=== PATIENT | male | born 1940 | race Caucasian/White ===

== ENCOUNTER 2023-01-29 05:32 | Observation (INO) ==
[2023-01-29 06:10] LABS: Basophils # (auto) 0.02 K/uL (0-0.2); Basophils % (auto) 0.2 %; Eosinophils # (auto) 0.01 K/uL (0-0.50); Eosinophils % (auto) 0.1 %; Hematocrit (blood only) 40.7 % (42.0-52.0); Hemoglobin 13.9 g/dl (14.0-18.0); Immature Granulocytes # (auto) 0.03 K/uL (0.01-0.20); Immature Granulocytes % (auto) 0.4 %; Lymphocytes # (auto) 0.62 K/uL (1.2-3.4); Lymphocytes % (auto) 7.6 %; Mean Corpuscular Hemoglobin 30.3 pg (25.0-34.0); Mean Corpuscular Hgb Conc 34.2 g/dL (32.0-36.0); Mean Corpuscular Volume 88.7 fL (80.0-100.0); Mean Platelet Volume 10.1 fL (9.4-12.4); Monocytes # (auto) 0.17 K/uL (0.11-0.59); Monocytes % (auto) 2.1 %; Neutrophils # (auto) 7.35 K/uL (1.40-6.50); Neutrophils % (auto) 89.6 %; Platelet Count 221 K/uL (130-400); Red Blood Count 4.59 M/uL (4.70-6.10)
[2023-01-29] MEDS ORDERED: SODIUM CHLORIDE 0.9% 1000ML 1,000 ML IV ONE ×2 (06:23→10:57)
[2023-01-29 06:32] LABS: Appearance Urine Clear (Clear); Bacteria Urine Automated Negative (Negative); Bilirubin Urine Negative (Negative); Blood Urine Negative (Negative); Color Urine Yellow; Epithelial Cell Urine Auto 0-5 /lpf (0-5); Glucose Urine UA 2+ (Negative); Ketones Urine Negative (Negative); Leukocyte Esterase Urine Negative (Negative); Nitrite Urine Negative (Negative); RBC Urine Automated 0-4 /hpf (0-4); Urobilinogen Urine Negative (Negative); WBC Urine Automated 0 /hpf (0-5)
[2023-01-29 06:32] LABS: Albumin Level 4.2 gm/dl (3.4-5.0); BUN Creatinine Ratio 16.3 (10-20); Bilirubin Direct 0.1 mg/dl (0-0.2); Bilirubin,Total 0.7 mg/dl (0.2-1.0); Calcium 9.1 mg/dl (8.6-10.3); Creatinine Clr Calc Pharmacy 63.9 ml/min; Est GFR (African American) 97.8 ml/min; Est GFR (Non-African American) 84.4 ml/min; Magnesium 1.6 mg/dl (1.7-2.4); Potassium 4.1 mmol/L (3.5-5.1); Total Protein 7.3 gm/dl (6.0-8.3); Troponin I High Sensitivity 12.5 pg/ml (0-20)
[2023-01-29 06:44] LABS: Protein Urine 1+ (Negative)
[2023-01-29] MEDS ORDERED: CEFEPIME 2,000 MG/20 ML VIAL IV STA ×2 (06:49)
[2023-01-29] MEDS ORDERED: VANCOMYCIN CONSULT ACTIVE PRN (06:49)
[2023-01-29] MEDS ORDERED: VANCOMYCIN HCL 1,500 MG in SODIUM CHLORIDE 0.9% 500 ML IV ONE (06:49)
--- NOTE | 2023-01-29 07:01 | XRay Report ---
XR chest 1V portable HISTORY: 82 years-old Male Sepsis acute sepsis COMPARISON: None TECHNIQUE: AP view of the chest FINDINGS: Cardiac silhouette is enlarged. Atherosclerosis of the aorta. No pneumothorax, pleural effusion, airs pace consolidation or pulmonary edema. Degenerative changes of the shoulders and spine. Cholecystecto my. Upper lumbar vertebral plasty. IMPRESSION: No acute process. ACT 112: Negative or not required by law. The above report was generated using voice recognition software. It may contain grammatical, syntax o r spelling errors. Electronically signed by: Avelino Salter M.D. 01/29/2023 7:00 AM
[2023-01-29] MEDS ORDERED: ACETAMINOPHEN 1000 MG/100 ML IV IV ONE (07:07)
[2023-01-29] MEDS ORDERED: ACETAMINOPHEN 1,000 MG/100 ML VIAL IV STA (07:12)
[2023-01-29 07:47] LABS: Adenovirus PCR Not Detected (NotDetected); Bordetella parapertussis PCR Not Detected (NotDetected); Bordetella pertussis PCR Not Detected (NotDetected); Chlamydia pneumoniae PCR Not Detected (NotDetected); Coronavirus 229E PCR Not Detected (NotDetected); Coronavirus CoV-2 (COVID19)PCR Not Detected (NotDetected); Coronavirus HKU1 PCR Not Detected (NotDetected); Coronavirus NL63 PCR Not Detected (NotDetected); Coronavirus OC43PCR Not Detected (NotDetected); Human Metapneumovirus PCR Not Detected (NotDetected); Influenza A PCR Not Detected (NotDetected); Influenza B PCR Not Detected (NotDetected); Mycoplasma pneumoniae PCR Not Detected (NotDetected); Parainfluenza Virus 1 PCR Not Detected (NotDetected); Parainfluenza Virus 2 PCR Not Detected (NotDetected); Parainfluenza Virus 3 PCR Not Detected (NotDetected); Parainfluenza Virus 4 PCR Not Detected (NotDetected); Respiratory Syncytial VirusPCR Not Detected (NotDetected); Rhinovirus/Enterovirus PCR Not Detected (NotDetected)
--- NOTE | 2023-01-29 07:51 | Emergency Department Note ---
Impression & Plan Fever, Generalized weakness, Altered mental status ED Provider Note INFORMANT: Patient and family ED PROVIDER(S): Reji Dominguez DO CHIEF COMPLAINT: Fever and generalized weakness and mild confusion PLAN: Disposition: Admission Outpatient prescription management: none Discussion with: I spoke with the hospitalist, who will see the patient for admission/observation and further evaluation and consultation. MEDICAL DECISION MAKING: This is a 82-year-old male who presents to the ED with a chief complaint of generalized weakness as well as some mild confusion. The patient is noted to have a fever here today. The states that he was fine yesterday. He was his normal self. He might have some mild baseline dementia but otherwise is able to carry on a conversation and answer questions appropriately as well as ambulate without difficulty. Overnight the patient was found to be incontinent of urine and seemed to be a little confused as to where he was. He was sitting on the floor and the was unable to get him up because he was too weak. He seemed a little confused this morning according to the as well. She was concerned and brought him in for evaluation. The patient is noted to have a fever of 38.7 here today. On my exam he is awake. He is very tired and falls asleep during the interview. The patient does answer questions appropriately. He does not have any skin rashes or cellulitis on my exam. His lungs are clear. Heart is regular rate and rhythm. No meningismus. No photosensitivity. Abdomen is soft and nontender. An EKG shows a sinus bradycardia at a rate of 59 with a first-degree AV block and right bundle branch block. CBC did not show anemia or leukocytosis. Lactic acid is mildly elevated 2.8. Glucose is elevat ed 312. He is a diabetic. Troponin was negative for myocardial infarction. Procalcitonin was negative. Chest x-ray did not show pneumonia. COVID test was negative and a urine did not show infection. Viral panel was negative. The source of the patient's fever is unclear at this point. Denies any upper respiratory symptoms. The patient was empirically treated with IV cefepime and IV vancomycin. He was also given a liter of normal saline IV. After liter of normal saline, the patient's blood pressure was elevated. At this point I do not feel the patient is in septic shock and does not require additional IV fluids, per sepsis protocol. He was given some IV Tylenol. He will be seen by the hospitalist for further evaluation and care. Triage Nursing notes reviewed. Vital Signs: reviewed Prior /Outside records reviewed: none Differential diagnosis: Differential includes acute coronary syndrome, myocardial infarction, CVA, TIA, anemia, infection, pneumonia, UTI, pyelonephritis, poor nutrition, dehydration, electrolyte disturbance,hypoglycemia. Diagnostics, as interpreted by me: 12 lead ECG: Sinus bradycardia rate of 59. Right bundle branch block. No ST elevation. No PVCs. Normal QTc Cardiac Monitoring ordered: Sinus rhythm in the 60s Medical decision rules: none Imaging studies: Chest x-ray: No acute disease. No pneumonia Procedures: none. Critical care: none. HPI: See MDM above. PAST MEDICAL HISTORY: See Below PAST SURGICAL HISTORY: See Below SOCIAL HISTORY: See Below HOME MEDICATIONS:See Below ALLERGIES: See Below VITALS: See Below PHYSICAL EXAMINATION: See MDM for positive findings otherwise unremarkable. CONSTITUTIONAL/VITAL SIGNS: Reviewed GENERAL:done as appropriate INTEGUMENTARY: done as appropriate HEAD: done as appropriate EYES: done as appropriate RESPIRATORY: done as appropriate CARDIOVASCULAR:done as appropriate GI/ABDOMEN:done as appropriate EXTREMITIES: done as appropriate NEUROLOGICAL: done as appropriate PSYCHIATRIC:done as appropriate MUSCULOSKELETAL:done as appropriate TRIAGE NURSING DOCUMENTATION REVIEWED. Past Med/Surg History Social History Smoking Status: Former smoker Tobacco Type: Cigarettes Feels Safe at Home: Yes Results & Data (ED) Vital Signs Vital Signs - 24 hr 01/29/23 05:28 01/29/23 05:28 01/29/23 05:44 Temperature 38.7 C H Temperature Source Oral Pulse Rate 59 L 60 Pulse Rate from SpO2 Sensor Pulse Rhythm Regular Respiratory Rate 18 18 Respiratory Effort / Characteristics Non-Labored Spontaneous Non-Labored Spontaneous Respiratory Depth Normal Blood Pressure 163/73 H Blood Pressure Mean 103 Pulse Oximetry 96 96 Oxygen Delivery Method Room Air Room Air Sepsis Recent Fever Within 48 Hours Yes Sepsis New/Unexplained Change in Mental Status No Sepsis Action Taken by Nursing No Action Required 01/29/23 05:44 01/29/23 05:41 01/29/23 05:41 Temperature Temperature Source Pulse Rate 60 58 L Pulse Rate from SpO2 Sensor 59 L Pulse Rhythm Respiratory Rate 19 Respiratory Effort / Characteristics Non-Labored Spontaneous Respiratory Depth Blood Pressure 163/73 H Blood Pressure Mean 103 Pulse Oximetry 96 Oxygen Delivery Method Sepsis Recent Fever Within 48 Hours Sepsis New/Unexplained Change in Mental Status Sepsis Action Taken by Nursing 01/29/23 05:47 01/29/23 05:50 01/29/23 06:00 Temperature Temperature Source Pulse Rate 61 58 L 71 Pulse Rate from SpO2 Sensor 60 56 L Pulse Rhythm Respiratory Rate 15 12 26 H Respiratory Effort / Characteristics Respiratory Depth Blood Pressure 152/72 H Blood Pressure Mean 98 Pulse Oximetry 98 96 Oxygen Delivery Method Sepsis Recent Fever Within 48 Hours Sepsis New/Unexplained Change in Mental Status Sepsis Action Taken by Nursing 01/29/23 06:10 01/29/23 06:46 01/29/23 07:00 Temperature Temperature Source Pulse Rate 56 L 56 L 58 L Pulse Rate from SpO2 Sensor 56 L Pulse Rhythm Respiratory Rate 20 14 15 Respiratory Effort / Characteristics Respiratory Depth Blood Pressure 180/78 H 182/73 H Blood Pressure Mean 112 109 Pulse Oximetry 96 96 95 Oxygen Delivery Method Sepsis Recent Fever Within 48 Hours Sepsis New/Unexplained Change in Mental Status Sepsis Action Taken by Nursing 01/29/23 07:15 01/29/23 07:30 Temperature Temperature Source Pulse Rate 57 L 56 L Pulse Rate from SpO2 Sensor 57 L Pulse Rhythm Respiratory Rate 20 20 Respiratory Effort / Characteristics Respiratory Depth Blood Pressure 159/65 H 146/60 H Blood Pressure Mean 96 88 Pulse Oximetry 96 96 Oxygen Delivery Method Sepsis Recent Fever Within 48 Hours Sepsis New/Unexplained Change in Mental Status Sepsis Action Taken by Nursing Laboratory Data 01/29/23 05:41 01/29/23 05:41 Lab Results 01/29/23 01/29/23 01/29/23 Range/Units 05:41 05:41 05:41 WBC 8.20 (4.8-10.8) K/ul RBC 4.59 L (4.70-6.10) M/uL Hgb 13.9 L (14.0-18.0) g/dl Hct 40.7 L (42.0-52.0) % MCV 88.7 (80.0-100.0) fL MCH 30.3 (25.0-34.0) pg MCHC 34.2 (32.0-36.0) g/dL RDW Std Deviation 42.0 (36.4-46.3) fL RDW Coeff of James 13.0 (11.5-14.5) % Plt Count 221 (130-400) K/uL MPV 10.1 (9.4-12.4) fL Immature Gran % (Auto) 0.4 % Neut % (Auto) 89.6 % Lymph % (Auto) 7.6 % [place] % (Auto) 2.1 % Eos % (Auto) 0.1 % Baso % (Auto) 0.2 % Neut # (Auto) 7.35 H (1.40-6.50) K/uL Lymph # (Auto) 0.62 L (1.2-3.4) K/uL [place] # (Auto) 0.17 (0.11-0.59) K/uL Eos # (Auto) 0.01 (0-0.50) K/uL Baso # (Auto) 0.02 (0-0.2) K/uL Immature Gran # (Auto) 0.03 (0.01-0.20) K/uL Sodium 137 (136-145) mmol/L Potassium 4.1 (3.5-5.1) mmol/L Chloride 100 (98-107) mmol/L Carbon Dioxide 27 (21-32) mmol/L Anion Gap 10 (3-11) BUN 13 (6-23) mg/dl Creatinine 0.80 (0.6-1.4) mg/dl Est Cr Clr Drug Dosing 63.9 ml/min Est GFR ( Amer) 97.8 ml/min Est GFR (Non-Af Amer) 84.4 ml/min BUN/Creatinine Ratio 16.3 (10-20) Glucose 312 H* (70-99(Fasting)) mg/dl Lactate (0.4-2.0) mmol/L Calcium 9.1 (8.6-10.3) mg/dl Magnesium 1.6 L (1.7-2.4) mg/dl Total Bilirubin 0.7 (0.2-1.0) mg/dl Direct Bilirubin 0.1 (0-0.2) mg/dl AST 25 (13-39) U/L ALT 29 (7-52) U/L Alkaline Phosphatase 158 H (34-104) U/L Troponin I High Sens 12.5 (0-20) pg/ml Total Protein 7.3 (6.0-8.3) gm/dl Albumin 4.2 (3.4-5.0) gm/dl Procalcitonin 0.09 (0-0.5) ng/ml Urine Color Urine Appearance (Clear) Urine pH (4.5-7.5) Ur Specific [place] (1.000-1.030) Urine Protein (Negative) Urine Glucose (UA) (Negative) Urine Ketones (Negative) Urine Blood (Negative) Urine Nitrite (Negative) Urine Bilirubin (Negative) Urine Urobilinogen (Negative) Ur Leukocyte Esterase (Negative) Urine WBC (Auto) (0-5) /hpf Urine RBC (Auto) (0-4) /hpf U Hyaline Cast (Auto) (0-5) /lpf U Epithel Cells (Auto) (0-5) /lpf Urine Bacteria (Auto) (Negative) Adenovirus (PCR) (NotDetected) B. pertussis DNA (PCR) (NotDetected) B.parapertussis DNA PCR (NotDetected) C. pneumoniae DNA (PCR) (NotDetected) Coronavirus OC43 (PCR) (NotDetected) Coronavirus HKU1 (PCR) (NotDetected) Coronavirus 229E (PCR) (NotDetected) SARS-CoV-2 (PCR) (NotDetected) Coronavirus NL63 (PCR) (NotDetected) Human Metapneumovir PCR (NotDetected) Influenza Type A (PCR) (NotDetected) Influenza Type B (PCR) (NotDetected) M. pneumoniae (PCR) (NotDetected) Parainfluenza 1 (PCR) (NotDetected) Parainfluenza 2 (PCR) (NotDetected) Parainfluenza 3 (PCR) (NotDetected) Parainfluenza 4 (PCR) (NotDetected) RSV (PCR) (NotDetected) Entero/Rhino (PCR) (NotDetected) SARS-CoV-2, RNA, NAAT (NEGATIVE) 01/29/23 01/29/23 01/29/23 Range/Units 05:50 05:50 06:13 WBC (4.8-10.8) K/ul RBC (4.70-6.10) M/uL Hgb (14.0-18.0) g/dl Hct (42.0-52.0) % MCV (80.0-100.0) fL MCH (25.0-34.0) pg MCHC (32.0-36.0) g/dL RDW Std Deviation (36.4-46.3) fL RDW Coeff of James (11.5-14.5) % Plt Count (130-400) K/uL MPV (9.4-12.4) fL Immature Gran % (Auto) % Neut % (Auto) % Lymph % (Auto) % [place] % (Auto) % Eos % (Auto) % Baso % (Auto) % Neut # (Auto) (1.40-6.50) K/uL Lymph # (Auto) (1.2-3.4) K/uL [place] # (Auto) (0.11-0.59) K/uL Eos # (Auto) (0-0.50) K/uL Baso # (Auto) (0-0.2) K/uL Immature Gran # (Auto) (0.01-0.20) K/uL Sodium (136-145) mmol/L Potassium (3.5-5.1) mmol/L Chloride (98-107) mmol/L Carbon Dioxide (21-32) mmol/L Anion Gap (3-11) BUN (6-23) mg/dl Creatinine (0.6-1.4) mg/dl Est Cr Clr Drug Dosing ml/min Est GFR ( Amer) ml/min Est GFR (Non-Af Amer) ml/min BUN/Creatinine Ratio (10-20) Glucose (70-99(Fasting)) mg/dl Lactate 2.8 H* (0.4-2.0) mmol/L Calcium (8.6-10.3) mg/dl Magnesium (1.7-2.4) mg/dl Total Bilirubin (0.2-1.0) mg/dl Direct Bilirubin (0-0.2) mg/dl AST (13-39) U/L ALT (7-52) U/L Alkaline Phosphatase (34-104) U/L Troponin I High Sens (0-20) pg/ml Total Protein (6.0-8.3) gm/dl Albumin (3.4-5.0) gm/dl Procalcitonin (0-0.5) ng/ml Urine Color Yellow Urine Appearance Clear (Clear) Urine pH 8.0 H (4.5-7.5) Ur Specific [place] 1.020 (1.000-1.030) Urine Protein 1+ H (Negative) Urine Glucose (UA) 2+ H (Negative) Urine Ketones Negative (Negative) Urine Blood Negative (Negative) Urine Nitrite Negative (Negative) Urine Bilirubin Negative (Negative) Urine Urobilinogen Negative (Negative) Ur Leukocyte Esterase Negative (Negative) Urine WBC (Auto) 0 (0-5) /hpf Urine RBC (Auto) 0-4 (0-4) /hpf U Hyaline Cast (Auto) 1-5 (0-5) /lpf U Epithel Cells (Auto) 0-5 (0-5) /lpf Urine Bacteria (Auto) Negative (Negative) Adenovirus (PCR) (NotDetected) B. pertussis DNA (PCR) (NotDetected) B.parapertussis DNA PCR (NotDetected) C. pneumoniae DNA (PCR) (NotDetected) Coronavirus OC43 (PCR) (NotDetected) Coronavirus HKU1 (PCR) (NotDetected) Coronavirus 229E (PCR) (NotDetected) SARS-CoV-2 (PCR) (NotDetected) Coronavirus NL63 (PCR) (NotDetected) Human Metapneumovir PCR (NotDetected) Influenza Type A (PCR) (NotDetected) Influenza Type B (PCR) (NotDetected) M. pneumoniae (PCR) (NotDetected) Parainfluenza 1 (PCR) (NotDetected) Parainfluenza 2 (PCR) (NotDetected) Parainfluenza 3 (PCR) (NotDetected) Parainfluenza 4 (PCR) (NotDetected) RSV (PCR) (NotDetected) Entero/Rhino (PCR) (NotDetected) SARS-CoV-2, RNA, NAAT NEGATIVE (NEGATIVE) 01/29/23 Range/Units 06:40 WBC (4.8-10.8) K/ul RBC (4.70-6.10) M/uL Hgb (14.0-18.0) g/dl Hct (42.0-52.0) % MCV (80.0-100.0) fL MCH (25.0-34.0) pg MCHC (32.0-36.0) g/dL RDW Std Deviation (36.4-46.3) fL RDW Coeff of James (11.5-14.5) % Plt Count (130-400) K/uL MPV (9.4-12.4) fL Immature Gran % (Auto) % Neut % (Auto) % Lymph % (Auto) % [place] % (Auto) % Eos % (Auto) % Baso % (Auto) % Neut # (Auto) (1.40-6.50) K/uL Lymph # (Auto) (1.2-3.4) K/uL [place] # (Auto) (0.11-0.59) K/uL Eos # (Auto) (0-0.50) K/uL Baso # (Auto) (0-0.2) K/uL Immature Gran # (Auto) (0.01-0.20) K/uL Sodium (136-145) mmol/L Potassium (3.5-5.1) mmol/L Chloride (98-107) mmol/L Carbon Dioxide (21-32) mmol/L Anion Gap (3-11) BUN (6-23) mg/dl Creatinine (0.6-1.4) mg/dl Est Cr Clr Drug Dosing ml/min Est GFR ( Amer) ml/min Est GFR (Non-Af Amer) ml/min BUN/Creatinine Ratio (10-20) Glucose (70-99(Fasting)) mg/dl Lactate (0.4-2.0) mmol/L Calcium (8.6-10.3) mg/dl Magnesium (1.7-2.4) mg/dl Total Bilirubin (0.2-1.0) mg/dl Direct Bilirubin (0-0.2) mg/dl AST (13-39) U/L ALT (7-52) U/L Alkaline Phosphatase (34-104) U/L Troponin I High Sens (0-20) pg/ml Total Protein (6.0-8.3) gm/dl Albumin (3.4-5.0) gm/dl Procalcitonin (0-0.5) ng/ml Urine Color Urine Appearance (Clear) Urine pH (4.5-7.5) Ur Specific [place] (1.000-1.030) Urine Protein (Negative) Urine Glucose (UA) (Negative) Urine Ketones (Negative) Urine Blood (Negative) Urine Nitrite (Negative) Urine Bilirubin (Negative) Urine Urobilinogen (Negative) Ur Leukocyte Esterase (Negative) Urine WBC (Auto) (0-5) /hpf Urine RBC (Auto) (0-4) /hpf U Hyaline Cast (Auto) (0-5) /lpf U Epithel Cells (Auto) (0-5) /lpf Urine Bacteria (Auto) (Negative) Adenovirus (PCR) Not Detected (NotDetected) B. pertussis DNA (PCR) Not Detected (NotDetected) B.parapertussis DNA PCR Not Detected (NotDetected) C. pneumoniae DNA (PCR) Not Detected (NotDetected) Coronavirus OC43 (PCR) Not Detected (NotDetected) Coronavirus HKU1 (PCR) Not Detected (NotDetected) Coronavirus 229E (PCR) Not Detected (NotDetected) SARS-CoV-2 (PCR) Not Detected (NotDetected) Coronavirus NL63 (PCR) Not Detected (NotDetected) Human Metapneumovir PCR Not Detected (NotDetected) Influenza Type A (PCR) Not Detected (NotDetected) Influenza Type B (PCR) Not Detected (NotDetected) M. pneumoniae (PCR) Not Detected (NotDetected) Parainfluenza 1 (PCR) Not Detected (NotDetected) Parainfluenza 2 (PCR) Not Detected (NotDetected) Parainfluenza 3 (PCR) Not Detected (NotDetected) Parainfluenza 4 (PCR) Not Detected (NotDetected) RSV (PCR) Not Detected (NotDetected) Entero/Rhino (PCR) Not Detected (NotDetected) SARS-CoV-2, RNA, NAAT (NEGATIVE) Administered Medications Vancomycin HCl 1,500 mg/ (Sodium Chloride) 530 mls @ 200 mls/hr IV NOW ONE Stop: 01/29/23 09:27 Last Admin: 01/29/23 07:38 Dose: 200 mls/hr Documented By: NA Discontinued Medications Acetaminophen (Acetaminophen 1000 Mg/100 Ml Iv) Confirm Administered Dose 1,000 mg IV .STK-MED ONE Stop: 01/29/23 07:08 Last Admin: 01/29/23 07:09 Dose: 1,000 mg Documented By: BRIDGET Sodium Chloride (Nss 1000ml) 1,000 mls @ 999 mls/hr IV .[id number] ONE Stop: 01/29/23 07:23 Last Infusion: 01/29/23 07:19 Dose: 0 mls/hr Documented By: Admin: 01/29/23 06:26 Dose: 999 mls/hr Documented By: LESLEE Cefepime HCl (Maxipime) 2,000 mg in 20 mls @ 5 mls/min IV NOW STA; Protocol Stop: 01/29/23 06:52 Last Admin: 01/29/23 07:01 Dose: 5 mls/min Documented By: BRIDGET Cefepime HCl (Maxipime) 2,000 mg in 20 mls @ 5 mls/min IV NOW STA; Protocol Stop: 01/29/23 06:52 Last Admin: 01/29/23 07:01 Dose: Not Given Documented By: BRIDGET Acetaminophen (Ofirmev) 1,000 mg in 100 mls @ 400 mls/hr IV NOW STA Stop: 01/29/23 07:26 Last Admin: 01/29/23 07:13 Dose: Not Given Documented By: BRIDGET Imaging Data Radiologist's Impression: Chest X-Ray 01/29/23 05:44 XR chest 1V portable HISTORY: 82 years-old Male Sepsis acute sepsis COMPARISON: None TECHNIQUE: AP view of the chest FINDINGS: Cardiac silhouette is enlarged. Atherosclerosis of the aorta. No pneumothorax, pleural effusion, airspace consolidation or pulmonary edema. Degenerative changes of the shoulders and spine. Cholecystectomy. Upper lumbar vertebral plasty. IMPRESSION: No acute process. ACT 112: Negative or not required by law. The above report was generated using voice recognition software. It may contain grammatical, syntax or spelling errors. Electronically signed by: Avelino Salter M.D. 01/29/2023 7:00 AM Discharge Plan Visit Data Chief Complaint: Weakness Stated Complaint: Rolled out of Bed, Weaker than normal ED Provider: Reji Dominguez Discharge Problem: Fever, Generalized weakness, Altered mental status Patient Disposition: Being Evaluated by Hospitalist Forms Stand Alone Forms: [facility] Referrals Referrals: Sowmya Manzo M.D. [Primary Care Provider] -
[2023-01-29] MEDS ORDERED: MAGNESIUM SULFATE / D5W 1 GM/100 ML BAG IV ONE (08:45)
[2023-01-29] MEDS ORDERED: SODIUM CHLORIDE 0.9% 1000ML 1,000 ML IV SCH (09:00)
--- NOTE | 2023-01-29 09:12 | CT Scan Report ---
CT head/brain wo con CLINICAL HISTORY: 82 years-old Male with AMS, fall, fever. Acute head injury status post fall TECHNIQUE: Multiple axial CT images of the head were obtained without contrast. A dose lowering tech nique was utilized adhering to the principles of ALARA. CT DOSE: 625.80 mGy.cm COMPARISON: None. FINDINGS: No acute intracranial hemorrhage, midline shift, intracranial mass, acute territorial ischemia or abn ormal extra-axial collection. 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 Cerebr ovascular calcifications. Ventriculomegaly, likely on an ex vacuo basis. Basilar arterial tortuosity. Cerebellar parenchymal calcifications. Subcentimeter age-indeterminate lacunar infarcts of the right thalamus. 9 mm hypodense focus in the left pontine brainstem, image 10 series 2. The calvarium is intact. Mild polypoid mucosal thickening of the right maxillary sinus. Mastoid air cells are clear. Prior bilateral antral IMPRESSION: 1. No acute intracranial hemorrhage, midline shift or acute territorial infarct. 2. Age-indeterminate subcentimeter right thalamic and left pontine lacunar infarcts. ACT 112: Negative or not required by law. The above report was generated using voice recognition software. It may contain grammatical, syntax o r spelling errors. Electronically signed by: Avelino Salter M.D. 01/29/2023 9:09 AM
[2023-01-29] MEDS ORDERED: GLUCOSE 10 TAB/TUBE PO PRN (09:52)
[2023-01-29] MEDS ORDERED: DEXTROSE 50% 50 ML SYRINGE IV PRN (09:52)
[2023-01-29] MEDS ORDERED: ACETAMINOPHEN 325 MG TAB PO PRN (09:52)
[2023-01-29] MEDS ORDERED: GLUCAGON FOR INJ 1 MG VIAL SQ PRN (09:52)
[2023-01-29] MEDS ORDERED: GLUCOSE 40% GEL 15 GM TUBE PO PRN (09:52)
[2023-01-29] MEDS ORDERED: CARBOHYDRATES FOR HYPOGLYCEMIA PO PRN (09:52)
[2023-01-29] MEDS ORDERED: PHARMACY GLYCEMIC MGMT CONSULT PRN (09:52)
--- NOTE | 2023-01-29 09:53 | History & Physical Report ---
Date of Service January 29, 2023 Assessment & Plan (1) Fever: (2) Altered mental status: (3) Generalized weakness: Plan: Admit to tele Patient presenting from home for evaluation of AMS and generalized weakness. Found to be febrile in the ED. Metabolic encephalopathy due to acute illness. Noted mild underlying dementia. T 38.7, lactate 2.8 --> 3.0. No leukocytosis, BP stable. UA, CXR, Head CT unremarkable Given reports of headache, will obtain LP s/p Vanco and Cefepime in ED, will continue with Vanco and Zosyn -- may need to adjust pending LP results Check Lyme panel, anaplasma and Babesia smears Follow blood and urine cultures (4) Elevated lactic acid level: Plan: Lactate 2.8 --> 3.0 ? due to hyperglycemia vs possible sepsis Continue IVF and trend lactate (5) Hyperglycemia: (6) DM type 2 (diabetes mellitus, type 2): Plan: Glucose 312 -- hx NIDDM, unknown recent A1c notes recent dietary indiscretions of fast food and sweets. No signs of DKA Hold oral agents, utilize Lantus and Novolog per protocol while hospitalized A1c with AM labs Glycemic pharmacy consult (7) Bradycardia: Plan: EKG show sinus bradycardia with 1st degree AV block HR dropped to the 30s during my exam Monitor on tele Not on any AV venu blocking agents Echo (8) HTN (hypertension): Plan: BP controlled, continue Lisinopril and amlodipine (9) History of CVA (cerebrovascular accident): Plan: Continue ASA and statin (10) Dementia: Plan: Hx underlying mild dementia Continue donepezil (11) BPH (benign prostatic hyperplasia): Plan: Continue tamsulosin DVT PROPHYLAXIS SQ Lovenox Patient seen in collaboration with Dr. Madera. I spent a total of 75 minutes coordinating, documenting, and providing care for this patient excluding time spent in the performance of separately billed services. This included personally reviewing all current laboratories and imaging studies, medication reconciliation, outpatient chart review, and discussion with specialists. Admission and Anticipated Discharge Date Admission Date: January 29, 2023 History of Present Illness Chief Complaint: Altered mental status, generalized weakness Primary Care Provider: Sowmya Manzo 82-year-old male with PMH DM type II, osteoporosis, history of CVA and TIA, history of compression fracture, dementia, and other problems listed below who presents to the ED for evaluation of altered mental status and generalized weakness. History currently unobtainable from the patient. History obtained from patient's and daughter who are at the bedside. states that they recently moved from [place] to [place] a little over 1 week ago. Last evening, patient went to bed around 10:00 complaining of a headache. states that patient does have history of migraines however has not had 1 for a very long time. Around 3 AM, woke up to find patient had urinated in various places in the home and found soiled underwear laying on the floor. Patient was in bed. Shortly after, found patient on the floor. She did not hear him fall. She found him to be lethargic, confused, unable to stand up. EMS was called and patient was brought to the ED for further evaluation. states that patient has been urinating more frequently recently. She reports that they have been eating more fast food and desserts during their move. Patient does check his blood sugars on a daily basis however is unsure of readings. Otherwise patient has been doing well. He has mild dementia at baseline and has episodes of confusion however remains fairly independent and works out in the gym 3 to 4 days a week. In the ED, patient is found to be febrile at 38.7. Labs show glucose 312, lactate 2.8 --> 3.0. UA, CXR, head CT unremarkable. Patient received Tylenol, IVF, IV Vanco, IV cefepime. Allergies Allergy/AdvReac Type Severity Reaction Status Date / Time No Known Allergies Allergy Unverified 01/29/23 10:20 Home Medications Medication Instructions Recorded Confirmed Type amlodipine 2.5 mg tablet 2.5 mg PO DAILY 01/29/23 01/29/23 History aspirin 81 mg chewable tablet 81 mg PO DAILY 01/29/23 01/29/23 History atorvastatin 20 mg tablet 20 mg PO HS 01/29/23 01/29/23 History calcium carbonate 600 mg calcium 600 mg PO DAILY 01/29/23 01/29/23 History (1,500 mg) tablet (Calcium) cholecalciferol (vitamin D3) 125 125 mcg PO DAILY 01/29/23 01/29/23 History mcg (5,000 unit) capsule donepezil 10 mg tablet 10 mg PO DAILY 01/29/23 01/29/23 History ipratropium bromide 42 mcg (0.06 2 spray intranasal BID PRN 01/29/23 01/29/23 History %) nasal spray Congestion lisinopril 10 mg tablet 10 mg PO BID 01/29/23 01/29/23 History metformin 1,000 mg tablet 1,000 mg PO BID 01/29/23 01/29/23 History mv-mn-folic 200 mcg-vit K 15 1 cap PO DAILY 01/29/23 01/29/23 History mcg-lutein 5 mg-zeaxanthin 1 mg capsule (PreserVision AREDS 2 Plus Multivit) sitagliptin phosphate 50 mg tablet 50 mg PO DAILY 01/29/23 01/29/23 History (Januvia) tamsulosin 0.4 mg capsule 0.4 mg PO DAILY 01/29/23 01/29/23 History teriparatide 20 mcg/dose (600 20 mcg subcut DAILY 01/29/23 01/29/23 History mcg/2.4 mL) subcutaneous pen injector (Forteo) Past Med/Surg History Medical History (Updated 01/29/23 @ 10:06 by TRACEY Jorge) Basal cell carcinoma BPH (benign prostatic hyperplasia) Dementia DM type 2 (diabetes mellitus, type 2) History of compression fracture of spine History of CVA (cerebrovascular accident) History of TIA (transient ischemic attack) HTN (hypertension) Osteoporosis Spontaneous pneumothorax Surgical History History of back surgery History of cholecystectomy History of hernia repair History of total bilateral knee replacement Social History Smoking Status: Former smoker Tobacco Type: Cigarettes Hx Alcohol Use: No Hx Substance Use: No Preferred Language: Bulgarian Communication Ability: Effective Sensory Scientist Required: No Beliefs That Will Affect Care: None Current Living Situation: Spouse Other Information That Helps Us Care for You: No Feels Safe at Home: Yes Safety Concerns: Feels Safe At This Time Assistive Devices: Denture - Upper, Denture - Lower and Glasses Review of Systems Review of Systems: Unobtainable due to AMS Physical Exam Constitutional: WD/WN, vitals as above Eyes: PERRL, conjunctivae normal, anicteric sclerae ENMT: external ear and nose normal, oropharynx normal Respiratory: normal respiratory effort, lungs clear to auscultation Cardiovascular: Rate/Rhythm: regular rhythm and + bradycardic Vessels: normal peripheral pulses Extremities: no edema Gastrointestinal (Abdomen): normal bowel sounds, soft, nontender, no hepatosplenomegaly Musculoskeletal: Extremities: no cyanosis and no clubbing Skin: no rashes, warm and dry Neurologic: PERRL, EOMI, accommodation nl, no face palsy, no dysarthria moves all extremities; no focal motor deficits Lethargic but arouses to verbal stimuli, follows simple commands, appears to be generally weak throughout Results & Data Results & Data Vital Signs (Past 12 Hours) Vital Signs Temp Pulse Pulse Resp BP BP Pulse Ox 01/29/23 09:22 58 L 16 130/55 L 97 01/29/23 09:00 38.3 C H 60 16 138/61 97 01/29/23 07:30 56 L 20 146/60 H 96 01/29/23 07:15 57 L 20 159/65 H 96 01/29/23 07:00 58 L 15 182/73 H 95 01/29/23 06:46 56 L 14 180/78 H 96 01/29/23 06:10 56 L 20 96 01/29/23 06:00 71 26 H 01/29/23 05:50 58 L 12 152/72 H 96 01/29/23 05:47 61 15 98 01/29/23 05:41 58 L 19 163/73 H 96 01/29/23 05:41 60 01/29/23 05:44 60 18 96 01/29/23 05:28 38.7 C H 59 L 18 163/73 H 96 O2 Del Method 01/29/23 09:22 Room Air 01/29/23 09:00 Room Air 01/29/23 07:30 01/29/23 07:15 01/29/23 07:00 01/29/23 06:46 01/29/23 06:10 01/29/23 06:00 01/29/23 05:50 01/29/23 05:47 01/29/23 05:41 01/29/23 05:41 01/29/23 05:44 Room Air 01/29/23 05:28 Room Air Laboratory Results Short CBC 01/29/23 Range/Units 05:41 WBC 8.20 (4.8-10.8) K/ul Hgb 13.9 L (14.0-18.0) g/dl Hct 40.7 L (42.0-52.0) % Plt Count 221 (130-400) K/uL BMP 01/29/23 05:41 Sodium 137 Potassium 4.1 Chloride 100 Carbon Dioxide 27 BUN 13 Creatinine 0.80 Glucose 312 H* Calcium 9.1 Liver Function 01/29/23 Range/Units 05:41 Total Bilirubin 0.7 (0.2-1.0) mg/dl Direct Bilirubin 0.1 (0-0.2) mg/dl AST 25 (13-39) U/L ALT 29 (7-52) U/L Alkaline Phosphatase 158 H (34-104) U/L Albumin 4.2 (3.4-5.0) gm/dl Urine 01/29/23 Range/Units 05:50 Urine Color Yellow Urine Appearance Clear (Clear) Urine pH 8.0 H (4.5-7.5) Ur Specific [place] 1.020 (1.000-1.030) Urine Protein 1+ H (Negative) Urine Glucose (UA) 2+ H (Negative) Diagnostic Findings Chest X-Ray 01/29/23 05:44 XR chest 1V portable HISTORY: 82 years-old Male Sepsis acute sepsis COMPARISON: None TECHNIQUE: AP view of the chest FINDINGS: Cardiac silhouette is enlarged. Atherosclerosis of the aorta. No pneumothorax, pleural effusion, airspace consolidation or pulmonary edema. Degenerative changes of the shoulders and spine. Cholecystectomy. Upper lumbar vertebral plasty. IMPRESSION: No acute process. ACT 112: Negative or not required by law. The above report was generated using voice recognition software. It may contain grammatical, syntax or spelling errors. Electronically signed by: Avelino Salter M.D. 01/29/2023 7:[address] 01/29/23 08:45 CT head/brain wo con CLINICAL HISTORY: 82 years-old Male with AMS, fall, fever. Acute head injury status post fall TECHNIQUE: Multiple axial CT images of the head were obtained without contrast. A dose lowering technique was utilized adhering to the principles of ALARA. CT DOSE: 625.80 mGy.cm COMPARISON: None. FINDINGS: No acute intracranial hemorrhage, midline shift, intracranial mass, acute territorial ischemia or abnormal extra-axial collection. 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 Cerebrovascular calcifications. Ventriculomegaly, likely on an ex vacuo basis. Basilar arterial tortuosity. Cerebellar parenchymal calcifications. Subcentimeter age-indeterminate lacunar infarcts of the right thalamus. 9 mm hypodense focus in the left pontine brainstem, image 10 series 2. The calvarium is intact. Mild polypoid mucosal thickening of the right maxillary sinus. Mastoid air cells are clear. Prior bilateral antral IMPRESSION: 1. No acute intracranial hemorrhage, midline shift or acute territorial infarct. 2. Age-indeterminate subcentimeter right thalamic and left pontine lacunar infarcts. ACT 112: Negative or not required by law. The above report was generated using voice recognition software. It may contain grammatical, syntax or spelling errors. Electronically signed by: Avelino Salter M.D. 01/29/2023 9:09 AM Code Status & VTE Plan Code Status Patient is a full code as per my discussion with and daughter who are at the bedside. VTE Prophylaxis Plan VTE Prophylaxis will be ordered: Yes Supervising Physician Co-Signing Physician Notes Patient seen and examined independently. Discussed with above provider. Patient is a 82-year-old male with past medical history of diabetes, CVA dementia who presents to the hospital with fever, headache and confusion. On presentation, he was febrile to 38.7 C. Blood pressure and pulse within normal limits. No leukocytosis on lab work. Lactate elevated Electrolytes within normal limits. Blood glucose level of 312 and magnesium of 1.6 Chest x-rayno pneumonia Urinalysisno signs of infection Recent viral panel negative Head CT did not show any acute intracranial abnormality. Found to have age- indeterminate subcentimeter right thalamic and left pontine lacunar infarcts. Lumbar puncture with CSF WBC of just 1. PCR so far negative. Lyme IgM eqifocal We will continue empiric ceftriaxone and vancomycin. Ceftriaxone will also cover acute focal Lyme IgM positivity. We will follow-up on infectious work-up to include blood culture. MRI brain with and without contrast ordered given the CT head findings. Discussed with and daughter at bedside.
[2023-01-29] MEDS ORDERED: Patient's ALLERGY Info needs ENTERED SCH (10:15)
--- NOTE | 2023-01-29 10:38 | Pharmacy Report ---
Pharmacy PK ABX Note - Date of Service January 29, 2023 - Assessment and Plan Assessment 82 year old M receiving empiric vancomycin and Zosyn empirically for febrile illness. Presented with altered mental status (underling mild dementia), generalized weakness, and reported headache last evening. Pertinent microbiologic data includes: blood cultures x 2 pending, LP pending, lyme/anaplasma/babesia pending. UA negative, no apparent leukocytosis, lactate elevated at 2.8, procalcitonin 0.09. Day # 1 of antimicrobial therapy. Plan Vancomycin * Loading dose: 1500 mg IV x 1 * Maintenance dose: 750 mg IV every 12 hours * Regimen is predicted to achieve target AUC/NADEEM of 400-600 mg/L.hr * Will order vanco level if therapy continued beyond 48 hours Zosyn * 4.5 g IV q8h - appropriate Pharmacy will continue to follow and will adjust dose/frequency as necessary. Thank you. Pharmacy has transitioned to AUC monitoring for vancomycin. AUC/NADEEM is the preferred PK/PD target and is associated with decreased risk of nephrotoxicity compared to traditional trough targets.
[2023-01-29] MEDS ORDERED: ENOXAPARIN INJ 40 MG/0.4 ML SYR SQ SCH (11:00)
[2023-01-29] MEDS ORDERED: PIPERACILLIN/TAZOBACTAM 4.5 GM in DEXTROSE 5% 100 ML IV SCH (11:00)
[2023-01-29 11:18] LABS: Lyme Ab IgG w/WB Rflx Negative (Negative)
[2023-01-29] MEDS: INSULIN ASPART PER UNIT CHARGE SC SCH ×4 (11:22→20:13)
[2023-01-29 11:28] LABS: Lyme Ab IgM w/WB Rflx Equivocal (Negative)
[2023-01-29] MEDS ORDERED: INSULIN ASPART PER UNIT CHARGE SC SCH ×2 (11:30→18:00)
[2023-01-29 11:51] LABS: Appearance CSF Clear; CSF Count Tube # 3; CSF Xanthrochromic No xanthochromia; Color CSF Colorless
[2023-01-29 11:52] LABS: Total Protein CSF 92.9 mg/dl (15-45)
[2023-01-29] MEDS ORDERED: DOXYCYCLINE HYCLATE 100 MG in DEXTROSE 5% 100 ML IV SCH (12:00)
--- NOTE | 2023-01-29 12:08 | Pharmacy Report ---
Pharmacy Glycemic Short Note 2 - Date of Service January 29, 2023 - Glycemic Short BSG Results (Last 24 hours): 01/29/23 01/29/23 05:41 10:04 Glucose 312 H* POC Glucose 200 H OUTPATIENT ANTIDIABETIC REGIMEN: * metformin 1000 mg PO BIDM HbA1c ordered for 01/30/23 ASSESSMENT: * NINA is a 82 year old male who presented to ED this morning with fever, generalized weakness, and altered mental status * Hyperglycemic based on initial lab draw (312 mg/dL) - no POC taken or insulin administered * Per patient's , has been eating more fast food/sweets in recent weeks * Pharmacy consulted for glycemic management upon admission to floor - BSG at that time was 200 mg/dL (no insulin administered up until this point) * Patient originally NPO, now ordered a diet. Will hold off on basal insulin for now given significant correction with only 2 units of insulin. * Empiric broad spectrum antibiotics in form of vanco/ceftriaxone PLAN FOR INPATIENT GLYCEMIC CONTROL: * Hold outpatient oral diabetes medications * Basal insulin * hold * Bolus insulin * NovoLog per scale ACHS or Q6hrs while NPO * Goal Range: Low 120 mg/dL - High 150 mg/dL * Correction Factor: 45 mg/dL/unit * Nutritional / Prandial insulin per carb ratio of 1 unit per 15 grams CHO consumed
--- NOTE | 2023-01-29 12:57 | Fluoroscopy Report ---
Lumbar puncture under fluoroscopy INDICATION: Headache; fever PROCEDURE: Procedure and risks were explained. Informed consent was obtained. A final timeout was com pleted. The patient was placed prone on the fluoroscopic exam table. The lower lumbar region was prep ped and draped in sterile fashion. 1% buffered lidocaine was utilized for skin anesthesia. Utilizing fluoroscopic guidance, a 22-gauge spinal needle was advanced into the intrathecal space at the L3-L4 level. Spot image was obtained. Approximately 8 mL of clear CSF fluid was removed and sent to lab for analysis. The needle was removed and Band-Aid applied. The patient tolerated the procedure well. Total fluoroscopy time 0.3 minutes. DAP is 9.69 mcGy/m2. IMPRESSION: Lumbar puncture as above. Performed, dictated, and signed by Gasper Queen PA-C; to be co-signed by Dr. Dony Purdy. Electronically signed by: Dony Purdy M.D. 01/29/2023 4:33 PM
[2023-01-29 13:16] LABS: Cryptococcus neoformans/ga PCR Not Detected (NotDetected); Cytomegalovirus PCR Not Detected (NotDetected); Enterovirus PCR Not Detected (NotDetected); Escherichia coli K1 PCR Not Detected (NotDetected); Haemophilius influenzae PCR Not Detected (NotDetected); Herpes Simplex Virus 1 PCR Not Detected (NotDetected); Herpes Simplex Virus 2 PCR Not Detected (NotDetected); Human Herpes Virus 6 PCR Not Detected (NotDetected); Human Parechovirus PCR Not Detected (NotDetected); Listeria monocytogenes PCR Not Detected (NotDetected); Neisseria meningitidis PCR Not Detected (NotDetected); Streptococcus agalactiae PCR Not Detected (NotDetected); Streptococcus pneumoniae PCR Not Detected (NotDetected); Varicella Zoster Virus PCR Not Detected (NotDetected)
[2023-01-29] MEDS ORDERED: INSULIN ASPART PER UNIT CHARGE SC ONE (14:00)
[2023-01-29] MEDS: cefTRIAXone SODIUM 2,000 MG in DEXTROSE 5% 50 ML IV SCH (14:39)
[2023-01-29] MEDS ORDERED: GADOBUTROL 30ML VIAL IV ONE (16:29)
[2023-01-29] MEDS: VANCOMYCIN HCL 750 MG in SODIUM CHLORIDE 0.9% 250 ML IV SCH (17:00)
--- NOTE | 2023-01-29 17:01 | Magnetic Resonance Report ---
MRI OF THE BRAIN WITHOUT AND WITH IV CONTRAST CLINICAL HISTORY: Altered mental status. Fall. CT head shows age indeterminate infarct. COMPARISON STUDY: Head CT performed earlier today. TECHNIQUE: Utilizing a 1.5 Flor magnet and dedicated coil, multiplanar, multiecho imaging of the br ain was performed pre and postcontrast administration. IV administration of Gadavist contrast was un eventful. FINDINGS: There are no foci of restricted diffusion to suggest acute infarct. 6 mm old lacunar infarc t within left aspect of the martin corresponds to the finding on head CT. There are old lacunar infarct s within the right thalamus. No intracranial mass or pathologic enhancement is present. Mild ventricu lar dilatation is likely due to atrophy. There are no extra-axial collections. Basal cisterns are pat ent. White matter T2 hyperintense foci suggest small vessel disease. Calvarial signal is normal. 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 A small mucous retention cyst within the right maxillary s inus is present. IMPRESSION: 1. No acute intracranial findings. 2. Old lacunar infarcts within the left martin and right thalamus which corresponds to the findings on head CT. 3. No intracranial mass or pathologic enhancement. 4. White matter T2 hyperintense foci which favor small vessel disease. ACT 112: Negative or not required by law. Electronically signed by: Dony Purdy M.D. 01/29/2023 4:58 PM
[2023-01-29] MEDS: ATORVASTATIN 20 MG TAB PO SCH (20:14)
[2023-01-29] MEDS ORDERED: lisinopril 10 MG TAB PO SCH (21:00)
[2023-01-30] MEDS: VANCOMYCIN HCL 750 MG in SODIUM CHLORIDE 0.9% 250 ML IV SCH (05:55)
[2023-01-30 06:02] LABS: Hematocrit (blood only) 33.2 % (42.0-52.0); Hemoglobin 11.3 g/dl (14.0-18.0); Mean Corpuscular Hemoglobin 30.6 pg (25.0-34.0); Mean Platelet Volume 9.7 fL (9.4-12.4); Platelet Count 181 K/uL (130-400); RDW Coefficient of Variation 13.1 % (11.5-14.5); RDW Standard Deviation 42.7 fL (36.4-46.3); Red Blood Count 3.69 M/uL (4.70-6.10); White Blood Count 8.52 K/ul (4.8-10.8)
[2023-01-30 06:18] LABS: BUN Creatinine Ratio 20.3 (10-20); Calcium 8.2 mg/dl (8.6-10.3); Creatinine Clr Calc Pharmacy 82.3 ml/min; Est GFR (African American) 107.2 ml/min; Est GFR (Non-African American) 92.5 ml/min; Magnesium 1.7 mg/dl (1.7-2.4); Potassium 3.7 mmol/L (3.5-5.1)
--- NOTE | 2023-01-30 06:31 | Electrocardiogram Report ---
Test Reason : Blood Pressure : / mmHG Vent. Rate : 059 BPM Atrial Rate : 059 BPM P-R Int : 236 ms QRS Dur : 148 ms QT Int : 458 ms P-R-T Axes : -18 -86 011 degrees QTc Int : 453 ms Sinus bradycardia with 1st degree A-V block Right bundle branch block Left anterior fascicular block Bifascicular block T wave abnormality, consider anterolateral ischemia Abnormal ECG No previous ECGs available Confirmed by Gurwinder Hunt ([id number]) on 01/30/2023 6:31:25 AM Referred By: Confirmed By:Gurwinder Hunt
[2023-01-30] MEDS: TAMSULOSIN HCL 0.4 MG CAP PO SCH (08:46)
[2023-01-30] MEDS: INSULIN ASPART PER UNIT CHARGE SC SCH ×4 (08:47→20:33)
[2023-01-30 08:58] LABS: Estimated Average Glucose 197 mg/dl; Hemoglobin A1C 8.5 % (4.5-5.6)
[2023-01-30] MEDS ORDERED: DONEPEZIL HCL 10 MG TAB PO SCH (09:00)
[2023-01-30] MEDS ORDERED: ASPIRIN 81 MG CHEW PO SCH (09:00)
[2023-01-30] MEDS ORDERED: amLODIPine BESYLATE 5 MG TAB PO SCH (09:00)
[2023-01-30] MEDS ORDERED: SITagliptin PHOSPHATE 25 MG TAB PO SCH (10:00)
[2023-01-30] MEDS: CALCIUM CARBONATE 1250MG TAB PO SCH (11:32)
[2023-01-30] MEDS: amLODIPine BESYLATE 5 MG TAB PO SCH (11:32)
[2023-01-30] MEDS: lisinopril 10 MG TAB PO SCH ×2 (11:32→20:19)
[2023-01-30] MEDS: ASPIRIN 81 MG ECTAB PO SCH (11:32)
[2023-01-30] MEDS ORDERED: LANTUS PER UNIT CHARGE SC ONE (11:45)
[2023-01-30] MEDS: cefTRIAXone SODIUM 2,000 MG in DEXTROSE 5% 50 ML IV SCH (14:15)
--- NOTE | 2023-01-30 15:09 | Hospitalist Progress Note ---
Date of Service January 30, 2023 Assessment & Plan (1) Fever: (2) Altered mental status: (3) Generalized weakness: (4) Borderline Lyme serology: (5) Elevated lactic acid level: Plan: Patient is a 82-year-old male with possible history of type 2 diabetes mellitus, history of CVA, dementia who presented to the ED with fever, confusion and generalized weakness. Febrile to 38.7 on admission Lactate elevated to 3 on presentation Labs reviewed; no leukocytosis. Electrolytes within normal limits. TSH WNL Chest x-rayno infiltrates Urinalysisno suggestion of infection MRI brainno acute intracranial findings. Old lacunar infarcts within the left martin and right thalamus Lumbar puncture: CSF WBC 1 Glucose high consistent with diabetes Protein high with 92.9 Blood cultureno growth till date Lyme IgM borderline positive Clinically improved with IV antibiotic ceftriaxone and vancomycin. Vancomycin discontinued as blood culture is negative. 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 Awaiting Lyme confirmatory test and CSF Lyme test. Will sw itch to doxycycline at discharge. (6) Hyperglycemia: (7) DM type 2 (diabetes mellitus, type 2): Plan: Glucose 312 -- hx NIDDM notes recent dietary indiscretions of fast food and sweets. No signs of DKA Hold oral agents, utilize Lantus and Novolog per protocol while hospitalized A1c8.3 (8) Bradycardia: Plan: EKG show sinus bradycardia with 1st degree AV block Telemetry shows sinus bradycardia with first-degree AV block overnight. Blood pressure normotensive Echo reviewed; EF of 60 to 65%. Aortic valve moderately calcified. Trivial loculated anterior pericardial effusion. (9) HTN (hypertension): Plan: BP controlled, continue Lisinopril and amlodipine (10) History of CVA (cerebrovascular accident): Plan: Continue ASA and statin (11) Dementia: Plan: Stop given bradycardia (12) BPH (benign prostatic hyperplasia): Plan: Continue tamsulosin DVT PROPHYLAXIS SQ Lovenox Time spent evaluating patient, direct bedside care, chart review, placing orders, interpretation of diagnostic studies, discussion with consultants, patient, and family members, as well as other required patient management activities is 60 minutes. Please note the above document was generated using voice recognition software. It may contain grammatical, syntax or spelling errors. Any formal questions or concerns about the content, text or information contained within the body of this dictation should be directly addressed to the provider for clarification Admission and Anticipated Discharge Date Admission Date: January 29, 2023 Subjective Patient seen and examined at bedside. He is comfortably sitting up on the chair at the side of the bed. Not in any distress. He is afebrile. Hemodynamic stable. Review of Systems Review of Systems: All systems reviewed & are unremarkable except as noted in Subjective Physical Exam Physical Exam: Constitutional: WD/WN, vitals as above, NAD, sitting up in bed, pleasant, conversing easily Respiratory: normal respiratory effort, lungs clear to auscultation, no wheeze, rales, rhonchi. Normal insp/exp effort, no accessory muscle use Cardiovascular: RRR, no murmur, no edema Vessels: no JVD or carotid bruit Chest: normal inspection of chest Abdomen: normal bowel sounds, soft, nontender, no hepatosplenomegaly Musculoskeletal: no cyanosis or clubbing, extremities motor strength 5/5 Skin: no rashes, warm and dry normal turgor Neurologic: PERRL, EOMI, accommodation nl, no face palsy, no dysarthria CN's II- XI intact bilaterally and moves all extremities Psychiatric: A+Ox3, euthymic affect Lymphatic: no cervical or axillary lymphadenopathy : deferred Results & Data Results & Data Vital Signs (Past 12 Hours) Vital Signs Temp Pulse Pulse Resp BP Pulse Ox O2 Del Method 01/30/23 11:52 36.5 C 45 L 17 155/72 H 98 Room Air 01/30/23 09:31 Room Air 01/30/23 08:14 40 L 01/30/23 08:06 36.5 C 45 L 18 161/66 H 97 Room Air 01/30/23 03:43 36.6 C 41 L 20 170/73 H 96 Room Air Laboratory Results Laboratory Results WBC 8.52 K/ul (4.8-10.8) 01/30/23 05:24 RBC 3.69 M/uL (4.70-6.10) L 01/30/23 05:24 Hgb 11.3 g/dl (14.0-18.0) L 01/30/23 05:24 Hct 33.2 % (42.0-52.0) L 01/30/23 05:24 MCV 90.0 fL (80.0-100.0) 01/30/23 05:24 MCH 30.6 pg (25.0-34.0) 01/30/23 05:24 MCHC 34.0 g/dL (32.0-36.0) 01/30/23 05:24 RDW Std Deviation 42.7 fL (36.4-46.3) 01/30/23 05:24 RDW Coeff of James 13.1 % (11.5-14.5) 01/30/23 05:24 Plt Count 181 K/uL (130-400) 01/30/23 05:24 MPV 9.7 fL (9.4-12.4) 01/30/23 05:24 Immature Gran % (Auto) 0.4 % 01/29/23 05:41 Neut % (Auto) 89.6 % 01/29/23 05:41 Lymph % (Auto) 7.6 % 01/29/23 05:41 [place] % (Auto) 2.1 % 01/29/23 05:41 Eos % (Auto) 0.1 % 01/29/23 05:41 Baso % (Auto) 0.2 % 01/29/23 05:41 Neut # (Auto) 7.35 K/uL (1.40-6.50) H 01/29/23 05:41 Lymph # (Auto) 0.62 K/uL (1.2-3.4) L 01/29/23 05:41 [place] # (Auto) 0.17 K/uL (0.11-0.59) 01/29/23 05:41 Eos # (Auto) 0.01 K/uL (0-0.50) 01/29/23 05:41 Baso # (Auto) 0.02 K/uL (0-0.2) 01/29/23 05:41 Immature Gran # (Auto) 0.03 K/uL (0.01-0.20) 01/29/23 05:41 Sodium 141 mmol/L (136-145) 01/30/23 05:24 Potassium 3.7 mmol/L (3.5-5.1) 01/30/23 05:24 Chloride 107 mmol/L (98-107) 01/30/23 05:24 Carbon Dioxide 28 mmol/L (21-32) 01/30/23 05:24 Anion Gap 6 (3-11) 01/30/23 05:24 BUN 13 mg/dl (6-23) 01/30/23 05:24 Creatinine 0.64 mg/dl (0.6-1.4) 01/30/23 05:24 Est Cr Clr Drug Dosing 82.3 ml/min 01/30/23 05:24 Est GFR ( Amer) 107.2 ml/min 01/30/23 05:24 Est GFR (Non-Af Amer) 92.5 ml/min 01/30/23 05:24 BUN/Creatinine Ratio 20.3 (10-20) H 01/30/23 05:24 Glucose 124 mg/dl (70-99(Fasting)) H 01/30/23 05:24 POC Glucose 338 mg/dl (70-99) H* 01/30/23 11:09 Estimat Average Glucose 197 mg/dl 01/30/23 05:24 Hemoglobin A1c 8.5 % (4.5-5.6) H 01/30/23 05:24 Lactate 1.4 mmol/L (0.4-2.0) 01/29/23 13:09 Calcium 8.2 mg/dl (8.6-10.3) L 01/30/23 05:24 Magnesium 1.7 mg/dl (1.7-2.4) 01/30/23 05:24 Total Bilirubin 0.7 mg/dl (0.2-1.0) 01/29/23 05:41 Direct Bilirubin 0.1 mg/dl (0-0.2) 01/29/23 05:41 AST 25 U/L (13-39) 01/29/23 05:41 ALT 29 U/L (7-52) 01/29/23 05:41 Alkaline Phosphatase 158 U/L (34-104) H 01/29/23 05:41 Troponin I High Sens 12.5 pg/ml (0-20) 01/29/23 05:41 Total Protein 7.3 gm/dl (6.0-8.3) 01/29/23 05:41 Albumin 4.2 gm/dl (3.4-5.0) 01/29/23 05:41 Procalcitonin 0.09 ng/ml (0-0.5) 01/29/23 05:41 TSH 1.462 uIu/ml (0.300-4.500) 01/30/23 05:24 Urine Color Yellow 01/29/23 05:50 Urine Appearance Clear (Clear) 01/29/23 05:50 Urine pH 8.0 (4.5-7.5) H 01/29/23 05:50 Ur Specific [place] 1.020 (1.000-1.030) 01/29/23 05:50 Urine Protein 1+ (Negative) H 01/29/23 05:50 Urine Glucose (UA) 2+ (Negative) H 01/29/23 05:50 Urine Ketones Negative (Negative) 01/29/23 05:50 Urine Blood Negative (Negative) 01/29/23 05:50 Urine Nitrite Negative (Negative) 01/29/23 05:50 Urine Bilirubin Negative (Negative) 01/29/23 05:50 Urine Urobilinogen Negative (Negative) 01/29/23 05:50 Ur Leukocyte Esterase Negative (Negative) 01/29/23 05:50 Urine WBC (Auto) 0 /hpf (0-5) 01/29/23 05:50 Urine RBC (Auto) 0-4 /hpf (0-4) 01/29/23 05:50 U Hyaline Cast (Auto) 1-5 /lpf (0-5) 01/29/23 05:50 U Epithel Cells (Auto) 0-5 /lpf (0-5) 01/29/23 05:50 Urine Bacteria (Auto) Negative (Negative) 01/29/23 05:50 Fluid Comment 01/29/23 11:00 CSF Appearance Clear 01/29/23 11:00 CSF Color Colorless 01/29/23 11:00 Xanthrochromic No xanthochromia 01/29/23 11:00 CSF WBC 1 (0-5) 01/29/23 11:00 CSF RBC 0 (0-) 01/29/23 11:00 CSF Cell Count Tube # 3 01/29/23 11:00 CSF Chemistry Tube # 1 01/29/23 11:00 CSF Chemistry Tube # Cancelled 01/29/23 11:00 CSF Glucose 149 mg/dl (40-70) H 01/29/23 11:00 CSF Glucose Cancelled 01/29/23 11:00 CSF Total Protein 92.9 mg/dl (15-45) H 01/29/23 11:00 CSF Total Protein Cancelled 01/29/23 11:00 CSF Total Protein Cancelled 01/29/23 11:00 CSF C.neoform/gat PCR Not Detected (NotDetected) 01/29/23 11:00 CSF CMV DNA (PCR) Not Detected (NotDetected) 01/29/23 11:00 CSF Enterovirus (PCR) Not Detected (NotDetected) 01/29/23 11:00 CSF E. coli K1 (PCR) Not Detected (NotDetected) 01/29/23 11:00 CSF H. influenzae (PCR) Not Detected (NotDetected) 01/29/23 11:00 CSF HSV I (PCR) Not Detected (NotDetected) 01/29/23 11:00 CSF HSV II (PCR) Not Detected (NotDetected) 01/29/23 11:00 CSF HHV 6 (PCR) Not Detected (NotDetected) 01/29/23 11:00 CSF L.monocytogenes PCR Not Detected (NotDetected) 01/29/23 11:00 CSF N. meningitidis PCR Not Detected (NotDetected) 01/29/23 11:00 CSF Parechovirus (PCR) Not Detected (NotDetected) 01/29/23 11:00 CSF S. agalactiae (PCR) Not Detected (NotDetected) 01/29/23 11:00 CSF S. pneumoniae (PCR) Not Detected (NotDetected) 01/29/23 11:00 CSF VZV DNA (PCR) Not Detected (NotDetected) 01/29/23 11:00 Nasal Screen MRSA (PCR) Negative (Negative) 01/29/23 Unknown Adenovirus (PCR) Not Detected (NotDetected) 01/29/23 06:40 Anaplasma Smear See Comment 01/29/23 05:41 Babesia Smear See Comment 01/29/23 05:41 B. pertussis DNA (PCR) Not Detected (NotDetected) 01/29/23 06:40 B.parapertussis DNA PCR Not Detected (NotDetected) 01/29/23 06:40 Lyme Disease IgG Ab Negative (Negative) 01/29/23 05:41 Lyme Disease IgM Ab Equivocal (Negative) A 01/29/23 05:41 C. pneumoniae DNA (PCR) Not Detected (NotDetected) 01/29/23 06:40 Coronavirus OC43 (PCR) Not Detected (NotDetected) 01/29/23 06:40 Coronavirus HKU1 (PCR) Not Detected (NotDetected) 01/29/23 06:40 Coronavirus 229E (PCR) Not Detected (NotDetected) 01/29/23 06:40 SARS-CoV-2 (PCR) Not Detected (NotDetected) 01/29/23 06:40 Coronavirus NL63 (PCR) Not Detected (NotDetected) 01/29/23 06:40 Human Metapneumovir PCR Not Detected (NotDetected) 01/29/23 06:40 Influenza Type A (PCR) Not Detected (NotDetected) 01/29/23 06:40 Influenza Type B (PCR) Not Detected (NotDetected) 01/29/23 06:40 M. pneumoniae (PCR) Not Detected (NotDetected) 01/29/23 06:40 Parainfluenza 1 (PCR) Not Detected (NotDetected) 01/29/23 06:40 Parainfluenza 2 (PCR) Not Detected (NotDetected) 01/29/23 06:40 Parainfluenza 3 (PCR) Not Detected (NotDetected) 01/29/23 06:40 Parainfluenza 4 (PCR) Not Detected (NotDetected) 01/29/23 06:40 RSV (PCR) Not Detected (NotDetected) 01/29/23 06:40 Entero/Rhino (PCR) Not Detected (NotDetected) 01/29/23 06:40 SARS-CoV-2, RNA, NAAT NEGATIVE (NEGATIVE) 01/29/23 05:50 Impressions Chest X-Ray 01/29/23 05:44 XR chest 1V portable HISTORY: 82 years-old Male Sepsis acute sepsis COMPARISON: None TECHNIQUE: AP view of the chest FINDINGS: Cardiac silhouette is enlarged. Atherosclerosis of the aorta. No pneumothorax, pleural effusion, airspace consolidation or pulmonary edema. Degenerative changes of the shoulders and spine. Cholecystectomy. Upper lumbar vertebral plasty. IMPRESSION: No acute process. ACT 112: Negative or not required by law. The above report was generated using voice recognition software. It may contain grammatical, syntax or spelling errors. Electronically signed by: Avelino Salter M.D. 01/29/2023 7:[address] 01/29/23 08:45 CT head/brain wo con CLINICAL HISTORY: 82 years-old Male with AMS, fall, fever. Acute head injury status post fall TECHNIQUE: Multiple axial CT images of the head were obtained without contrast. A dose lowering technique was utilized adhering to the principles of ALARA. CT DOSE: 625.80 mGy.cm COMPARISON: None. FINDINGS: No acute intracranial hemorrhage, midline shift, intracranial mass, acute territorial ischemia or abnormal extra-axial collection. 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 Cerebrovascular calcifications. Ventriculomegaly, likely on an ex vacuo basis. Basilar arterial tortuosity. Cerebellar parenchymal calcifications. Subcentimeter age-indeterminate lacunar infarcts of the right thalamus. 9 mm hypodense focus in the left pontine brainstem, image 10 series 2. The calvarium is intact. Mild polypoid mucosal thickening of the right maxillary sinus. Mastoid air cells are clear. Prior bilateral antral IMPRESSION: 1. No acute intracranial hemorrhage, midline shift or acute territorial infarct. 2. Age-indeterminate subcentimeter right thalamic and left pontine lacunar infarcts. ACT 112: Negative or not required by law. The above report was generated using voice recognition software. It may contain grammatical, syntax or spelling errors. Electronically signed by: Avelino Salter M.D. 01/29/2023 9:09 AM Lumbar Puncture 01/29/23 09:34 Lumbar puncture under fluoroscopy INDICATION: Headache; fever PROCEDURE: Procedure and risks were explained. Informed consent was obtained. A final timeout was completed. The patient was placed prone on the fluoroscopic exam table. The lower lumbar region was prepped and draped in sterile fashion. 1% buffered lidocaine was utilized for skin anesthesia. Utilizing fluoroscopic guidance, a 22-gauge spinal needle was advanced into the intrathecal space at the L3-L4 level. Spot image was obtained. Approximately 8 mL of clear CSF fluid was removed and sent to lab for analysis. The needle was removed and Band-Aid applied. The patient tolerated the procedure well. Total fluoroscopy time 0.3 minutes. DAP is 9.69 mcGy/m2. IMPRESSION: Lumbar puncture as above. Performed, dictated, and signed by Gasper Queen PA-C; to be co-signed by Dr. Dony Purdy. Electronically signed by: Dony Purdy M.D. 01/29/2023 4:33 PM Brain MRI 01/29/23 10:54 MRI OF THE BRAIN WITHOUT AND WITH IV CONTRAST CLINICAL HISTORY: Altered mental status. Fall. CT head shows age indeterminate infarct. COMPARISON STUDY: Head CT performed earlier today. TECHNIQUE: Utilizing a 1.5 Flor magnet and dedicated coil, multiplanar, multiecho imaging of the brain was performed pre and postcontrast administration. IV administration of Gadavist contrast was uneventful. FINDINGS: There are no foci of restricted diffusion to suggest acute infarct. 6 mm old lacunar infarct within left aspect of the martin corresponds to the finding on head CT. There are old lacunar infarcts within the right thalamus. No intracranial mass or pathologic enhancement is present. Mild ventricular dilatation is likely due to atrophy. There are no extra-axial collections. Basal cisterns are patent. White matter T2 hyperintense foci suggest small vessel disease. Calvarial signal is normal. 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 A small mucous retention cyst within the right maxillary sinus is present. IMPRESSION: 1. No acute intracranial findings. 2. Old lacunar infarcts within the left martin and right thalamus which corresponds to the findings on head CT. 3. No intracranial mass or pathologic enhancement. 4. White matter T2 hyperintense foci which favor small vessel disease. ACT 112: Negative or not required by law. Electronically signed by: Dony Purdy M.D. 01/29/2023 4:58 PM
--- NOTE | 2023-01-30 15:18 | Pharmacy Report ---
Pharmacy Glycemic Short Note 2 - Date of Service January 30, 2023 - Glycemic Short BSG Results (Last 24 hours): 01/29/23 01/29/23 01/30/23 17:00 20:07 05:24 Glucose 124 H POC Glucose 112 H 97 01/30/23 01/30/23 01/30/23 07:45 11:08 11:09 Glucose POC Glucose 152 H 325 H* 338 H* OUTPATIENT ANTIDIABETIC REGIMEN: * metformin 1000 mg PO BIDM HbA1c ordered for 01/30/23 ASSESSMENT: 01/30: * Uche received a total of 5 units of insulin yesterday with steady decline in BSG throughout the day. * Fasting BSG of 124 and 152 mg/dL this morning, therefore I held off on the addition of basal insulin. BSG then jumped to 338 mg/dL at lunch. Nursing confirmed that patient did not consume uncovered carbs prior to this. Basal insulin added at lunch and correction factor/carb ratio tightened. 01/29: * NINA is a 82 year old male who presented to ED this morning with fever, generalized weakness, and altered mental status * Hyperglycemic based on initial lab draw (312 mg/dL) - no POC taken or insulin administered * Per patient's , has been eating more fast food/sweets in recent weeks * Pharmacy consulted for glycemic management upon admission to floor - BSG at that time was 200 mg/dL (no insulin administered up until this point) * Patient originally NPO, now ordered a diet. Will hold off on basal insulin for now given significant correction with only 2 units of insulin. * Empiric broad spectrum antibiotics in form of vanco/ceftriaxone PLAN FOR INPATIENT GLYCEMIC CONTROL: * Hold outpatient oral diabetes medications * Basal insulin * Lantus 10 units SQ x 1, then start 0-5 units BID (0 units for BSG < 180, 5 units for 180 or more) * Bolus insulin * NovoLog per scale ACHS or Q6hrs while NPO * Goal Range: Low 120 mg/dL - High 150 mg/dL * Correction Factor: 35 mg/dL/unit * Nutritional / Prandial insulin per carb ratio of 1 unit per 10 grams CHO consumed
[2023-01-30] MEDS: ATORVASTATIN 20 MG TAB PO SCH (20:19)
[2023-01-30] MEDS: LANTUS PER UNIT CHARGE SC SCH (20:33)
[2023-01-31] MEDS ORDERED: VANCOMYCIN LEVEL ONE (05:30)
[2023-01-31] MEDS: TAMSULOSIN HCL 0.4 MG CAP PO SCH (08:17)
[2023-01-31] MEDS: lisinopril 10 MG TAB PO SCH (08:17)
[2023-01-31] MEDS: amLODIPine BESYLATE 5 MG TAB PO SCH (08:21)
[2023-01-31] MEDS: ASPIRIN 81 MG ECTAB PO SCH (08:21)
[2023-01-31] MEDS: CALCIUM CARBONATE 1250MG TAB PO SCH (08:21)
[2023-01-31] MEDS: LANTUS PER UNIT CHARGE SC SCH (08:35)
[2023-01-31] MEDS: INSULIN ASPART PER UNIT CHARGE SC SCH ×2 (08:36→12:39)
--- NOTE | 2023-01-31 15:50 | Discharge Summary ---
Date of Service January 31, 2023 Admission HPI Per Admitting Provider 82-year-old male with PMH DM type II, osteoporosis, history of CVA and TIA, history of compression fracture, dementia, and other problems listed below who presents to the ED for evaluation of altered mental status and generalized weakness. History currently unobtainable from the patient. History obtained from patient's and daughter who are at the bedside. states that they recently moved from [place] to [place] a little over 1 week ago. Last evening, patient went to bed around 10:00 complaining of a headache. states that patient does have history of migraines however has not had 1 for a very long time. Around 3 AM, woke up to find patient had urinated in various places in the home and found soiled underwear laying on the floor. Patient was in bed. Shortly after, found patient on the floor. She did not hear him fall. She found him to be lethargic, confused, unable to stand up. EMS was called and patient was brought to the ED for further evaluation. states that patient has been urinating more frequently recently. She reports that they have been eating more fast food and desserts during their move. Patient does check his blood sugars on a daily basis however is unsure of readings. Otherwise patient has been doing well. He has mild dementia at baseline and has episodes of confusion however remains fairly independent and works out in the gym 3 to 4 days a week. In the ED, patient is found to be febrile at 38.7. Labs show glucose 312, lactate 2.8 --> 3.0. UA, CXR, head CT unremarkable. Patient received Tylenol, IVF, IV Vanco, IV cefepime. Admission Exam Per Admitting Provider Constitutional: WD/WN, vitals as above Eyes: PERRL, conjunctivae normal, anicteric sclerae ENMT: external ear and nose normal, oropharynx normal Respiratory: normal respiratory effort, lungs clear to auscultation Cardiovascular: Rate/Rhythm: regular rhythm and + bradycardic Vessels: normal peripheral pulses Extremities: no edema Gastrointestinal (Abdomen): normal bowel sounds, soft, nontender, no hepatosplenomegaly Musculoskeletal: Extremities: no cyanosis and no clubbing Skin: no rashes, warm and dry Neurologic: PERRL, EOMI, accommodation nl, no face palsy, no dysarthria moves all extremities; no focal motor deficits Lethargic but arouses to verbal stimuli, follows simple commands, appears to be generally weak throughout Principal Diagnosis (1) Fever: (2) Altered mental status: (3) Generalized weakness: (4) Borderline Lyme serology (5) Bradycardia Discharge Exam Constitutional: WD/WN, vitals as above, NAD, sitting up in bed, pleasant, conversing easily Respiratory: normal respiratory effort, lungs clear to auscultation, no wheeze, rales, rhonchi. Normal insp/exp effort, no accessory muscle use Cardiovascular: RRR, no murmur, no edema Vessels: no JVD or carotid bruit Chest: normal inspection of chest Abdomen: normal bowel sounds, soft, nontender, no hepatosplenomegaly Musculoskeletal: no cyanosis or clubbing, extremities motor strength 5/5 Skin: no rashes, warm and dry normal turgor Neurologic: PERRL, EOMI, accommodation nl, no face palsy, no dysarthria CN's II- XI intact bilaterally and moves all extremities Psychiatric: A+Ox3, euthymic affect Lymphatic: no cervical or axillary lymphadenopathy : deferred Discharge Data Allergies Allergy/AdvReac Type Severity Reaction Status Date / Time No Known Allergies Allergy Unverified 01/29/23 10:20 Consultations 01/29/23 07:44 ED Decision to Admit Stat Ordered Studies 01/29/23 08:[address] [CT head/brain wo con] Stat 01/29/23 09:34 IR lumbar puncture diagnostic Stat 01/29/23 10:54 MRI Brain [MR brain wo/w con] Urgent Hospital Course (1) Fever: (2) Altered mental status: (3) Generalized weakness: (4) Borderline Lyme serology: (5) Elevated lactic acid level: Patient is a 82-year-old male with possible history of type 2 diabetes mellitus, history of CVA, dementia who presented to the ED with fever, confusion and generalized weakness. Febrile to 38.7 on admission Lactate elevated to 3 on presentation Labs reviewed; no leukocytosis. Electrolytes within normal limits. TSH WNL Chest x-rayno infiltrates Urinalysisno suggestion of infection MRI brainno acute intracranial findings. Old lacunar infarcts within the left martin and right thalamus Lumbar puncture: CSF WBC 1 Glucose high consistent with diabetes Protein high with 92.9 Blood cultureno growth till date Lyme IgM borderline positive During the hospitalization, patient underwent extensive work-up for infectious cause for fever and altered mental status. Blood culture, urine culture were negative for infection. Lumbar puncture showed high protein but other results where normal. Discussion was done with neurology regarding the findings on the lumbar puncture; possibility of Lyme meningitis was presented. Serology Lyme IgM was borderline positive. However, confirmation test is still pending at the time of discharge. Patient was treated with IV ceftriaxone during the hospitalization and was switched over to doxycycline for 14 more days. Patient was alert and oriented x3; at baseline at the time of the discharge. He was afebrile for more than 48 hours. (6) Hyperglycemia: (7) DM type 2 (diabetes mellitus, type 2): Glucose 312 -- hx NIDDM notes recent dietary indiscretions of fast food and sweets. No signs of DKA Hold oral agents, utilize Lantus and Novolog per protocol while hospitalized A1c8.3 Started on home medications. (8) Bradycardia: EKG show sinus bradycardia with 1st degree AV block Telemetry shows sinus bradycardia with first-degree AV block overnight. Blood pressure normotensive Echo reviewed; EF of 60 to 65%. Aortic valve moderately calcified. Trivial loculated anterior pericardial effusion. Recommend outpatient follow-up with cardiology for sinus bradycardia with first- degree AV block. (9) HTN (hypertension): BP controlled, continue Lisinopril and amlodipine (10) History of CVA (cerebrovascular accident): Continue ASA and statin (11) Dementia: Stop Donepezil given bradycardia (12) BPH (benign prostatic hyperplasia): Continue tamsulosin Total Time Total Time Spent Total Time Spent (In Minutes): 45 Total Time Includes: Examination of the Patient, Discharge Planning, Medication Reconciliation, Communication With Other Providers and Other Discharge Plan Discharge Items Patient Disposition: Home - Self-Care Reason For Visit: Rolled out of Bed, Weaker than normal Discharge Diagnosis: Borderline Lyme serology positive Activity: Resume your previous activity Non-emergency contact: Primary Care Provider Call non-emergency contact if: you have any medication questions and your symptoms worsen Follow-up/Referrals: Sowmya Manzo M.D. [Primary Care Provider] - Diet: Regular Addtl Attending Provider Instructions: You were admitted to the hospital with fever and confusion. You underwent extensive work-up to rule out stroke and infection. One of the test that was positive was borderline Lyme test. The confirmatory test is not back and will likely take few more days. In the meantime, you are prescribed doxycycline 100 mg twice daily to be taken for 14 days. For the time being, we are holding donepezil and Forteo till you see a primary care doctor. We will make an appointment with the primary care doctor. You will receive a call regarding appointment. During her hospitalization, your heart rate was found to be on the lower side. Please obtain referral for cardiology when you see primary care doctor for further evaluation. Pending Studies at Discharge: No Stand-Alone Forms: [facility], Smoking Cessation Medications and DC Order Prescriptions: New doxycycline hyclate 100 mg capsule 100 mg PO Q12H 14 Days Qty: 28 0RF Continued atorvastatin 20 mg tablet 20 mg PO HS amlodipine 2.5 mg tablet 2.5 mg PO DAILY calcium carbonate [Calcium 600] 600 mg calcium (1,500 mg) Tablet 600 mg PO DAILY tamsulosin 0.4 mg capsule 0.4 mg PO DAILY metformin 1,000 mg tablet 1,000 mg PO BID lisinopril 10 mg tablet 10 mg PO BID aspirin 81 mg Tablet,Chewable 81 mg PO DAILY ipratropium bromide 42 mcg (0.06 %) spray,non-aerosol 2 spray INTRANASAL BID PRN (Reason: Congestion) cholecalciferol (vitamin D3) 125 mcg (5,000 unit) Capsule 125 mcg PO DAILY Januvia 50 mg tablet 50 mg PO DAILY PreserVision AREDS 2 Plus MV 200 mcg-15 mcg- 5 mg-1 mg Capsule 1 cap PO DAILY Held donepezil 10 mg tablet 10 mg PO DAILY Hold Instructions: Resume on 02/08/23. Till you see a PCP Forteo 20 mcg/dose (600mcg/2.4mL) Pen Injector 20 mcg SUBCUT DAILY Hold Instructions: Resume on 02/08/23. Till you see your PCP Discharge Orders: Discharge Order (Routine); Ordered 01/31/23 Ordered By: Juan Ramon Madera Admission Data Admit Date/Time: 01/29/23 07:51 Attending Provider: Juan Ramon Madera Admit Provider: Juan Ramon Madera Primary Care Provider: Sowmya Manzo Other Providers: Juan Ramon Madera Other Interventions: Discharge Summary Assessment (RN) Last Done: 01/31/23 13:33
[2023-02-02 02:17] LABS: 18KDIGG Band NON-REACTIVE; 23KDIGG Band NON-REACTIVE; 23KDIGM Band NON-REACTIVE; 28KDIGG Band NON-REACTIVE; 30KDIGG Band NON-REACTIVE; 39KDIGG Band NON-REACTIVE; 39KDIGM Band NON-REACTIVE; 41KDIGG Band REACTIVE; 41KDIGM Band NON-REACTIVE; 45KDIGG Band NON-REACTIVE; 58KDIGG Band NON-REACTIVE; 66KDIGG Band NON-REACTIVE; 93KDIGG Band NON-REACTIVE; Lyme Antibodies, WB IgG NEGATIVE (NEGATIVE); Lyme Antibodies, WB IgM NEGATIVE (NEGATIVE)
[2023-02-03 21:18] LABS: Lyme DNA PCR CSF or Synovial Not Detected (Not Detected); Lyme DNA Source CSF
== END 2023-01-31 14:04 | disposition home or self-care (01) ==
LOC: ED 05:32 → 4W 05:32

== ENCOUNTER 2023-09-28 09:24 | Inpatient (IN) ==
[2023-09-28] MEDS ORDERED: SODIUM CHLORIDE 0.9% 1,000 ML IV SCH (09:45)
--- NOTE | 2023-09-28 09:45 | Emergency Department Note ---
Impression & Plan Falls, RLL pneumonia, Weakness, Hyperglycemia due to type 2 diabetes mellitus, Elevated troponin I level ED Provider Note Provider: Jeremy Kapadia MD DATE OF SERVICE: 09/28/2023 CHIEF COMPLAINT: Falls, weakness, hyperglycemia HISTORY OF PRESENT ILLNESS: Patient is a 83-year-old gentleman history of CVA, dementia, BPH, and type 2 diabetes not on insulin presenting here today via ambulance from his home. reports that over the last several days he has had increasing weakness. Multiple falls. Fell 2 days ago foot got stuck and he fell forward striking his face. Some bruising on the face from that. Last night evidently fell to the ground and was unable to get him up. Occurred around midnight. She laid and slept on the floor with him last night. Still too weak to get up and thus brought him here today. Patient himself denies any pain at this time. States when he tried to stand he had some soreness in his hips. Has some soreness in the knees as well. Did not take morning meds are much to eat today but the states he is normally a good eater and drinker. Did recently stop Jardiance. Blood sugar noted to be elevated. states he has his baseline dementia but again is more weak than normal. No fevers reported or cough or cold symptoms. PAST MEDICAL HISTORY: As noted above MEDICATIONS: Reviewed home medications recently discontinued Jardiance by report SOCIAL HISTORY: and lives at home PHYSICAL EXAM: GENERAL: alert and oriented in no acute distress on stretcher fatigued in appearance Head: Patient with healing contusions in the bilateral cheeks somewhat yellow in coloration. EYES: No injection, discharge or icterus. PERRL, EOMI. NECK: Trachea midline. Supple no midline cervical tenderness ENT: Mucous membranes pink and moist. Pharynx without erythema or exudate. No nasal bridge tenderness. No septal hematoma LUNGS: Airway patent. No retractions. Breath sounds clear with good air entry bilaterally. HEART: Regular rate and rhythm. No chest wall tenderness ABDOMEN: Soft and non-tender, without guarding or rebound.No bilateral flank tenderness. SKIN: Acyanotic, warm, dry, without rashes EXTREMITIES: Without deformity with some erythema and slight bruising right greater than left knee and upper leg without significant compartment tenderness to the bilateral lower legs. No obvious deformity. Able to range the feet knees and hips. NEUROLOGICAL: No focal deficits. No aphasia. No facial droop or slurred speech. Normal strength and tone in the extremities. Sensation to gross touch normal. EK bpm sinus rhythm first-degree heart block without PVC or PAC. 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 Diffuse T wave inversions noted with a QTc of 463 CONTINUOUS CARDIAC MONITORING: was ordered and showed a heart rate of 60s bpm in first-degree heart block sinus rhythm GCS 15. Patient's laboratory studies and imaging reviewed. Differential includes traumatic injury, compartment syndrome, fracture/dislocation, wound, infection, dehydration, metabolic abnormality, hypo/hyperglycemia, electrolyte disturbance, anemia, hypoxia, cardiac sources, intracerebral event, toxicologic, neurologic, as well as other pathologies. IMPRESSION/MEDICAL DECISION MAKING: Patient with history of some dementia and reportedly somewhat baseline with this according to may be a little bit worse last week or 2. Has had some falls and has some healing contusions of the face. Could get off the floor last night. Given the fall CT scans were ordered including facial CT although the patient does not have evidence of obvious significant deformities. No significant neck tenderness or new numbness or tingling reported. Generalized weakness with significant hyperglycemia. Question if this could be metabolic in nature. Given some IV fluids here initially. No fevers reported or other infectious symptoms. No evidence of compartment syndrome. No significant chest wall or abdominal tenderness on exam. Good range of motion of the extremities and I doubt dislocation of lower suspicion for fracture in the extremities and do not feel we need additional specific imaging here. Blood work here without significant leukocytosis or anemia. Normal platelet count. Blood sugars elevated. Negative COVID test. No severe electrolyte abnormality or signs of renal dysfunction. Glucose confirmed to be elevated. No significant evidence of LFT abnormality. CK not elevated and doubt rhabdomyolysis. Troponin noted to be 38.1 but not having active chest pain. Repeat completed at 41 not significantly changing. Question more of a demand situation. Again receiving some IV fluid. CT of the head face and cervical spine per radiology report noted with bilateral nasal fracture but no evidence of significant skull fracture/cervical spine fracture or intracranial bleeding. Do not believe requires any acute intervention. CT of the chest abdomen pelvis per radiology report with intermuscular hematoma of the left gluteus gosia likely explains some of his discomfort here with try to ambulate. No other significant trauma. Some evidence of constipation and possibly right lower lobe pneumonia. Further discussion with states he does cough more and he is eating recently question he is aspirating. Will cover with Unasyn although he does not appear septic at this time. Given some additional IV fluids for total of 2 L more than 30 mg/kg although again I doubt think he is septic. This will help him rehydrate however. Will likely need PT and OT. Patient is of IV fluids small insulin to help with his hyperglycemia. Given his weakness and frequent falls patient and and agree with the plan for further care here. Will need monitoring/trending of troponin although likely possibly more demand related and have low suspicion for PE or ACS at this time. Patient and in agreement with the plan to stay. Again receiving antibiotics and rehydration. [facility] hospitalist team contacted. DIAGNOSIS: Falls, weakness, hyperglycemia due to type 2 diabetes, nasal fracture DISPOSITION: Hospitalist will evaluate Patient was agreeable with this plan. Past Med/Surg History Medical History Arthralgia of left wrist Vitamin D deficiency Borderline Lyme serology BPH (benign prostatic hyperplasia) Dementia HTN (hypertension) Spontaneous pneumothorax Basal cell carcinoma History of TIA (transient ischemic attack) History of CVA (cerebrovascular accident) History of compression fracture of spine Osteoporosis DM type 2 (diabetes mellitus, type 2) Surgical History S/P cataract surgery History of hernia repair History of total bilateral knee replacement History of cholecystectomy History of back surgery Social History Smoking Status: Former smoker Tobacco Type: Cigarettes Hx Alcohol Use: No Hx Substance Use: No Preferred Language: Polish Communication Ability: Effective Post Anesthesia Room Nurse Required: No Beliefs That Will Affect Care: None Current Living Situation: Spouse Feels Safe at Home: Yes Assistive Devices: Denture - Upper, Denture - Lower and Glasses Allergies Allergies Allergy/AdvReac Type Severity Reaction Status Date / Time oxycodone AdvReac Unknown Gastrointestinal Verified 09/28/23 13:05 Upset Home Meds Home Medications Medication Instructions Recorded Confirmed amlodipine 2.5 mg tablet 2.5 mg PO DAILY 01/29/23 09/28/23 aspirin 81 mg chewable tablet 81 mg PO QAM 01/29/23 09/28/23 atorvastatin 20 mg tablet 20 mg PO HS 01/29/23 09/28/23 calcium carbonate 600 mg calcium 600 mg PO QAM 01/29/23 09/28/23 (1,500 mg) tablet (Calcium) cholecalciferol (vitamin D3) 125 125 mcg PO QAM 01/29/23 09/28/23 mcg (5,000 unit) capsule ipratropium bromide 42 mcg (0.06 2 spray intranasal BID PRN 01/29/23 09/28/23 %) nasal spray Congestion lisinopril 10 mg tablet 10 mg PO BID 01/29/23 09/28/23 mv-mn-folic 200 mcg-vit K 15 2 cap PO DAILY 01/29/23 09/28/23 mcg-lutein 5 mg-zeaxanthin 1 mg capsule (PreserVision AREDS 2 Plus Multivit) tamsulosin 0.4 mg capsule 0.4 mg PO QA 01/29/23 09/28/23 teriparatide 20 mcg/dose (600 20 mcg subcut DAILY 01/29/23 09/28/23 mcg/2.4 mL) subcutaneous pen injector (Forteo) Macular Health Formula 10 mg PO QAM 09/28/23 09/28/23 magnesium oxide 400 mg PO QAM 09/28/23 09/28/23 metformin 500 mg tablet,extended 1,000 mg PO QA 09/28/23 09/28/23 release 24 hr phenazopyridine 200 mg tablet 0 mg PO TID PRN pain 09/28/23 09/28/23 Previous Rx's Medication Instructions Recorded finasteride 5 mg tablet 5 mg PO DAILY #90 tabs 04/20/23 memantine 10 mg tablet 10 mg PO DAILY #90 tabs 06/11/23 Results & Data (ED) Vital Signs Vital Signs - 24 hr 09/28/23 09:33 09/28/23 09:35 09/28/23 10:00 Temperature 36.4 C L Temperature Source Oral Pulse Rate 61 61 59 L Pulse Rate from SpO2 Sensor 61 60 Respiratory Rate 15 20 17 Respiratory Effort / Characteristics Non-Labored Spontaneous Respiratory Depth Normal Blood Pressure 168/82 H Blood Pressure Mean 110 Pulse Oximetry 95 95 97 Oxygen Delivery Method Room Air Sepsis Recent Fever Within 48 Hours No Sepsis New/Unexplained Change in Mental Status No Sepsis Action Taken by Nursing No Action Required 09/28/23 10:12 09/28/23 10:30 09/28/23 10:32 Temperature Temperature Source Pulse Rate 61 48 L 52 L Pulse Rate from SpO2 Sensor 48 L 51 L Respiratory Rate 17 18 Respiratory Effort / Characteristics Respiratory Depth Blood Pressure Blood Pressure Mean Pulse Oximetry 96 96 Oxygen Delivery Method Sepsis Recent Fever Within 48 Hours Sepsis New/Unexplained Change in Mental Status Sepsis Action Taken by Nursing 09/28/23 10:32 09/28/23 11:00 09/28/23 11:00 Temperature Temperature Source Pulse Rate 52 L Pulse Rate from SpO2 Sensor 53 L Respiratory Rate 12 Respiratory Effort / Characteristics Respiratory Depth Blood Pressure 176/73 H 144/73 H Blood Pressure Mean 87 108 Pulse Oximetry 100 Oxygen Delivery Method Sepsis Recent Fever Within 48 Hours Sepsis New/Unexplained Change in Mental Status Sepsis Action Taken by Nursing 09/28/23 11:30 Temperature Temperature Source Pulse Rate 55 L Pulse Rate from SpO2 Sensor Respiratory Rate 15 Respiratory Effort / Characteristics Respiratory Depth Blood Pressure Blood Pressure Mean Pulse Oximetry Oxygen Delivery Method Sepsis Recent Fever Within 48 Hours Sepsis New/Unexplained Change in Mental Status Sepsis Action Taken by Nursing Laboratory Data 09/28/23 09:34 09/28/23 09:34 Lab Results 09/28/23 09/28/23 09/28/23 Range/Units 09:30 09:34 09:40 WBC 8.57 (4.8-10.8) K/ul RBC 4.56 L (4.70-6.10) M/uL Hgb 13.5 L (14.0-18.0) g/dl Hct 40.6 L (42.0-52.0) % MCV 89.0 (80.0-100.0) fL MCH 29.6 (25.0-34.0) pg MCHC 33.3 (32.0-36.0) g/dL RDW Std Deviation 42.3 (36.4-46.3) fL RDW Coeff of James 13.0 (11.5-14.5) % Plt Count 175 (130-400) K/uL MPV 10.1 (9.4-12.4) fL Immature Gran % (Auto) 0.4 % Neut % (Auto) 82.2 % Lymph % (Auto) 10.4 % [place] % (Auto) 6.2 % Eos % (Auto) 0.6 % Baso % (Auto) 0.2 % Neut # (Auto) 7.05 H (1.40-6.50) K/uL Lymph # (Auto) 0.89 L (1.20-3.40) K/uL [place] # (Auto) 0.53 (0.11-0.59) K/uL Eos # (Auto) 0.05 (0.00-0.50) K/uL Baso # (Auto) 0.02 (0.00-0.20) K/uL Immature Gran # (Auto) 0.03 (0.01-0.20) K/uL PT 11.4 (9.0-12.0) Seconds INR 1.0 (0.9-1.1) Sodium 139 (136-145) mmol/L Potassium 3.9 (3.5-5.1) mmol/L Chloride 100 (98-107) mmol/L Carbon Dioxide 31 (21-32) mmol/L Anion Gap 8 (3-11) BUN 19 (6-23) mg/dl Creatinine 0.73 (0.6-1.4) mg/dl Est Cr Clr Drug Dosing 71.6 ml/min Est GFR ( Amer) 100.8 ml/min Est GFR (Non-Af Amer) 87.0 ml/min BUN/Creatinine Ratio 26.0 H (10-20) Glucose 431 H* (70-99(Fasting)) mg/dl POC Glucose 416 H* (70-99) mg/dl Lactate (0.4-2.0) mmol/L Calcium 9.3 (8.6-10.3) mg/dl Magnesium 1.9 (1.7-2.4) mg/dl Total Bilirubin 1.1 H (0.2-1.0) mg/dl AST 21 (13-39) U/L ALT 37 (7-52) U/L Alkaline Phosphatase 159 H (34-104) U/L Total Creatine Kinase 92 (30-223) U/L Troponin I High Sens 38.1 H (0-20) pg/ml Total Protein 6.8 (6.0-8.3) gm/dl Albumin 3.8 (3.4-5.0) gm/dl Globulin 3.0 (2.5-4.0) gm/dl Albumin/Globulin Ratio 1.3 (0.9-2) TSH 1.380 (0.300-4.500) uIu/ml SARS-CoV-2, RNA, NAAT NEGATIVE (NEGATIVE) 09/28/23 09/28/23 09/28/23 Range/Units 10:28 10:35 11:19 WBC (4.8-10.8) K/ul RBC (4.70-6.10) M/uL Hgb (14.0-18.0) g/dl Hct (42.0-52.0) % MCV (80.0-100.0) fL MCH (25.0-34.0) pg MCHC (32.0-36.0) g/dL RDW Std Deviation (36.4-46.3) fL RDW Coeff of James (11.5-14.5) % Plt Count (130-400) K/uL MPV (9.4-12.4) fL Immature Gran % (Auto) % Neut % (Auto) % Lymph % (Auto) % [place] % (Auto) % Eos % (Auto) % Baso % (Auto) % Neut # (Auto) (1.40-6.50) K/uL Lymph # (Auto) (1.20-3.40) K/uL [place] # (Auto) (0.11-0.59) K/uL Eos # (Auto) (0.00-0.50) K/uL Baso # (Auto) (0.00-0.20) K/uL Immature Gran # (Auto) (0.01-0.20) K/uL PT (9.0-12.0) Seconds INR (0.9-1.1) Sodium (136-145) mmol/L Potassium (3.5-5.1) mmol/L Chloride (98-107) mmol/L Carbon Dioxide (21-32) mmol/L Anion Gap (3-11) BUN (6-23) mg/dl Creatinine (0.6-1.4) mg/dl Est Cr Clr Drug Dosing ml/min Est GFR ( Amer) ml/min Est GFR (Non-Af Amer) ml/min BUN/Creatinine Ratio (10-20) Glucose (70-99(Fasting)) mg/dl POC Glucose 363 H* (70-99) mg/dl Lactate 1.6 (0.4-2.0) mmol/L Calcium (8.6-10.3) mg/dl Magnesium (1.7-2.4) mg/dl Total Bilirubin (0.2-1.0) mg/dl AST (13-39) U/L ALT (7-52) U/L Alkaline Phosphatase (34-104) U/L Total Creatine Kinase (30-223) U/L Troponin I High Sens 41.0 H (0-20) pg/ml Total Protein (6.0-8.3) gm/dl Albumin (3.4-5.0) gm/dl Globulin (2.5-4.0) gm/dl Albumin/Globulin Ratio (0.9-2) TSH (0.300-4.500) uIu/ml SARS-CoV-2, RNA, NAAT (NEGATIVE) Administered Medications Discontinued Medications Sodium Chloride (Nss) 1,000 mls @ 999 mls/hr IV .Q1H1M BROOKE Stop: 09/28/23 10:45 Last Admin: 09/28/23 09:37 Dose: 999 mls/hr Documented By: LIN Ampicillin Sodium/Sulbactam Sodium 3,000 mg/ Sodium Chloride 100 mls @ 200 mls/hr IV NOW STA Stop: 09/28/23 11:23 Last Infusion: 09/28/23 12:04 Dose: Infused Documented By: Admin: 09/28/23 11:14 Dose: 200 mls/hr Documented By: CHINO Lactated Ringer's (Lr) 1,000 mls @ 999 mls/hr IV .Q1H1M ONE Stop: 09/28/23 11:54 Last Admin: 09/28/23 11:00 Dose: 999 mls/hr Documented By: CHINO Insulin Aspart (Insulin Aspart Per Unit Charge) 5 units SC NOW STA Stop: 09/28/23 10:41 Last Admin: 09/28/23 10:57 Dose: 5 units Documented By: CHINO Co-signed By: NIYAH Imaging Data Radiologist's Impression: Cervical Spine CT 09/28/23 09:[address] DOSE: HISTORY: falls TECHNIQUE: Multiaxial CT images of the cervical spine were performed and reformatted in the sagittal and coronal plane without the use of contrast. A dose lowering technique was utilized adhering to the principles of ALARA. COMPARISON: None. FINDINGS: No fractures. No subluxation. Prevertebral soft tissues and the C1-C2 interval are intact. No pneumothorax. A partially visualized 3 mm nodule within the left lung apex. IMPRESSION: No fractures within the cervical spine. ACT 112: Negative or not required by law. Electronically signed by: Toy Ruth M.D. 09/28/2023 10:[address] 09/28/23 09:[address] DOSE: HISTORY: falls TECHNIQUE: Multiaxial CT images of the maxillofacial region were performed and reformatted in the coronal plane without the use of contrast. A dose lowering technique was utilized adhering to the principles of ALARA. COMPARISON: None. FINDINGS: The visualized cervical spine, skull base, pterygoid plates, lamina papyracea, orbital floors, mandible, and zygomatic arches are intact. Slightly displaced fractures of involving the bilateral nasal bones/nasal processes of the maxilla. Leftward deviation of the nasal septum which appears intact. Mild mucosal thickening within the right maxillary sinus. Prior bilateral lens replacement. Otherwise, the globes and retrobulbar fat are intact. Mild nasal soft tissue swelling. IMPRESSION: Slightly displaced fractures of involving the bilateral nasal bones/nasal processes of the maxilla. ACT 112: Negative or not required by law. Electronically signed by: Toy Ruth M.D. 09/28/2023 10:[address] 09/28/23 09:35 CT SCAN OF THE BRAIN WITHOUT IV CONTRAST CLINICAL HISTORY: Fall. COMPARISON STUDY: CT of the brain dated 01/29/2023. TECHNIQUE: Unenhanced axial CT scan of the brain is performed from the vertex to the skull base. A dose lowering technique was utilized adhering to the principles of ALARA. FINDINGS: Brain parenchyma: There is age-related involutional change noting moderate subcortical and periventricular microangiopathic disease. There is no hemorrhage, mass effect, or evidence of acute territorial ischemia by CT criteria. Morales-white matter differentiation is preserved. No extra-axial fluid collection is seen. Ventricles, sulci, cisterns: Prominent secondary to involutional change. Intracranial vasculature: There is atherosclerotic calcification of the cavernous carotid and vertebral artery. Calvarium: The skeletal structures are osteopenic. No depressed calvarial fracture is seen. Bilateral nasal bone fractures are noted. Sinuses and mastoids: There is trace mucosal thickening in the right maxillary antrum. The remaining paranasal sinuses are clear. The mastoid air cells are well pneumatized. Orbits: The bony orbits are grossly intact. There are bilateral ocular lens implants. IMPRESSION: 1. There is no hemorrhage, mass effect, or evidence of acute territorial ischemia by CT criteria. 2. Bilateral nasal bone fractures. ACT 112: Negative or not required by law. Electronically signed by: Cody Yu M.D. 09/28/2023 10:17 AM Abdomen/Pelvis CT 09/28/23 09:36 CT SCAN OF THE CHEST, ABDOMEN, AND PELVIS WITHOUT IV CONTRAST CLINICAL HISTORY: Fall. COMPARISON STUDY: Chest x-ray dated 01/29/2023. Abdominal CT dated 06/14/2023. TECHNIQUE: Unenhanced CT scan of the chest, abdomen, and pelvis was performed from the thoracic inlet to the proximal femora. Images are reviewed in the axial, sagittal, and coronal planes. IV contrast was not administered for this examination. Note that the examination was performed and significantly suboptimal fashion without IV contrast. A dose lowering technique was utilized adhering to the principles of ALARA. CT DOSE: 2826.11 mGy.cm FINDINGS: CHEST: Thyroid: Imaged portions of the thyroid gland are normal in size and attenuation. Thoracic aorta: There is atherosclerotic calcification of the thoracic aorta. There is mild aneurysmal dilatation of the ascending thoracic aorta which measures up to 4.1 cm in diameter. The remainder of the thoracic aorta is normal in caliber, and the arch demonstrates standard 3-vessel anatomy. Heart: The heart is enlarged noting trace pericardial effusion. The coronary arteries are densely calcified. Lungs and pleural spaces: There is mild emphysematous change. No pleural effusion or pneumothorax is identified. Minimal patchy airspace opacities are seen at the right lung base. There is bibasilar scarring/atelectasis. The trachea and central airways are clear. There are scattered calcified granulomas. Mediastinum: There is no mediastinal hematoma or lymphadenopathy. Irene: Not well assessed without IV contrast. Axillae: There is no axillary lymphadenopathy. Bony thorax: The skeletal structures are osteopenic. No acute fracture is identified involving the bony thorax. There is a chronic compression deformity of T11. No lytic or blastic lesions are identified. Degenerative change is noted in the shoulders and thoracic spine. ABDOMEN AND PELVIS: Liver: The unenhanced liver is normal in size, contour, and attenuation. There is no intrahepatic biliary ductal dilatation. Gallbladder: Surgically absent noting clips in the gallbladder fossa. Spleen: Normal in size and attenuation. Pancreas: Unremarkable. Adrenal glands: Unremarkable. Kidneys: The unenhanced kidneys are normal in size and without hydronephrosis. There is a 5 mm nonobstructing right renal calculus. A 4 mm nonobstructing calculus is seen on the left. No ureteral stone is identified. There is no evidence of contour deforming mass lesion. Abdominal vasculature: There is moderate to advanced atherosclerotic calcification and mild ectasia of the abdominal aorta. Bowel: There is rectosigmoid fecal retention and moderate constipation. No bowel obstruction is seen. The appendix is normal as visualized. Peritoneum: There is no intraperitoneal free air or abdominal ascites. Lymphadenopathy: None. Pelvic viscera: The prostate gland is enlarged and heterogeneous. The bladder is distended, and the wall is thickened/trabeculated indicating chronic obstruction. There is intramuscular hemorrhage within the left gluteus gosia. Skeletal structures: The skeletal structures are osteopenic. There is a chronic compression deformity of L1 with evidence of prior vertebroplasty. Lumbosacral spine and bony pelvis are otherwise maintained. There is mild to moderate lumbosacral spondylosis. No lytic or blastic lesions are seen. IMPRESSION: 1. There is no acute posttraumatic intrathoracic abnormality. 2. Cardiomegaly and emphysema. 3. There are minimal patchy airspace opacities at the right lung base. Coronal clinically for evidence of a mild infectious/inflammatory pneumonitis or possibly aspiration. 4. There is mild aneurysmal dilatation of the ascending thoracic aorta which measures up to 4.1 cm in diameter. 5. There is no pleural effusion or pneumothorax. 6. There is no evidence of solid organ injury in the abdomen or pelvis on this unenhanced examination. 7. Intramuscular hemorrhage within the left gluteus gosia. 8. Bilateral nephrolithiasis. 9. Rectosigmoid fecal retention and moderate constipation. 10. Additional findings as above. ACT 112: Negative or not required by law. Electronically signed by: Cody Yu M.D. 09/28/2023 10:[address] 09/28/23 09:36 CT SCAN OF THE CHEST, ABDOMEN, AND PELVIS WITHOUT IV CONTRAST CLINICAL HISTORY: Fall. COMPARISON STUDY: Chest x-ray dated 01/29/2023. Abdominal CT dated 06/14/2023. TECHNIQUE: Unenhanced CT scan of the chest, abdomen, and pelvis was performed from the thoracic inlet to the proximal femora. Images are reviewed in the axial, sagittal, and coronal planes. IV contrast was not administered for this examination. Note that the examination was performed and significantly suboptimal fashion without IV contrast. A dose lowering technique was utilized adhering to the principles of ALARA. CT DOSE: 2826.11 mGy.cm FINDINGS: CHEST: Thyroid: Imaged portions of the thyroid gland are normal in size and attenuation. Thoracic aorta: There is atherosclerotic calcification of the thoracic aorta. There is mild aneurysmal dilatation of the ascending thoracic aorta which measures up to 4.1 cm in diameter. The remainder of the thoracic aorta is normal in caliber, and the arch demonstrates standard 3-vessel anatomy. Heart: The heart is enlarged noting trace pericardial effusion. The coronary arteries are densely calcified. Lungs and pleural spaces: There is mild emphysematous change. No pleural effusion or pneumothorax is identified. Minimal patchy airspace opacities are seen at the right lung base. There is bibasilar scarring/atelectasis. The trachea and central airways are clear. There are scattered calcified granulomas. Mediastinum: There is no mediastinal hematoma or lymphadenopathy. Irene: Not well assessed without IV contrast. Axillae: There is no axillary lymphadenopathy. Bony thorax: The skeletal structures are osteopenic. No acute fracture is identified involving the bony thorax. There is a chronic compression deformity of T11. No lytic or blastic lesions are identified. Degenerative change is noted in the shoulders and thoracic spine. ABDOMEN AND PELVIS: Liver: The unenhanced liver is normal in size, contour, and attenuation. There is no intrahepatic biliary ductal dilatation. Gallbladder: Surgically absent noting clips in the gallbladder fossa. Spleen: Normal in size and attenuation. Pancreas: Unremarkable. Adrenal glands: Unremarkable. Kidneys: The unenhanced kidneys are normal in size and without hydronephrosis. There is a 5 mm nonobstructing right renal calculus. A 4 mm nonobstructing calculus is seen on the left. No ureteral stone is identified. There is no evidence of contour deforming mass lesion. Abdominal vasculature: There is moderate to advanced atherosclerotic calcification and mild ectasia of the abdominal aorta. Bowel: There is rectosigmoid fecal retention and moderate constipation. No bowel obstruction is seen. The appendix is normal as visualized. Peritoneum: There is no intraperitoneal free air or abdominal ascites. Lymphadenopathy: None. Pelvic viscera: The prostate gland is enlarged and heterogeneous. The bladder is distended, and the wall is thickened/trabeculated indicating chronic obstruction. There is intramuscular hemorrhage within the left gluteus gosia. Skeletal structures: The skeletal structures are osteopenic. There is a chronic compression deformity of L1 with evidence of prior vertebroplasty. Lumbosacral spine and bony pelvis are otherwise maintained. There is mild to moderate lumbosacral spondylosis. No lytic or blastic lesions are seen. IMPRESSION: 1. There is no acute posttraumatic intrathoracic abnormality. 2. Cardiomegaly and emphysema. 3. There are minimal patchy airspace opacities at the right lung base. Coronal clinically for evidence of a mild infectious/inflammatory pneumonitis or possibly aspiration. 4. There is mild aneurysmal dilatation of the ascending thoracic aorta which measures up to 4.1 cm in diameter. 5. There is no pleural effusion or pneumothorax. 6. There is no evidence of solid organ injury in the abdomen or pelvis on this unenhanced examination. 7. Intramuscular hemorrhage within the left gluteus gosia. 8. Bilateral nephrolithiasis. 9. Rectosigmoid fecal retention and moderate constipation. 10. Additional findings as above. ACT 112: Negative or not required by law. Electronically signed by: Cody Yu M.D. 09/28/2023 10:44 AM Discharge Plan Visit Data Chief Complaint: Fall ED Provider: Jeremy Kapadia Discharge Problem: Falls, RLL pneumonia, Weakness, Hyperglycemia due to type 2 diabetes mellitus, Elevated troponin I level Patient Disposition: Being Evaluated by Hospitalist Discharge Instructions Interventions: ED Discharge Assessment Last Done: 09/28/23 13:01 Discharge Problem: Falls Qualifiers: Encounter type: initial encounter Qualified Code(s): W19.XXXA - Unspecified fall, initial encounter RLL pneumonia Qualifiers: Pneumonia type: aspiration pneumonia Aspiration pneumonia type: unspecified Q ualified Code(s): J69.0 - Pneumonitis due to inhalation of food and vomit Hyperglycemia due to type 2 diabetes mellitus Qualifiers: 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
[2023-09-28 09:57] LABS: Basophils # (auto) 0.02 K/uL (0.00-0.20); Basophils % (auto) 0.2 %; Eosinophils # (auto) 0.05 K/uL (0.00-0.50); Eosinophils % (auto) 0.6 %; Hematocrit (blood only) 40.6 % (42.0-52.0); Hemoglobin 13.5 g/dl (14.0-18.0); Immature Granulocytes # (auto) 0.03 K/uL (0.01-0.20); Immature Granulocytes % (auto) 0.4 %; Lymphocytes # (auto) 0.89 K/uL (1.20-3.40); Lymphocytes % (auto) 10.4 %; Mean Corpuscular Hemoglobin 29.6 pg (25.0-34.0); Mean Corpuscular Hgb Conc 33.3 g/dL (32.0-36.0); Mean Platelet Volume 10.1 fL (9.4-12.4); Monocytes # (auto) 0.53 K/uL (0.11-0.59); Monocytes % (auto) 6.2 %; Neutrophils # (auto) 7.05 K/uL (1.40-6.50); Neutrophils % (auto) 82.2 %; Platelet Count 175 K/uL (130-400); RDW Standard Deviation 42.3 fL (36.4-46.3); Red Blood Count 4.56 M/uL (4.70-6.10); White Blood Count 8.57 K/ul (4.8-10.8)
--- NOTE | 2023-09-28 10:07 | CT Scan Report ---
CERVICAL SPINE CT CT DOSE: HISTORY: falls TECHNIQUE: Multiaxial CT images of the cervical spine were performed and reformatted in the sagittal and coronal plane without the use of contrast. A dose lowering technique was utilized adhering to th e principles of ALARA. COMPARISON: None. FINDINGS: No fractures. No subluxation. Prevertebral soft tissues and the C1-C2 interval are intact. No pneumothorax. A partially visualized 3 mm nodule within the left lung apex. IMPRESSION: No fractures within the cervical spine. ACT 112: Negative or not required by law. Electronically signed by: Toy Ruth M.D. 09/28/2023 10:05 AM
--- NOTE | 2023-09-28 10:10 | CT Scan Report ---
MAXILLOFACIAL CT CT DOSE: HISTORY: falls TECHNIQUE: Multiaxial CT images of the maxillofacial region were performed and reformatted in the cor onal plane without the use of contrast. A dose lowering technique was utilized adhering to the princ iplregino of TIEN. COMPARISON: None. FINDINGS: The visualized cervical spine, skull base, pterygoid plates, lamina papyracea, orbital floo rs, mandible, and zygomatic arches are intact. Slightly displaced fractures of involving the bilatera l nasal bones/nasal processes of the maxilla. Leftward deviation of the nasal septum which appears in tact. Mild mucosal thickening within the right maxillary sinus. Prior bilateral lens replacement. Oth erwise, the globes and retrobulbar fat are intact. Mild nasal soft tissue swelling. IMPRESSION: Slightly displaced fractures of involving the bilateral nasal bones/nasal processes of the maxilla. ACT 112: Negative or not required by law. Electronically signed by: Toy Ruth M.D. 09/28/2023 10:08 AM
--- NOTE | 2023-09-28 10:18 | CT Scan Report ---
CT SCAN OF THE BRAIN WITHOUT IV CONTRAST CLINICAL HISTORY: Fall. COMPARISON STUDY: CT of the brain dated 01/29/2023. TECHNIQUE: Unenhanced axial CT scan of the brain is performed from the vertex to the skull base. A do se lowering technique was utilized adhering to the principles of ALARA. FINDINGS: Brain parenchyma: There is age-related involutional change noting moderate subcortical and periventri cular microangiopathic disease. There is no hemorrhage, mass effect, or evidence of acute territorial ischemia by CT criteria. Morales-white matter differentiation is preserved. No extra-axial fluid collec tion is seen. Ventricles, sulci, cisterns: Prominent secondary to involutional change. Intracranial vasculature: There is atherosclerotic calcification of the cavernous carotid and vertebr al artery. Calvarium: The skeletal structures are osteopenic. No depressed calvarial fracture is seen. Bilateral nasal bone fractures are noted. Sinuses and mastoids: There is trace mucosal thickening in the right maxillary antrum. The remaining paranasal sinuses are clear. The mastoid air cells are well pneumatized. Orbits: The bony orbits are grossly intact. There are bilateral ocular lens implants. IMPRESSION: 1. There is no hemorrhage, mass effect, or evidence of acute territorial ischemia by CT criteria. 2. Bilateral nasal bone fractures. ACT 112: Negative or not required by law. Electronically signed by: Cody Yu M.D. 09/28/2023 10:17 AM
[2023-09-28 10:20] LABS: Prothrombin Time 11.4 Seconds (9.0-12.0)
[2023-09-28 10:22] LABS: Albumin Globulin Ratio 1.3 (0.9-2); Albumin Level 3.8 gm/dl (3.4-5.0); Bilirubin,Total 1.1 mg/dl (0.2-1.0); Calcium 9.3 mg/dl (8.6-10.3); Creatinine Clr Calc Pharmacy 71.6 ml/min; Est GFR (African American) 100.8 ml/min; Magnesium 1.9 mg/dl (1.7-2.4); Potassium 3.9 mmol/L (3.5-5.1); Total Protein 6.8 gm/dl (6.0-8.3); Troponin I High Sensitivity 38.1 pg/ml (0-20)
[2023-09-28 10:30] LABS: Thyroid Stimulating Hormone 1.38 uIu/ml (0.300-4.500)
[2023-09-28] MEDS ORDERED: INSULIN ASPART PER UNIT CHARGE SC STA (10:40)
--- NOTE | 2023-09-28 10:45 | CT Scan Report ---
CT SCAN OF THE CHEST, ABDOMEN, AND PELVIS WITHOUT IV CONTRAST CLINICAL HISTORY: Fall. COMPARISON STUDY: Chest x-ray dated 01/29/2023. Abdominal CT dated 06/14/2023. TECHNIQUE: Unenhanced CT scan of the chest, abdomen, and pelvis was performed from the thoracic inlet to the proximal femora. Images are reviewed in the axial, sagittal, and coronal planes. IV contrast was not administered for this examination. Note that the examination was performed and significantly suboptimal fashion without IV contrast. A dose lowering technique was utilized adhering to the princ iples of TIEN. CT DOSE: 2826.11 mGy.cm FINDINGS: CHEST: Thyroid: Imaged portions of the thyroid gland are normal in size and attenuation. Thoracic aorta: There is atherosclerotic calcification of the thoracic aorta. There is mild aneurysma l dilatation of the ascending thoracic aorta which measures up to 4.1 cm in diameter. The remainder o f the thoracic aorta is normal in caliber, and the arch demonstrates standard 3-vessel anatomy. Heart: The heart is enlarged noting trace pericardial effusion. The coronary arteries are densely frank cified. Lungs and pleural spaces: There is mild emphysematous change. No pleural effusion or pneumothorax is identified. Minimal patchy airspace opacities are seen at the right lung base. There is bibasilar sca rring/atelectasis. The trachea and central airways are clear. There are scattered calcified granuloma s. Mediastinum: There is no mediastinal hematoma or lymphadenopathy. Irene: Not well assessed without IV contrast. Axillae: There is no axillary lymphadenopathy. Bony thorax: The skeletal structures are osteopenic. No acute fracture is identified involving the mehrdad ny thorax. There is a chronic compression deformity of T11. No lytic or blastic lesions are identifie d. Degenerative change is noted in the shoulders and thoracic spine. ABDOMEN AND PELVIS: Liver: The unenhanced liver is normal in size, contour, and attenuation. There is no intrahepatic spencer iary ductal dilatation. Gallbladder: Surgically absent noting clips in the gallbladder fossa. Spleen: Normal in size and attenuation. Pancreas: Unremarkable. Adrenal glands: Unremarkable. Kidneys: The unenhanced kidneys are normal in size and without hydronephrosis. There is a 5 mm nonobs tructing right renal calculus. A 4 mm nonobstructing calculus is seen on the left. No ureteral stone is identified. There is no evidence of contour deforming mass lesion. Abdominal vasculature: There is moderate to advanced atherosclerotic calcification and mild ectasia o f the abdominal aorta. Bowel: There is rectosigmoid fecal retention and moderate constipation. No bowel obstruction is seen. The appendix is normal as visualized. Peritoneum: There is no intraperitoneal free air or abdominal ascites. Lymphadenopathy: None. Pelvic viscera: The prostate gland is enlarged and heterogeneous. The bladder is distended, and the w all is thickened/trabeculated indicating chronic obstruction. There is intramuscular hemorrhage withi n the left gluteus gosia. Skeletal structures: The skeletal structures are osteopenic. There is a chronic compression deformity of L1 with evidence of prior vertebroplasty. Lumbosacral spine and bony pelvis are otherwise maintai davina. There is mild to moderate lumbosacral spondylosis. No lytic or blastic lesions are seen. IMPRESSION: 1. There is no acute posttraumatic intrathoracic abnormality. 2. Cardiomegaly and emphysema. 3. There are minimal patchy airspace opacities at the right lung base. Coronal clinically for evidenc e of a mild infectious/inflammatory pneumonitis or possibly aspiration. 4. There is mild aneurysmal dilatation of the ascending thoracic aorta which measures up to 4.1 cm in diameter. 5. There is no pleural effusion or pneumothorax. 6. There is no evidence of solid organ injury in the abdomen or pelvis on this unenhanced examination . 7. Intramuscular hemorrhage within the left gluteus gosia. 8. Bilateral nephrolithiasis. 9. Rectosigmoid fecal retention and moderate constipation. 10. Additional findings as above. ACT 112: Negative or not required by law. Electronically signed by: Cody Yu M.D. 09/28/2023 10:44 AM
[2023-09-28] MEDS ORDERED: LACTATED RINGER'S 1,000 ML IV ONE (10:54)
[2023-09-28] MEDS ORDERED: AMPICILLIN/SULBACTAM SOD 3,000 MG in SODIUM CHLOR 0.9% MINI-B 100 ML IV STA (10:54)
--- NOTE | 2023-09-28 11:27 | History & Physical Report ---
Date of Service September 28, 2023 Assessment & Plan (1) RLL pneumonia: (2) Weakness: (3) Falls: Plan: - Admit to med surg with tele - CT chest reviewed concerning for RLL pna, also with concern for aspiration pna with coughing with food, will ask for speech therapy consultation - Unasyn IV - No WBC, afebrile - Allow DM diet, minced and moist until speech consult - PT/OT consults ordered - Can consider MRI of the brain - NSS x 1 L more now, will continue to encourage po hydration - Not on anticoagulation except aspirin which will hold right now (4) Intramuscular hematoma: Plan: - CT abd/pelvis showing L buttocks hemorrhage, but there is no size noted. Consult general surgery for possible intervention, can utilize abdominal binder for applied pressure - Pt is not on blood thinners - Trend H&H with - Hold aspirin (5) DM type 2 (diabetes mellitus, type 2): Plan: - Glucose is elevated above 400 on admission - ISS with Accu-Cheks ACHS - Holding metformin and Forteo inj currently (6) History of CVA (cerebrovascular accident): Plan: - Hx of 3 CVA in the past, pt is on Namenda at home - May have residual strength decrepancy in the R arm compared to the Left. Pt is left handed - Monitor - Last MRI in Apr 2021 for CVA (7) HTN (hypertension): Plan: - Cont on lisinopril, amlodipine, asa, atorvastatin (8) Dementia: Plan: - Continue Nemenda - Chronic, lives with , concern that there may also be some memory issues from her per HPI. (9) BPH (benign prostatic hyperplasia): Plan: - Cont flomax - Follow up UA (10) Hyperlipidemia: Plan: - Cont atorvastatin (11) Elevated troponin I level: Plan: - Monitor Trop Q6H, trop initially 38, - No chest pain, unlikely ACS DVT ppx: teds, scds Lines: 2 PIV FEN/GI: Allow DM diet, minced and moist, speech therapy eval pending CODE: FULL Dispo: From home, likely to remain in the hospital x 1-2 days Pt was noted to have acute change in mental status in the ER upon a room change around 1400. Our team was called to bedside at 1430. 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 Throughout exam he was would look when his name was called, say the word yes, but unable to respond verbally otherwise, and did not follow commands. Appeared very confused. Pt was ordered stat Ativan 1 mg IV, and about 5-10 minutes later given second dose. He relaxed. EKG was able to be obtained which did not show acute changes. Stat CBC drawn and Hgb dropped 2 grams from 13 to 11, possibly from acute intramuscular hemorrhage bleeding in the L buttocks region which was evaluated by general surgery. They had recommended watching hgb and applying cool compresses. Stat repeat CT of the head now that he is calm, can obtain MRI of the brain this evening. ICU was contacted and evaluated the pt at bedside. Neurology has been consulted as he sustained a fall 2 days ago, facial trauma, and concern for new onset seizure related possibly to trauma. Lactate is elevated at 3.3. Initially unasyn was ordered for possible RLL pneumonia, but now with changes will broaden coverage to vanc and zosyn IV. ABG and procalcitonin pending. History of Present Illness Chief Complaint: Fall Primary Care Provider: Kem Deng DO This is an 83-year-old male with PMHx of DM type II, HTN, history of CVA with R sided deficits previously, dementia, BPH, osteoporosis, AAA measuring 4.1 cm, and gout who presents to the hospital with acute fall. He is present with his at bedside. Pt reports feeling he has fallen multiple times in the past few days. He fell last Wednesday and tripped on something outside while walking the dog, fell forward and landed on his face - much bruising on his face is present at this point. Denies acute pain, nasal congestion or issues with congestion. Last night he got up out of bed, and fell on the floor. Pt has significant difficulty with multiple falls and has become more dependent on within past few months. at bedside supports the history, she occasionally has to think about questions, and makes comments that do not make sense at times. mentions she has had to help pick him up but feels she cannot due it due to his extreme weakness. MARTIN orona was told that pt fell last night, and that the wouldn't get him up, therefore layed on the floor together until this morning. He has pain in the left buttock this morning. He admits to having some coughing with foods occasionally. Denies fever, chills, sweats, cough. Occasionally has some constipation. Allergies Allergy/AdvReac Type Severity Reaction Status Date / Time oxycodone AdvReac Unknown Gastrointestinal Verified 09/28/23 13:05 Upset Home Medications Medication Instructions Recorded Confirmed Type amlodipine 2.5 mg tablet 2.5 mg PO DAILY 01/29/23 09/28/23 History aspirin 81 mg chewable tablet 81 mg PO QAM 01/29/23 09/28/23 History atorvastatin 20 mg tablet 20 mg PO HS 01/29/23 09/28/23 History calcium carbonate 600 mg calcium 600 mg PO QAM 01/29/23 09/28/23 History (1,500 mg) tablet (Calcium) cholecalciferol (vitamin D3) 125 125 mcg PO QAM 01/29/23 09/28/23 History mcg (5,000 unit) capsule ipratropium bromide 42 mcg (0.06 2 spray intranasal BID PRN 01/29/23 09/28/23 History %) nasal spray Congestion lisinopril 10 mg tablet 10 mg PO BID 01/29/23 09/28/23 History mv-mn-folic 200 mcg-vit K 15 2 cap PO DAILY 01/29/23 09/28/23 History mcg-lutein 5 mg-zeaxanthin 1 mg capsule (PreserVision AREDS 2 Plus Multivit) tamsulosin 0.4 mg capsule 0.4 mg PO QAM 01/29/23 09/28/23 History teriparatide 20 mcg/dose (600 20 mcg subcut DAILY 01/29/23 09/28/23 History mcg/2.4 mL) subcutaneous pen injector (Forteo) finasteride 5 mg tablet 5 mg PO DAILY #90 tabs 04/20/23 09/28/23 Rx memantine 10 mg tablet 10 mg PO DAILY #90 tabs 06/11/23 09/28/23 Rx Macular Health Formula 10 mg PO QAM 09/28/23 09/28/23 History magnesium oxide 400 mg PO QAM 09/28/23 09/28/23 History metformin 500 mg tablet,extended 1,000 mg PO QAM 09/28/23 09/28/23 History release 24 hr phenazopyridine 200 mg tablet 0 mg PO TID PRN pain 09/28/23 09/28/23 History Past Med/Surg History Medical History Arthralgia of left wrist Vitamin D deficiency Borderline Lyme serology BPH (benign prostatic hyperplasia) Dementia HTN (hypertension) Spontaneous pneumothorax Basal cell carcinoma History of TIA (transient ischemic attack) History of CVA (cerebrovascular accident) History of compression fracture of spine l2 Osteoporosis DM type 2 (diabetes mellitus, type 2) Surgical History S/P cataract surgery History of hernia repair History of total bilateral knee replacement History of cholecystectomy History of back surgery Social History Smoking Status: Former smoker Tobacco Type: Cigarettes Hx Alcohol Use: No Hx Substance Use: No Preferred Language: Romanian Communication Ability: 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 Beliefs That Will Affect Care: None Current Living Situation: Spouse Feels Safe at Home: Yes Assistive Devices: Denture - Upper, Denture - Lower and Glasses Review of Systems Review of Systems: Constitutional: No fever, sweats or chills Eyes: No diplopia, no worsening or blurred vision ENT: normal hearing, no trouble swallowing Respiratory: No cough, sputum, dyspnea at rest or on exertion Cardiovascular: No chest pain, tightness or palpitations Abdomen: No pain, nausea, vomiting, diarrhea or constipation Musculoskeletal: No joint pain, calf pain, swelling UA: admits to having urinary incontinence, has trouble making it to the bathroom Neurologic: No weakness, numbness/tingling, or balance problems Psychiatric: No anxiety or depression Skin: No rash or itch Physical Exam Physical Exam: General: awake, alert, no apparent distress, thin , white , male Head: Normocephalic, + ecchymosis under orbits bilaterally, nasal bridge is ecchymotic ENT: PERRL, EOMI, no pharyngeal exudate, mucous membranes moist Chest: Diffusely diminished due to effort, on room air, no adventitious breath sounds Cardiac: Regular rate and rhythm, no murmur, no JVD, normal peripheral pulses, good capillary refill Abdominal: NABS x 4 quadrants, soft, nondistended, nontender to palpation, no rebound or guarding Extremities: Normal inspection, no peripheral edema or erythema, calfs nontender to palpation Psych: Normal mood and affect Neuro: AAO x 3, strength rated 5/5 on R leg, 4/5 on the left. no motor deficits, speech is clear, no peripheral sensory deficits Results & Data Results & Data Vital Signs (Past 12 Hours) Vital Signs Temp Pulse Resp BP Pulse Ox O2 Del Method 09/28/23 10:12 61 09/28/23 09:35 36.4 C L 61 20 168/82 H 95 Room Air Laboratory Results 09/28/23 09/28/23 09/28/23 10:35 10:28 09:40 WBC RBC Hgb Hct MCV MCH MCHC RDW Std Deviation RDW Coeff of James Plt Count MPV Immature Gran % (Auto) Neut % (Auto) Lymph % (Auto) [place] % (Auto) Eos % (Auto) Baso % (Auto) Neut # (Auto) Lymph # (Auto) [place] # (Auto) Eos # (Auto) Baso # (Auto) Immature Gran # (Auto) PT INR Sodium Potassium Chloride Carbon Dioxide Anion Gap BUN Creatinine Est Cr Clr Drug Dosing Est GFR ( Amer) Est GFR (Non-Af Amer) BUN/Creatinine Ratio Glucose POC Glucose 363 H* Lactate 1.6 Calcium Magnesium Total Bilirubin AST ALT Alkaline Phosphatase Total Creatine Kinase Troponin I High Sens Total Protein Albumin Globulin Albumin/Globulin Ratio TSH SARS-CoV-2, RNA, NAAT NEGATIVE 09/28/23 09/28/23 09:34 09:30 WBC 8.57 RBC 4.56 L Hgb 13.5 L Hct 40.6 L MCV 89.0 MCH 29.6 MCHC 33.3 RDW Std Deviation 42.3 RDW Coeff of James 13.0 Plt Count 175 MPV 10.1 Immature Gran % (Auto) 0.4 Neut % (Auto) 82.2 Lymph % (Auto) 10.4 [place] % (Auto) 6.2 Eos % (Auto) 0.6 Baso % (Auto) 0.2 Neut # (Auto) 7.05 H Lymph # (Auto) 0.89 L [place] # (Auto) 0.53 Eos # (Auto) 0.05 Baso # (Auto) 0.02 Immature Gran # (Auto) 0.03 PT 11.4 INR 1.0 Sodium 139 Potassium 3.9 Chloride 100 Carbon Dioxide 31 Anion Gap 8 BUN 19 Creatinine 0.73 Est Cr Clr Drug Dosing 71.6 Est GFR ( Amer) 100.8 Est GFR (Non-Af Amer) 87.0 BUN/Creatinine Ratio 26.0 H Glucose 431 H* POC Glucose 416 H* Lactate Calcium 9.3 Magnesium 1.9 Total Bilirubin 1.1 H AST 21 ALT 37 Alkaline Phosphatase 159 H Total Creatine Kinase 92 Troponin I High Sens 38.1 H Total Protein 6.8 Albumin 3.8 Globulin 3.0 Albumin/Globulin Ratio 1.3 TSH 1.380 SARS-CoV-2, RNA, NAAT Diagnostic Findings Cervical Spine CT 09/28/23 09:[address] DOSE: HISTORY: falls TECHNIQUE: Multiaxial CT images of the cervical spine were performed and reformatted in the sagittal and coronal plane without the use of contrast. A dose lowering technique was utilized adhering to the principles of ALARA. COMPARISON: None. FINDINGS: No fractures. No subluxation. Prevertebral soft tissues and the C1-C2 interval are intact. No pneumothorax. A partially visualized 3 mm nodule within the left lung apex. IMPRESSION: No fractures within the cervical spine. ACT 112: Negative or not required by law. Electronically signed by: Toy Ruth M.D. 09/28/2023 10:[address] 09/28/23 09:[address] DOSE: HISTORY: falls TECHNIQUE: Multiaxial CT images of the maxillofacial region were performed and reformatted in the coronal plane without the use of contrast. A dose lowering technique was utilized adhering to the principles of ALARA. COMPARISON: None. FINDINGS: The visualized cervical spine, skull base, pterygoid plates, lamina papyracea, orbital floors, mandible, and zygomatic arches are intact. Slightly displaced fractures of involving the bilateral nasal bones/nasal processes of the maxilla. Leftward deviation of the nasal septum which appears intact. Mild mucosal thickening within the right maxillary sinus. Prior bilateral lens replacement. Otherwise, the globes and retrobulbar fat are intact. Mild nasal soft tissue swelling. IMPRESSION: Slightly displaced fractures of involving the bilateral nasal bones/nasal processes of the maxilla. ACT 112: Negative or not required by law. Electronically signed by: Toy Ruth M.D. 09/28/2023 10:[address] 09/28/23 09:35 CT SCAN OF THE BRAIN WITHOUT IV CONTRAST CLINICAL HISTORY: Fall. COMPARISON STUDY: CT of the brain dated 01/29/2023. TECHNIQUE: Unenhanced axial CT scan of the brain is performed from the vertex to the skull base. A dose lowering technique was utilized adhering to the corey nciples of ALARA. FINDINGS: Brain parenchyma: There is age-related involutional change noting moderate subcortical and periventricular microangiopathic disease. There is no hemorrhage, mass effect, or evidence of acute territorial ischemia by CT criteria. Morales-white matter differentiation is preserved. No extra-axial fluid collection is seen. Ventricles, sulci, cisterns: Prominent secondary to involutional change. Intracranial vasculature: There is atherosclerotic calcification of the cavernous carotid and vertebral artery. Calvarium: The skeletal structures are osteopenic. No depressed calvarial fracture is seen. Bilateral nasal bone fractures are noted. Sinuses and mastoids: There is trace mucosal thickening in the right maxillary antrum. The remaining paranasal sinuses are clear. The mastoid air cells are well pneumatized. Orbits: The bony orbits are grossly intact. There are bilateral ocular lens implants. IMPRESSION: 1. There is no hemorrhage, mass effect, or evidence of acute territorial ischemia by CT criteria. 2. Bilateral nasal bone fractures. ACT 112: Negative or not required by law. Electronically signed by: Cody Yu M.D. 09/28/2023 10:17 AM Abdomen/Pelvis CT 09/28/23 09:36 CT SCAN OF THE CHEST, ABDOMEN, AND PELVIS WITHOUT IV CONTRAST CLINICAL HISTORY: Fall. COMPARISON STUDY: Chest x-ray dated 01/29/2023. Abdominal CT dated 06/14/2023. TECHNIQUE: Unenhanced CT scan of the chest, abdomen, and pelvis was performed from the thoracic inlet to the proximal femora. Images are reviewed in the axial , sagittal, and coronal planes. IV contrast was not administered for this examination. Note that the examination was performed and significantly suboptimal fashion without IV contrast. A dose lowering technique was utilized adhering to the principles of ALA. CT DOSE: 2826.11 mGy.cm FINDINGS: CHEST: Thyroid: Imaged portions of the thyroid gland are normal in size and attenuation. Thoracic aorta: There is atherosclerotic calcification of the thoracic aorta. There is mild aneurysmal dilatation of the ascending thoracic aorta which measures up to 4.1 cm in diameter. The remainder of the thoracic aorta is normal in caliber, and the arch demonstrates standard 3-vessel anatomy. Heart: The heart is enlarged noting trace pericardial effusion. The coronary arteries are densely calcified. Lungs and pleural spaces: There is mild emphysematous change. No pleural effusion or pneumothorax is identified. Minimal patchy airspace opacities are seen at the right lung base. There is bibasilar scarring/atelectasis. The trachea and central airways are clear. There are scattered calcified granulomas. Mediastinum: There is no mediastinal hematoma or lymphadenopathy. Irene: Not well assessed without IV contrast. Axillae: There is no axillary lymphadenopathy. Bony thorax: The skeletal structures are osteopenic. No acute fracture is identified involving the bony thorax. There is a chronic compression deformity of T11. No lytic or blastic lesions are identified. Degenerative change is noted in the shoulders and thoracic spine. ABDOMEN AND PELVIS: Liver: The unenhanced liver is normal in size, contour, and attenuation. There is no intrahepatic biliary ductal dilatation. Gallbladder: Surgically absent noting clips in the gallbladder fossa. Spleen: Normal in size and attenuation. Pancreas: Unremarkable. Adrenal glands: Unremarkable. Kidneys: The unenhanced kidneys are normal in size and without hydronephrosis. There is a 5 mm nonobstructing right renal calculus. A 4 mm nonobstructing calculus is seen on the left. No ureteral stone is identified. There is no evidence of contour deforming mass lesion. Abdominal vasculature: There is moderate to advanced atherosclerotic calcification and mild ectasia of the abdominal aorta. Bowel: There is rectosigmoid fecal retention and moderate constipation. No bowel obstruction is seen. The appendix is normal as visualized. Peritoneum: There is no intraperitoneal free air or abdominal ascites. Lymphadenopathy: None. Pelvic viscera: The prostate gland is enlarged and heterogeneous. The bladder is distended, and the wall is thickened/trabeculated indicating chronic obstruction. There is intramuscular hemorrhage within the left gluteus gosia. Skeletal structures: The skeletal structures are osteopenic. There is a chronic compression deformity of L1 with evidence of prior vertebroplasty. Lumbosacral spine and bony pelvis are otherwise maintained. There is mild to moderate lumbosacral spondylosis. No lytic or blastic lesions are seen. IMPRESSION: 1. There is no acute posttraumatic intrathoracic abnormality. 2. Cardiomegaly and emphysema. 3. There are minimal patchy airspace opacities at the right lung base. Coronal clinically for evidence of a mild infectious/inflammatory pneumonitis or possibly aspiration. 4. There is mild aneurysmal dilatation of the ascending thoracic aorta which measures up to 4.1 cm in diameter. 5. There is no pleural effusion or pneumothorax. 6. There is no evidence of solid organ injury in the abdomen or pelvis on this unenhanced examination. 7. Intramuscular hemorrhage within the left gluteus gosia. 8. Bilateral nephrolithiasis. 9. Rectosigmoid fecal retention and moderate constipation. 10. Additional findings as above. ACT 112: Negative or not required by law. Electronically signed by: Cody Yu M.D. 09/28/2023 10:[address] 09/28/23 09:36 CT SCAN OF THE CHEST, ABDOMEN, AND PELVIS WITHOUT IV CONTRAST CLINICAL HISTORY: Fall. COMPARISON STUDY: Chest x-ray dated 01/29/2023. Abdominal CT dated 06/14/2023. TECHNIQUE: Unenhanced CT scan of the chest, abdomen, and pelvis was performed from the thoracic inlet to the proximal femora. Images are reviewed in the axial, sagittal, and coronal planes. IV contrast was not administered for this examination. Note that the examination was performed and significantly suboptimal fashion without IV contrast. A dose lowering technique was utilized adhering to the principles of ALARA. CT DOSE: 2826.11 mGy.cm FINDINGS: CHEST: Thyroid: Imaged portions of the thyroid gland are normal in size and attenuation. Thoracic aorta: There is atherosclerotic calcification of the thoracic aorta. There is mild aneurysmal dilatation of the ascending thoracic aorta which measures up to 4.1 cm in diameter. The remainder of the thoracic aorta is normal in caliber, and the arch demonstrates standard 3-vessel anatomy. Heart: The heart is enlarged noting trace pericardial effusion. The coronary arteries are densely calcified. Lungs and pleural spaces: There is mild emphysematous change. No pleural effusion or pneumothorax is identified. Minimal patchy airspace opacities are seen at the right lung base. There is bibasilar scarring/atelectasis. The trachea and central airways are clear. There are scattered calcified granulomas. Mediastinum: There is no mediastinal hematoma or lymphadenopathy. Irene: Not well assessed without IV contrast. Axillae: There is no axillary lymphadenopathy. Bony thorax: The skeletal structures are osteopenic. No acute fracture is identified involving the bony thorax. There is a chronic compression deformity of T11. No lytic or blastic lesions are identified. Degenerative change is noted in the shoulders and thoracic spine. ABDOMEN AND PELVIS: Liver: The unenhanced liver is normal in size, contour, and attenuation. There is no intrahepatic biliary ductal dilatation. Gallbladder: Surgically absent noting clips in the gallbladder fossa. Spleen: Normal in size and attenuation. Pancreas: Unremarkable. Adrenal glands: Unremarkable. Kidneys: The unenhanced kidneys are normal in size and without hydronephrosis. There is a 5 mm nonobstructing right renal calculus. A 4 mm nonobstructing calculus is seen on the left. No ureteral stone is identified. There is no ev idence of contour deforming mass lesion. Abdominal vasculature: There is moderate to advanced atherosclerotic calcification and mild ectasia of the abdominal aorta. Bowel: There is rectosigmoid fecal retention and moderate constipation. No bowel obstruction is seen. The appendix is normal as visualized. Peritoneum: There is no intraperitoneal free air or abdominal ascites. Lymphadenopathy: None. Pelvic viscera: The prostate gland is enlarged and heterogeneous. The bladder is distended, and the wall is thickened/trabeculated indicating chronic obstruction. There is intramuscular hemorrhage within the left gluteus gosia. Skeletal structures: The skeletal structures are osteopenic. There is a chronic compression deformity of L1 with evidence of prior vertebroplasty. Lumbosacral spine and bony pelvis are otherwise maintained. There is mild to moderate lumbosacral spondylosis. No lytic or blastic lesions are seen. IMPRESSION: 1. There is no acute posttraumatic intrathoracic abnormality. 2. Cardiomegaly and emphysema. 3. There are minimal patchy airspace opacities at the right lung base. Coronal clinically for evidence of a mild infectious/inflammatory pneumonitis or possibly aspiration. 4. There is mild aneurysmal dilatation of the ascending thoracic aorta which measures up to 4.1 cm in diameter. 5. There is no pleural effusion or pneumothorax. 6. There is no evidence of solid organ injury in the abdomen or pelvis on this unenhanced examination. 7. Intramuscular hemorrhage within the left gluteus gosia. 8. Bilateral nephrolithiasis. 9. Rectosigmoid fecal retention and moderate constipation. 10. Additional findings as above. ACT 112: Negative or not required by law. Electronically signed by: Cody Yu M.D. 09/28/2023 10:44 AM Code Status & VTE Plan Code Status Full code - discussed with pt and at bedside Supervising Physician Co-Signing Physician Notes I have seen and discussed the case with the collaborating BETSEY. I agree with the above H&P. I have reviewed and confirmed the patients medical history, the findings on physical examination, and the patients diagnosis and treatment plan with Yamilex LEGGETT and agree with the information documented. In short, Mr. Lainez is an 83 year old gentleman with past medical history notable for dementia (mixed, Alzheimers/mixed vascular), DMTII, BPH, prior left pontine stroke, TIA who is admitted for evaluation of multiple mechanical falls complicated by nasal bone fracture and left glute hemorrhage. Patient reports progressive weakness over last year and reports these "falls" as only mechanical in nature, denying any focal neuro deficits, syncope/lightheadedness, or other prodromal symptoms. History overall limited and poor from patient and from regarding recent concerns for aspiration, safety at home, etc. CT imaging revealed left gluteus max hemorrhage Labs reviewed and hgb stable, glucose in 400s Physical exam General: Frail gentleman AO3, though history is a bit poor around situation/circumstances for admission HEENT: Diffuse ecchymosis under orbits appears 2-3 days old, EOMI CV RRR, no murmur Resp diminshed breathsounds 2/2 effort GI soft NTND MSK BLE with 5/5 strength, however elevation of left leg with pain 2/2 hemorrhage; buttock examined, firm left glute tender to palpation, no visible ecchymosis/bruising. Plan #New onset seizure -s/p 2mg ativan, lactate postepisode 3.3 -2g Keppra load now -Stat Neuro consult -EEG farhan -Contingent on status (continue clonic like activity) that would prompt continuous EEG, will require transfer--in discussion with neuro -Trend lactate #Acute encephalopathy #Dementia #Prior CVA -No reported residual neuro deficits s/p strokes/ TIA -Abrupt AMS-Repeat CT negative for bleed -MRI ordered -Delirium precautions, including pain management -Resume asa when hgb stable -Continue statin when able to tolerate PO -Infectious work up pending -Procal negative -Questionable areas on imaging -Empirically transitoned to Vanc/Zosyn given abrupt status changes -TSH WBL #Blunt trauma to head without LOC #Mechanical Fall #Generalized Weakness #Bilateral Nasal Bone Fractures -x3 falls over 1 week, ongoing weakness -CT x 2 negative for acute bleeding, concern for seizures -PT/OT when able -MRI when able #Hyperglycemia #Uncontrolled DM TII -Insulin SSI while admitted -A1C in am -No sign of DKA, HCO3 26 -CTM Rest of plan as above (1) RLL pneumonia Aspiration pneumonia type: unspecified Pneumonia type: aspiration pneumonia Qualified Code(s): J69.0 - Pneumonitis due to inhalation of food and vomit (3) Falls Encounter type: initial encounter Qualified Code(s): W19.XXXA - Unspecified fall, initial encounter
[2023-09-28] MEDS ORDERED: bisacodyL 10 MG SUPP PR ONE (12:00)
[2023-09-28 12:05] LABS: Appearance Urine Clear (Clear); Bacteria Urine Automated Negative (Negative); Bilirubin Urine Negative (Negative); Blood Urine 1+ (Negative); Color Urine Yellow; Epithelial Cell Urine Auto 20-30 /lpf (0-5); Glucose Urine UA 3+ (Negative); Ketones Urine 1+ (Negative); Leukocyte Esterase Urine Negative (Negative); Nitrite Urine Negative (Negative); Protein Urine 2+ (Negative); RBC Urine Automated 0-4 /hpf (0-4); Specific Gravity Urine 1.036 (1.000-1.030); Urobilinogen Urine Negative (Negative); WBC Urine Automated >30 /hpf (0-5)
--- NOTE | 2023-09-28 12:05 | Electrocardiogram Report ---
Test Reason : Blood Pressure : / mmHG Vent. Rate : 061 BPM Atrial Rate : 061 BPM P-R Int : 248 ms QRS Dur : 146 ms QT Int : 460 ms P-R-T Axes : 000 -87 -57 degrees QTc Int : 463 ms Sinus rhythm with 1st degree A-V block Right bundle branch block Left anterior fascicular block Possible Old Septal infarct T wave abnormality, consider inferolateral ischemia Abnormal ECG When compared with ECG of 29-JAN-2023 05:45, is now Present T wave inversion more evident in Inferior leads Inverted T waves have replaced nonspecific T wave abnormality in Lateral leads Confirmed by Boris Ayala ([id number]) on 09/28/2023 12:05:04 PM Referred By: Confirmed By:Boris Ayala
[2023-09-28] MEDS ORDERED: DEXTROSE 50% 50 ML SYRINGE IV PRN (13:01)
[2023-09-28] MEDS ORDERED: CARBOHYDRATES FOR HYPOGLYCEMIA PO PRN (13:01)
[2023-09-28] MEDS ORDERED: GLUCAGON FOR INJ 1 MG VIAL SQ PRN (13:01)
[2023-09-28] MEDS ORDERED: GLUCOSE 40% GEL 15 GM TUBE PO PRN (13:01)
[2023-09-28] MEDS ORDERED: GLUCOSE 10 TAB/TUBE PO PRN (13:01)
[2023-09-28] MEDS ORDERED: ONDANSETRON INJ 2 MG/ML 2 ML VIAL IV PRN (13:01)
[2023-09-28] MEDS ORDERED: AMPICILLIN SOD/SULBACTAM SOD 3 GM VIAL IV SCH (13:01)
[2023-09-28] MEDS ORDERED: ACETAMINOPHEN 325 MG TAB PO PRN (13:01)
[2023-09-28] MEDS ORDERED: ACETAMINOPHEN 1,000 MG/100 ML VIAL IV STA (14:06)
[2023-09-28] MEDS ORDERED: LORazepam 1 MG/1 ML SYR ED Inj Use ONE (14:20)
[2023-09-28] MEDS ORDERED: LORazepam 1 MG/1 ML SYR ED Inj Use IV STA (14:21)
[2023-09-28] MEDS ORDERED: VANCOMYCIN CONSULT ACTIVE PRN (14:23)
[2023-09-28] MEDS ORDERED: LORazepam 1 MG/1 ML SYR ED Inj Use IV PRN (14:25)
[2023-09-28] MEDS: BENZONATATE 100 MG CAPSULE PO SCH ×2 (14:32→21:28)
[2023-09-28] MEDS ORDERED: PIPERACILLIN/TAZOBACTAM 4.5 GM in DEXTROSE 5% MINI-B 100 ML IV ONE (14:45)
[2023-09-28] MEDS ORDERED: LORazepam 1 MG in SYRINGE 0.5 ML IV PRN (14:46)
--- NOTE | 2023-09-28 14:51 | Surgery Consultation ---
<Statement entered by Rolan Green, - 09/29/23 06:01> This case was discussed with the surgical PA, agree Date of Consultation September 28, 2023 Assessment & Plan (1) Intramuscular hematoma: Patient is 83 yo male with PMH of Arthralgia of left wrist, Vitamin D deficiency, Borderline Lyme serology, BPH (benign prostatic hyperplasia) Dementia, HTN (hypertension), Spontaneous pneumothorax, Basal cell carcinoma, History of TIA (transient ischemic attack), History of CVA (cerebrovascular accident) , History of compression fracture of spine ,Osteoporosis, DM type 2 (diabetes mellitus, type 2) that presented to the [facility] today with his after having a fall at home. History is obtained from . She reports patient has had two falls this week, the first fall resulted in a nasal fx, fall from Last night, she thinks he fell on his buttocks. A work up in the ER was completed and included a chest CT, Head CT, Face CT, Cervical Spine CT. The patient reports Left side buttock pain. The states the only blood thinners he takes is a daily ASA 81mg. General surgery was consulted due to a Intramuscular hemorrhage within the left gluteus gosia that was seen on abdomen/pelvic CT Patient is confused however does verbalize that he is having pain at left hip area. On exam there was not any ecchymosis or induration appreciated to palpation however exam was difficult due to patients being stiff. On CT IMPRESSION: 1. There is no acute posttraumatic intrathoracic abnormality. 2. Cardiomegaly and emphysema. 3. There are minimal patchy airspace opacities at the right lung base. Coronal clinically for evidence of a mild infectious/inflammatory pneumonitis or possibly aspiration. 4. There is mild aneurysmal dilatation of the ascending thoracic aorta which measures up to 4.1 cm in diameter. 5. There is no pleural effusion or pneumothorax. 6. There is no evidence of solid organ injury in the abdomen or pelvis on this unenhanced examination. 7. Intramuscular hemorrhage within the left gluteus gosia. 8. Bilateral nephrolithiasis. 9. Rectosigmoid fecal retention and moderate constipation. 10. Additional findings as above. Recommendations: IV antibiotics Ordered a stat H and H if stable can have diet This Am in ER 13.5/40.6 Apply cold compresses to Left buttock 20min on 20min off IV antiemetic PRN IV analgesic PRN May consider suppository at some point for fecal retention. Will discuss case with on-call surgeon and further recommendations will be forthcoming. History of Present Illness Reason for Consultation: Intramuscular hemorrhage within the left gluteus gosia. Attending Physician: Amy Roblero MD History of Present Illness Patient is 83 yo male with PMH of Arthralgia of left wrist, Vitamin D deficiency, Borderline Lyme serology, BPH (benign prostatic hyperplasia) Srinivas ntia, HTN (hypertension), Spontaneous pneumothorax, Basal cell carcinoma, History of TIA (transient ischemic attack), History of CVA (cerebrovascular accident) , History of compression fracture of spine ,Osteoporosis, DM type 2 (diabetes mellitus, type 2) that presented to the [facility] today with his after having a fall at home. History is obtained from . She reports patient has had two falls this week, the first fall resulted in a nasal fx, fall from Last night, she thinks he fell on his buttocks. A work up in the ER was completed and included a chest CT, Head CT, Face CT, Cervical Spine CT. The patient reports Left side buttock pain. The states the only blood thinners he takes is a daily ASA 81mg. General surgery was consulted due to a Int ramuscular hemorrhage within the left gluteus gosia that was seen on abdomen/pelvic CT Allergies Allergy/AdvReac Type Severity Reaction Status Date / Time oxycodone AdvReac Unknown Gastrointestinal Verified 09/28/23 13:05 Upset Home Medications Medication Instructions Recorded Confirmed Type amlodipine 2.5 mg tablet 2.5 mg PO DAILY 01/29/23 09/28/23 History aspirin 81 mg chewable tablet 81 mg PO QAM 01/29/23 09/28/23 History atorvastatin 20 mg tablet 20 mg PO HS 01/29/23 09/28/23 History calcium carbonate 600 mg calcium 600 mg PO QAM 01/29/23 09/28/23 History (1,500 mg) tablet (Calcium) cholecalciferol (vitamin D3) 125 125 mcg PO QAM 01/29/23 09/28/23 History mcg (5,000 unit) capsule ipratropium bromide 42 mcg (0.06 2 spray intranasal BID PRN 01/29/23 09/28/23 History %) nasal spray Congestion lisinopril 10 mg tablet 10 mg PO BID 01/29/23 09/28/23 History mv-mn-folic 200 mcg-vit K 15 2 cap PO DAILY 01/29/23 09/28/23 History mcg-lutein 5 mg-zeaxanthin 1 mg capsule (PreserVision AREDS 2 Plus Multivit) tamsulosin 0.4 mg capsule 0.4 mg PO QAM 01/29/23 09/28/23 History teriparatide 20 mcg/dose (600 20 mcg subcut DAILY 01/29/23 09/28/23 History mcg/2.4 mL) subcutaneous pen injector (Forteo) finasteride 5 mg tablet 5 mg PO DAILY #90 tabs 04/20/23 09/28/23 Rx memantine 10 mg tablet 10 mg PO DAILY #90 tabs 06/11/23 09/28/23 Rx Macular Health Formula 10 mg PO QAM 09/28/23 09/28/23 History magnesium oxide 400 mg PO QAM 09/28/23 09/28/23 History metformin 500 mg tablet,extended 1,000 mg PO QAM 09/28/23 09/28/23 History release 24 hr phenazopyridine 200 mg tablet 0 mg PO TID PRN pain 09/28/23 09/28/23 History Patient History Medical History Arthralgia of left wrist Vitamin D deficiency Borderline Lyme serology BPH (benign prostatic hyperplasia) Dementia HTN (hypertension) Spontaneous pneumothorax Basal cell carcinoma History of TIA (transient ischemic attack) History of CVA (cerebrovascular accident) History of compression fracture of spine l2 Osteoporosis DM type 2 (diabetes mellitus, type 2) Surgical History S/P cataract surgery History of hernia repair History of total bilateral knee replacement History of cholecystectomy History of back surgery Social History Smoking Status: Unknown if ever smoked Tobacco Type: Cigarettes Hx Alcohol Use: No Hx Substance Use: No Preferred Language: [place] Communication Ability: Impaired [employer] Consultant Required: No Beliefs That Will Affect Care: None Current Living Situation: Spouse Feels Safe at Home: Yes Assistive Devices: Denture - Upper, Denture - Lower and Glasses Review of Systems Constitutional: no fever and no chills Respiratory: no dyspnea Cardiovascular: no chest pain Gastrointestinal: no abdominal pain, no nausea and no vomiting Musculoskeletal: + muscle weakness Left buttock/hip pain Physical Exam Physical Exam: alert , speech not comprehensive at times Constitutional: + thin, + frail appearing and comfortabl e; no acute distress ENMT: facial ecchymosis under eyes and across nose Respiratory: normal respiratory effort and able to speak in complete sentences; no respiratory distress Cardiovascular: Rate/Rhythm: + bradycardic (59) Gastrointestinal (Abdomen): Inspection/Auscultation: abdomen not distended Percussion/Palpation: abdomen soft; no guarding Neurologic: awake and + confused Results & Data Vital Signs (Past 12 Hours) Vital Signs Temp Pulse Resp BP Pulse Ox O2 Del Method 09/28/23 13:00 59 L 20 97 09/28/23 13:00 154/105 H 09/28/23 12:51 149/112 H 09/28/23 12:51 59 L 19 09/28/23 12:30 69 17 09/28/23 12:00 63 22 09/28/23 11:30 55 L 15 09/28/23 11:00 52 L 12 100 09/28/23 11:00 144/73 H 09/28/23 10:32 176/73 H 09/28/23 10:32 52 L 18 96 09/28/23 10:30 48 L 17 96 09/28/23 10:12 61 09/28/23 10:00 59 L 17 97 09/28/23 09:35 97.5 F L 61 20 168/82 H 95 Room Air 09/28/23 09:33 61 15 95 Diagnostic Findings [place] [phone] CT Scan Report Patient: DARNELL JARA Admit Date: 09/28/23 MR#: [id number] Address1: [address] [place] [address] Acct ID:[id number] Address2: Date: 1940 [facility] Zip: [place] [id number] Age: 83 Location: ED Sex: M Room/Bed: Att Phy: Diagnosis: FALL Hedy Phy: Kem Deng DO Service Date: 09/28/23 Fam Phy: Interpreting Phy: Cody Yu [facility] Phy: Ordering Phy: Jeremy Kapadia M.D. cc: ~ CT SCAN OF THE CHEST, ABDOMEN, AND PELVIS WITHOUT IV CONTRAST CLINICAL HISTORY: Fall. COMPARISON STUDY: Chest x-ray dated 01/29/2023. Abdominal CT dated 06/14/2023. TECHNIQUE: Unenhanced CT scan of the chest, abdomen, and pelvis was performed from the thoracic inlet to the proximal femora. Images are reviewed in the axial, sagittal, and coronal planes. IV contrast was not administered for this examination. Note that the examination was performed and significantly suboptimal fashion without IV contrast. A dose lowering technique was utilized adhering to the principles of ALARA. CT DOSE: 2826.11 mGy.cm FINDINGS: CHEST: Thyroid: Imaged portions of the thyroid gland are normal in size and attenuation. Thoracic aorta: There is atherosclerotic calcification of the thoracic aorta. There is mild aneurysmal dilatation of the ascending thoracic aorta which measures up to 4.1 cm in diameter. The remainder of the thoracic aorta is normal in caliber, and the arch demonstrates standard 3-vessel anatomy. Heart: The heart is enlarged noting trace pericardial effusion. The coronary arteries are densely calcified. Lungs and pleural spaces: There is mild emphysematous change. No pleural effusion or pneumothorax is identified. Minimal patchy airspace opacities are seen at the right lung base. There is bibasilar scarring/atelectasis. The tra susannah and central airways are clear. There are scattered calcified granulomas. Mediastinum: There is no mediastinal hematoma or lymphadenopathy. Irene: Not well assessed without IV contrast. Axillae: There is no axillary lymphadenopathy. Bony thorax: The skeletal structures are osteopenic. No acute fracture is identified involving the bony thorax. There is a chronic compression deformity of T11. No lytic or blastic lesions are identified. Degenerative change is noted in the shoulders and thoracic spine. ABDOMEN AND PELVIS: Liver: The unenhanced liver is normal in size, contour, and attenuation. There is no intrahepatic biliary ductal dilatation. Gallbladder: Surgically absent noting clips in the gallbladder fossa. Spleen: Normal in size and attenuation. Pancreas: Unremarkable. Adrenal glands: Unremarkable. Kidneys: The unenhanced kidneys are normal in size and without hydronephrosis. There is a 5 mm nonobstructing right renal calculus. A 4 mm nonobstructing calculus is seen on the left. No ureteral stone is identified. There is no evidence of contour deforming mass lesion. Abdominal vasculature: There is moderate to advanced atherosclerotic calcification and mild ectasia of the abdominal aorta. Bowel: There is rectosigmoid fecal retention and moderate constipation. No bowel obstruction is seen. The appendix is normal as visualized. Peritoneum: There is no intraperitoneal free air or abdominal ascites. Lymphadenopathy: None. Pelvic viscera: The prostate gland is enlarged and heterogeneous. The bladder is distended, and the wall is thickened/trabeculated indicating chronic obstruction. There is intramuscular hemorrhage within the left gluteus gosia. Skeletal structures: The skeletal structures are osteopenic. There is a chronic compression deformity of L1 with evidence of prior vertebroplasty. Lumbosacral spine and bony pelvis are otherwise maintained. There is mild to moderate lumbosacral spondylosis. No lytic or blastic lesions are seen. IMPRESSION: 1. There is no acute posttraumatic intrathoracic abnormality. 2. Cardiomegaly and emphysema. 3. There are minimal patchy airspace opacities at the right lung base. Coronal clinically for evidence of a mild infectious/inflammatory pneumonitis or possibly aspiration. 4. There is mild aneurysmal dilatation of the ascending thoracic aorta which measures up to 4.1 cm in diameter. 5. There is no pleural effusion or pneumothorax. 6. There is no evidence of solid organ injury in the abdomen or pelvis on this unenhanced examination. 7. Intramuscular hemorrhage within the left gluteus gosia. 8. Bilateral nephrolithiasis. 9. Rectosigmoid fecal retention and moderate constipation. 10. Additional findings as above. ACT 112: Negative or not required by law. Electronically signed by: Cody Yu M.D. 09/28/2023 10:44 AM Dictated: 09/28/23 1022 Transcribed: 09/28/23 1023 PG Care Time/CCT Total # of Minutes Spent Total Time Spent with Patient: Total time spent is greater than 50% in coordination of care (as documented) at patient's floor/unit and/or counseling patient: Coding Level of Care Code 44817 IN/OBS CONSULT LVL 2,35M Diagnoses Intramuscular hematoma T14.8XXA
[2023-09-28 15:06] LABS: Basophils # (auto) 0.03 K/uL (0.00-0.20); Basophils % (auto) 0.4 %; Eosinophils # (auto) 0.07 K/uL (0.00-0.50); Eosinophils % (auto) 0.8 %; Hematocrit (blood only) 34.3 % (42.0-52.0); Hemoglobin 11.4 g/dl (14.0-18.0); Immature Granulocytes # (auto) 0.03 K/uL (0.01-0.20); Immature Granulocytes % (auto) 0.4 %; Lymphocytes # (auto) 1.35 K/uL (1.20-3.40); Lymphocytes % (auto) 16.3 %; Mean Corpuscular Hemoglobin 29.4 pg (25.0-34.0); Mean Corpuscular Hgb Conc 33.2 g/dL (32.0-36.0); Mean Corpuscular Volume 88.4 fL (80.0-100.0); Mean Platelet Volume 9.8 fL (9.4-12.4); Monocytes # (auto) 0.55 K/uL (0.11-0.59); Monocytes % (auto) 6.7 %; Neutrophils # (auto) 6.23 K/uL (1.40-6.50); Neutrophils % (auto) 75.4 %; Platelet Count 171 K/uL (130-400); RDW Standard Deviation 42.4 fL (36.4-46.3); Red Blood Count 3.88 M/uL (4.70-6.10); White Blood Count 8.26 K/ul (4.8-10.8)
[2023-09-28] MEDS ORDERED: VANCOMYCIN HCL 1,500 MG in SODIUM CHLORIDE 0.9% 500 ML IV ONE (15:15)
[2023-09-28 15:22] LABS: Albumin Globulin Ratio 1.2 (0.9-2); Albumin Level 3.3 gm/dl (3.4-5.0); BUN Creatinine Ratio 29.6 (10-20); Bilirubin,Total 1.1 mg/dl (0.2-1.0); Calcium 8.6 mg/dl (8.6-10.3); Creatinine Clr Calc Pharmacy 96.8 ml/min; Est GFR (African American) 114.1 ml/min; Est GFR (Non-African American) 98.5 ml/min; Globulin 2.7 gm/dl (2.5-4.0); Potassium 3.5 mmol/L (3.5-5.1)
--- NOTE | 2023-09-28 15:50 | CT Scan Report ---
CT head/brain wo con CLINICAL HISTORY: Change AMS Technique: Contiguous axial CT images of the head were acquired from the base of the skull to the rodolfo vladimir without intravenous contrast administration. Images were viewed in brain, subdural and bone [facility]. Automated dose lowering techniques and/or adjustment according to patient size were utilized for this exam. Comparison: Comparison is made to CT head 09/28/2023 Findings: Areas of decreased attenuation are present in the periventricular and subcortical white matter bilate rally consistent with small vessel ischemic disease. Generalized cerebral atrophy with commensurate e nlargement of the ventricles, sulci, and cisterns is also present. There is no acute intracranial hem orrhage or evidence of acute territorial infarction. No shift of the midline structures, mass effect, or extra-axial abnormalities are shown. Atherosclerotic calcifications are present in the intracran ial segments of the internal carotid arteries. Imaged portions of the paranasal sinuses and mastoid air cells are clear. The orbits appear normal. Partial visualization of nasal bone fractures. Impression: No acute intracranial hemorrhage, no evidence of acute territorial infarction or other acute intracra nial disease process. ACT 112: Negative or not required by law. Electronically signed by: Jonny Dobson M.D. 09/28/2023 3:48 PM
--- NOTE | 2023-09-28 16:08 | Communication Note ---
Date of Service: September 28, 2023 Called to bedside at around 1415 due to patient change in mental status. Reportedly more restless and now with convulsive like activity. Patient assessed with noted change in mentation from AOx3 with mild confusion to now only responsive to name, but otherwise incoherent and unable to follow commands. All limbs rigid with clonic like activity, however, grasp and holding on to hand bars and nurses--eyes open and fixed, pupils equal on exam 1mg ativan administered with no improvement followed by addition 1mg with subsequent relaxation and termination of activity. CT scan ordered stat for AMS--negative for bleed. Lactate on repeat 3.3 Planning for 2g keppra load. Neuro consult stat. EEG when able.
--- NOTE | 2023-09-28 16:11 | Neurology Consultation ---
Date of Consultation September 28, 2023 Assessment & Plan (1) Seizure-like activity: sp 2 mg of Ativan recieving 2g of Keppra now start 750mg BID in the AM (2) Concussion: Telehealth Consultation Telehealth Information Telehealth Information: I performed this visit using a real-time telehealth connection between my location and the patients location ([facility]). After connecting through interactive tele-video, patient was identified by name and date of and/or wristband check.Patient (or authorized healthcare utility sales representative) was informed that this was a telemedicine visit and it was being conducted confidentially over secure lines. My office door was closed and no one else was present in the room with me.Patient (or authorized healthcare utility sales representative) provided consent to proceed with the visit, expressed an understanding of privacy and security of the telemedicine visit, and gave permission to have a hospital utility sales representative in the room in order to assist with the visit and to conduct portions of the visit, as needed. I informed the patient (or authorized healthcare utility sales representative) that I reviewed their record and presented the opportunity for them to ask any questions regarding the visit today. The patient agreed to participate. History of Present Illness Reason for Consultation: Seizure like activity Requesting Physician: Sally Roblero Attending Physician: Amy Roblero MD History of Present Illness 83M with a PMH of prior stroke, dementia, HTN, DM and peripheral neuropathy who presents to the ED after several falls over the last week. While in the ER he had an episode where he had a change in behavior and then had whole body stiffening concerning for seizure. He was given 2 of Ativan and a repeat CT head was performed and negative. Currenlty he his lying in bed and intermittently itching his nose. He has a history of demential and has a MOCA of 18. At baseline he has some mild memory loss but isn't typically agitated. He is also being treated for pneumonia with Unasyn. he can provide no additional history at this time. Allergies Allergy/AdvReac Type Severity Reaction Status Date / Time oxycodone AdvReac Unknown Gastrointestinal Verified 09/28/23 13:05 Upset Home Medications Medication Instructions Recorded Confirmed Type amlodipine 2.5 mg tablet 2.5 mg PO DAILY 01/29/23 09/28/23 History aspirin 81 mg chewable tablet 81 mg PO QAM 01/29/23 09/28/23 History atorvastatin 20 mg tablet 20 mg PO HS 01/29/23 09/28/23 History calcium carbonate 600 mg calcium 600 mg PO QAM 01/29/23 09/28/23 History (1,500 mg) tablet (Calcium) cholecalciferol (vitamin D3) 125 125 mcg PO QAM 01/29/23 09/28/23 History mcg (5,000 unit) capsule ipratropium bromide 42 mcg (0.06 2 spray intranasal BID PRN 01/29/23 09/28/23 History %) nasal spray Congestion lisinopril 10 mg tablet 10 mg PO BID 01/29/23 09/28/23 History mv-mn-folic 200 mcg-vit K 15 2 cap PO DAILY 01/29/23 09/28/23 History mcg-lutein 5 mg-zeaxanthin 1 mg capsule (PreserVision AREDS 2 Plus Multivit) tamsulosin 0.4 mg capsule 0.4 mg PO QAM 01/29/23 09/28/23 History teriparatide 20 mcg/dose (600 20 mcg subcut DAILY 01/29/23 09/28/23 History mcg/2.4 mL) subcutaneous pen injector (Forteo) finasteride 5 mg tablet 5 mg PO DAILY #90 tabs 04/20/23 09/28/23 Rx memantine 10 mg tablet 10 mg PO DAILY #90 tabs 06/11/23 09/28/23 Rx Macular Health Formula 10 mg PO QAM 09/28/23 09/28/23 History magnesium oxide 400 mg PO QAM 09/28/23 09/28/23 History metformin 500 mg tablet,extended 1,000 mg PO QAM 09/28/23 09/28/23 History release 24 hr phenazopyridine 200 mg tablet 0 mg PO TID PRN pain 09/28/23 09/28/23 History Patient History Medical History Arthralgia of left wrist Vitamin D deficiency Borderline Lyme serology BPH (benign prostatic hyperplasia) Dementia HTN (hypertension) Spontaneous pneumothorax Basal cell carcinoma History of TIA (transient ischemic attack) History of CVA (cerebrovascular accident) History of compression fracture of spine l2 Osteoporosis DM type 2 (diabetes mellitus, type 2) Surgical History S/P cataract surgery History of hernia repair History of total bilateral knee replacement History of cholecystectomy History of back surgery Social History Smoking Status: Former smoker Tobacco Type: Cigarettes Hx Alcohol Use: No Hx Substance Use: No Preferred Language: Mohawk Communication Ability: Effective Fire Alarm Inspector Required: No Beliefs That Will Affect Care: None Current Living Situation: Spouse Feels Safe at Home: Yes Assistive Devices: Denture - Upper, Denture - Lower and Glasses Review of Systems unable to obtain secondary to his mental status Physical Exam Asleep, intermittently wakes up with purposeful movement, follows no commands and has no speech output. Moving extremities spontaneously. Results & Data Vital Signs (Past 12 Hours) Vital Signs Temp Pulse Resp BP Pulse Ox O2 Del Method O2 Flow Rate 09/28/23 14:38 80 23 146/83 H 99 Nasal Cannula 3 09/28/23 13:30 63 19 09/28/23 13:00 59 L 20 97 09/28/23 13:00 154/105 H 09/28/23 12:51 149/112 H 09/28/23 12:51 59 L 19 09/28/23 12:30 69 17 09/28/23 12:00 63 22 09/28/23 11:30 55 L 15 09/28/23 11:00 52 L 12 100 09/28/23 11:00 144/73 H 09/28/23 10:32 176/73 H 09/28/23 10:32 52 L 18 96 09/28/23 10:30 48 L 17 96 09/28/23 10:12 61 09/28/23 10:00 59 L 17 97 09/28/23 09:35 36.4 C L 61 20 168/82 H 95 Room Air 09/28/23 09:33 61 15 95 Laboratory Results Most recent lab results Calcium 8.6 mg/dl (8.6-10.3) 09/28/23 14:35 Magnesium 1.9 mg/dl (1.7-2.4) 09/28/23 09:34 Abnormal Lab Results 09/28/23 09/28/23 09/28/23 09:30 09:34 09:40 WBC 8.57 RBC 4.56 L Hgb 13.5 L Hct 40.6 L MCV 89.0 MCH 29.6 MCHC 33.3 RDW Std Deviation 42.3 RDW Coeff of James 13.0 Plt Count 175 MPV 10.1 Immature Gran % (Auto) 0.4 Neut % (Auto) 82.2 Lymph % (Auto) 10.4 [place] % (Auto) 6.2 Eos % (Auto) 0.6 Baso % (Auto) 0.2 Neut # (Auto) 7.05 H Lymph # (Auto) 0.89 L [place] # (Auto) 0.53 Eos # (Auto) 0.05 Baso # (Auto) 0.02 Immature Gran # (Auto) 0.03 PT 11.4 INR 1.0 Sodium 139 Potassium 3.9 Chloride 100 Carbon Dioxide 31 Anion Gap 8 BUN 19 Creatinine 0.73 Est Cr Clr Drug Dosing 71.6 Est GFR ( Amer) 100.8 Est GFR (Non-Af Amer) 87.0 BUN/Creatinine Ratio 26.0 H Glucose 431 H* POC Glucose 416 H* Lactate Calcium 9.3 Magnesium 1.9 Total Bilirubin 1.1 H AST 21 ALT 37 Alkaline Phosphatase 159 H Total Creatine Kinase 92 Troponin I High Sens 38.1 H Total Protein 6.8 Albumin 3.8 Globulin 3.0 Albumin/Globulin Ratio 1.3 Procalcitonin TSH 1.380 Urine Color Urine Appearance Urine pH Ur Specific [place] Urine Protein Urine Glucose (UA) Urine Ketones Urine Blood Urine Nitrite Urine Bilirubin Urine Urobilinogen Ur Leukocyte Esterase Urine WBC (Auto) Urine RBC (Auto) U Hyaline Cast (Auto) U Epithel Cells (Auto) Urine Bacteria (Auto) SARS-CoV-2, RNA, NAAT NEGATIVE 09/28/23 09/28/23 09/28/23 10:28 10:35 11:19 WBC RBC Hgb Hct MCV MCH MCHC RDW Std Deviation RDW Coeff of James Plt Count MPV Immature Gran % (Auto) Neut % (Auto) Lymph % (Auto) [place] % (Auto) Eos % (Auto) Baso % (Auto) Neut # (Auto) Lymph # (Auto) [place] # (Auto) Eos # (Auto) Baso # (Auto) Immature Gran # (Auto) PT INR Sodium Potassium Chloride Carbon Dioxide Anion Gap BUN Creatinine Est Cr Clr Drug Dosing Est GFR ( Amer) Est GFR (Non-Af Amer) BUN/Creatinine Ratio Glucose POC Glucose 363 H* Lactate 1.6 Calcium Magnesium Total Bilirubin AST ALT Alkaline Phosphatase Total Creatine Kinase Troponin I High Sens 41.0 H Total Protein Albumin Globulin Albumin/Globulin Ratio Procalcitonin TSH Urine Color Urine Appearance Urine pH Ur Specific [place] Urine Protein Urine Glucose (UA) Urine Ketones Urine Blood Urine Nitrite Urine Bilirubin Urine Urobilinogen Ur Leukocyte Esterase Urine WBC (Auto) Urine RBC (Auto) U Hyaline Cast (Auto) U Epithel Cells (Auto) Urine Bacteria (Auto) SARS-CoV-2, RNA, NAAT 09/28/23 09/28/23 09/28/23 11:54 14:35 Unknown WBC 8.26 RBC 3.88 L Hgb 11.4 L Hct 34.3 L MCV 88.4 MCH 29.4 MCHC 33.2 RDW Std Deviation 42.4 RDW Coeff of James 13.0 Plt Count 171 MPV 9.8 Immature Gran % (Auto) 0.4 Neut % (Auto) 75.4 Lymph % (Auto) 16.3 [place] % (Auto) 6.7 Eos % (Auto) 0.8 Baso % (Auto) 0.4 Neut # (Auto) 6.23 Lymph # (Auto) 1.35 [place] # (Auto) 0.55 Eos # (Auto) 0.07 Baso # (Auto) 0.03 Immature Gran # (Auto) 0.03 PT INR Sodium 139 Potassium 3.5 Chloride 105 Carbon Dioxide 26 Anion Gap 8 BUN 16 Creatinine 0.54 L Est Cr Clr Drug Dosing 96.8 Est GFR ( Amer) 114.1 Est GFR (Non-Af Amer) 98.5 BUN/Creatinine Ratio 29.6 H Glucose 271 H POC Glucose 327 H* Lactate 3.3 H* Calcium 8.6 Magnesium Total Bilirubin 1.1 H AST 21 ALT 32 Alkaline Phosphatase 133 H Total Creatine Kinase Troponin I High Sens 42.5 H Total Protein 6.0 Albumin 3.3 L Globulin 2.7 Albumin/Globulin Ratio 1.2 Procalcitonin 0.08 TSH Urine Color Yellow Urine Appearance Clear Urine pH 7.0 Ur Specific [place] 1.036 H Urine Protein 2+ H Urine Glucose (UA) 3+ H Urine Ketones 1+ H Urine Blood 1+ H Urine Nitrite Negative Urine Bilirubin Negative Urine Urobilinogen Negative Ur Leukocyte Esterase Negative Urine WBC (Auto) >30 H Urine RBC (Auto) 0-4 U Hyaline Cast (Auto) 1-5 U Epithel Cells (Auto) 20-30 H Urine Bacteria (Auto) Negative SARS-CoV-2, RNA, NAAT Diagnostic Findings Cervical Spine CT 09/28/23 09:[address] DOSE: HISTORY: falls TECHNIQUE: Multiaxial CT images of the cervical spine were performed and reformatted in the sagittal and coronal plane without the use of contrast. A dose lowering technique was utilized adhering to the principles of ALARA. COMPARISON: None. FINDINGS: No fractures. No subluxation. Prevertebral soft tissues and the C1-C2 interval are intact. No pneumothorax. A partially visualized 3 mm nodule within the left lung apex. IMPRESSION: No fractures within the cervical spine. ACT 112: Negative or not required by law. Electronically signed by: Toy Ruth M.D. 09/28/2023 10:[address] 09/28/23 09:[address] DOSE: HISTORY: falls TECHNIQUE: Multiaxial CT images of the maxillofacial region were performed and reformatted in the coronal plane without the use of contrast. A dose lowering technique was utilized adhering to the principles of ALARA. COMPARISON: None. FINDINGS: The visualized cervical spine, skull base, pterygoid plates, lamina papyracea, orbital floors, mandible, and zygomatic arches are intact. Slightly displaced fractures of involving the bilateral nasal bones/nasal processes of the maxilla. Leftward deviation of the nasal septum which appears intact. Mild mucosal thickening within the right maxillary sinus. Prior bilateral lens replacement. Otherwise, the globes and retrobulbar fat are intact. Mild nasal soft tissue swelling. IMPRESSION: Slightly displaced fractures of involving the bilateral nasal bones/nasal processes of the maxilla. ACT 112: Negative or not required by law. Electronically signed by: Toy Ruth M.D. 09/28/2023 10:[address] 09/28/23 09:35 CT SCAN OF THE BRAIN WITHOUT IV CONTRAST CLINICAL HISTORY: Fall. COMPARISON STUDY: CT of the brain dated 01/29/2023. TECHNIQUE: Unenhanced axial CT scan of the brain is performed from the vertex to the skull base. A dose lowering technique was utilized adhering to the principles of ALARA. FINDINGS: Brain parenchyma: There is age-related involutional change noting moderate subcortical and periventricular microangiopathic disease. There is no hemorrhage, mass effect, or evidence of acute territorial ischemia by CT criteria. Morales-white matter differentiation is preserved. No extra-axial fluid collection is seen. Ventricles, sulci, cisterns: Prominent secondary to involutional change. Intracranial vasculature: There is atherosclerotic calcification of the cavernous carotid and vertebral artery. Calvarium: The skeletal structures are osteopenic. No depressed calvarial fracture is seen. Bilateral nasal bone fractures are noted. Sinuses and mastoids: There is trace mucosal thickening in the right maxillary antrum. The remaining paranasal sinuses are clear. The mastoid air cells are well pneumatized. Orbits: The bony orbits are grossly intact. There are bilateral ocular lens implants. IMPRESSION: 1. There is no hemorrhage, mass effect, or evidence of acute territorial ischemia by CT criteria. 2. Bilateral nasal bone fractures. ACT 112: Negative or not required by law. Electronically signed by: Cody Yu M.D. 09/28/2023 10:17 AM Abdomen/Pelvis CT 09/28/23 09:36 CT SCAN OF THE CHEST, ABDOMEN, AND PELVIS WITHOUT IV CONTRAST CLINICAL HISTORY: Fall. COMPARISON STUDY: Chest x-ray dated 01/29/2023. Abdominal CT dated 06/14/2023. TECHNIQUE: Unenhanced CT scan of the chest, abdomen, and pelvis was performed from the thoracic inlet to the proximal femora. Images are reviewed in the axial, sagittal, and coronal planes. IV contrast was not administered for this examination. Note that the examination was performed and significantly suboptimal fashion without IV contrast. A dose lowering technique was utilized adhering to the principles of ALARA. CT DOSE: 2826.11 mGy.cm FINDINGS: CHEST: Thyroid: Imaged portions of the thyroid gland are normal in size and attenuation. Thoracic aorta: There is atherosclerotic calcification of the thoracic aorta. There is mild aneurysmal dilatation of the ascending thoracic aorta which measures up to 4.1 cm in diameter. The remainder of the thoracic aorta is normal in caliber, and the arch demonstrates standard 3-vessel anatomy. Heart: The heart is enlarged noting trace pericardial effusion. The coronary arteries are densely calcified. Lungs and pleural spaces: There is mild emphysematous change. No pleural effusion or pneumothorax is identified. Minimal patchy airspace opacities are seen at the right lung base. There is bibasilar scarring/atelectasis. The trachea and central airways are clear. There are scattered calcified granulomas. Mediastinum: There is no mediastinal hematoma or lymphadenopathy. Irene: Not well assessed without IV contrast. Axillae: There is no axillary lymphadenopathy. Bony thorax: The skeletal structures are osteopenic. No acute fracture is identified involving the bony thorax. There is a chronic compression deformity of T11. No lytic or blastic lesions are identified. Degenerative change is noted in the shoulders and thoracic spine. ABDOMEN AND PELVIS: Liver: The unenhanced liver is normal in size, contour, and attenuation. There is no intrahepatic biliary ductal dilatation. Gallbladder: Surgically absent noting clips in the gallbladder fossa. Spleen: Normal in size and attenuation. Pancreas: Unremarkable. Adrenal glands: Unremarkable. Kidneys: The unenhanced kidneys are normal in size and without hydronephrosis. There is a 5 mm nonobstructing right renal calculus. A 4 mm nonobstructing calculus is seen on the left. No ureteral stone is identified. There is no evidence of contour deforming mass lesion. Abdominal vasculature: There is moderate to advanced atherosclerotic calcification and mild ectasia of the abdominal aorta. Bowel: There is rectosigmoid fecal retention and moderate constipation. No bowel obstruction is seen. The appendix is normal as visualized. Peritoneum: There is no intraperitoneal free air or abdominal ascites. Lymphadenopathy: None. Pelvic viscera: The prostate gland is enlarged and heterogeneous. The bladder is distended, and the wall is thickened/trabeculated indicating chronic obstruction. There is intramuscular hemorrhage within the left gluteus gosia. Skeletal structures: The skeletal structures are osteopenic. There is a chronic compression deformity of L1 with evidence of prior vertebroplasty. Lumbosacral spine and bony pelvis are otherwise maintained. There is mild to moderate lumbosacral spondylosis. No lytic or blastic lesions are seen. IMPRESSION: 1. There is no acute posttraumatic intrathoracic abnormality. 2. Cardiomegaly and emphysema. 3. There are minimal patchy airspace opacities at the right lung base. Coronal clinically for evidence of a mild infectious/inflammatory pneumonitis or possibly aspiration. 4. There is mild aneurysmal dilatation of the ascending thoracic aorta which measures up to 4.1 cm in diameter. 5. There is no pleural effusion or pneumothorax. 6. There is no evidence of solid organ injury in the abdomen or pelvis on this unenhanced examination. 7. Intramuscular hemorrhage within the left gluteus gosia. 8. Bilateral nephrolithiasis. 9. Rectosigmoid fecal retention and moderate constipation. 10. Additional findings as above. ACT 112: Negative or not required by law. Electronically signed by: Cody Yu M.D. 09/28/2023 10:[address] 09/28/23 09:36 CT SCAN OF THE CHEST, ABDOMEN, AND PELVIS WITHOUT IV CONTRAST CLINICAL HISTORY: Fall. COMPARISON STUDY: Chest x-ray dated 01/29/2023. Abdominal CT dated 06/14/2023. TECHNIQUE: Unenhanced CT scan of the chest, abdomen, and pelvis was performed from the thoracic inlet to the proximal femora. Images are reviewed in the axial, sagittal, and coronal planes. IV contrast was not administered for this examination. Note that the examination was performed and significantly subopti mal fashion without IV contrast. A dose lowering technique was utilized adhering to the principles of ALARA. CT DOSE: 2826.11 mGy.cm FINDINGS: CHEST: Thyroid: Imaged portions of the thyroid gland are normal in size and attenuation. Thoracic aorta: There is atherosclerotic calcification of the thoracic aorta. There is mild aneurysmal dilatation of the ascending thoracic aorta which measu res up to 4.1 cm in diameter. The remainder of the thoracic aorta is normal in caliber, and the arch demonstrates standard 3-vessel anatomy. Heart: The heart is enlarged noting trace pericardial effusion. The coronary arteries are densely calcified. Lungs and pleural spaces: There is mild emphysematous change. No pleural effusion or pneumothorax is identified. Minimal patchy airspace opacities are seen at the right lung base. There is bibasilar scarring/atelectasis. The trachea and central airways are clear. There are scattered calcified granulomas. Mediastinum: There is no mediastinal hematoma or lymphadenopathy. Irene: Not well assessed without IV contrast. Axillae: There is no axillary lymphadenopathy. Bony thorax: The skeletal structures are osteopenic. No acute fracture is identified involving the bony thorax. There is a chronic compression deformity of T11. No lytic or blastic lesions are identified. Degenerative change is noted in the shoulders and thoracic spine. ABDOMEN AND PELVIS: Liver: The unenhanced liver is normal in size, contour, and attenuation. There is no intrahepatic biliary ductal dilatation. Gallbladder: Surgically absent noting clips in the gallbladder fossa. Spleen: Normal in size and attenuation. Pancreas: Unremarkable. Adrenal glands: Unremarkable. Kidneys: The unenhanced kidneys are normal in size and without hydronephrosis. There is a 5 mm nonobstructing right renal calculus. A 4 mm nonobstructing calculus is seen on the left. No ureteral stone is identified. There is no evidence of contour deforming mass lesion. Abdominal vasculature: There is moderate to advanced atherosclerotic calcification and mild ectasia of the abdominal aorta. Bowel: There is rectosigmoid fecal retention and moderate constipation. No bowel obstruction is seen. The appendix is normal as visualized. Peritoneum: There is no intraperitoneal free air or abdominal ascites. Lymphadenopathy: None. Pelvic viscera: The prostate gland is enlarged and heterogeneous. The bladder is distended, and the wall is thickened/trabeculated indicating chronic obstruction. There is intramuscular hemorrhage within the left gluteus gosia. Skeletal structures: The skeletal structures are osteopenic. There is a chronic compression deformity of L1 with evidence of prior vertebroplasty. Lumbosacral spine and bony pelvis are otherwise maintained. There is mild to moderate lumbosacral spondylosis. No lytic or blastic lesions are seen. IMPRESSION: 1. There is no acute posttraumatic intrathoracic abnormality. 2. Cardiomegaly and emphysema. 3. There are minimal patchy airspace opacities at the right lung base. Coronal clinically for evidence of a mild infectious/inflammatory pneumonitis or possibly aspiration. 4. There is mild aneurysmal dilatation of the ascending thoracic aorta which measures up to 4.1 cm in diameter. 5. There is no pleural effusion or pneumothorax. 6. There is no evidence of solid organ injury in the abdomen or pelvis on this unenhanced examination. 7. Intramuscular hemorrhage within the left gluteus gosia. 8. Bilateral nephrolithiasis. 9. Rectosigmoid fecal retention and moderate constipation. 10. Additional findings as above. ACT 112: Negative or not required by law. Electronically signed by: Cody Yu M.D. 09/28/2023 10:[address] 09/28/23 14:24 CT head/brain wo con CLINICAL HISTORY: Change AMS Technique: Contiguous axial CT images of the head were acquired from the base of the skull to the vertex without intravenous contrast administration. Images were viewed in brain, subdural and bone windows. Automated dose lowering techniques and/or adjustment according to patient size were utilized for this exam. Comparison: Comparison is made to CT head 09/28/2023 Findings: Areas of decreased attenuation are present in the periventricular and subcortical white matter bilaterally consistent with small vessel ischemic dis ease. Generalized cerebral atrophy with commensurate enlargement of the ventricles, sulci, and cisterns is also present. There is no acute intracranial hemorrhage or evidence of acute territorial infarction. No shift of the midline structures, mass effect, or extra-axial abnormalities are shown. Atherosclerotic calcifications are present in the intracranial segments of the internal carotid arteries. Imaged portions of the paranasal sinuses and mastoid air cells are clear. The orbits appear normal. Partial visualization of nasal bone fractures. Impression: No acute intracranial hemorrhage, no evidence of acute territorial infarction or other acute intracranial disease process. ACT 112: Negative or not required by law. Electronically signed by: Jonny Dobson M.D. 09/28/2023 3:48 PM
--- NOTE | 2023-09-28 16:40 | Electrocardiogram Report ---
Test Reason : Blood Pressure : / mmHG Vent. Rate : 079 BPM Atrial Rate : 079 BPM P-R Int : 214 ms QRS Dur : 146 ms QT Int : 428 ms P-R-T Axes : 012 269 -07 degrees QTc Int : 490 ms Sinus rhythm with 1st degree A-V block with Premature atrial complexes Left anterior fascicular block Right bundle branch block Old Septal infarct (cited on or before 28-SEP-2023) Abnormal ECG When compared with ECG of 28-SEP-2023 09:31, Premature atrial complexes are now Present T wave inversion no longer evident in Inferior leads Confirmed by Boris Ayala ([id number]) on 09/28/2023 4:39:56 PM Referred By: REFERRED SELF Confirmed By:Boris Ayala
[2023-09-28 17:32] LABS: Base Excess ABG 3.7 mEq/L (-9-1.8); HCO3 ABG 29 mmol/L (19-24); Oxygen Saturation ABG 98.8 % (90-95); PCO2 ABG 43 mmHg (35-46); PO2 ABG 147 mmHg (80-95); pH ABG 7.43 (7.35-7.45)
[2023-09-28 17:33] LABS: Allen Test Pos (Pos)
[2023-09-28] MEDS: INSULIN ASPART PER UNIT CHARGE SC SCH ×2 (17:44→21:40)
[2023-09-28] MEDS ORDERED: UNASYN 3000MG / NS q6h IV SCH (18:00)
--- NOTE | 2023-09-28 19:02 | Magnetic Resonance Report ---
MR brain wo con CLINICAL HISTORY: increased confusion, r/o cva TECHNIQUE: Multiplanar and multisequence MR images of the brain were obtained without intravenous con trast. Comparison: Comparison is made to MRI brain 01/29/2023 FINDINGS: No abnormal restricted diffusion is identified. Foci of T2 and FLAIR hyperintensity are noted in the paraventricular areas consistent with chronic small vessel ischemic disease. Ex vacuo ventriculomegal y and sulcal enlargement is noted compatible with diffuse volume loss. Foci of encephalomalacia are s een. There is no mass effect or midline shift. There is no evidence of acute intraparenchymal hemorrh age. No extra axial fluid collections are seen. The corpus callosum, pituitary gland, and cerebellar tonsils appear grossly unremarkable. Flow voids of the major intracranial arterial vessels are identified. The imaged portions of the para nasal sinuses, mastoid air cells, and orbits are unremarkable. IMPRESSION: No acute abnormality and in particular no evidence of acute infarct. ACT 112: Negative or not required by law. Electronically signed by: Jonny Dobson M.D. 09/28/2023 7:00 PM
[2023-09-28] MEDS: ATORVASTATIN 20 MG TAB PO SCH (21:27)
[2023-09-28] MEDS: guaiFENesin 600 MG TABCR PO SCH (21:28)
[2023-09-28] MEDS: PIPER/TAZO 4.5g in D5W MINI-B 100 ML IV SCH (21:37)
[2023-09-29] MEDS ORDERED: levETIRAcetam 1,000 MG in 0.9 % SODIUM CHLORIDE 100 ML IV SCH (03:30)
[2023-09-29] MEDS: VANCOMYCIN HCL 1,250 MG in SODIUM CHLORIDE 0.9% 250 ML IV SCH ×2 (04:05→16:28)
[2023-09-29] MEDS: SODIUM CHLORIDE 0.9% 1,000 ML IV SCH ×2 (04:05→15:27)
[2023-09-29] MEDS: ACETAMINOPHEN 1,000 MG/100 ML VIAL IV PRN (04:06)
[2023-09-29 04:31] LABS: Hematocrit (blood only) 35.7 % (42.0-52.0); Hemoglobin 11.8 g/dl (14.0-18.0); Mean Corpuscular Hemoglobin 29.7 pg (25.0-34.0); Mean Corpuscular Hgb Conc 33.1 g/dL (32.0-36.0); Mean Corpuscular Volume 89.9 fL (80.0-100.0); Platelet Count 161 K/uL (130-400); RDW Standard Deviation 42.8 fL (36.4-46.3); Red Blood Count 3.97 M/uL (4.70-6.10); White Blood Count 8.76 K/ul (4.8-10.8)
[2023-09-29 04:42] LABS: BUN Creatinine Ratio 25.9 (10-20); Calcium 8.4 mg/dl (8.6-10.3); Creatinine Clr Calc Pharmacy 96.8 ml/min; Est GFR (African American) 114.1 ml/min; Est GFR (Non-African American) 98.5 ml/min; Magnesium 1.6 mg/dl (1.7-2.4); Potassium 3.5 mmol/L (3.5-5.1)
[2023-09-29] MEDS: PIPER/TAZO 4.5g in D5W MINI-B 100 ML IV SCH ×3 (06:09→21:00)
--- NOTE | 2023-09-29 07:54 | Communication Note ---
Date of Service: September 29, 2023 Code brendan was called last night as patient became unresponsive. Earlier he had some minimal responses. vitals stable. Just staring and not responding to verbal stimuli. Seems moving his extremities. Had two ct head and mri scans earlier and were unremarkable.He had iv ativan and loaded with Keppra earlier in morning time.. Did abg and was ok. Currently not able to take po. Changed Keppra to iv 1gm bid . Notified am providers.
[2023-09-29] MEDS ORDERED: MAGNESIUM SULFATE / D5W 1 GM/100 ML BAG IV ONE ×2 (07:59→23:50)
[2023-09-29 08:57] LABS: Phosphorus 3.4 mg/dl (2.5-4.9)
[2023-09-29] MEDS ORDERED: CHOLECALCIFEROL 5,000 UNITS 125 MCG TAB PO SCH (09:00)
[2023-09-29] MEDS ORDERED: levETIRAcetam 250 MG TAB PO SCH (09:00)
--- NOTE | 2023-09-29 09:03 | Pharmacy Report ---
Pharmacy PK ABX Note - Date of Service September 29, 2023 - Assessment and Plan Assessment 83 year old M receiving vancomycin and zosyn empirically. Pertinent microbiologic data includes: Blood and urine culture pending. Day # 1 of antimicrobial therapy. Plan Vancomycin * Loading dose: 1500 mg IV x 1 * Maintenance dose: 1250 mg IV every 12 hours * Regimen is predicted to achieve target AUC/NADEEM of 400-600 mg/L.hr * Will order a level if therapy to be continued past 48 hours Pharmacy will continue to follow and will adjust dose/frequency as necessary. Thank you. Pharmacy has transitioned to AUC monitoring for vancomycin. AUC/NADEEM is the preferred PK/PD target and is associated with decreased risk of nephrotoxicity compared to traditional trough targets.
[2023-09-29] MEDS: TAMSULOSIN HCL 0.4 MG CAP PO SCH (09:36)
[2023-09-29] MEDS: guaiFENesin 600 MG TABCR PO SCH ×2 (09:36→19:53)
[2023-09-29] MEDS: FINASTERIDE 5 MG TAB PO SCH (09:36)
[2023-09-29] MEDS: BENZONATATE 100 MG CAPSULE PO SCH ×3 (09:36→19:53)
[2023-09-29] MEDS: INSULIN ASPART PER UNIT CHARGE SC SCH ×4 (09:44→21:29)
--- NOTE | 2023-09-29 10:06 | Hospitalist Progress Note ---
Date of Service September 29, 2023 Assessment & Plan (1) RLL pneumonia: (2) Weakness: (3) Falls: Plan: - CT chest reviewed concerning for RLL pna, also with concern for aspiration pna with coughing with food, will ask for speech therapy consultation - Unasyn IV initially -> changed to zosyn, vanco after had acute change in status - No WBC, afebrile - MRI of the brain - No acute abnormality and in particular no evidence of acute infarct. - received IVF - Not on anticoagulation except aspirin which is on hold now Acute encephalopathy, ? new onset seizure Hx of dementia, prior CVA received ativan and was loaded w/ keppra shortly after admission Neurology consulted and PO keprra recommended EEG ordered Repeat CT head negative -MRI ordered -Delirium precautions, including pain management -Resume asa when hgb stable -Continue statin when able to tolerate PO -Infectious work up pending -Procal negative -Questionable areas on imaging -Empirically transitioned to Vanc/Zosyn given abrupt status changes -TSH WBL Pt was code purple overnight - per night provider - patient became unresponsive. Earlier he had some minimal responses. vitals stable. Just staring and not responding to verbal stimuli. Seems moving his extremities. Had two ct head and mri scans earlier and were unremarkable.He had iv ativan and loaded with Keppra earlier in morning time. Did abg and was ok. Currently not able to take po. Changed Keppra to iv 1gm bid . Notified am providers. 09/29 I notified neurology this AM about the code purple event overnight and evaluated the pt / RN at the bedside. Pt is lying in bed, in no acute distress, his right arm is in the air. When I questioned him about that, he says that he wants to get up. He moves extremities, follows simple commands. He is able to say "no" when I ask him if he has any pain or shortness of breath or chest pain. He stares into the air. Neurology recommend to obtain EEG, at this point not convinced about seizure, perhaps delirium, recommend to lower Keppra to 500 twice daily. Currently only giving IV medications, not sure if patient is able to take p.o. at this time. (4) Intramuscular hematoma: Plan: - CT abd/pelvis showing L buttocks hemorrhage, but there is no size noted. Consulted general surgery - Apply cold compresses to Left buttock 20min on 20min off - Pt is not on blood thinners - Trend H&H with - Hold aspirin (5) DM type 2 (diabetes mellitus, type 2): Plan: - Glucose is elevated above 400 on admission - ISS with Accu-Cheks ACHS - Holding metformin and Forteo inj currently (6) History of CVA (cerebrovascular accident): Plan: - Hx of 3 CVA in the past, pt is on Namenda at home - May have residual strength discrepancy in the R arm compared to the Left. Pt is left handed - Monitor - Last MRI in Apr 2021 for CVA (7) HTN (hypertension): Plan: - Cont on lisinopril, amlodipine, asa, atorvastatin if able to take PO (8) Dementia: Plan: - Continue Nemenda - Chronic, lives with , concern that there may also be some memory issues from her per HPI. (9) BPH (benign prostatic hyperplasia): Plan: - Cont flomax - UA - negative (10) Hyperlipidemia: Plan: - Cont atorvastatin (11) Elevated troponin I level: Plan: - Monitor Trop Q6H, trop initially 38, - No chest pain, unlikely ACS - Echo obtained -LV systolic function is normal. EF 60 to 65%. LV wall motion is abnormal. Aortic valve is moderately calcified. Aortic valve stenosis is present. There is a small loculated anterior and right lateral pericardial effusion. Tamponade is absent. Compared to images obtained at the time of the previous study dated January 29, 2023, there has been a subtle interval increase in the size of the pericardial effusion. DVT ppx: teds, scds Lines: 2 PIV CODE: FULL Dispo: PCU Admission and Anticipated Discharge Date Admission Date: September 28, 2023 Subjective Pt seen in follow up of falls, pna, metabolic encephalopathy, ? new onset seizure Last night pt was code purple due to being unresponsive. He was seen by neurology yesterday due to acute mental status change, concern for new onset seizure. He was loaded with Keppra at that time, also received Ativan. Currently lying in bed, in no acute distress, his right arm is in the air. When I questioned him about that, he says that he wants to get up. He moves extremities, follows simple commands. He is able to say "no" when I ask him if he has any pain or shortness of breath or chest pain. Discussed with the nurse at the bedside. Neurology contacted as well, and updated about his code purple event last night. Recommend to obtain EEG, at this point not convinced about seizure, perhaps delirium, recommend to lower Keppra to 500 twice daily. Currently only giving IV medications, not sure if patient is able to take p.o. at this time. Review of Systems Review of Systems: Unobtainable due to cognitive status (pt denies pain, and shortness of breath) Physical Exam Physical Exam: General: awake, thin M in NAD, on RA Head: Normocephalic, + ecchymosis under orbits bilaterally, nasal bridge is ecchymotic ENT: PERRL, EOMI Resp: on room air, no adventitious breath sounds Cardiac: Regular rate and rhythm, no murmur, no JVD Abdominal: NABS x 4 quadrants, soft, nondistended, nontender to palpation Extremities: Normal inspection, no peripheral edema or erythema Neuro: Patient is awake, his right arm is raised up in the air, when asked about that, he says he wants to get up. He is able to follow simple commands such as moving his right lower extremity left lower extremity, and left arm. He kept his right arm down after I asked him to. He is able to say "no" when asking about pain/ ros, otherwise does not speak much. Stares blankly into the space. Results & Data Results & Data Vital Signs (Past 12 Hours) Vital Signs Temp Pulse Resp BP Pulse Ox O2 Del Method O2 Flow Rate 09/29/23 10:00 54 L 19 96 Room Air 09/29/23 10:00 173/82 H 09/29/23 09:30 153/72 H 09/29/23 09:30 55 L 24 98 Room Air 09/29/23 09:00 64 23 100 Room Air 09/29/23 09:00 153/75 H 09/29/23 08:31 54 L 23 98 Room Air 09/29/23 08:31 154/76 H 09/29/23 08:30 53 L 14 99 Room Air 09/29/23 08:00 78 23 98 Room Air 09/29/23 08:00 164/66 H 09/29/23 07:31 173/80 H 09/29/23 07:31 71 19 09/29/23 07:30 68 19 09/29/23 07:00 53 L 12 99 Room Air 09/29/23 07:00 149/77 H 09/29/23 06:53 63 09/29/23 06:00 36.7 C 09/29/23 05:30 146/73 H 09/29/23 05:30 60 13 100 Room Air 09/29/23 05:00 71 24 100 09/29/23 05:00 151/92 H 09/29/23 04:30 69 21 100 09/29/23 04:30 138/85 09/29/23 04:13 69 22 100 Nasal Cannula 2 09/29/23 04:13 168/86 H 09/29/23 04:00 Nasal Cannula 2 09/29/23 04:00 71 23 100 09/29/23 04:00 170/83 H 09/29/23 04:00 37.9 C H 09/29/23 03:45 70 22 95 09/29/23 03:45 174/96 H 09/29/23 03:31 72 22 100 09/29/23 03:31 144/94 H 09/29/23 03:30 71 22 97 09/29/23 03:15 174/88 H 09/29/23 03:15 70 21 100 09/29/23 03:00 72 21 100 09/29/23 03:00 156/93 H 09/29/23 02:45 73 20 100 09/29/23 02:45 141/97 H 09/29/23 02:44 172/90 H 09/29/23 02:44 73 21 100 09/29/23 02:30 72 21 93 09/29/23 02:15 67 20 100 09/29/23 02:15 152/92 H 09/29/23 02:01 74 22 100 09/29/23 02:01 182/95 H 09/29/23 02:00 63 22 99 09/29/23 01:45 152/120 H 09/29/23 01:45 73 21 100 09/29/23 01:30 166/118 H 09/29/23 01:30 66 22 100 09/29/23 01:15 159/86 H 09/29/23 01:15 62 20 100 09/29/23 01:02 67 23 100 09/29/23 01:02 150/78 H 09/29/23 01:00 67 22 100 09/29/23 00:45 63 22 100 09/29/23 00:45 138/78 09/29/23 00:30 64 22 100 09/29/23 00:30 165/86 H 09/29/23 00:15 169/79 H 09/29/23 00:15 67 21 100 09/29/23 00:00 62 21 100 09/29/23 00:00 156/76 H 09/28/23 23:59 Nasal Cannula 2 09/28/23 23:45 67 23 100 09/28/23 23:45 175/89 H 09/28/23 23:35 68 09/28/23 23:30 157/86 H 09/28/23 23:30 68 22 99 09/28/23 23:15 66 22 100 09/28/23 23:15 174/80 H 09/28/23 23:02 69 22 91 09/28/23 23:02 147/96 H 09/28/23 23:00 67 22 97 09/28/23 22:45 174/84 H 09/28/23 22:45 71 22 100 09/28/23 22:30 69 21 100 09/28/23 22:30 157/96 H 09/28/23 22:15 65 21 100 09/28/23 22:15 159/84 H Laboratory Results 09/29/23 09/29/23 09/29/23 Range/Units 08:11 03:54 02:48 WBC 8.76 (4.8-10.8) K/ul RBC 3.97 L (4.70-6.10) M/uL Hgb 11.8 L (14.0-18.0) g/dl Hct 35.7 L (42.0-52.0) % MCV 89.9 (80.0-100.0) fL MCH 29.7 (25.0-34.0) pg MCHC 33.1 (32.0-36.0) g/dL RDW Std Deviation 42.8 (36.4-46.3) fL RDW Coeff of James 13.0 (11.5-14.5) % Plt Count 161 (130-400) K/uL MPV 10.0 (9.4-12.4) fL Immature Gran % (Auto) % Neut % (Auto) % Lymph % (Auto) % [place] % (Auto) % Eos % (Auto) % Baso % (Auto) % Neut # (Auto) (1.40-6.50) K/uL Lymph # (Auto) (1.20-3.40) K/uL [place] # (Auto) (0.11-0.59) K/uL Eos # (Auto) (0.00-0.50) K/uL Baso # (Auto) (0.00-0.20) K/uL Immature Gran # (Auto) (0.01-0.20) K/uL PT (9.0-12.0) Seconds INR (0.9-1.1) ABG pH (7.35-7.45) ABG pCO2 (35-46) mmHg ABG pO2 (80-95) mmHg ABG HCO3 (19-24) mmol/L ABG O2 Saturation (90-95) % ABG Base Excess (-9-1.8) mEq/L Taj Test (Pos) Oxygen Given Sodium 140 (136-145) mmol/L Potassium 3.5 (3.5-5.1) mmol/L Chloride 103 (98-107) mmol/L Carbon Dioxide 29 (21-32) mmol/L Anion Gap 8 (3-11) BUN 14 (6-23) mg/dl Creatinine 0.54 L (0.6-1.4) mg/dl Est Cr Clr Drug Dosing 96.8 ml/min Est GFR ( Amer) 114.1 ml/min Est GFR (Non-Af Amer) 98.5 ml/min BUN/Creatinine Ratio 25.9 H (10-20) Glucose 230 H (70-99(Fasting)) mg/dl POC Glucose 219 H 221 H (70-99) mg/dl Lactate (0.4-2.0) mmol/L Calcium 8.4 L (8.6-10.3) mg/dl Phosphorus 3.4 (2.5-4.9) mg/dl Magnesium 1.6 L (1.7-2.4) mg/dl Total Bilirubin (0.2-1.0) mg/dl AST (13-39) U/L ALT (7-52) U/L Alkaline Phosphatase (34-104) U/L Total Creatine Kinase (30-223) U/L Troponin I High Sens (0-20) pg/ml Total Protein (6.0-8.3) gm/dl Albumin (3.4-5.0) gm/dl Globulin (2.5-4.0) gm/dl Albumin/Globulin Ratio (0.9-2) Procalcitonin (0-0.5) ng/ml TSH (0.300-4.500) uIu/ml Urine Color Urine Appearance (Clear) Urine pH (4.5-7.5) Ur Specific [place] (1.000-1.030) Urine Protein (Negative) Urine Glucose (UA) (Negative) Urine Ketones (Negative) Urine Blood (Negative) Urine Nitrite (Negative) Urine Bilirubin (Negative) Urine Urobilinogen (Negative) Ur Leukocyte Esterase (Negative) Urine WBC (Auto) (0-5) /hpf Urine RBC (Auto) (0-4) /hpf U Hyaline Cast (Auto) (0-5) /lpf U Epithel Cells (Auto) (0-5) /lpf Urine Bacteria (Auto) (Negative) 09/28/23 09/28/23 09/28/23 Range/Units Unknown 22:19 21:15 WBC (4.8-10.8) K/ul RBC (4.70-6.10) M/uL Hgb (14.0-18.0) g/dl Hct (42.0-52.0) % MCV (80.0-100.0) fL MCH (25.0-34.0) pg MCHC (32.0-36.0) g/dL RDW Std Deviation (36.4-46.3) fL RDW Coeff of James (11.5-14.5) % Plt Count (130-400) K/uL MPV (9.4-12.4) fL Immature Gran % (Auto) % Neut % (Auto) % Lymph % (Auto) % [place] % (Auto) % Eos % (Auto) % Baso % (Auto) % Neut # (Auto) (1.40-6.50) K/uL Lymph # (Auto) (1.20-3.40) K/uL [place] # (Auto) (0.11-0.59) K/uL Eos # (Auto) (0.00-0.50) K/uL Baso # (Auto) (0.00-0.20) K/uL Immature Gran # (Auto) (0.01-0.20) K/uL PT (9.0-12.0) Seconds INR (0.9-1.1) ABG pH (7.35-7.45) ABG pCO2 (35-46) mmHg ABG pO2 (80-95) mmHg ABG HCO3 (19-24) mmol/L ABG O2 Saturation (90-95) % ABG Base Excess (-9-1.8) mEq/L Taj Test (Pos) Oxygen Given Sodium (136-145) mmol/L Potassium (3.5-5.1) mmol/L Chloride (98-107) mmol/L Carbon Dioxide (21-32) mmol/L Anion Gap (3-11) BUN (6-23) mg/dl Creatinine (0.6-1.4) mg/dl Est Cr Clr Drug Dosing ml/min Est GFR ( Amer) ml/min Est GFR (Non-Af Amer) ml/min BUN/Creatinine Ratio (10-20) Glucose (70-99(Fasting)) mg/dl POC Glucose 196 H (70-99) mg/dl Lactate (0.4-2.0) mmol/L Calcium (8.6-10.3) mg/dl Phosphorus (2.5-4.9) mg/dl Magnesium (1.7-2.4) mg/dl Total Bilirubin (0.2-1.0) mg/dl AST (13-39) U/L ALT (7-52) U/L Alkaline Phosphatase (34-104) U/L Total Creatine Kinase (30-223) U/L Troponin I High Sens 39.0 H (0-20) pg/ml Total Protein (6.0-8.3) gm/dl Albumin (3.4-5.0) gm/dl Globulin (2.5-4.0) gm/dl Albumin/Globulin Ratio (0.9-2) Procalcitonin (0-0.5) ng/ml TSH (0.300-4.500) uIu/ml Urine Color Yellow Urine Appearance Clear (Clear) Urine pH 7.0 (4.5-7.5) Ur Specific [place] 1.036 H (1.000-1.030) Urine Protein 2+ H (Negative) Urine Glucose (UA) 3+ H (Negative) Urine Ketones 1+ H (Negative) Urine Blood 1+ H (Negative) Urine Nitrite Negative (Negative) Urine Bilirubin Negative (Negative) Urine Urobilinogen Negative (Negative) Ur Leukocyte Esterase Negative (Negative) Urine WBC (Auto) >30 H (0-5) /hpf Urine RBC (Auto) 0-4 (0-4) /hpf U Hyaline Cast (Auto) 1-5 (0-5) /lpf U Epithel Cells (Auto) 20-30 H (0-5) /lpf Urine Bacteria (Auto) Negative (Negative) 09/28/23 09/28/23 09/28/23 Range/Units 17:33 17:32 17:20 WBC (4.8-10.8) K/ul RBC (4.70-6.10) M/uL Hgb (14.0-18.0) g/dl Hct (42.0-52.0) % MCV (80.0-100.0) fL MCH (25.0-34.0) pg MCHC (32.0-36.0) g/dL RDW Std Deviation (36.4-46.3) fL RDW Coeff of James (11.5-14.5) % Plt Count (130-400) K/uL MPV (9.4-12.4) fL Immature Gran % (Auto) % Neut % (Auto) % Lymph % (Auto) % [place] % (Auto) % Eos % (Auto) % Baso % (Auto) % Neut # (Auto) (1.40-6.50) K/uL Lymph # (Auto) (1.20-3.40) K/uL [place] # (Auto) (0.11-0.59) K/uL Eos # (Auto) (0.00-0.50) K/uL Baso # (Auto) (0.00-0.20) K/uL Immature Gran # (Auto) (0.01-0.20) K/uL PT (9.0-12.0) Seconds INR (0.9-1.1) ABG pH 7.43 (7.35-7.45) ABG pCO2 43 (35-46) mmHg ABG pO2 147 H (80-95) mmHg ABG HCO3 29 H (19-24) mmol/L ABG O2 Saturation 98.8 H (90-95) % ABG Base Excess 3.7 H (-9-1.8) mEq/L Taj Test Pos (Pos) Oxygen Given 3L O2 Sodium (136-145) mmol/L Potassium (3.5-5.1) mmol/L Chloride (98-107) mmol/L Carbon Dioxide (21-32) mmol/L Anion Gap (3-11) BUN (6-23) mg/dl Creatinine (0.6-1.4) mg/dl Est Cr Clr Drug Dosing ml/min Est GFR ( Amer) ml/min Est GFR (Non-Af Amer) ml/min BUN/Creatinine Ratio (10-20) Glucose (70-99(Fasting)) mg/dl POC Glucose 325 H* 357 H* (70-99) mg/dl Lactate 0.8 (0.4-2.0) mmol/L Calcium (8.6-10.3) mg/dl Phosphorus (2.5-4.9) mg/dl Magnesium (1.7-2.4) mg/dl Total Bilirubin (0.2-1.0) mg/dl AST (13-39) U/L ALT (7-52) U/L Alkaline Phosphatase (34-104) U/L Total Creatine Kinase (30-223) U/L Troponin I High Sens (0-20) pg/ml Total Protein (6.0-8.3) gm/dl Albumin (3.4-5.0) gm/dl Globulin (2.5-4.0) gm/dl Albumin/Globulin Ratio (0.9-2) Procalcitonin (0-0.5) ng/ml TSH (0.300-4.500) uIu/ml Urine Color Urine Appearance (Clear) Urine pH (4.5-7.5) Ur Specific [place] (1.000-1.030) Urine Protein (Negative) Urine Glucose (UA) (Negative) Urine Ketones (Negative) Urine Blood (Negative) Urine Nitrite (Negative) Urine Bilirubin (Negative) Urine Urobilinogen (Negative) Ur Leukocyte Esterase (Negative) Urine WBC (Auto) (0-5) /hpf Urine RBC (Auto) (0-4) /hpf U Hyaline Cast (Auto) (0-5) /lpf U Epithel Cells (Auto) (0-5) /lpf Urine Bacteria (Auto) (Negative) 09/28/23 09/28/23 09/28/23 Range/Units 14:35 11:54 11:19 WBC 8.26 (4.8-10.8) K/ul RBC 3.88 L (4.70-6.10) M/uL Hgb 11.4 L (14.0-18.0) g/dl Hct 34.3 L (42.0-52.0) % MCV 88.4 (80.0-100.0) fL MCH 29.4 (25.0-34.0) pg MCHC 33.2 (32.0-36.0) g/dL RDW Std Deviation 42.4 (36.4-46.3) fL RDW Coeff of James 13.0 (11.5-14.5) % Plt Count 171 (130-400) K/uL MPV 9.8 (9.4-12.4) fL Immature Gran % (Auto) 0.4 % Neut % (Auto) 75.4 % Lymph % (Auto) 16.3 % [place] % (Auto) 6.7 % Eos % (Auto) 0.8 % Baso % (Auto) 0.4 % Neut # (Auto) 6.23 (1.40-6.50) K/uL Lymph # (Auto) 1.35 (1.20-3.40) K/uL [place] # (Auto) 0.55 (0.11-0.59) K/uL Eos # (Auto) 0.07 (0.00-0.50) K/uL Baso # (Auto) 0.03 (0.00-0.20) K/uL Immature Gran # (Auto) 0.03 (0.01-0.20) K/uL PT (9.0-12.0) Seconds INR (0.9-1.1) ABG pH (7.35-7.45) ABG pCO2 (35-46) mmHg ABG pO2 (80-95) mmHg ABG HCO3 (19-24) mmol/L ABG O2 Saturation (90-95) % ABG Base Excess (-9-1.8) mEq/L Taj Test (Pos) Oxygen Given Sodium 139 (136-145) mmol/L Potassium 3.5 (3.5-5.1) mmol/L Chloride 105 (98-107) mmol/L Carbon Dioxide 26 (21-32) mmol/L Anion Gap 8 (3-11) BUN 16 (6-23) mg/dl Creatinine 0.54 L (0.6-1.4) mg/dl Est Cr Clr Drug Dosing 96.8 ml/min Est GFR ( Amer) 114.1 ml/min Est GFR (Non-Af Amer) 98.5 ml/min BUN/Creatinine Ratio 29.6 H (10-20) Glucose 271 H (70-99(Fasting)) mg/dl POC Glucose 327 H* (70-99) mg/dl Lactate 3.3 H* (0.4-2.0) mmol/L Calcium 8.6 (8.6-10.3) mg/dl Phosphorus (2.5-4.9) mg/dl Magnesium (1.7-2.4) mg/dl Total Bilirubin 1.1 H (0.2-1.0) mg/dl AST 21 (13-39) U/L ALT 32 (7-52) U/L Alkaline Phosphatase 133 H (34-104) U/L Total Creatine Kinase (30-223) U/L Troponin I High Sens 42.5 H 41.0 H (0-20) pg/ml Total Protein 6.0 (6.0-8.3) gm/dl Albumin 3.3 L (3.4-5.0) gm/dl Globulin 2.7 (2.5-4.0) gm/dl Albumin/Globulin Ratio 1.2 (0.9-2) Procalcitonin 0.08 (0-0.5) ng/ml TSH (0.300-4.500) uIu/ml Urine Color Urine Appearance (Clear) Urine pH (4.5-7.5) Ur Specific [place] (1.000-1.030) Urine Protein (Negative) Urine Glucose (UA) (Negative) Urine Ketones (Negative) Urine Blood (Negative) Urine Nitrite (Negative) Urine Bilirubin (Negative) Urine Urobilinogen (Negative) Ur Leukocyte Esterase (Negative) Urine WBC (Auto) (0-5) /hpf Urine RBC (Auto) (0-4) /hpf U Hyaline Cast (Auto) (0-5) /lpf U Epithel Cells (Auto) (0-5) /lpf Urine Bacteria (Auto) (Negative) 09/28/23 09/28/23 09/28/23 Range/Units 10:35 10:28 09:34 WBC (4.8-10.8) K/ul RBC (4.70-6.10) M/uL Hgb (14.0-18.0) g/dl Hct (42.0-52.0) % MCV (80.0-100.0) fL MCH (25.0-34.0) pg MCHC (32.0-36.0) g/dL RDW Std Deviation (36.4-46.3) fL RDW Coeff of James (11.5-14.5) % Plt Count (130-400) K/uL MPV (9.4-12.4) fL Immature Gran % (Auto) % Neut % (Auto) % Lymph % (Auto) % [place] % (Auto) % Eos % (Auto) % Baso % (Auto) % Neut # (Auto) (1.40-6.50) K/uL Lymph # (Auto) (1.20-3.40) K/uL [place] # (Auto) (0.11-0.59) K/uL Eos # (Auto) (0.00-0.50) K/uL Baso # (Auto) (0.00-0.20) K/uL Immature Gran # (Auto) (0.01-0.20) K/uL PT 11.4 (9.0-12.0) Seconds INR 1.0 (0.9-1.1) ABG pH (7.35-7.45) ABG pCO2 (35-46) mmHg ABG pO2 (80-95) mmHg ABG HCO3 (19-24) mmol/L ABG O2 Saturation (90-95) % ABG Base Excess (-9-1.8) mEq/L Taj Test (Pos) Oxygen Given Sodium 139 (136-145) mmol/L Potassium 3.9 (3.5-5.1) mmol/L Chloride 100 (98-107) mmol/L Carbon Dioxide 31 (21-32) mmol/L Anion Gap 8 (3-11) BUN 19 (6-23) mg/dl Creatinine 0.73 (0.6-1.4) mg/dl Est Cr Clr Drug Dosing 71.6 ml/min Est GFR ( Amer) 100.8 ml/min Est GFR (Non-Af Amer) 87.0 ml/min BUN/Creatinine Ratio 26.0 H (10-20) Glucose 431 H* (70-99(Fasting)) mg/dl POC Glucose 363 H* (70-99) mg/dl Lactate 1.6 (0.4-2.0) mmol/L Calcium 9.3 (8.6-10.3) mg/dl Phosphorus (2.5-4.9) mg/dl Magnesium 1.9 (1.7-2.4) mg/dl Total Bilirubin 1.1 H (0.2-1.0) mg/dl AST 21 (13-39) U/L ALT 37 (7-52) U/L Alkaline Phosphatase 159 H (34-104) U/L Total Creatine Kinase 92 (30-223) U/L Troponin I High Sens 38.1 H (0-20) pg/ml Total Protein 6.8 (6.0-8.3) gm/dl Albumin 3.8 (3.4-5.0) gm/dl Globulin 3.0 (2.5-4.0) gm/dl Albumin/Globulin Ratio 1.3 (0.9-2) Procalcitonin (0-0.5) ng/ml TSH 1.380 (0.300-4.500) uIu/ml Urine Color Urine Appearance (Clear) Urine pH (4.5-7.5) Ur Specific [place] (1.000-1.030) Urine Protein (Negative) Urine Glucose (UA) (Negative) Urine Ketones (Negative) Urine Blood (Negative) Urine Nitrite (Negative) Urine Bilirubin (Negative) Urine Urobilinogen (Negative) Ur Leukocyte Esterase (Negative) Urine WBC (Auto) (0-5) /hpf Urine RBC (Auto) (0-4) /hpf U Hyaline Cast (Auto) (0-5) /lpf U Epithel Cells (Auto) (0-5) /lpf Urine Bacteria (Auto) (Negative) Medications Administered Current Inpatient Medications Acetaminophen (Acetaminophen 325 Mg Tab) 650 mg PO Q4H PRN PRN Reason: Moderate Pain (Scale 4, 5, 6) Stop: 10/28/23 13:00 Atorvastatin Calcium (Atorvastatin 20 Mg Tab) 20 mg PO HS [facility] Stop: 10/28/23 20:59 Last Admin: 09/28/23 21:27 Dose: Not Given Benzonatate (Benzonatate 100 Mg Capsule) 100 mg PO TID [place] Stop: 10/28/23 13:59 Last Admin: 09/29/23 09:36 Dose: Not Given Dextrose (Dextrose 50% 50 Ml Syringe) 25 - 50 ml IV UD PRN; Protocol PRN Reason: Hypoglycemia Protocol Stop: 10/28/23 13:00 Finasteride (Finasteride 5 Mg Tab) 5 mg PO DAILY [facility] Stop: 10/29/23 08:59 Last Admin: 09/29/23 09:36 Dose: Not Given Glucagon (Glucagon For Inj 1 Mg Vial) 1 mg SQ UD PRN; Protocol PRN Reason: Hypoglycemia Protocol Stop: 10/28/23 13:00 Glucose (Glucose 10 Tab/Tube) 4 - 8 tab PO UD PRN; Protocol PRN Reason: Hypoglycemia Treatment Stop: 10/28/23 13:00 Glucose (Glucose 40% Gel 15 Gm Tube) 15 - 30 gm PO UD PRN; Protocol PRN Reason: Hypoglycemia Protocol Stop: 10/28/23 13:00 Guaifenesin (Guaifenesin 600 Mg Tabcr) 1,200 mg PO Q12 [facility] Stop: 10/28/23 20:59 Last Admin: 09/29/23 09:36 Dose: Not Given Vancomycin HCl 1,250 mg/ (Sodium Chloride) 275 mls @ 200 mls/hr IV Q12H [facility] Stop: 10/01/23 02:59 Last Infusion: 09/29/23 05:30 Dose: Infused Piperacillin Sod/Tazobactam (Sod 4.5 gm/ Dextrose) 100 mls @ 25 mls/hr IV Q8H [facility]; Protocol Stop: 09/30/23 21:29 Last Infusion: 09/29/23 10:03 Dose: Infused Acetaminophen (Ofirmev) 1,000 mg in 100 mls @ 400 mls/hr IV Q8H PRN PRN Reason: Pain or Fever Stop: 10/02/23 03:16 Last Infusion: 09/29/23 04:20 Dose: Infused Sodium Chloride (Nss) 1,000 mls @ 80 mls/hr IV .[id number] [facility] Stop: 09/30/23 04:29 Last Admin: 09/29/23 04:05 Dose: 80 mls/hr Levetiracetam 500 mg/ Sodium (Chloride) 105 mls @ 440 mls/hr IV Q12H [facility] Stop: 10/29/23 20:47 Potassium Chloride (K Sergio / Wtr) 10 meq in 100 mls @ 100 mls/hr IV Q1H [facility] Stop: 09/29/23 12:14 Insulin Aspart (Insulin Aspart Per Unit Charge) 0 units SC ACHS [facility] Stop: 10/28/23 16:29 Last Admin: 09/29/23 09:44 Dose: 2 units Miscellaneous (Carbohydrates For Hypoglycemia ) 15 - 30 gm PO UD PRN PRN Reason: Hypoglycemia Protocol Stop: 10/28/23 13:00 Miscellaneous Information (Vancomycin Consult Active) 1 each N/A UD PRN PRN Reason: Consult Stop: 10/28/23 14:22 Ondansetron HCl (Ondansetron Inj 2 Mg/Ml 2 Ml Vial) 4 mg IV Q4H PRN PRN Reason: Nausea And Vomiting Stop: 10/28/23 13:00 Tamsulosin HCl (Tamsulosin Hcl 0.4 Mg Cap) [facility] [place] [facility]: 10/29/23 08:59 Last Admin: 09/29/23 09:36 Dose: Not Given Vitamin D (Cholecalciferol 5,000 Units 125 Mcg Tab) [facility] [place] Stop: 10/29/23 08:59 Last Admin: 09/29/23 09:36 Dose: Not Given (1) RLL pneumonia Aspiration pneumonia type: unspecified Pneumonia type: aspiration pneumonia Qualified Code(s): J69.0 - Pneumonitis due to inhalation of food and vomit (3) Falls Encounter type: initial encounter Qualified Code(s): W19.XXXA - Unspecified fall, initial encounter
[2023-09-29] MEDS: POTASSIUM CHLORIDE / WTR 10 MEQ/100 ML PLCT IV SCH ×2 (10:29→11:30)
[2023-09-29] MEDS ORDERED: PHARMACY GLYCEMIC MGMT CONSULT PRN (10:43)
--- NOTE | 2023-09-29 11:14 | Surgery Progress Note ---
Date of Service September 29, 2023 Assessment & Plan (1) Fall as cause of accidental injury at home as place of occurrence: Plan: s/p fall, evaluation for CT findings of left buttock hemorrhage. HD stable with good peripheral pulses and stable H/H. Patient underwent a CT brain and repeat examination yesterday for altered mental status, ? of seizure activity? Mental status per medicine/ED. No traumatic injuries to the head. There is no bruising or evidence for active bleeding at the buttocks or abdomen physical exam and H/H has is stable at this time. Fall risk precaution if patient returns to usual function May have DVT ppx Will see tomorrow for an additional day of stability check then will sign off from a surgical standpoint. The patient has no blood thinner necessity so not expecting any potential changes from a bleeding perspective during the remainder of his stay. Admission and Anticipated Discharge Date Admission Date: September 28, 2023 Subjective Patient was seen and examined in the ED this am. He was resting quietly, difficult to arouse but arousable. Does not properly respond to questions. ED staff states he has been difficult to awaken this am and reported to the ED physician. Physical Exam Constitutional: + cachectic and + frail appearing; + not healthy appearing and + uncooperative (difficult to examine) Eyes: bruising around both eyes Respiratory: normal respiratory effort; no respiratory distress, no labored breathing and does not use accessory muscles Cardiovascular: Rate/Rhythm: regular rate; not tachycardic Good, palpable peripheral pulses Gastrointestinal (Abdomen): soft, non-distended Skin: There is no bruising at the left buttock area. No swelling or evidence for hemorrhage. Results & Data Vital Signs (Past 12 Hours) Vital Signs Temp Pulse Resp BP Pulse Ox O2 Del Method O2 Flow Rate 09/29/23 11:00 60 20 98 Room Air 09/29/23 11:00 156/95 H 09/29/23 10:30 129/71 09/29/23 10:30 73 20 97 Room Air 09/29/23 10:00 54 L 19 96 Room Air 09/29/23 10:00 173/82 H 09/29/23 09:30 153/72 H 09/29/23 09:30 55 L 24 98 Room Air 09/29/23 09:00 64 23 100 Room Air 09/29/23 09:00 153/75 H 09/29/23 08:31 54 L 23 98 Room Air 09/29/23 08:31 154/76 H 09/29/23 08:30 53 L 14 99 Room Air 09/29/23 08:00 78 23 98 Room Air 09/29/23 08:00 164/66 H 09/29/23 07:31 173/80 H 09/29/23 07:31 71 19 09/29/23 07:30 68 19 09/29/23 07:00 53 L 12 99 Room Air 09/29/23 07:00 149/77 H 09/29/23 06:53 63 09/29/23 06:00 36.7 C 09/29/23 05:30 146/73 H 09/29/23 05:30 60 13 100 Room Air 09/29/23 05:00 71 24 100 09/29/23 05:00 151/92 H 09/29/23 04:30 69 21 100 09/29/23 04:30 138/85 09/29/23 04:13 69 22 100 Nasal Cannula 2 09/29/23 04:13 168/86 H 09/29/23 04:00 Nasal Cannula 2 09/29/23 04:00 71 23 100 09/29/23 04:00 170/83 H 09/29/23 04:00 37.9 C H 09/29/23 03:45 70 22 95 09/29/23 03:45 174/96 H 09/29/23 03:31 72 22 100 09/29/23 03:31 144/94 H 09/29/23 03:30 71 22 97 09/29/23 03:15 174/88 H 09/29/23 03:15 70 21 100 09/29/23 03:00 72 21 100 09/29/23 03:00 156/93 H 09/29/23 02:45 73 20 100 09/29/23 02:45 141/97 H 09/29/23 02:44 172/90 H 09/29/23 02:44 73 21 100 09/29/23 02:30 72 21 93 09/29/23 02:15 67 20 100 09/29/23 02:15 152/92 H 09/29/23 02:01 74 22 100 09/29/23 02:01 182/95 H 09/29/23 02:00 63 22 99 09/29/23 01:45 152/120 H 09/29/23 01:45 73 21 100 09/29/23 01:30 166/118 H 09/29/23 01:30 66 22 100 09/29/23 01:15 159/86 H 09/29/23 01:15 62 20 100 09/29/23 01:02 67 23 100 09/29/23 01:02 150/78 H 09/29/23 01:00 67 22 100 09/29/23 00:45 63 22 100 09/29/23 00:45 138/78 09/29/23 00:30 64 22 100 09/29/23 00:30 165/86 H 09/29/23 00:15 169/79 H 09/29/23 00:15 67 21 100 09/29/23 00:00 62 21 100 09/29/23 00:00 156/76 H 09/28/23 23:59 Nasal Cannula 2 09/28/23 23:45 67 23 100 09/28/23 23:45 175/89 H 09/28/23 23:35 68 09/28/23 23:30 157/86 H 09/28/23 23:30 68 22 99 09/28/23 23:15 66 22 100 09/28/23 23:15 174/80 H Laboratory Results H/H 11.8/35.7 from 11.4/34.3 PG Care Time/CCT Total # of Minutes Spent Total Time Spent with Patient: Total time spent is greater than 50% in coordination of care (as documented) at patient's floor/unit and/or counseling patient: Coding Level of Care Code 20185 SUB INP/OBS CARE 10/14MIN Diagnoses Fall as cause of accidental injury at home as place of occurrence W19.XXXA; Y92.009
--- NOTE | 2023-09-29 11:23 | Pharmacy Report ---
Pharmacy Glycemic Short Note 2 - Date of Service September 29, 2023 - Glycemic Short BSG Results (Last 24 hours): 09/28/23 09/28/23 09/28/23 11:54 14:35 17:32 Glucose 271 H POC Glucose 327 H* 357 H* 09/28/23 09/28/23 09/29/23 17:33 21:15 02:48 Glucose POC Glucose 325 H* 196 H 221 H 09/29/23 09/29/23 03:54 08:11 Glucose 230 H POC Glucose 219 H OUTPATIENT ANTIDIABETIC REGIMEN: * Metformin 1000 mg PO daily HbA1c: 8.5% (01/30/23), repeat HbA1c ordered for 09/30/23 ASSESSMENT: * BB is an 83 year old male originally presented to ED due to multiple falls and increasing weakness. * Now w/ concern for aspiration pneumonia and new acute encephalopathy * Patient has been hyperglycemic since time of presentation - pharmacy consulted for glycemic management morning of 09/29/23 * Fasting BSG of 219 mg/dL this morning, improved from yesterday * Diet ordered originally, but now NPO * Will adjust Novolog goal range today and initiate low-dose basal insulin PLAN FOR INPATIENT GLYCEMIC CONTROL: * Hold outpatient oral diabetes medications * Basal insulin * Lantus 10 units SC daily * Bolus insulin * NovoLog per scale ACHS or Q6hrs while NPO * Goal Range: Low 110 mg/dL - High 140 mg/dL * Correction Factor: 30 mg/dL/unit * Nutritional / Prandial insulin per carb ratio of 1 unit per 10 grams CHO consumed
[2023-09-29] MEDS ORDERED: LANTUS PER UNIT CHARGE SC ONE (11:30)
[2023-09-29 17:00] LABS: iSTAT Arterial Blood Gas HCO3 28 meg/L (19-24); iSTAT Arterial Blood Gas pCO2 42 mmHg (35-46); iSTAT Arterial Blood Gas pH 7.43 (7.35-7.45); iSTAT Arterial Blood Gas pO2 126 mmHg (80-95); iSTAT Carbon Dioxide 29 mmol/L (24-31); iSTAT Hematocrit 32 % (42-52); iSTAT Hemoglobin 10.9 g/dl (14.0-18.0); iSTAT Potassium 3.4 mmol/L (3.3-5.0); iSTAT Sodium 141 mmol/L (135-144)
[2023-09-29] MEDS: levETIRAcetam 500 MG in 0.9 % SODIUM CHLORIDE 100 ML IV SCH (17:28)
[2023-09-29] MEDS: ATORVASTATIN 20 MG TAB PO SCH (19:53)
[2023-09-29] MEDS ORDERED: levETIRAcetam 500 MG in 0.9 % SODIUM CHLORIDE 100 ML IV SCH (20:48)
[2023-09-29] MEDS ORDERED: Nursing to Pharmacy Communication SCH (21:30)
--- NOTE | 2023-09-29 22:53 | Electroencephalogram ---
EEG Procedure Note Date of Service September 29, 2023 Start / End Times Start Time: 09:58 End Time: 10:18 Referring Physician Brant Kaminski History An 83 year old male with seizure like activity. EEG performed for evaluation of epileptiform activity. Home Medication List Medication Instructions Recorded Confirmed Type amlodipine 2.5 mg tablet 2.5 mg PO DAILY 01/29/23 09/28/23 History aspirin 81 mg chewable tablet 81 mg PO QAM 01/29/23 09/28/23 History atorvastatin 20 mg tablet 20 mg PO HS 01/29/23 09/28/23 History calcium carbonate 600 mg calcium 600 mg PO QAM 01/29/23 09/28/23 History (1,500 mg) tablet (Calcium) cholecalciferol (vitamin D3) 125 125 mcg PO QAM 01/29/23 09/28/23 History mcg (5,000 unit) capsule ipratropium bromide 42 mcg (0.06 2 spray intranasal BID PRN 01/29/23 09/28/23 History %) nasal spray Congestion lisinopril 10 mg tablet 10 mg PO BID 01/29/23 09/28/23 History mv-mn-folic 200 mcg-vit K 15 2 cap PO DAILY 01/29/23 09/28/23 History mcg-lutein 5 mg-zeaxanthin 1 mg capsule (PreserVision AREDS 2 Plus Multivit) tamsulosin 0.4 mg capsule 0.4 mg PO QAM 01/29/23 09/28/23 History teriparatide 20 mcg/dose (600 20 mcg subcut DAILY 01/29/23 09/28/23 History mcg/2.4 mL) subcutaneous pen injector (Forteo) finasteride 5 mg tablet 5 mg PO DAILY #90 tabs 04/20/23 09/28/23 Rx memantine 10 mg tablet 10 mg PO DAILY #90 tabs 06/11/23 09/28/23 Rx Macular Health Formula 10 mg PO QAM 09/28/23 09/28/23 History magnesium oxide 400 mg PO QAM 09/28/23 09/28/23 History metformin 500 mg tablet,extended 1,000 mg PO QAM 09/28/23 09/28/23 History release 24 hr phenazopyridine 200 mg tablet 0 mg PO TID PRN pain 09/28/23 09/28/23 History Inpatient Medication List Atorvastatin Calcium (Atorvastatin 20 Mg Tab) 20 mg PO HS [facility] Stop: 10/28/23 20:59 Last Admin: 09/29/23 19:53 Dose: Not Given Documented By: Admin: 09/28/23 21:27 Dose: Not Given Documented By: RORY Benzonatate (Benzonatate 100 Mg Capsule) 100 mg PO TID [facility] Stop: 10/28/23 13:59 Last Admin: 09/29/23 19:53 Dose: Not Given Documented By: Admin: 09/29/23 13:47 Dose: Not Given Documented By: Admin: 09/29/23 09:36 Dose: Not Given Documented By: Admin: 09/28/23 21:28 Dose: Not Given Documented By: Admin: 09/28/23 14:32 Dose: Not Given Documented By: FRANK Finasteride (Finasteride 5 Mg Tab) 5 mg PO DAILY [facility] Stop: 10/29/23 08:59 Last Admin: 09/29/23 09:36 Dose: Not Given Documented By: RUBEN Guaifenesin (Guaifenesin 600 Mg Tabcr) 1,200 mg PO Q12 [facility] Stop: 10/28/23 20:59 Last Admin: 09/29/23 19:53 Dose: Not Given Documented By: Admin: 09/29/23 09:36 Dose: Not Given Documented By: Admin: 09/28/23 21:28 Dose: Not Given Documented By: RORY Vancomycin HCl 1,250 mg/ (Sodium Chloride) 275 mls @ 200 mls/hr IV Q12H [facility] Stop: 10/01/23 02:59 Last Infusion: 09/29/23 17:59 Dose: Infused Documented By: Admin: 09/29/23 16:28 Dose: 200 mls/hr Documented By: Infusion: 09/29/23 05:30 Dose: Infused Documented By: Admin: 09/29/23 04:05 Dose: 200 mls/hr Documented By: CALI Piperacillin Sod/Tazobactam (Sod 4.5 gm/ Dextrose) 100 mls @ 25 mls/hr IV Q8H [facility]; Protocol Stop: 09/30/23 21:29 Last Infusion: 09/29/23 17:59 Dose: Infused Documented By: Admin: 09/29/23 13:55 Dose: 25 mls/hr Documented By: Infusion: 09/29/23 10:03 Dose: Infused Documented By: Admin: 09/29/23 06:09 Dose: 25 mls/hr Documented By: Infusion: 09/29/23 01:35 Dose: Infused Documented By: Admin: 09/28/23 21:37 Dose: 25 mls/hr Documented By: RORY Acetaminophen (Ofirmev) 1,000 mg in 100 mls @ 400 mls/hr IV Q8H PRN PRN Reason: Pain or Fever Stop: 10/02/23 03:16 Last Infusion: 09/29/23 04:20 Dose: Infused Documented By: Admin: 09/29/23 04:06 Dose: 400 mls/hr Documented By: CALI Sodium Chloride (Nss) 1,000 mls @ 80 mls/hr IV .[id number] [facility] Stop: 09/30/23 04:29 Last Admin: 09/29/23 15:27 Dose: 80 mls/hr Documented By: Infusion: 09/29/23 15:27 Dose: Infused Documented By: Admin: 09/29/23 04:05 Dose: 80 mls/hr Documented By: CALI Levetiracetam 500 mg/ Sodium (Chloride) 105 mls @ 440 mls/hr IV Q12H [facility] Stop: 10/29/23 15:59 Last Infusion: 09/29/23 17:59 Dose: Infused Documented By: Admin: 09/29/23 17:28 Dose: 440 mls/hr Documented By: TEO Tamsulosin HCl (Tamsulosin Hcl 0.4 Mg Cap) [facility] [place]: 10/29/23 08:59 Last Admin: 09/29/23 09:36 Dose: Not Given Documented By: RUBEN Discontinued Medications Bisacodyl (Bisacodyl 10 Mg Supp) 10 mg MD NOW ONE Stop: 09/28/23 12:01 Last Admin: 09/28/23 14:37 Dose: Not Given Documented By: CHINO Sodium Chloride (Nss) 1,000 mls @ 999 mls/hr IV .Q1H1M [facility] Stop: 09/28/23 10:45 Last Infusion: 09/28/23 13:48 Dose: Infused Documented By: Admin: 09/28/23 09:37 Dose: 999 mls/hr Documented By: LIN Ampicillin Sodium/Sulbactam Sodium 3,000 mg/ Sodium Chloride 100 mls @ 200 mls/hr IV NOW STA Stop: 09/28/23 11:23 Last Infusion: 09/28/23 12:04 Dose: Infused Documented By: Admin: 09/28/23 11:14 Dose: 200 mls/hr Documented By: CHINO Lactated Ringer's (Lr) 1,000 mls @ 999 mls/hr IV .Q1H1M ONE Stop: 09/28/23 11:54 Last Infusion: 09/28/23 13:48 Dose: Infused Documented By: Admin: 09/28/23 11:00 Dose: 999 mls/hr Documented By: CHINO Acetaminophen (Ofirmev) 1,000 mg in 100 mls @ 400 mls/hr IV NOW STA Stop: 09/28/23 14:20 Last Infusion: 09/28/23 16:24 Dose: Infused Documented By: Admin: 09/28/23 14:32 Dose: 400 mls/hr Documented By: FRANK Vancomycin HCl 1,500 mg/ (Sodium Chloride) 530 mls @ 200 mls/hr IV ONE ONE Stop: 09/28/23 17:53 Last Infusion: 09/28/23 20:54 Dose: Infused Documented By: Admin: 09/28/23 16:51 Dose: 200 mls/hr Documented By: RORY Piperacillin Sod/Tazobactam (Sod 4.5 gm/ Dextrose) 100 mls @ 200 mls/hr IV NOW ONE; Protocol Stop: 09/28/23 15:14 Last Infusion: 09/28/23 16:50 Dose: Infused Documented By: Admin: 09/28/23 16:25 Dose: 200 mls/hr Documented By: MIRELLA Lorazepam 1 mg/ Syringe 1 mls @ 2 mls/min IV ONE PRN; Protocol PRN Reason: SEIZURE Last Admin: 09/28/23 14:36 Dose: 2 mls/min Documented By: FRANK Levetiracetam 2,000 mg/ Sodium (Chloride) 270 mls @ 999 mls/hr IV ONE ONE Stop: 09/28/23 16:16 Last Infusion: 09/28/23 16:44 Dose: Infused Documented By: Admin: 09/28/23 16:25 Dose: 999 mls/hr Documented By: MIRELLA Levetiracetam 1,000 mg/ Sodium (Chloride) 110 mls @ 440 mls/hr IV Q12H [facility] Stop: 10/29/23 03:29 Last Infusion: 09/29/23 04:20 Dose: Infused Documented By: Admin: 09/29/23 04:05 Dose: 440 mls/hr Documented By: CALI Magnesium Sulfate/Dextrose (Magnesium Sulfate / D5w) 1 gm in 100 mls @ 50 mls/hr IV ONE ONE Stop: 09/29/23 09:58 Last Infusion: 09/29/23 10:26 Dose: Infused Documented By: Admin: 09/29/23 08:24 Dose: 50 mls/hr Documented By: RUBEN Potassium Chloride (K Sergio / Wtr) 10 meq in 100 mls @ 100 mls/hr IV Q1H [facility] Stop: 09/29/23 12:14 Last Infusion: 09/29/23 12:30 Dose: Infused Documented By: Admin: 09/29/23 11:30 Dose: 100 mls/hr Documented By: Infusion: 09/29/23 11:29 Dose: Infused Documented By: Admin: 09/29/23 10:29 Dose: 100 mls/hr Documented By: RUBEN Insulin Aspart (Insulin Aspart Per Unit Charge) 5 units SC NOW [facility] Stop: 09/28/23 10:41 Last Admin: 09/28/23 10:57 Dose: 5 units Documented By: CHINO Co-signed By: NIYAH Insulin [facility] (Insulin Aspart Per Unit Charge) [facility]: 10/28/23 16:29 Last Admin: 09/29/23 21:29 Dose: Not Given Documented By: Admin: 09/29/23 17:57 Dose: Not Given Documented By: Admin: 09/29/23 12:43 Dose: 3 units Documented By: RUBEN Co-signed By: DISHA Admin: 09/29/23 09:44 Dose: 2 units Documented By: RUBEN Co-signed By: CIARRA Admin: 09/28/23 21:40 Dose: 2 units Documented By: RORY Co-signed By: MAI Admin: 09/28/23 17:44 Dose: 6 units Documented By: RORY Co-signed By: MIRELLA Insulin Glargine (Lantus Per Unit Charge) 10 units SC ONE ONE Stop: 09/29/23 11:31 Last Admin: 09/29/23 12:43 Dose: 10 units Documented By: RUBEN Co-signed By: DISHA Lorazepam (Lorazepam 1 Mg/1 Ml Syr Ed Inj Use) Confirm Administered Dose 1 mg .ROUTE .STK-MED ONE Stop: 09/28/23 14:21 Last Admin: 09/28/23 14:31 Dose: Not Given Documented By: FRANK Lorazepam (Lorazepam 1 Mg/1 Ml Syr Ed Inj Use) 1 mg IV ONE [facility]A Stop: 09/28/23 14:22 Last Admin: 09/28/23 14:21 Dose: 1 mg Documented By: FRANK Vitamin D (Cholecalciferol 5,000 Units 125 Mcg Tab) 5,000 units PO QAM [facility] Stop: 10/29/23 08:59 Last Admin: 09/29/23 09:36 Dose: Not Given Documented By: RUBEN Description This is a 21 electrode EEG with a single channel dedicated to limited EKG. The electrodes were placed in accordance with the International 10-20 system. REPORT: At the onset of the EEG the patient is in an altered mental state. The background is continuous and symmetric. There is a loss of the normal anterior to posterior gradient. The background consist of generalized polymorphic theta/delta activity, Photic stimulation does not induce any abnormalities. No stage II sleep transients are seen. Interpretation IMPRESSION: This is an abnormal routine EEG in a patient with altered mentation due to generalized background slowing suggestive of a non specific encephalopathy. No epileptiform discharges or electrographic seizures are seen.
[2023-09-29] MEDS ORDERED: OLANZapine 10 MG/2.1 ML SDV IM STA (23:48)
[2023-09-29] MEDS ORDERED: METOPROLOL TARTRATE 1 MG/ML VIAL IV STA (23:49)
[2023-09-30] MEDS: POTASSIUM CHLORIDE / WTR 10 MEQ/100 ML PLCT IV SCH ×4 (00:42→03:42)
[2023-09-30 00:43] LABS: Appearance Urine Clear (Clear); Bacteria Urine Automated Negative (Negative); Bilirubin Urine Negative (Negative); Blood Urine Trace (Negative); Color Urine Yellow; Glucose Urine UA Trace (Negative); Ketones Urine 2+ (Negative); Leukocyte Esterase Urine Negative (Negative); Nitrite Urine Negative (Negative); Protein Urine 2+ (Negative); RBC Urine Automated 0-4 /hpf (0-4); Specific Gravity Urine 1.013 (1.000-1.030); Urobilinogen Urine Negative (Negative)
[2023-09-30] MEDS: ACETAMINOPHEN 1,000 MG/100 ML VIAL IV PRN ×2 (00:47→20:17)
[2023-09-30] MEDS: INSULIN ASPART PER UNIT CHARGE SC SCH ×5 (01:08→23:16)
[2023-09-30] MEDS: VANCOMYCIN HCL 1,250 MG in SODIUM CHLORIDE 0.9% 250 ML IV SCH ×2 (02:38→15:40)
[2023-09-30] MEDS ORDERED: hydrALAZINE HCL 20 MG/ML VIAL IV STA (02:45)
[2023-09-30] MEDS: amLODIPine BESYLATE 5 MG TAB PO SCH (03:02)
[2023-09-30] MEDS ORDERED: LABETALOL HCL IV 5 MG/ML 20ML IV STA (04:02)
[2023-09-30] MEDS: levETIRAcetam 500 MG in 0.9 % SODIUM CHLORIDE 100 ML IV SCH (04:10)
[2023-09-30] MEDS ORDERED: XOPENEX/ATROVENT 1.25mg/0.5MG NEB COMBO NEB STA (04:29)
[2023-09-30] MEDS ORDERED: IPRATROPIUM BROMIDE NEB SOLN 0.02% 0.5MG/2.5ML VIAL INH STA (04:36)
[2023-09-30] MEDS ORDERED: LEVALBUTEROL 1.25 MG/3 ML NEB NEB STA (04:36)
[2023-09-30] MEDS ORDERED: methylPREDNISolone 20 MG in SYRINGE 0 ML IV ONE (04:45)
[2023-09-30] MEDS ORDERED: RACEPINEPHRINE 2.25% NEBU SOLN 0.5 ML VIAL NEB STA (05:09)
[2023-09-30] MEDS: PIPER/TAZO 4.5g in D5W MINI-B 100 ML IV SCH ×3 (05:25→20:31)
--- NOTE | 2023-09-30 05:44 | Communication Note ---
Date of Service: September 30, 2023 430 AM Patient noted to have stridorous breathing as per RN. Not clearing secretions as per RN. PPE Lethargic, stridorous, minimal respiratory distress Decreased breath sounds Chest x-ray as per my interpretation atelectasis Minimal improvement after Solu-Medrol, neb treatment, and racemic epinephrine administration as per RN AP recurrent aspiration Strict n.p.o. status Continue aspiration precautions and Zosyn ICU evaluation Pulmonary consult if a.m. provider [place] ICU provider (Myron Espinosa PA-C) evaluated patient at bedside and recommended airway clearance maneuvers. ICU transfer not recommended for now. Will relay to AM provider.
[2023-09-30 06:05] LABS: iSTAT Arterial Blood Gas HCO3 25 meg/L (19-24); iSTAT Arterial Blood Gas pCO2 33 mmHg (35-46); iSTAT Arterial Blood Gas pH 7.47 (7.35-7.45); iSTAT Arterial Blood Gas pO2 203 mmHg (80-95); iSTAT Carbon Dioxide 26 mmol/L (24-31); iSTAT Hematocrit 35 % (42-52); iSTAT Hemoglobin 11.9 g/dl (14.0-18.0); iSTAT Potassium 3.3 mmol/L (3.3-5.0); iSTAT Sodium 138 mmol/L (135-144)
[2023-09-30 06:23] LABS: Mean Corpuscular Hemoglobin 30.1 pg (25.0-34.0); Mean Corpuscular Hgb Conc 34.2 g/dL (32.0-36.0); Mean Platelet Volume 9.9 fL (9.4-12.4); Platelet Count 241 K/uL (130-400); RDW Standard Deviation 41.7 fL (36.4-46.3); Red Blood Count 4.32 M/uL (4.70-6.10); White Blood Count 14.71 K/ul (4.8-10.8)
[2023-09-30 06:30] LABS: BUN Creatinine Ratio 21.3 (10-20); Calcium 8.4 mg/dl (8.6-10.3); Creatinine Clr Calc Pharmacy 111.2 ml/min; Est GFR (African American) 120.8 ml/min; Est GFR (Non-African American) 104.2 ml/min; Magnesium 1.8 mg/dl (1.7-2.4); Phosphorus 2.2 mg/dl (2.5-4.9); Potassium 3.5 mmol/L (3.5-5.1)
--- NOTE | 2023-09-30 07:44 | XRay Report ---
XR chest 1V portable CLINICAL HISTORY: Shortness of breath. COMPARISON STUDY: Chest radiograph February 05, 2023. Chest CT September 28, 2023. FINDINGS: Patient is rotated. No pneumothorax or pleural effusion is present. Skin folds project over the chest. Mild cardiomegaly is again noted. Mediastinal contours are stable. No consolidation. Ther e is no evidence for pulmonary edema. IMPRESSION: No acute cardiopulmonary findings. No significant change in appearance of the chest. ACT 112: Negative or not required by law. Electronically signed by: Dony Purdy M.D. 09/30/2023 7:43 AM
[2023-09-30 08:09] LABS: Estimated Average Glucose 237 mg/dl; Hemoglobin A1C 9.9 % (4.5-5.6)
[2023-09-30] MEDS ORDERED: hydrALAZINE HCL 20 MG/ML VIAL IV ONE (08:25)
[2023-09-30] MEDS ORDERED: hydrALAZINE HCL 20 MG/ML VIAL IV PRN (08:26)
--- NOTE | 2023-09-30 08:41 | Hospitalist Progress Note ---
Date of Service September 30, 2023 Assessment & Plan (1) RLL pneumonia: (2) Weakness: (3) Falls: Plan: - CT chest reviewed concerning for RLL pna, also with concern for aspiration pna with coughing with food, will ask for speech therapy consultation - Unasyn IV initially -> changed to zosyn, vanco after had acute change in status - No WBC, afebrile - MRI of the brain - No acute abnormality and in particular no evidence of acute infarct. - received IVF - Not on anticoagulation except aspirin which is on hold now Acute encephalopathy, ? new onset seizure Hx of dementia, prior CVA received ativan and was loaded w/ keppra shortly after admission Neurology consulted and PO keprra recommended EEG ordered- negat. for seizure Repeat CT head negative -MRI ordered - No acute abnormality and in particular no evidence of acute infarct. -Delirium precautions, including pain management -Resume asa when hgb stable -Continue statin when able to tolerate PO -Infectious work up pending -Procal negative -Questionable areas on imaging -Empirically transitioned to Vanc/Zosyn given abrupt status changes -TSH WBL Pt was code purple overnight - per night provider - patient became unresponsive. Earlier he had some minimal responses. vitals stable. Just staring and not responding to verbal stimuli. Seems moving his extremities. Had two ct head and mri scans earlier and were unremarkable.He had iv ativan and loaded with Keppra earlier in morning time. Did abg and was ok. Currently not able to take po. Changed Keppra to iv 1gm bid . Notified am providers. 09/29 I notified neurology this AM about the code purple event overnight and evaluated the pt / RN at the bedside. Pt is lying in bed, in no acute distress, his right arm is in the air. When I questioned him about that, he says that he wants to get up. He moves extremities, follows simple commands. He is able to say "no" when I ask him if he has any pain or shortness of breath or chest pain. He stares into the air. Neurology recommend to obtain EEG, at this point not convinced about seizure, perhaps delirium, recommend to lower Keppra to 500 twice daily. Currently only giving IV medications, not sure if patient is able to take p.o. at this time. 09/30 Overnight pt agitated and received IM zyprexa. Keppra dose was decreased yesterday after discussing w/ neurology to reduce sedation. However early AM pt had likely aspiration event (pt is NPO), required nebs , solumedrol, racemic epi, concern for stridor. ICU was also contacted overnight but pt was not accepted to ICU. on 8L oxymask but on my evaluation this AM pt on 2L. CXR and ABG also obtained overnight. CXR negative. Pt barely responsive, concern for being able to manage his secretions. Discussed w/ RN at the bedside. ICU/pulm. Dr. Carroll contacted as well as neurology. As EEG was negative for seizure agreed to stop keppra to help reduce pt's sedation. Repeated CT head (negative) ABG and CXR (negative). Code status was changed to DNR/DNI. Palliative medicine consulted (4) Intramuscular hematoma: Plan: - CT abd/pelvis showing L buttocks hemorrhage, but there is no size noted. Consulted general surgery - Apply cold compresses to Left buttock 20min on 20min off - Pt is not on blood thinners - Trend H&H with - Hold aspirin (5) DM type 2 (diabetes mellitus, type 2): Plan: - Glucose is elevated above 400 on admission - ISS with Accu-Cheks ACHS - Holding metformin and Forteo inj currently (6) History of CVA (cerebrovascular accident): Plan: - Hx of 3 CVA in the past, pt is on Namenda at home - May have residual strength discrepancy in the R arm compared to the Left. Pt is left handed - Monitor - Last MRI in Apr 2021 for CVA (7) HTN (hypertension): Plan: - Cont on lisinopril, amlodipine, asa, atorvastatin if able to take PO (8) Dementia: Plan: - Continue Nemenda - Chronic, lives with , concern that there may also be some memory issues from her per HPI. (9) BPH (benign prostatic hyperplasia): Plan: - Cont flomax - UA - negative (10) Hyperlipidemia: Plan: - Cont atorvastatin (11) Elevated troponin I level: Plan: - Monitor Trop Q6H, trop initially 38, - No chest pain, unlikely ACS - Echo obtained -LV systolic function is normal. EF 60 to 65%. LV wall motion is abnormal. Aortic valve is moderately calcified. Aortic valve stenosis is present. There is a small loculated anterior and right lateral pericardial effusion. Tamponade is absent. Compared to images obtained at the time of the previous study dated January 29, 2023, there has been a subtle interval increase in the size of the pericardial effusion. DVT ppx: teds, scds CODE: FULL Dispo: PCU Admission and Anticipated Discharge Date Admission Date: September 28, 2023 Subjective Pt seen in follow up of falls, pna, metabolic encephalopathy, ? new onset seizure Overnight pt agitated and received IM zyprexa. Keppra dose was decreased yesterday after discussing w/ neurology to reduce sedation. However early AM pt had likely aspiration event (pt is NPO), required nebs , solumedrol, racemic epi, concern for stridor. ICU was also contacted overnight but was not accepted to ICU. on 8L oxymask but on my evaluation this AM pt on 2L. CXR and ABG also obtained overnight. CXR negative. Pt barely responsive, concern for being able to manage his secretions. Discussed w/ RN at the bedside. ICU/pulm. Dr. Carroll contacted as well as neurology. As EEG was negative for seizure agreed to stop keppra to help reduce pt's sedation. Repeated CT head (negative) ABG and CXR (negative). Update: Early afternoon met w/ pt's at the bedside and updated her. Later I also discussed w/ Dr. Carroll who saw the pt and talked to pt's . Code status was changed to DNR/DNI. Recommend to consult palliative medicine. Review of Systems Review of Systems: Unobtainable due to cognitive status Physical Exam Physical Exam: General: awake, thin M in NAD, on RA Head: Normocephalic, + ecchymosis under orbits bilaterally, nasal bridge is ecchymotic ENT: PERRL, EOMI Resp: on 2L, + rhonchi Cardiac: Regular rate and rhythm, no murmur, no JVD Abdominal: NABS x 4 quadrants, soft, nondistended, nontender to palpation Extremities: Normal inspection, no peripheral edema or erythema Neuro: Patient is barely responsive, Stares blankly into the space, moves extremities but does not really follow commands Results & Data Results & Data Vital Signs (Past 12 Hours) Vital Signs Temp Pulse Pulse Resp BP BP Pulse Ox 09/30/23 08:19 37.2 C 85 19 180/88 H 96 09/30/23 05:56 102 H 162/83 H 09/30/23 05:16 101 H 22 97 09/30/23 05:03 87 22 98 09/30/23 04:37 97 H 159/80 H 09/30/23 03:54 105 H 190/112 H 09/30/23 03:38 113 H 189/97 H 09/30/23 03:11 37.9 C H 106 H 24 193/93 H 98 09/30/23 02:30 90 190/94 H 09/30/23 01:26 78 18 184/89 H 98 09/30/23 00:55 37.0 C 95 09/30/23 00:55 76 169/87 H 09/30/23 00:36 119 H 188/93 H 09/30/23 00:19 36.8 C 118 H 20 188/93 H 96 09/29/23 22:58 91 H 157/95 H 09/29/23 22:00 91 H O2 Del Method O2 Flow Rate 09/30/23 08:19 Nasal Cannula 2 09/30/23 05:56 09/30/23 05:16 Oxymask 8 09/30/23 05:03 Oxymask 8 09/30/23 04:37 09/30/23 03:54 09/30/23 03:38 09/30/23 03:11 Nasal Cannula 3 09/30/23 02:30 09/30/23 01:26 Nasal Cannula 2 09/30/23 00:55 Room Air 09/30/23 00:55 09/30/23 00:36 09/30/23 00:19 Room Air 09/29/23 22:58 09/29/23 22:00 Laboratory Results 09/30/23 09/30/23 09/30/23 Range/Units 05:50 05:45 05:31 WBC 14.71 H (4.8-10.8) K/ul RBC 4.32 L (4.70-6.10) M/uL Hgb 13.0 L (14.0-18.0) g/dl POC Hgb 11.9 L (14.0-18.0) g/dl Hct 38.0 L (42.0-52.0) % POC Hct 35 L (42-52) % MCV 88.0 (80.0-100.0) fL MCH 30.1 (25.0-34.0) pg MCHC 34.2 (32.0-36.0) g/dL RDW Std Deviation 41.7 (36.4-46.3) fL RDW Coeff of James 13.0 (11.5-14.5) % Plt Count 241 (130-400) K/uL MPV 9.9 (9.4-12.4) fL POC pH 7.47 H (7.35-7.45) POC pCO2 33 L (35-46) mmHg POC pO2 203 H (80-95) mmHg POC HCO3 25 H (19-24) mani/L POC Total CO2 26 (24-31) mmol/L POC Base Excess 1.0 (-9-1.8) mani/L POC ABG O2 Sat 100.0 H (90-95) % POC Sodium 138 (135-144) mmol/L Sodium 137 (136-145) mmol/L POC Potassium 3.3 (3.3-5.0) mmol/L Potassium 3.5 (3.5-5.1) mmol/L Chloride 102 (98-107) mmol/L Carbon Dioxide 24 (21-32) mmol/L Anion Gap 11 (3-11) BUN 10 (6-23) mg/dl Creatinine 0.47 L (0.6-1.4) mg/dl Est Cr Clr Drug Dosing 111.2 ml/min Est GFR ( Amer) 120.8 ml/min Est GFR (Non-Af Amer) 104.2 ml/min BUN/Creatinine Ratio 21.3 H (10-20) Glucose 184 H (70-99(Fasting)) mg/dl POC Glucose 169 H (70-99) mg/dl Estimat Average Glucose 237 mg/dl Hemoglobin A1c 9.9 H (4.5-5.6) % Calcium 8.4 L (8.6-10.3) mg/dl Phosphorus 2.2 L D (2.5-4.9) mg/dl Magnesium 1.8 (1.7-2.4) mg/dl Urine Color Urine Appearance (Clear) Urine pH (4.5-7.5) Ur Specific [place] (1.000-1.030) Urine Protein (Negative) Urine Glucose (UA) (Negative) Urine Ketones (Negative) Urine Blood (Negative) Urine Nitrite (Negative) Urine Bilirubin (Negative) Urine Urobilinogen (Negative) Ur Leukocyte Esterase (Negative) Urine WBC (Auto) (0-5) /hpf Urine RBC (Auto) (0-4) /hpf U Hyaline Cast (Auto) (0-5) /lpf U Epithel Cells (Auto) (0-5) /lpf Urine Bacteria (Auto) (Negative) 09/30/23 09/30/23 09/29/23 Range/Units 01:02 00:30 20:38 WBC (4.8-10.8) K/ul RBC (4.70-6.10) M/uL Hgb (14.0-18.0) g/dl POC Hgb (14.0-18.0) g/dl Hct (42.0-52.0) % POC Hct (42-52) % MCV (80.0-100.0) fL MCH (25.0-34.0) pg MCHC (32.0-36.0) g/dL RDW Std Deviation (36.4-46.3) fL RDW Coeff of James (11.5-14.5) % Plt Count (130-400) K/uL MPV (9.4-12.4) fL POC pH (7.35-7.45) POC pCO2 (35-46) mmHg POC pO2 (80-95) mmHg POC HCO3 (19-24) mani/L POC Total CO2 (24-31) mmol/L POC Base Excess (-9-1.8) mani/L POC ABG O2 Sat (90-95) % POC Sodium (135-144) mmol/L Sodium (136-145) mmol/L POC Potassium (3.3-5.0) mmol/L Potassium (3.5-5.1) mmol/L Chloride (98-107) mmol/L Carbon Dioxide (21-32) mmol/L Anion Gap (3-11) BUN (6-23) mg/dl Creatinine (0.6-1.4) mg/dl Est Cr Clr Drug Dosing ml/min Est GFR ( Amer) ml/min Est GFR (Non-Af Amer) ml/min BUN/Creatinine Ratio (10-20) Glucose (70-99(Fasting)) mg/dl POC Glucose 221 H 146 H (70-99) mg/dl Estimat Average Glucose mg/dl Hemoglobin A1c (4.5-5.6) % Calcium (8.6-10.3) mg/dl Phosphorus (2.5-4.9) mg/dl Magnesium (1.7-2.4) mg/dl Urine Color Yellow Urine Appearance Clear (Clear) Urine pH 7.0 (4.5-7.5) Ur Specific [place] 1.013 (1.000-1.030) Urine Protein 2+ H (Negative) Urine Glucose (UA) Trace H (Negative) Urine Ketones 2+ H (Negative) Urine Blood Trace H (Negative) Urine Nitrite Negative (Negative) Urine Bilirubin Negative (Negative) Urine Urobilinogen Negative (Negative) Ur Leukocyte Esterase Negative (Negative) Urine WBC (Auto) 1-5 (0-5) /hpf Urine RBC (Auto) 0-4 (0-4) /hpf U Hyaline Cast (Auto) 1-5 (0-5) /lpf U Epithel Cells (Auto) 5-10 H (0-5) /lpf Urine Bacteria (Auto) Negative (Negative) 09/29/23 09/29/23 09/29/23 Range/Units 16:57 12:02 03:54 WBC (4.8-10.8) K/ul RBC (4.70-6.10) M/uL Hgb (14.0-18.0) g/dl POC Hgb (14.0-18.0) g/dl Hct (42.0-52.0) % POC Hct (42-52) % MCV (80.0-100.0) fL MCH (25.0-34.0) pg MCHC (32.0-36.0) g/dL RDW Std Deviation (36.4-46.3) fL RDW Coeff of James (11.5-14.5) % Plt Count (130-400) K/uL MPV (9.4-12.4) fL POC pH (7.35-7.45) POC pCO2 (35-46) mmHg POC pO2 (80-95) mmHg POC HCO3 (19-24) mani/L POC Total CO2 (24-31) mmol/L POC Base Excess (-9-1.8) mani/L POC ABG O2 Sat (90-95) % POC Sodium (135-144) mmol/L Sodium (136-145) mmol/L POC Potassium (3.3-5.0) mmol/L Potassium (3.5-5.1) mmol/L Chloride (98-107) mmol/L Carbon Dioxide (21-32) mmol/L Anion Gap (3-11) BUN (6-23) mg/dl Creatinine (0.6-1.4) mg/dl Est Cr Clr Drug Dosing ml/min Est GFR ( Amer) ml/min Est GFR (Non-Af Amer) ml/min BUN/Creatinine Ratio (10-20) Glucose (70-99(Fasting)) mg/dl POC Glucose 136 H 228 H (70-99) mg/dl Estimat Average Glucose mg/dl Hemoglobin A1c (4.5-5.6) % Calcium (8.6-10.3) mg/dl Phosphorus 3.4 (2.5-4.9) mg/dl Magnesium (1.7-2.4) mg/dl Urine Color Urine Appearance (Clear) Urine pH (4.5-7.5) Ur Specific [place] (1.000-1.030) Urine Protein (Negative) Urine Glucose (UA) (Negative) Urine Ketones (Negative) Urine Blood (Negative) Urine Nitrite (Negative) Urine Bilirubin (Negative) Urine Urobilinogen (Negative) Ur Leukocyte Esterase (Negative) Urine WBC (Auto) (0-5) /hpf Urine RBC (Auto) (0-4) /hpf U Hyaline Cast (Auto) (0-5) /lpf U Epithel Cells (Auto) (0-5) /lpf Urine Bacteria (Auto) (Negative) 09/29/23 Range/Units 02:57 WBC (4.8-10.8) K/ul RBC (4.70-6.10) M/uL Hgb (14.0-18.0) g/dl POC Hgb 10.9 L (14.0-18.0) g/dl Hct (42.0-52.0) % POC Hct 32 L (42-52) % MCV (80.0-100.0) fL MCH (25.0-34.0) pg MCHC (32.0-36.0) g/dL RDW Std Deviation (36.4-46.3) fL RDW Coeff of James (11.5-14.5) % Plt Count (130-400) K/uL MPV (9.4-12.4) fL POC pH 7.43 (7.35-7.45) POC pCO2 42 (35-46) mmHg POC pO2 126 H (80-95) mmHg POC HCO3 28 H (19-24) mani/L POC Total CO2 29 (24-31) mmol/L POC Base Excess 3.0 H (-9-1.8) mani/L POC ABG O2 Sat 99.0 H (90-95) % POC Sodium 141 (135-144) mmol/L Sodium (136-145) mmol/L POC Potassium 3.4 (3.3-5.0) mmol/L Potassium (3.5-5.1) mmol/L Chloride (98-107) mmol/L Carbon Dioxide (21-32) mmol/L Anion Gap (3-11) BUN (6-23) mg/dl Creatinine (0.6-1.4) mg/dl Est Cr Clr Drug Dosing ml/min Est GFR ( Amer) ml/min Est GFR (Non-Af Amer) ml/min BUN/Creatinine Ratio (10-20) Glucose (70-99(Fasting)) mg/dl POC Glucose (70-99) mg/dl Estimat Average Glucose mg/dl Hemoglobin A1c (4.5-5.6) % Calcium (8.6-10.3) mg/dl Phosphorus (2.5-4.9) mg/dl Magnesium (1.7-2.4) mg/dl Urine Color Urine Appearance (Clear) Urine pH (4.5-7.5) Ur Specific [place] (1.000-1.030) Urine Protein (Negative) Urine Glucose (UA) (Negative) Urine Ketones (Negative) Urine Blood (Negative) Urine Nitrite (Negative) Urine Bilirubin (Negative) Urine Urobilinogen (Negative) Ur Leukocyte Esterase (Negative) Urine WBC (Auto) (0-5) /hpf Urine RBC (Auto) (0-4) /hpf U Hyaline Cast (Auto) (0-5) /lpf U Epithel Cells (Auto) (0-5) /lpf Urine Bacteria (Auto) (Negative) Medications Administered Current Inpatient Medications Acetaminophen (Acetaminophen 325 Mg Tab) 650 mg PO Q4H PRN PRN Reason: Moderate Pain (Scale 4, 5, 6) Stop: 10/28/23 13:00 Amlodipine Besylate (Amlodipine Besylate 5 Mg Tab) 2.5 mg PO DAILY [facility] Stop: 10/30/23 02:44 Last Admin: 09/30/23 03:02 Dose: Not Given Atorvastatin Calcium (Atorvastatin 20 Mg Tab) 20 mg PO HS [facility] Stop: 10/28/23 20:59 Last Admin: 09/29/23 19:53 Dose: Not Given Benzonatate (Benzonatate 100 Mg Capsule) 100 mg PO TID [facility] Stop: 10/28/23 13:59 Last Admin: 09/29/23 19:53 Dose: Not Given Dextrose (Dextrose 50% 50 Ml Syringe) 25 - 50 ml IV UD PRN; Protocol PRN Reason: Hypoglycemia Protocol Stop: 10/28/23 13:00 Finasteride (Finasteride 5 Mg Tab) 5 mg PO DAILY [facility] Stop: 10/29/23 08:59 Last Admin: 09/29/23 09:36 Dose: Not Given Glucagon (Glucagon For Inj 1 Mg Vial) 1 mg SQ UD PRN; Protocol PRN Reason: Hypoglycemia Protocol Stop: 10/28/23 13:00 Glucose (Glucose 10 Tab/Tube) 4 - 8 tab PO UD PRN; Protocol PRN Reason: Hypoglycemia Treatment Stop: 10/28/23 13:00 Glucose (Glucose 40% Gel 15 Gm Tube) 15 - 30 gm PO UD PRN; Protocol PRN Reason: Hypoglycemia Protocol Stop: 10/28/23 13:00 Guaifenesin (Guaifenesin 600 Mg Tabcr) 1,200 mg PO Q12 [facility] Stop: 10/28/23 20:59 Last Admin: 09/29/23 19:53 Dose: Not Given Hydralazine HCl (Hydralazine Hcl 20 Mg/Ml Vial) 5 mg IV Q6H PRN PRN Reason: SBP >165 Stop: 10/30/23 08:29 Vancomycin HCl 1,250 mg/ (Sodium Chloride) 275 mls @ 200 mls/hr IV Q12H [facility] Stop: 10/01/23 02:59 Last Infusion: 09/30/23 04:19 Dose: Infused Piperacillin Sod/Tazobactam (Sod 4.5 gm/ Dextrose) 100 mls @ 25 mls/hr IV Q8H [facility]; Protocol Stop: 09/30/23 21:29 Last Admin: 09/30/23 05:25 Dose: 25 mls/hr Acetaminophen (Ofirmev) 1,000 mg in 100 mls @ 400 mls/hr IV Q8H PRN PRN Reason: Pain or Fever Stop: 10/02/23 03:16 Last Infusion: 09/30/23 01:04 Dose: Infused Levetiracetam 500 mg/ Sodium (Chloride) 105 mls @ 440 mls/hr IV Q12H [facility] Stop: 10/29/23 15:59 Last Infusion: 09/30/23 04:45 Dose: Infused Insulin Aspart (Insulin Aspart Per Unit Charge) 0 units SC Q6 [facility] Stop: 10/30/23 00:00 Last Admin: 09/30/23 06:00 Dose: 1 units Insulin Glargine (Lantus Per Unit Charge) 15 units SC DAILY [facility] Stop: 10/30/23 08:59 Miscellaneous (Carbohydrates For Hypoglycemia ) 15 - 30 gm PO UD PRN PRN Reason: Hypoglycemia Protocol Stop: 10/28/23 13:00 Miscellaneous Information (Vancomycin Consult Active) 1 each N/A UD PRN PRN Reason: Consult Stop: 10/28/23 14:22 Miscellaneous Information (Pharmacy Glycemic Mgmt Consult) 1 each N/A UD PRN; Protocol PRN Reason: Consult Stop: 10/29/23 10:42 Ondansetron HCl (Ondansetron Inj 2 Mg/Ml 2 Ml Vial) 4 mg IV Q4H PRN PRN Reason: Nausea And Vomiting Stop: 10/28/23 13:00 Tamsulosin HCl (Tamsulosin Hcl 0.4 Mg Cap) 0.4 mg PO QAM [facility] Stop: 10/29/23 08:59 Last Admin: 09/29/23 09:36 Dose: Not Given (1) RLL pneumonia Aspiration pneumonia type: unspecified Pneumonia type: aspiration pneumonia Qualified Code(s): J69.0 - Pneumonitis due to inhalation of food and vomit (3) Falls Encounter type: initial encounter Qualified Code(s): W19.XXXA - Unspecified fall, initial encounter
--- NOTE | 2023-09-30 08:44 | Communication Note ---
Date of Service: September 30, 2023 Neurology Plan of Care Note - EEG performed: "This is an abnormal routine EEG in a patient with altered mentation due to generalized background slowing suggestive of a non specific encephalopathy. No epileptiform discharges or electrographic seizures are seen. " Last night he was agitated and recieved 2.5 mg Zyprexa IM. 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 I suspect this is delirum, both hyperactive and hypoactive, in a elderly man with underlying dementia. His risk of further seizure is low and the Keppra may be contributing to his underlying agitation. -- hold further doses of Keppra and notify neurology with any concerning seizure like activity -- if nighttime agitation is an issue consider scheduling something earlier in the night to improve sleep quality and avoid sedating him during the day -- defer management of aspiration or any metabolic components of his encephalopathy to primary team -- reach out to neurology with any further questions.
[2023-09-30] MEDS: guaiFENesin 600 MG TABCR PO SCH ×2 (08:52→20:32)
[2023-09-30] MEDS: BENZONATATE 100 MG CAPSULE PO SCH ×3 (08:52→20:31)
[2023-09-30] MEDS: FINASTERIDE 5 MG TAB PO SCH (08:52)
[2023-09-30] MEDS: TAMSULOSIN HCL 0.4 MG CAP PO SCH (08:53)
[2023-09-30] MEDS ORDERED: LANTUS PER UNIT CHARGE SC SCH (09:00)
--- NOTE | 2023-09-30 09:14 | Surgery Progress Note ---
<Statement entered by Rolan Green, - 09/30/23 22:00> I have seen and examined this patient with the surgical PA. I agree with this plan. Date of Service September 30, 2023 Assessment & Plan (1) Intramuscular hematoma: Plan: We have been consulted for L buttocks hemorrhage visualized on CT scan for work up of recent falls at home Hbg has been stable, today 13 On examination there are no skin changes, no firm/tense L buttocks or tenderness indicating a worsening hemorrhage He is being worked up by neuro and pulmonary for multiple other issues No indications for any surgical intervention from our point of view We will sign off as no surgical issues, but call back if any questions/concerns Seen/examined with Dr. Green Admission and Anticipated Discharge Date Admission Date: September 28, 2023 Subjective Unable to obtain subjective history due to mental status Physical Exam Physical Exam: sleeping, not conversive Respiratory: on supplemental O2 Musculoskeletal: L buttocks region without any skin changes, tenderness, or firmness indicating worsening hemorrhage Results & Data Vital Signs (Past 12 Hours) Vital Signs Temp Pulse Pulse Resp BP BP Pulse Ox 09/30/23 08:19 37.2 C 85 19 180/88 H 96 09/30/23 07:48 90 16 98 09/30/23 05:56 102 H 162/83 H 09/30/23 05:16 101 H 22 97 09/30/23 05:03 87 22 98 09/30/23 04:37 97 H 159/80 H 09/30/23 03:54 105 H 190/112 H 09/30/23 03:38 113 H 189/97 H 09/30/23 03:11 37.9 C H 106 H 24 193/93 H 98 09/30/23 02:30 90 190/94 H 09/30/23 01:26 78 18 184/89 H 98 09/30/23 00:55 37.0 C 95 09/30/23 00:55 76 169/87 H 09/30/23 00:36 119 H 188/93 H 09/30/23 00:19 36.8 C 118 H 20 188/93 H 96 09/29/23 22:58 91 H 157/95 H 09/29/23 22:00 91 H O2 Del Method O2 Flow Rate 09/30/23 08:19 Nasal Cannula 2 09/30/23 07:48 Nasal Cannula 2 09/30/23 05:56 09/30/23 05:16 Oxymask 8 09/30/23 05:03 Oxymask 8 09/30/23 04:37 09/30/23 03:54 09/30/23 03:38 09/30/23 03:11 Nasal Cannula 3 09/30/23 02:30 09/30/23 01:26 Nasal Cannula 2 09/30/23 00:55 Room Air 09/30/23 00:55 09/30/23 00:36 09/30/23 00:19 Room Air 09/29/23 22:58 09/29/23 22:00 PG Care Time/CCT Total # of Minutes Spent Total Time Spent with Patient: Total time spent is greater than 50% in coordination of care (as documented) at patient's floor/unit and/or counseling patient: Coding Level of Care Code 27053 SUB INP/OBS CARE 10/14MIN Diagnoses Intramuscular hematoma T14.8XXA
--- NOTE | 2023-09-30 09:40 | CT Scan Report ---
HEAD CT NONCONTRAST CT DOSE: 619.55 mGy.cm HISTORY: Altered mental status. Confusion. TECHNIQUE: Multiaxial CT images of the head were performed without the use of intravenous contrast. A utomated exposure control was utilized for this study. A dose lowering technique was utilized adheri ng to the principles of ALARA. Comparison: Brain MRI and head CT 09/28/2023. Findings: The paranasal sinuses and mastoid air cells are clear. The calvarium and skull base are int act. There is no mass, hematoma, midline shift, acute infarct. White matter hypodensity is nonspecifi c but suggestive of microvascular ischemic change. The ventricles and sulci demonstrate mild age-rela tessy involutional changes. Old punctate lacunar infarction within the right thalamus, unchanged. Prior bilateral lens replacement. Punctate calcifications again noted within the cerebellar hemispheres. A dvanced calcified plaque within the vascular structures of the skull base. There is an old punctate l acunar infarct within the left hemipons. Impression: No significant change compared to the prior study. No acute intracranial abnormality. ACT 112: Negative or not required by law. Electronically signed by: Toy Ruth M.D. 09/30/2023 9:38 AM
[2023-09-30 09:51] LABS: Base Excess ABG 4.4 mEq/L (-9-1.8); HCO3 ABG 27 mmol/L (19-24); Oxygen Saturation ABG 98.1 % (90-95); PCO2 ABG 32 mmHg (35-46); PO2 ABG 77 mmHg (80-95)
--- NOTE | 2023-09-30 09:54 | XRay Report ---
XR chest 1V portable HISTORY: Aspiration event. Follow-up. Altered mental status. COMPARISON: Chest 09/30/2023. FINDINGS: The cardiac silhouette remains mildly enlarged. There is a tortuous and calcified thoracic aorta again noted. The lungs are clear. No focal lung consolidations to suggest a pneumonia. No evide nce for pulmonary edema. No acute fractures identified. IMPRESSION: No significant change compared to the prior study. No acute process. ACT 112: Negative or not required by law. Electronically signed by: Toy Ruth M.D. 09/30/2023 9:52 AM
[2023-09-30 09:55] LABS: Allen Test Pos (Pos); pH ABG 7.53 (7.35-7.45)
--- NOTE | 2023-09-30 16:33 | Pulmonary Consultation ---
Date of Consultation September 30, 2023 Assessment & Plan (1) Encephalopathy: (2) Falls: Encounter type: initial encounter Qualified Code(s): W19.XXXA - Unspecified fall, initial encounter (3) Altered mental status: (4) Dementia: Plan Impression: 83-year-old male with what sounds like progressive dementia now with recurrent falls and a gluteal hematoma. He has delirium since being in the [facility] but has not had any seizure activity. His chest x-ray and blood gas are both within normal limits. His encephalopathy could be placing him at risk for an aspiration event but there has been no aspiration witnessed currently. I think given the patient's dementia and frail physical state, he is a poor candidate for advanced interventions including intubation or mechanical ventilation, ACLS including CPR or defibrillation. Recommendations: 1. Relayed to the attending provider and to the patient's that his x-ray and blood gas are preserved currently. There is no pulmonary etiology for his current complaints. He is at risk for aspiration if he is fed but at this point in time I do not think he is having an acute pulmonary issue. 2. The stridor over his neck could be related to secretions were potential vocal cord issue. This is not a pulmonary issue. If aggressive intervention were to be required, ENT with visualization of his cords might be appropriate however in this patient with dementia falls and frail physical state I am not sure I would recommend additional intervention. 3. Had a long discussion with the patient's at bedside. We discussed CODE STATUS. She states that again they have been told on multiple occasions that this should be addressed but she freely admits that she has been reluctant to address it hoping that it would go away. She states that now she is ready to consider the fact that he may be declining. She is agreeable to DO NOT INTUBATE DO NOT RESUSCITATE as those interventions would be unlikely to improve his cognitive status or physical status and would potentially result in unintended consequences. Would recommend palliative care consult to further define goals of care for this patient. This was communicated to the hospitalist service. At this point in time his pulmonary status appears to be not his major area of concern. Pulmonary will sign off. Feel free to contact us if there are additional questions or concerns. A total of 37 minutes in critical care time including end-of-life discussions was had with the patient. History of Present Illness Attending Physician: Scott Pat MD History of Present Illness Asked by hospitalist to evaluate this patient for potential respiratory insufficiency. History is obtained from review the electronic medical record as well as interview with the at bedside. The patient is confused and delirious and not really able to provide coherent history. Patient is an 83-year-old male with a history of dementia. According to the patient's , he has been declining for at least the last 6 months with more frequent falls and confusion. He reportedly does not have an advanced directive in place although the patient's reports that their daughter has advised them to get 1 completed on multiple occasions. The patient presented to the emergency room 09/28/2022 after a repeat fall showing a gluteal hematoma. He was seen by surgery and not felt to require surgical intervention. He has had episodes of delirium and some shaking activity initially thought to be seizure activity. EEG showed only diffuse background slowing consistent with nonspecific encephalopathy and neurology consultation did not find any need for additional evaluation. Last night the patient had some stridor. He received steroids and racemic epi which were ineffectual. Chest x-ray and blood gas were preserved. Pulmonary was consulted today for potential pulmonary etiology of the patient's systemic complaints. The patient's understands that he is declining. She states she has had difficulty coming to [facility] with but she knows the right thing to do is to make him DO NOT INTUBATE DO NOT RESUSCITATE. She is open to the prospect of palliative care given his decline since moving to [place]. Allergies Allergy/AdvReac Type Severity Reaction Status Date / Time oxycodone AdvReac Unknown Gastrointestinal Verified 09/28/23 13:05 Upset Home Medications Medication Instructions Recorded Confirmed Type amlodipine 2.5 mg tablet 2.5 mg PO DAILY 01/29/23 09/28/23 History aspirin 81 mg chewable tablet 81 mg PO QAM 01/29/23 09/28/23 History atorvastatin 20 mg tablet 20 mg PO HS 01/29/23 09/28/23 History calcium carbonate 600 mg calcium 600 mg PO QAM 01/29/23 09/28/23 History (1,500 mg) tablet (Calcium) cholecalciferol (vitamin D3) 125 125 mcg PO QAM 01/29/23 09/28/23 History mcg (5,000 unit) capsule ipratropium bromide 42 mcg (0.06 2 spray intranasal BID PRN 01/29/23 09/28/23 History %) nasal spray Congestion lisinopril 10 mg tablet 10 mg PO BID 01/29/23 09/28/23 History mv-mn-folic 200 mcg-vit K 15 2 cap PO DAILY 01/29/23 09/28/23 History mcg-lutein 5 mg-zeaxanthin 1 mg capsule (PreserVision AREDS 2 Plus Multivit) tamsulosin 0.4 mg capsule 0.4 mg PO QAM 01/29/23 09/28/23 History teriparatide 20 mcg/dose (600 20 mcg subcut DAILY 01/29/23 09/28/23 History mcg/2.4 mL) subcutaneous pen injector (Forteo) finasteride 5 mg tablet 5 mg PO DAILY #90 tabs 04/20/23 09/28/23 Rx memantine 10 mg tablet 10 mg PO DAILY #90 tabs 06/11/23 09/28/23 Rx Macular Health Formula 10 mg PO QAM 09/28/23 09/28/23 History magnesium oxide 400 mg PO QAM 09/28/23 09/28/23 History metformin 500 mg tablet,extended 1,000 mg PO QAM 09/28/23 09/28/23 History release 24 hr phenazopyridine 200 mg tablet 0 mg PO TID PRN pain 09/28/23 09/28/23 History Patient History Medical History Arthralgia of left wrist Vitamin D deficiency Borderline Lyme serology BPH (benign prostatic hyperplasia) Dementia HTN (hypertension) Spontaneous pneumothorax Basal cell carcinoma History of TIA (transient ischemic attack) History of CVA (cerebrovascular accident) History of compression fracture of spine l2 Osteoporosis DM type 2 (diabetes mellitus, type 2) Surgical History S/P cataract surgery History of hernia repair History of total bilateral knee replacement History of cholecystectomy History of back surgery Social History Smoking Status: Unknown if ever smoked Tobacco Type: Cigarettes Hx Alcohol Use: No Hx Substance Use: No Preferred Language: German Communication Ability: Impaired Transport Pilot Required: No Beliefs That Will Affect Care: None Current Living Situation: Spouse Feels Safe at Home: Yes Assistive Devices: Denture - Upper, Denture - Lower and Glasses Review of Systems Review of Systems: Unobtainable due to cognitive status Physical Exam Constitutional: WD/WN, vitals as above ENMT: Dry mucous membranes Neck: trachea midline, no thyromegaly Rhonchorous breath sounds over the anterior neck. No real stridor Respiratory: normal respiratory effort, lungs clear to auscultation Cardiovascular: RRR, no murmur, no edema Gastrointestinal (Abdomen): normal bowel sounds, soft, nontender, no hepatosplenomegaly Musculoskeletal: Extremities: extremities normal to inspection Skin: no rashes, warm and dry Neurologic: Nonfocal exam Lymphatic: no cervical lymphadenopathy Results & Data Results & Data Vital Signs (Past 12 Hours) Vital Signs Temp Pulse Resp BP Pulse Ox Pulse Ox O2 Del Method 09/30/23 16:23 37.0 C 80 20 183/100 H 96 Room Air 09/30/23 11:41 37.3 C 97 H 18 145/91 H 97 Room Air 09/30/23 10:01 97 09/30/23 08:50 Room Air 09/30/23 08:19 37.2 C 85 19 180/88 H 96 Nasal Cannula 09/30/23 07:48 90 16 98 Nasal Cannula 09/30/23 05:56 102 H 162/83 H 09/30/23 05:16 101 H 22 97 Oxymask 09/30/23 05:03 87 22 98 Oxymask 09/30/23 04:37 97 H 159/80 H O2 Del Method O2 Flow Rate 09/30/23 16:23 09/30/23 11:41 09/30/23 10:01 Room Air 09/30/23 08:50 09/30/23 08:19 2 09/30/23 07:48 2 09/30/23 05:56 09/30/23 05:16 8 09/30/23 05:03 8 09/30/23 04:37 Critical Care Results & Data Vital Signs (Past 12 Hours) Vital Signs Temp Pulse Resp BP Pulse Ox Pulse Ox O2 Del Method 09/30/23 16:23 37.0 C 80 20 183/100 H 96 Room Air 09/30/23 11:41 37.3 C 97 H 18 145/91 H 97 Room Air 09/30/23 10:01 97 09/30/23 08:50 Room Air 09/30/23 08:19 37.2 C 85 19 180/88 H 96 Nasal Cannula 09/30/23 07:48 90 16 98 Nasal Cannula 09/30/23 05:56 102 H 162/83 H 09/30/23 05:16 101 H 22 97 Oxymask 09/30/23 05:03 87 22 98 Oxymask 09/30/23 04:37 97 H 159/80 H O2 Del Method O2 Flow Rate 09/30/23 16:23 09/30/23 11:41 09/30/23 10:01 Room Air 09/30/23 08:50 09/30/23 08:19 2 09/30/23 07:48 2 09/30/23 05:56 09/30/23 05:16 8 09/30/23 05:03 8 09/30/23 04:37 Lab & Micro Results (Past 24 Hours) RBC 4.32 M/uL (4.70-6.10) L 09/30/23 WBC 14.71 K/ul (4.8-10.8) H 09/30/23 Hgb 13.0 g/dl (14.0-18.0) L 09/30/23 Hct 38.0 % (42.0-52.0) L 09/30/23 MCV 88.0 fL (80.0-100.0) 09/30/23 MCH 30.1 pg (25.0-34.0) 09/30/23 MCHC 34.2 g/dL (32.0-36.0) 09/30/23 RDW Standard Deviation 41.7 fL (36.4-46.3) 09/30/23 RDW Coefficient of Variation 13.0 % (11.5-14.5) 09/30/23 Plt Count 241 K/uL (130-400) 09/30/23 MPV 9.9 fL (9.4-12.4) 09/30/23 Na 137 mmol/L (136-145) 09/30/23 K 3.5 mmol/L (3.5-5.1) 09/30/23 Cl 102 mmol/L (98-107) 09/30/23 CO2 24 mmol/L (21-32) 09/30/23 Anion Gap 11 (3-11) 09/30/23 BUN 10 mg/dl (6-23) 09/30/23 Creatinine 0.47 mg/dl (0.6-1.4) L 09/30/23 Estimated GFR ( Amer) 120.8 ml/min 09/30/23 Estimated GFR (Non-Af Amer) 104.2 ml/min 09/30/23 BUN/Creatinine Ratio 21.3 (10-20) H 09/30/23 Glu 184 mg/dl (70-99(Fasting)) H 09/30/23 Ca 8.4 mg/dl (8.6-10.3) L 09/30/23 Phosphorus Level 2.2 mg/dl (2.5-4.9) L 09/30/23 Mg 1.8 mg/dl (1.7-2.4) 09/30/23 05:45 Calcium Level 8.4 mg/dl (8.6-10.3) L 09/30/23 05:45 Arterial Blood pH 7.53 (7.35-7.45) H* 09/30/23 09:41 Arterial Blood Partial Pressure CO2 32 mmHg (35-46) L 09/30/23 09:41 Arterial Blood Partial Pressure O2 77 mmHg (80-95) L 09/30/23 0 9:41 Arterial Blood HCO3 27 mmol/L (19-24) H 09/30/23 09:41 Arterial Blood Base Excess 4.4 mEq/L (-9-1.8) H 09/30/23 09:41 Arterial Blood Oxygen Saturation 98.1 % (90-95) H 09/30/23 09:4 1 Blood Gas Oxygen Given ROOM AIR 09/30/23 09:41 Taj Test Pos (Pos) 09/30/23 09:41 Microbiology 09/28/23 12:25 Aerobic Blood Culture - Preliminary Blood No growth in Aerobic bottle after 48 hours. Anaerobic Blood Culture - Final 09/28/23 12:21 Aerobic Blood Culture - Preliminary Blood No growth in Aerobic bottle after 48 hours. Anaerobic Blood Culture - Preliminary No growth in Anaerobic bottle after 48 hours. 09/28/23 Unknown Urine Culture - Final Urine,Clean Catch More than three types of organisms present, all moderate counts mixed probable skin balbina. No further identifications or sensitivities to follow. Diagnostic Findings (Past 24 Hours) Chest X-Ray 09/30/23 04:30 XR chest 1V portable CLINICAL HISTORY: Shortness of breath. COMPARISON STUDY: Chest radiograph February 05, 2023. Chest CT September 28, 2023. FINDINGS: Patient is rotated. No pneumothorax or pleural effusion is present. Skin folds project over the chest. Mild cardiomegaly is again noted. Mediastinal contours are stable. No consolidation. There is no evidence for pulmonary edema. IMPRESSION: No acute cardiopulmonary findings. No significant change in appearance of the chest. ACT 112: Negative or not required by law. Electronically signed by: Dony Purdy M.D. 09/30/2023 7:[address] 09/30/23 08:[address] DOSE: 619.55 mGy.cm HISTORY: Altered mental status. Confusion. TECHNIQUE: Multiaxial CT images of the head were performed without the use of intravenous contrast. Automated exposure control was utilized for this study. A dose lowering technique was utilized adhering to the principles of ALARA. Comparison: Brain MRI and head CT 09/28/2023. Findings: The paranasal sinuses and mastoid air cells are clear. The calvarium and skull base are intact. There is no mass, hematoma, midline shift, acute infarct. White matter hypodensity is nonspecific but suggestive of microvascular ischemic change. The ventricles and sulci demonstrate mild age-related involutional changes. Old punctate lacunar infarction within the right thalamus, unchanged. Prior bilateral lens replacement. Punctate calcifications again noted within the cerebellar hemispheres. Advanced calcified plaque within the vascular structures of the skull base. There is an old punctate lacunar infarct within the left hemipons. Impression: No significant change compared to the prior study. No acute intracranial abnormality. ACT 112: Negative or not required by law. Electronically signed by: Toy Ruth M.D. 09/30/2023 9:38 AM Chest X-Ray 09/30/23 09:29 XR chest 1V portable HISTORY: Aspiration event. Follow-up. Altered mental status. COMPARISON: Chest 09/30/2023. FINDINGS: The cardiac silhouette remains mildly enlarged. There is a tortuous and calcified thoracic aorta again noted. The lungs are clear. No focal lung consolidations to suggest a pneumonia. No evidence for pulmonary edema. No acute fractures identified. IMPRESSION: No significant change compared to the prior study. No acute process. ACT 112: Negative or not required by law. Electronically signed by: Toy Ruth M.D. 09/30/2023 9:52 AM I & O Totals 24 Hours 09/29/23 09/30/23 10/01/23 06:59 06:59 06:59 Intake Total 3685 / 3685 3856.000 / 3856.000 100 / 100 Output Total 600 / 600 Balance 3685 / 3685 3256.000 / 3256.000 100 / 100 Cumulative 09/28/23 09:13 thru 09/30/23 13:17 Intake Total 7641.000 Output Total 600 Balance 7041.000 RT Ventilator Mngmt (Last Documented) Ventilator Ordered Settings Respiratory Rate 20 09/30/23 16:23 Ventilator - PT Measurements Respiratory Rate 20 PG Care Time/CCT Total # of Minutes Spent Total Time Spent with Patient: Total time spent is greater than 50% in coordination of care (as documented) at patient's floor/unit and/or counseling patient: Coding Level of Care Code 55468 CRITICAL CARE 1ST 30-74M Diagnoses Encephalopathy G93.40 Falls W19.XXXA Encounter type: initial encounter Altered mental status R41.82 Dementia F03.90
[2023-09-30] MEDS: ATORVASTATIN 20 MG TAB PO SCH (20:31)
[2023-09-30] MEDS ORDERED: FLUCONAZOLE 200 MG/100 ML BAG IV STA (22:32)
--- NOTE | 2023-09-30 22:33 | Communication Note ---
Date of Service: September 30, 2023 Notified by RN of white coat over patient's tongue. Ap Oral thrush Aspiration risk IV fluconazole for now
[2023-09-30] MEDS ORDERED: PROMETHAZINE HCL 6.25 MG in SODIUM CHLORIDE 0.9% 50 ML IV PRN (22:35)
[2023-10-01] MEDS: VANCOMYCIN HCL 1,250 MG in SODIUM CHLORIDE 0.9% 250 ML IV SCH ×2 (02:55→16:43)
[2023-10-01] MEDS: PIPER/TAZO 4.5g in D5W MINI-B 100 ML IV SCH ×3 (04:47→19:54)
[2023-10-01] MEDS: INSULIN ASPART PER UNIT CHARGE SC SCH ×3 (06:08→18:36)
[2023-10-01 07:43] LABS: Hematocrit (blood only) 32.1 % (42.0-52.0); Hemoglobin 11.3 g/dl (14.0-18.0); Mean Corpuscular Hemoglobin 30.1 pg (25.0-34.0); Mean Corpuscular Hgb Conc 35.2 g/dL (32.0-36.0); Mean Corpuscular Volume 85.6 fL (80.0-100.0); Mean Platelet Volume 9.6 fL (9.4-12.4); Platelet Count 210 K/uL (130-400); RDW Coefficient of Variation 13.2 % (11.5-14.5); RDW Standard Deviation 41.6 fL (36.4-46.3); Red Blood Count 3.75 M/uL (4.70-6.10); White Blood Count 11.87 K/ul (4.8-10.8)
[2023-10-01 08:29] LABS: BUN Creatinine Ratio 40.4 (10-20); Calcium 8.2 mg/dl (8.6-10.3); Creatinine Clr Calc Pharmacy 91.7 ml/min; Est GFR (African American) 111.6 ml/min; Est GFR (Non-African American) 96.3 ml/min; Magnesium 1.9 mg/dl (1.7-2.4); Phosphorus 2.2 mg/dl (2.5-4.9); Potassium 3.2 mmol/L (3.5-5.1)
[2023-10-01] MEDS: BENZONATATE 100 MG CAPSULE PO SCH ×4 (08:35→19:43)
[2023-10-01] MEDS: FINASTERIDE 5 MG TAB PO SCH (08:35)
[2023-10-01] MEDS: guaiFENesin 600 MG TABCR PO SCH ×3 (08:35→19:43)
[2023-10-01] MEDS: TAMSULOSIN HCL 0.4 MG CAP PO SCH ×2 (08:35→08:38)
--- NOTE | 2023-10-01 08:55 | Pharmacy Report ---
Pharmacy PK ABX Note - Date of Service October 01, 2023 - Assessment and Plan Assessment 10/01/23 * Random vanc level obtained yesterday (9.3 mcg/mL), indicating that current dosing regimen is appropriate. * Empiric therapy extended beyond 48hr d/t pt condition not improving. Will re- eval in another 48hr. * WBC improved from yesterday. Pt febrile again last evening. * IV fluconazole added last night for oral thrush. * BCx, UCx negative thus far. CXR unremarkable yesterday. Pulm consulted and signed off. 09/29/23 83 year old M receiving vancomycin and zosyn empirically. Pertinent microbiologic data includes: Blood and urine culture pending. Day # 1 of antimicrobial therapy. Plan Vancomycin * Continue 1250 mg IV every 12 hours * Regimen is predicted to achieve target AUC/NADEEM of 400-600 mg/L.hr * Will order another vanc level in the next day or so if pt is to continue on vancomycin therapy. Pharmacy will continue to follow and will adjust dose/frequency as necessary. Thank you. Pharmacy has transitioned to AUC monitoring for vancomycin. AUC/NADEEM is the preferred PK/PD target and is associated with decreased risk of nephrotoxicity compared to traditional trough targets.
[2023-10-01] MEDS ORDERED: LANTUS PER UNIT CHARGE SC SCH (09:00)
--- NOTE | 2023-10-01 10:12 | Pharmacy Report ---
Pharmacy Glycemic Short Note 2 - Date of Service October 01, 2023 - Glycemic Short BSG Results (Last 24 hours): 09/30/23 09/30/23 09/30/23 12:45 18:08 23:13 Glucose POC Glucose 168 H 190 H 183 H 10/01/23 10/01/23 06:04 07:27 Glucose 154 H POC Glucose 195 H OUTPATIENT ANTIDIABETIC REGIMEN: * Metformin 1000 mg PO daily * HbA1c: 9.9% (09/30/23) ASSESSMENT: 10/01/23 * Mr Lainez received 21 units of insulin yesterday while NPO. * 15 units of basal insulin * 6 units of Novolog for correction * Will incorporate the correctional insulin required yesterday into basal dose today to provide better coverage while NPO. * Pharmacy will continue to follow and adjust regimen as indicated. 09/29/23 * BB is an 83 year old male originally presented to ED due to multiple falls and increasing weakness. * Now w/ concern for aspiration pneumonia and new acute encephalopathy * Patient has been hyperglycemic since time of presentation - pharmacy consulted for glycemic management morning of 09/29/23 * Fasting BSG of 219 mg/dL this morning, improved from yesterday * Diet ordered originally, but now NPO * Will adjust Novolog goal range today and initiate low-dose basal insulin PLAN FOR INPATIENT GLYCEMIC CONTROL: * Hold outpatient oral diabetes medications * Basal insulin * Lantus 20 units SC daily * Bolus insulin * NovoLog per scale ACHS or Q6hrs while NPO * Goal Range: Low 110 mg/dL - High 140 mg/dL * Correction Factor: 30 mg/dL/unit * Nutritional / Prandial insulin per carb ratio of 1 unit per 10 grams CHO consumed
--- NOTE | 2023-10-01 10:28 | Palliative Care Consultation ---
Date of Consultation October 01, 2023 Assessment & Plan (1) Dementia with behavioral disturbance: trial of low dose zyprexa zydis 2.5mg on the tongue BID increase to 0.gmg BID if not seeing improvement after 24hr anticipate some sedation with onset of therapy (2) Episode of shaking: he has been off keppra with concern that it was adding to his somnolence recc dose reduced re start of keppra, discussed directly with dr dixon he has had repeated CT head and Brain MRI in past few days, no acute findings (3) Confusion: add a fidget blanket to his care distraction activities, assure day and night hours maintained, assure sleep hygiene and minimize nighttime disruptions promote PT even in bed/PROM if needed (4) Generalized weakness: (5) Malnutrition: Malnutrition type: protein-calorie malnutrition Protein-calorie malnutrition severity: moderate Qualified Code(s): E44.0 - Moderate protein- calorie malnutrition (6) Palliative care by specialist: Met with family. Provided overview of Palliative Medicine, a subspecialty that provides specialized medical care for people living with a serious illness by offering a focus on quality of life. Palliative Medicine is often conflated with hospice: I advised patient/family that Palliative and hospice can be partners but we are not the same. It is important to understand the difference so that we may be informed, and not afraid. Palliative Medicine works to improve QOL through reduction of symptom burden/more control over their illness, for both the patient and family. Palliative medicine clinicians are board certified, specially-trained and another member of the patient's medical care team. We often provide an extra layer of support because our care is based on the needs of the patient, not the prognosis; as such, it's appropriate at any age/advancing stage of a serious illness and can be provided along with curative treatment. Palliative Medicine clinicians are also trained in advanced communication methodologies, to facilitate complex discussions about advanced illness planning, which are needed to help assure that the treatment choices match the patient's goals, aka delivering Goal Concordant care. Finally, we discussed that hospice is a visiting nurse service that focuses on care delivered at the very end of life for patients with terminal illness, with life expectancy less than 6 month. (7) Discussion about advance care planning held with family member: Met with dtr at bedside who asked to have an ACP and GOC conversation face to face at bedside. We spoke together for 60 min was not available - she went home to try and rest/took an ativan Dtr shares she had parents move to [place] to [facility] from their home in [place] when pt's dementia began to worsen, he could not help maintain the home and it was too much for her mother to or nurse manager alone while also caring for pt. They sold their home and moved to [facility]. He was ok for most of this first year but getting weaker and more confused although she notes they still allowed him to drive a few miles a day. She notes he has been falling more often. Mother has been expressing a need for more help at home with pt but neither want him to be placed anywhere. We spoke about home health options stefanie VNS vs hospice. We discussed the goals of hospice as a patient service and the goals of care; we discussed EOL trajectories and transitions stefanie the emotional impact of realizing mortality as a concrete reality from prior abstract considerations. Pt was reassured that no matter where they are along this trajectory, they are not alone - their medical team will remain by their side through their journey. Discussed the pros/cons of accepting help when especially weakened and distressed by pain-which would also help provide relief/decrease caregiver burden/strain. I provided education about the hospice benefit: an interdisciplinary program offered by nurses, nurses aides, social workers, chaplains and a caregivers non medical for patients with a terminal condition and a life expectancy of less than 6 months. This is covered by Medicare at 100%/no out of pocket expense to patient and all meds/supplies needed by patient for the reason they are on hospice are paid for/covered by hospice. The goal is assure quality of life of the patient in their home setting (home, residential, inpatient hospice setting) by providing symptoms management, psychosocial and spiritual support. However, they cannot offer 24 hours care and if the family is unable to provide that care, they will have to consider personal care with out of pocket cost vs. residential placement. We discussed the goals of hospice as a patient service and the goals of care; we discussed EOL trajectories and transitions stefanie the emotional impact of realizing mortality as a concrete reality from prior abstract considerations. Pt was reassured that no matter where they are along this trajectory, they are not alone - their medical team will remain by their side through their journey. Discussed the pros/cons of accepting help when especially weakened and distressed by pain-which would also help provide relief/decrease caregiver burden/strain. dtr feels a focus on comfort and addition of hospice would be very helpful for pt and would be good support for his . she would also like some efforts made to improve his agitation. She knows his illness is not curable or fixable. we discussed his vascular dementia and how dementia meds dont help: Based on 45 trials (n=22,431) and three observational studies (n=190,076) that evaluated acetylcholinesterase inhibitors (AChEIs) (i.e., donepezil, galantamine, rivastigmine) and memantine, these medications may improve measures of global cognitive function in the short term, but the magnitude of change is small. (Hemanth CD, Karen LA, Charisse RC, et al. Screening for Cognitive Impairment in Older Adults: An Evidence Update for the U.S. Preventive Services Task Force. Peter (): Agency for Healthcare Research and Quality (); October 2019.) We spoke about his nutrition and weight loss. Pt and moved to a vegan lifestyle after his DM dx and was able to get his DM completely under control without any meds. They are not interested in STEPH and we spoke about how artificial nutrition and hydration (STEPH) were originally developed to provide short-term support for patients who were acutely ill. For patients nearing/transitioning to EOL, STEPH is unlikely to prolong life in addition to which researchers have found that STEPH often leads to complications in patients nearing the end of life. Patients with advanced, life-limiting illness often lose the ability to eat and drink and/or interest in food and fluids. Like other medical interventions, it should be evaluated by weighing its benefits and burdens in light of the patient's clinical circumstances and goals of care. STEPH may offer benefits when administered in the setting of acute, reversible illness, or as a component of chronic disease management, when the patient can appreciate the benefits of the treatment and significant burdens are not disproportionate. Near the end of life, some widely assumed benefits of STEPH, such as alleviation of thirst, may be achieved by less invasive measures including good mouth care or providing ice chips. (Deandre JACKSON, Juan Ramon HOOKER, Josiah Grayson. after PEG: Results of the National Confidential Enquiry into Patient Outcome and . Gastrointest Endosc. 2008;68:223-227andAkash E, Lisset D, Keysha S, et al. Parenteral hydration in patients with advanced cancer: A multicenter, double-blind, placebo-controlled randomized trial. J Clin Oncol. 2013;31:111-118.) Plan * No escalation of care * Recc resuming keppra, ? dose reduced * Trial Zyprexa for agitation * Focus is on comfort, see ACP discussion above * Follow up family meeting planned for Wednesday at 1030am with and daughter * Updated nursing and primary team * TS 120 min complex high for MDM Thank you for allowing us to participate in the ongoing care of this patient. Please don't hesitate to call or page with any additional concerns. Dr. 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 it has become physically hard for his to meet his needs. This time when he fell, he laid on the floor overnight bc she could not get him up. Found to have left posterior hematoma, eval by surgery-no surgical intervention warranted At the time of my visit, pt is lying in bed, restless and confused. Daughter at bedside who shares pt had not slept for several days and recently went home to sleep and took some Ativan for her anxiety. Admission note had an addendum stating: "Pt was noted to have acute change in mental status in the ER upon a room change around 1400. Our team was called to bedside at 1430. 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 Throughout exam he was would look when his name was called, say the word yes, but unable to respond verbally otherwise, and did not follow commands. Appeared very confused. Pt was ordered stat Ativan 1 mg IV, and about 5-10 minutes later given second dose. He relaxed. EKG was able to be obtained which did not show acute changes. Stat CBC drawn and Hgb dropped 2 grams from 13 to 11, possibly from acute intramuscular hemorrhage bleeding in the L buttocks region which was evaluated by general surgery. They had recommended watching hgb and applying cool compresses. Stat repeat CT of the head now that he is calm, can obtain MRI of the brain this evening. ICU was contacted and evaluated the pt at bedside. Neurology has been consulted as he sustained a fall 2 days ago, facial trauma, and concern for new onset seizure related possibly to trauma. Lactate is elevated at 3.3. Initially Unasyn was ordered for possible RLL pneumonia, but now with changes will broaden coverage to vanc and zosyn IV. ABG and procalcitonin pending." Pulm Consult 09/30 noted: "83-year-old male with what sounds like progressive dementia now with recurrent falls and a gluteal hematoma. He has delirium since being in the hospital but has not had any seizure activity. His chest x-ray and blood gas are both within normal limits. His encephalopathy could be placing him at risk for an aspiration event but there has been no aspiration witnessed currently. I think given the patient's dementia and frail physical state, he is a poor candidate for advanced interventions including intubation or mechanical ventilation, ACLS including CPR or defibrillation. Recommendations: 1. Relayed to the attending provider and to the patient's that his x-ray and blood gas are preserved currently. There is no pulmonary etiology for his current complaints. He is at risk for aspiration if he is fed but at this point in time I do not think he is having an acute pulmonary issue. 2. The stridor over his neck could be related to secretions were potential vocal cord issue. This is not a pulmonary issue. If aggressive intervention were to be required, ENT with visualization of his cords might be appropriate however in this patient with dementia falls and frail physical state I am not sure I would recommend additional intervention. 3. Had a long discussion with the patient's at bedside. We discussed CODE STATUS. She states that again they have been told on multiple occasions that this should be addressed but she freely admits that she has been reluctant to address it hoping that it would go away. She states that now she is ready to consider the fact that he may be declining. She is agreeable to DO NOT INTUBATE DO NOT RESUSCITATE as those interventions would be unlikely to improve his cognitive status or physical status and would potentially result in unintended consequences. Would recommend palliative care consult to further define goals of care for this patient. This was communicated to the hospitalist service." Allergies Allergy/AdvReac Type Severity Reaction Status Date / Time oxycodone AdvReac Unknown Gastrointestinal Verified 09/28/23 13:05 Upset Home Medications Medication Instructions Recorded Confirmed Type amlodipine 2.5 mg tablet 2.5 mg PO DAILY 01/29/23 09/28/23 History aspirin 81 mg chewable tablet 81 mg PO QAM 01/29/23 09/28/23 History atorvastatin 20 mg tablet 20 mg PO HS 01/29/23 09/28/23 History calcium carbonate 600 mg calcium 600 mg PO QAM 01/29/23 09/28/23 History (1,500 mg) tablet (Calcium) cholecalciferol (vitamin D3) 125 125 mcg PO QAM 01/29/23 09/28/23 History mcg (5,000 unit) capsule ipratropium bromide 42 mcg (0.06 2 spray intranasal BID PRN 01/29/23 09/28/23 History %) nasal spray Congestion lisinopril 10 mg tablet 10 mg PO BID 01/29/23 09/28/23 History mv-mn-folic 200 mcg-vit K 15 2 cap PO DAILY 01/29/23 09/28/23 History mcg-lutein 5 mg-zeaxanthin 1 mg capsule (PreserVision AREDS 2 Plus Multivit) tamsulosin 0.4 mg capsule 0.4 mg PO QAM 01/29/23 09/28/23 History teriparatide 20 mcg/dose (600 20 mcg subcut DAILY 01/29/23 09/28/23 History mcg/2.4 mL) subcutaneous pen injector (Forteo) finasteride 5 mg tablet 5 mg PO DAILY #90 tabs 04/20/23 09/28/23 Rx memantine 10 mg tablet 10 mg PO DAILY #90 tabs 06/11/23 09/28/23 Rx Macular Health Formula 10 mg PO QAM 09/28/23 09/28/23 History magnesium oxide 400 mg PO QAM 09/28/23 09/28/23 History metformin 500 mg tablet,extended 1,000 mg PO QAM 09/28/23 09/28/23 History release 24 hr phenazopyridine 200 mg tablet 0 mg PO TID PRN pain 09/28/23 09/28/23 History Patient History Medical History Arthralgia of left wrist Vitamin D deficiency Borderline Lyme serology BPH (benign prostatic hyperplasia) Dementia HTN (hypertension) Spontaneous pneumothorax Basal cell carcinoma History of TIA (transient ischemic attack) History of CVA (cerebrovascular accident) History of compression fracture of spine l2 Osteoporosis DM type 2 (diabetes mellitus, type 2) Surgical History S/P cataract surgery History of hernia repair History of total bilateral knee replacement History of cholecystectomy History of back surgery Social History Smoking Status: Unknown if ever smoked Tobacco Type: Cigarettes Hx Alcohol Use: No Hx Substance Use: No Preferred Language: Uzbek Communication Ability: Impaired Psych Nurse Required: No Beliefs That Will Affect Care: None Current Living Situation: Spouse Feels Safe at Home: Yes Assistive Devices: Denture - Upper, Denture - Lower and Glasses Review of Systems Review of Systems: Unobtainable due to cognitive status Physical Exam Constitutional: + acute distress, + ill appearing, + thi n, + altered mental status, + frail appearing, + disheveled, + in distress and + diaphoretic Eyes: PERRL ENMT: Mouth: + dry oral mucous membranes and + poor dentition Neck: normal visual inspection and trachea midline Thyroid: normal thyroid Respiratory: + respiratory distress, + uses accessory muscles and + cough Auscultation: + diminished lung sounds, + crackles and + bronchial breath sounds Cardiovascular: Rate/Rhythm: + tachycardic and + irregularly irregular Gastrointestinal (Abdomen): Inspection/Auscultation: + scaphoid Percussion/Palpation: abdomen soft Musculoskeletal: gen weakness Skin: + turgor decreased diaphoretic Neurologic: during my visit with pt he had several episodes of shaking with gripping side of bedrails, during which his eyes would roll up and to the right with a slight turn of his head up and to the right pt is confused at baseline he cannot follow commands speech is largely gibberish with few legible words he is agitated and restless, pulling at linens Results & Data Vital Signs (Past 12 Hours) Vital Signs Temp Pulse Pulse Resp BP Pulse Ox O2 Del Method 10/01/23 08:18 Room Air 10/01/23 08:09 36.6 C 85 21 175/80 H 93 Room Air 10/01/23 04:20 36.5 C 68 22 165/64 H 98 Room Air 10/01/23 00:49 69 09/30/23 22:56 37.2 C 80 22 124/74 96 Room Air Laboratory Results data reviewed Diagnostic Findings EEG, 09/29/23: This is an abnormal routine EEG in a patient with altered mentation due to generalized background slowing suggestive of a non specific encephalopathy. No epileptiform discharges or electrographic seizures are seen. Brain CT 09/29/23: The paranasal sinuses and mastoid air cells are clear. The calvarium and skull base are intact. There is no mass, hematoma, midline shift, acute infarct. White matter hypodensity is nonspecific but suggestive of microvascular ischemic change. The ventricles and sulci demonstrate mild age- related involutional changes. Old punctate lacunar infarction within the right thalamus, unchanged. Prior bilateral lens replacement. Punctate calcifications again noted within the cerebellar hemispheres. Advanced calcified plaque within the vascular structures of the skull base. There is an old punctate lacunar infarct within the left hemipons. Brain CT 09/28/23: Areas of decreased attenuation are present in the periventricular and subcortical white matter bilaterally consistent with small vessel ischemic disease. Generalized cerebral atrophy with commensurate enlargement of the ventricles, sulci, and cisterns is also present. There is no acute intracranial hemorrhage or evidence of acute territorial infarction. No shift of the midline structures, mass effect, or extra-axial abnormalities are shown. Atherosclerotic calcifications are present in the intracranial segments of the internal carotid arteries. Imaged portions of the paranasal sinuses and mastoid air cells are clear. The orbits appear normal. Partial visualization of nasal bone fractures. Head CT 09/28/23: 1. There is no hemorrhage, mass effect, or evidence of acute territorial ischemia by CT criteria. 2. Bilateral nasal bone fractures. Brain MRI 09/28/23: No abnormal restricted diffusion is identified. Foci of T2 and FLAIR hyperintensity are noted in the paraventricular areas consistent with chronic small vessel ischemic disease. Ex vacuo ventriculomegaly and sulcal enlargement is noted compatible with diffuse volume loss. Foci of encephalomalacia are seen. There is no mass effect or midline shift. There is no evidence of acute intraparenchymal hemorrhage. No extra axial fluid collections are seen. The corpus callosum, pituitary gland, and cerebellar tonsils appear grossly unremarkable. Flow voids of the major intracranial arterial vessels are identified. The imaged portions of the paranasal sinuses, mastoid air cells, and orbits are unremarkable. PG Care Time/CCT Total # of Minutes Spent Total Time Spent with Patient: Total time spent is greater than 50% in coordination of care (as documented) at patient's floor/unit and/or counseling patient: Advanced Care Planning 11715 Advanced Care Planning 30 Min 43139 Advanced Care Planning Additional 30 [place] [address] IN/OBS CONSULT LVL 5,80M Patient Type New History Comprehensive Exam Comprehensive Medical Decision Making High Complexity Diagnoses Dementia with behavioral disturbance F03.918 Episode of shaking R25.1 Confusion R41.0 Generalized weakness R53.1 Moderate protein-calorie malnutrition E44.0 Malnutrition type: protein-calorie malnutrition Protein-calorie malnutrition severity: moderate Palliative care by specialist Z51.5 Discussion about advance care planning held with family member Z71.0 Additional Codes Advanced Care Planning - 64951 Advanced Care Planning 30 Min: 69345 Advanced Care Planning 30 Min ([id number]) Advanced Care Planning - 22869 Advanced Care Planning Additional 30 Min: 30811 Advanced Care Planning Additional 30 Min ([id number])
[2023-10-01] MEDS ORDERED: LABETALOL HCL IV 5 MG/ML 20ML IV STA (12:13)
[2023-10-01] MEDS: ACETAMINOPHEN 1,000 MG/100 ML VIAL IV PRN (13:19)
--- NOTE | 2023-10-01 14:43 | Hospitalist Progress Note ---
Date of Service October 01, 2023 Assessment & Plan (1) RLL pneumonia: (2) Weakness: (3) Falls: Plan: - CT chest reviewed concerning for RLL pna, also with concern for aspiration pna with coughing with food, will ask for speech therapy consultation - Unasyn IV initially -> changed to zosyn, vanco after had acute change in status - No WBC, afebrile - MRI of the brain - No acute abnormality and in particular no evidence of acute infarct. - received IVF - Not on anticoagulation except aspirin which is on hold now Acute encephalopathy, ? new onset seizure Hx of dementia, prior CVA received ativan and was loaded w/ keppra shortly after admission Neurology consulted and PO keprra recommended EEG ordered- negat. for seizure Repeat CT head negative -MRI ordered - No acute abnormality and in particular no evidence of acute infarct. -Delirium precautions, including pain management -Resume asa when hgb stable -Continue statin when able to tolerate PO -Infectious work up pending -Procal negative -Questionable areas on imaging -Empirically transitioned to Vanc/Zosyn given abrupt status changes -TSH WBL Pt was code purple overnight - per night provider - patient became unresponsive. Earlier he had some minimal responses. vitals stable. Just staring and not responding to verbal stimuli. Seems moving his extremities. Had two ct head and mri scans earlier and were unremarkable.He had iv ativan and loaded with Keppra earlier in morning time. Did abg and was ok. Currently not able to take po. Changed Keppra to iv 1gm bid . Notified am providers. 09/29 I notified neurology this AM about the code purple event overnight and evaluated the pt / RN at the bedside. Pt is lying in bed, in no acute distress, his right arm is in the air. When I questioned him about that, he says that he wants to get up. He moves extremities, follows simple commands. He is able to say "no" when I ask him if he has any pain or shortness of breath or chest pain. He stares into the air. Neurology recommend to obtain EEG, at this point not convinced about seizure, perhaps delirium, recommend to lower Keppra to 500 twice daily. Currently only giving IV medications, not sure if patient is able to take p.o. at this time. 09/30 Overnight pt agitated and received IM zyprexa. Keppra dose was decreased yesterday after discussing w/ neurology to reduce sedation. However early AM pt had likely aspiration event (pt is NPO), required nebs , solumedrol, racemic epi, concern for stridor. ICU was also contacted overnight but pt was not accepted to ICU. on 8L oxymask but on my evaluation this AM pt on 2L. CXR and ABG also obtained overnight. CXR negative. Pt barely responsive, concern for being able to manage his secretions. Discussed w/ RN at the bedside. ICU/pulm. Dr. Carroll contacted as well as neurology. As EEG was negative for seizure agreed to stop keppra to help reduce pt's sedation. Repeated CT head (negative) ABG and CXR (negative). Code status was changed to DNR/DNI. Palliative medicine consulted 10/01 Keppra was stopped and pt's sedation has much improved. However he is quite restless laying in bed and constantly fidgeting. He is able to answer simple questions appropriately. He also reported to RN " feeling of falling". Discussed w/ neurology and palliative medicine as well as with RN. Started on zyprexa by palliative medicine. Discussed w/ neurology - do not recommend restarting keppra - do not believe this is seizure , likely post-concussive syndrome, delirium in setting of dementia. (4) Intramuscular hematoma: Plan: - CT abd/pelvis showing L buttocks hemorrhage, but there is no size noted. Consulted general surgery - Apply cold compresses to Left buttock 20min on 20min off - Pt is not on blood thinners - Trend H&H with - Hold aspirin (5) DM type 2 (diabetes mellitus, type 2): Plan: - Glucose is elevated above 400 on admission - ISS with Accu-Cheks ACHS - Holding metformin and Forteo inj currently (6) History of CVA (cerebrovascular accident): Plan: - Hx of 3 CVA in the past, pt is on Namenda at home - May have residual strength discrepancy in the R arm compared to the Left. Pt is left handed - Monitor - Last MRI in Apr 2021 for CVA (7) HTN (hypertension): Plan: - Cont on lisinopril, amlodipine, asa, atorvastatin if able to take PO (8) Dementia: Plan: - Continue Nemenda - Chronic, lives with , concern that there may also be some memory issues from her per HPI. (9) BPH (benign prostatic hyperplasia): Plan: - Cont flomax - UA - negative (10) Hyperlipidemia: Plan: - Cont atorvastatin (11) Elevated troponin I level: Plan: - Monitor Trop Q6H, trop initially 38, - No chest pain, unlikely ACS - Echo obtained -LV systolic function is normal. EF 60 to 65%. LV wall motion is abnormal. Aortic valve is moderately calcified. Aortic valve stenosis is present. There is a small loculated anterior and right lateral pericardial effusion. Tamponade is absent. Compared to images obtained at the time of the previous study dated January 29, 2023, there has been a subtle interval increase in the size of the pericardial effusion. DVT ppx: teds, scds CODE: DNR/DNI Dispo: PCU Admission and Anticipated Discharge Date Admission Date: September 28, 2023 Subjective Pt seen in follow up of falls, pna, metabolic encephalopathy, ? new onset seizure Keppra was stopped and pt's sedation has much improved. However he is quite restless laying in bed and constantly fidgeting. He is able to answer simple questions appropriately. He also reported to RN " feeling of falling". Discussed w/ neurology and palliative medicine as well as with RN. Started on zyprexa by palliative medicine. Discussed w/ neurology - do not recommend restarting keppra - do not believe this is seizure , likely post-concussive syndrome, delirium in setting of dementia. Pt's daughter also updated at the bedside. Review of Systems Review of Systems: All systems reviewed & are unremarkable except as noted in Subjective Physical Exam Physical Exam: General: awake, thin M in NAD, on RA Head: Normocephalic, + ecchymosis under orbits bilaterally, nasal bridge is ecchymotic ENT: PERRL, EOMI Resp: on RA, + rhonchi Cardiac: Regular rate and rhythm, no murmur, no JVD Abdominal: NABS x 4 quadrants, soft, nondistended, nontender to palpation Extremities: Normal inspection, no peripheral edema or erythema Neuro: Awake, somewhat confused but also able to answer some simple questions, moves extremities , restless/ fidgeting Results & Data Results & Data Vital Signs (Past 12 Hours) Vital Signs Temp Pulse Pulse Resp BP BP Pulse Ox 10/01/23 13:29 80 162/73 H 10/01/23 13:13 134 H 192/104 H 10/01/23 12:28 36.7 C 132 H 28 H 173/89 H 93 10/01/23 10:53 85 10/01/23 08:18 10/01/23 08:09 36.6 C 85 21 175/80 H 93 10/01/23 04:20 36.5 C 68 22 165/64 H 98 O2 Del Method 10/01/23 13:29 10/01/23 13:13 10/01/23 12:28 Room Air 10/01/23 10:53 10/01/23 08:18 Room Air 10/01/23 08:09 Room Air 10/01/23 04:20 Room Air Laboratory Results 10/01/23 10/01/23 10/01/23 Range/Units 13:07 07:27 06:04 WBC 11.87 H (4.8-10.8) K/ul RBC 3.75 L (4.70-6.10) M/uL Hgb 11.3 L (14.0-18.0) g/dl Hct 32.1 L (42.0-52.0) % MCV 85.6 (80.0-100.0) fL MCH 30.1 (25.0-34.0) pg MCHC 35.2 (32.0-36.0) g/dL RDW Std Deviation 41.6 (36.4-46.3) fL RDW Coeff of James 13.2 (11.5-14.5) % Plt Count 210 (130-400) K/uL MPV 9.6 (9.4-12.4) fL Sodium 141 (136-145) mmol/L Potassium 3.2 L (3.5-5.1) mmol/L Chloride 107 (98-107) mmol/L Carbon Dioxide 27 (21-32) mmol/L Anion Gap 7 (3-11) BUN 23 (6-23) mg/dl Creatinine 0.57 L (0.6-1.4) mg/dl Est Cr Clr Drug Dosing 91.7 ml/min Est GFR ( Amer) 111.6 ml/min Est GFR (Non-Af Amer) 96.3 ml/min BUN/Creatinine Ratio 40.4 H (10-20) Glucose 154 H (70-99(Fasting)) mg/dl POC Glucose 105 H 195 H (70-99) mg/dl Calcium 8.2 L (8.6-10.3) mg/dl Phosphorus 2.2 L (2.5-4.9) mg/dl Magnesium 1.9 (1.7-2.4) mg/dl 09/30/23 09/30/23 Range/Units 23:13 18:08 WBC (4.8-10.8) K/ul RBC (4.70-6.10) M/uL Hgb (14.0-18.0) g/dl Hct (42.0-52.0) % MCV (80.0-100.0) fL MCH (25.0-34.0) pg MCHC (32.0-36.0) g/dL RDW Std Deviation (36.4-46.3) fL RDW Coeff of James (11.5-14.5) % Plt Count (130-400) K/uL MPV (9.4-12.4) fL Sodium (136-145) mmol/L Potassium (3.5-5.1) mmol/L Chloride (98-107) mmol/L Carbon Dioxide (21-32) mmol/L Anion Gap (3-11) BUN (6-23) mg/dl Creatinine (0.6-1.4) mg/dl Est Cr Clr Drug Dosing ml/min Est GFR ( Amer) ml/min Est GFR (Non-Af Amer) ml/min BUN/Creatinine Ratio (10-20) Glucose (70-99(Fasting)) mg/dl POC Glucose 183 H 190 H (70-99) mg/dl Calcium (8.6-10.3) mg/dl Phosphorus (2.5-4.9) mg/dl Magnesium (1.7-2.4) mg/dl Medications Administered Current Inpatient Medications Acetaminophen (Acetaminophen 325 Mg Tab) 650 mg PO Q4H PRN PRN Reason: Moderate Pain (Scale 4, 5, 6) Stop: 10/28/23 13:00 Amlodipine Besylate (Amlodipine Besylate 5 Mg Tab) 2.5 mg PO DAILY BROOKE Stop: 10/30/23 02:44 Last Admin: 09/30/23 03:02 Dose: Not Given Atorvastatin Calcium (Atorvastatin 20 Mg Tab) 20 mg PO HS BROOKE Stop: 10/28/23 20:59 Last Admin: 09/30/23 20:31 Dose: Not Given Benzonatate (Benzonatate 100 Mg Capsule) 100 mg PO TID BROOKE Stop: 10/28/23 13:59 Last Admin: 10/01/23 13:08 Dose: Not Given Dextrose (Dextrose 50% 50 Ml Syringe) 25 - 50 ml IV UD PRN; Protocol PRN Reason: Hypoglycemia Protocol Stop: 10/28/23 13:00 Finasteride (Finasteride 5 Mg Tab) 5 mg PO DAILY BROOKE Stop: 10/29/23 08:59 Last Admin: 10/01/23 08:35 Dose: 5 mg Glucagon (Glucagon For Inj 1 Mg Vial) 1 mg SQ UD PRN; Protocol PRN Reason: Hypoglycemia Protocol Stop: 10/28/23 13:00 Glucose (Glucose 10 Tab/Tube) 4 - 8 tab PO UD PRN; Protocol PRN Reason: Hypoglycemia Treatment Stop: 10/28/23 13:00 Glucose (Glucose 40% Gel 15 Gm Tube) 15 - 30 gm PO UD PRN; Protocol PRN Reason: Hypoglycemia Protocol Stop: 10/28/23 13:00 Guaifenesin (Guaifenesin 600 Mg Tabcr) 1,200 mg PO Q12 BROOKE Stop: 10/28/23 20:59 Last Admin: 10/01/23 08:38 Dose: Not Given Hydralazine HCl (Hydralazine Hcl 20 Mg/Ml Vial) 5 mg IV Q6H PRN PRN Reason: SBP >165 Stop: 10/30/23 08:29 Last Admin: 09/30/23 16:53 Dose: 5 mg Vancomycin HCl 1,250 mg/ (Sodium Chloride) 275 mls @ 200 mls/hr IV Q12H COUNTS INCLUDE 234 BEDS AT THE [facility] Stop: 10/02/23 23:59 Last Infusion: 10/01/23 04:33 Dose: Infused Piperacillin Sod/Tazobactam (Sod 4.5 gm/ Dextrose) 100 mls @ 25 mls/hr IV Q8H BROOKE; Protocol Stop: 10/02/23 21:29 Last Admin: 10/01/23 13:17 Dose: 25 mls/hr Acetaminophen (Ofirmev) 1,000 mg in 100 mls @ 400 mls/hr IV Q8H PRN PRN Reason: Pain or Fever Stop: 10/02/23 03:16 Last Infusion: 10/01/23 13:41 Dose: Infused Levetiracetam 500 mg/ Sodium (Chloride) 105 mls @ 440 mls/hr IV Q12H COUNTS INCLUDE 234 BEDS AT THE [facility] Stop: 10/29/23 15:59 Last Infusion: 09/30/23 04:45 Dose: Infused Promethazine HCl 6.25 mg/ (Sodium Chloride) 50.25 mls @ 201 mls/hr IV Q6H PRN PRN Reason: Nausea And Vomiting Stop: 10/30/23 22:34 Fluconazole (Diflucan) 100 mg in 50 mls @ 100 mls/hr IV HS COUNTS INCLUDE 234 BEDS AT THE [facility] Stop: 10/11/23 20:59 Insulin Aspart (Insulin Aspart Per Unit Charge) 0 units SC Q6 COUNTS INCLUDE 234 BEDS AT THE [facility] Stop: 10/30/23 00:00 Last Admin: 10/01/23 13:08 Dose: Not Given Insulin Glargine (Lantus Per Unit Charge) 20 units SC DAILY COUNTS INCLUDE 234 BEDS AT THE [facility] Stop: 10/31/23 08:59 Last Admin: 10/01/23 08:38 Dose: 20 units Miscellaneous (Carbohydrates For Hypoglycemia ) 15 - 30 gm PO UD PRN PRN Reason: Hypoglycemia Protocol Stop: 10/28/23 13:00 Miscellaneous Information (Vancomycin Consult Active) 1 each N/A UD PRN PRN Reason: Consult Stop: 10/28/23 14:22 Miscellaneous Information (Pharmacy Glycemic Mgmt Consult) 1 each N/A UD PRN; Protocol PRN Reason: Consult Stop: 10/29/23 10:42 Tamsulosin HCl (Tamsulosin Hcl 0.4 Mg Cap) 0.4 mg PO QAM COUNTS INCLUDE 234 BEDS AT THE [facility] Stop: 10/29/23 08:59 Last Admin: 10/01/23 08:38 Dose: Not Given (1) RLL pneumonia Aspiration pneumonia type: unspecified Pneumonia type: aspiration pneumonia Qualified Code(s): J69.0 - Pneumonitis due to inhalation of food and vomit (3) Falls Encounter type: initial encounter Qualified Code(s): W19.XXXA - Unspecified fall, initial encounter
[2023-10-01] MEDS: ATORVASTATIN 20 MG TAB PO SCH (19:43)
[2023-10-01] MEDS: OLANZapine ZYDIS 5 MG ORALLY DIS. TAB PO SCH (19:44)
[2023-10-01] MEDS: FLUCONAZOLE 100 MG/50 ML BAG IV SCH (19:45)
[2023-10-01] MEDS: LABETALOL HCL IV 5 MG/ML 20ML IV PRN (22:23)
[2023-10-02] MEDS: INSULIN ASPART PER UNIT CHARGE SC SCH ×5 (00:56→23:49)
[2023-10-02] MEDS: VANCOMYCIN HCL 1,250 MG in SODIUM CHLORIDE 0.9% 250 ML IV SCH ×2 (03:42→14:31)
[2023-10-02] MEDS: PIPER/TAZO 4.5g in D5W MINI-B 100 ML IV SCH ×2 (05:08→13:24)
[2023-10-02] MEDS: LABETALOL HCL IV 5 MG/ML 20ML IV PRN ×3 (05:10→23:54)
[2023-10-02 05:37] LABS: Hematocrit (blood only) 33.6 % (42.0-52.0); Hemoglobin 11.2 g/dl (14.0-18.0); Mean Corpuscular Hemoglobin 29.5 pg (25.0-34.0); Mean Corpuscular Hgb Conc 33.3 g/dL (32.0-36.0); Mean Corpuscular Volume 88.4 fL (80.0-100.0); Mean Platelet Volume 9.7 fL (9.4-12.4); Platelet Count 255 K/uL (130-400); RDW Coefficient of Variation 13.3 % (11.5-14.5); RDW Standard Deviation 43.3 fL (36.4-46.3); White Blood Count 13.46 K/ul (4.8-10.8)
[2023-10-02 06:04] LABS: Calcium 8.3 mg/dl (8.6-10.3); Creatinine Clr Calc Pharmacy 104.6 ml/min; Est GFR (African American) 117.8 ml/min; Est GFR (Non-African American) 101.6 ml/min; Magnesium 1.9 mg/dl (1.7-2.4); Phosphorus 2.7 mg/dl (2.5-4.9); Potassium 2.5 mmol/L (3.5-5.1)
[2023-10-02] MEDS: POTASSIUM CHLORIDE / WTR 10 MEQ/100 ML PLCT IV SCH ×10 (06:41→16:11)
[2023-10-02] MEDS: guaiFENesin 600 MG TABCR PO SCH ×2 (08:21→20:03)
[2023-10-02] MEDS: TAMSULOSIN HCL 0.4 MG CAP PO SCH (08:21)
[2023-10-02] MEDS: FINASTERIDE 5 MG TAB PO SCH (08:21)
[2023-10-02] MEDS: BENZONATATE 100 MG CAPSULE PO SCH ×3 (08:21→20:03)
[2023-10-02] MEDS ORDERED: LANTUS PER UNIT CHARGE SC SCH (09:00)
[2023-10-02] MEDS: OLANZapine ZYDIS 5 MG ORALLY DIS. TAB PO SCH ×2 (09:26→20:03)
[2023-10-02] MEDS: DEXTROSE 5% 1,000 ML IV SCH (10:12)
[2023-10-02] MEDS ORDERED: LORazepam 1 MG/1 ML SYR ED Inj Use IV PRN (10:18)
[2023-10-02 12:40] LABS: BUN Creatinine Ratio 33.9 (10-20); Calcium 8.1 mg/dl (8.6-10.3); Creatinine Clr Calc Pharmacy 93.4 ml/min; Est GFR (African American) 112.4 ml/min; Magnesium 1.8 mg/dl (1.7-2.4); Potassium 3.2 mmol/L (3.5-5.1)
[2023-10-02] MEDS: LORazepam 0.5 MG in SYRINGE 0.25 ML IV PRN (13:42)
[2023-10-02] MEDS ORDERED: ACETAMINOPHEN 1,000 MG/100 ML VIAL IV PRN (15:25)
[2023-10-02] MEDS: LEVALBUTEROL 1.25MG/0.5ML NEB NEB SCH ×2 (15:52→20:08)
--- NOTE | 2023-10-02 18:46 | Hospitalist Progress Note ---
Date of Service October 02, 2023 Assessment & Plan (1) RLL pneumonia: (2) Weakness: (3) Falls: Plan: per Dr. Pat's notes with addendum: - CT chest reviewed concerning for RLL pna, also with concern for aspiration pna with coughing with food, will ask for speech therapy consultation - Unasyn IV initially -> changed to zosyn, vanco after had acute change in status - No WBC, afebrile - MRI of the brain - No acute abnormality and in particular no evidence of acute infarct. - received IVF - Not on anticoagulation except aspirin which is on hold now Acute encephalopathy, ? new onset seizure Hx of dementia, prior CVA received ativan and was loaded w/ keppra shortly after admission Neurology consulted and PO keprra recommended EEG ordered- negat. for seizure Repeat CT head negative -MRI ordered - No acute abnormality and in particular no evidence of acute infarct. -Delirium precautions, including pain management -Resume asa when hgb stable -Continue statin when able to tolerate PO -Infectious work up pending -Procal negative -Questionable areas on imaging -Empirically transitioned to Vanc/Zosyn given abrupt status changes -TSH WBL Pt was code purple overnight - per night provider - patient became unresponsive. Earlier he had some minimal responses. vitals stable. Just staring and not responding to verbal stimuli. Seems moving his extremities. Had two ct head and mri scans earlier and were unremarkable.He had iv ativan and loaded with Keppra earlier in morning time. Did abg and was ok. Currently not able to take po. Changed Keppra to iv 1gm bid . Notified am providers. 09/29 I notified neurology this AM about the code purple event overnight and evaluated the pt / RN at the bedside. Pt is lying in bed, in no acute distress, his right arm is in the air. When I questioned him about that, he says that he wants to get up. He moves extremities, follows simple commands. He is able to say "no" when I ask him if he has any pain or shortness of breath or chest pain. He stares into the air. Neurology recommend to obtain EEG, at this point not convinced about seizure, perhaps delirium, recommend to lower Keppra to 500 twice daily. Currently only giving IV medications, not sure if patient is able to take p.o. at this time. 09/30 Overnight pt agitated and received IM zyprexa. Keppra dose was decreased yesterday after discussing w/ neurology to reduce sedation. However early AM pt had likely aspiration event (pt is NPO), required nebs , solumedrol, racemic epi, concern for stridor. ICU was also contacted overnight but pt was not accepted to ICU. on 8L oxymask but on my evaluation this AM pt on 2L. CXR and ABG also obtained overnight. CXR negative. Pt barely responsive, concern for being able to manage his secretions. Discussed w/ RN at the bedside. ICU/pulm. Dr. Carroll contacted as well as neurology. As EEG was negative for seizure agreed to stop keppra to help reduce pt's sedation. Repeated CT head (negative) ABG and CXR (negative). Code status was changed to DNR/DNI. Palliative medicine consulted 10/01 Keppra was stopped and pt's sedation has much improved. However he is quite restless laying in bed and constantly fidgeting. He is able to answer simple questions appropriately. He also reported to RN " feeling of falling". Discussed w/ neurology and palliative medicine as well as with RN. Started on zyprexa by palliative medicine. Discussed w/ neurology - do not recommend restarting keppra - do not believe this is seizure , likely post-concussive syndrome, delirium in setting of dementia. 10/02 Ativan added to scheduled Zyprexa Nebs every 6 hours ordered IV fluids ordered Electrolytes replaced (4) Intramuscular hematoma: Plan: - CT abd/pelvis showing L buttocks hemorrhage, but there is no size noted. Consulted general surgery - Apply cold compresses to Left buttock 20min on 20min off - Pt is not on blood thinners - Trend H&H with - Hold aspirin (5) DM type 2 (diabetes mellitus, type 2): Plan: - Glucose is elevated above 400 on admission - ISS with Accu-Cheks ACHS - Holding metformin and Forteo inj currently (6) History of CVA (cerebrovascular accident): Plan: - Hx of 3 CVA in the past, pt is on Namenda at home - May have residual strength discrepancy in the R arm compared to the Left. Pt is left handed - Monitor - Last MRI in Apr 2021 for CVA (7) HTN (hypertension): Plan: - Cont on lisinopril, amlodipine, asa, atorvastatin if able to take PO (8) Dementia: Plan: - Continue Nemenda - Chronic, lives with , concern that there may also be some memory issues from her per HPI. (9) BPH (benign prostatic hyperplasia): Plan: - Cont flomax - UA - negative (10) Hyperlipidemia: Plan: - Cont atorvastatin (11) Elevated troponin I level: Plan: - Monitor Trop Q6H, trop initially 38, - No chest pain, unlikely ACS - Echo obtained -LV systolic function is normal. EF 60 to 65%. LV wall motion is abnormal. Aortic valve is moderately calcified. Aortic valve stenosis is present. There is a small loculated anterior and right lateral pericardial effusion. Tamponade is absent. Compared to images obtained at the time of the previous study dated January 29, 2023, there has been a subtle interval increase in the size of the pericardial effusion. DVT ppx: teds, scds CODE: DNR/DNI Dispo: pending plan of care discussed with patient's and daughter in detail and at length all questions answered they are understanding, agreeable, comfortable with the plan of care Admission and Anticipated Discharge Date Admission Date: September 28, 2023 Subjective Follow-up for pneumonia, etc. Seen resting in bed, awake, somewhat anxious Confused States he feels okay Denies anxiety Noted to be having some hallucinations as well Not in distress, no signs of respiratory distress Patient reevaluated with patient's family at the bedside Calmer, but was still having some hallucination Review of Systems Review of Systems: all noted and negative except for above Physical Exam Physical Exam: General- oriented x 0, not in distress, breathing with no effort or accessory muscle use Eyes- anicteric Neck- no JVD Lungs- mild rhonchi BL Heart- normal rate, regular rhythm; no murmurs Abdomen- normal bowel sounds, nondistended, soft, non tender Extremities- no pretibial edema, no calf tenderness Neuro- confused, no gross focal deficit Skin- warm & dry Results & Data Results & Data Vital Signs (Past 12 Hours) Vital Signs Temp Pulse Pulse Resp BP BP BP 10/02/23 16:21 37.1 C 71 17 158/85 H 10/02/23 15:29 83 10/02/23 14:19 37.8 C H 10/02/23 11:44 36.7 C 70 19 162/91 H 10/02/23 11:12 75 10/02/23 10:57 10/02/23 10:57 98 H 10/02/23 10:34 91 H 178/89 H 10/02/23 08:00 36.7 C 90 20 188/94 H Pulse Ox O2 Del Method 10/02/23 16:21 92 Room Air 10/02/23 15:29 10/02/23 14:19 10/02/23 11:44 95 Room Air 10/02/23 11:12 10/02/23 10:57 Room Air 10/02/23 10:57 10/02/23 10:34 10/02/23 08:00 95 Room Air all noted and reviewed including below (1) RLL pneumonia Aspiration pneumonia type: unspecified Pneumonia type: aspiration pneumonia Qualified Code(s): J69.0 - Pneumonitis due to inhalation of food and vomit (3) Falls Encounter type: initial encounter Qualified Code(s): W19.XXXA - Unspecified fall, initial encounter
[2023-10-02] MEDS ORDERED: LEVALBUTEROL 1.25 MG/3 ML NEB ONE (19:07)
[2023-10-02] MEDS: ATORVASTATIN 20 MG TAB PO SCH (20:02)
[2023-10-02] MEDS: FLUCONAZOLE 100 MG/50 ML BAG IV SCH (20:03)
[2023-10-03] MEDS ORDERED: LEVALBUTEROL HCL 0.63 MG/3 ML NEB ONE (01:37)
[2023-10-03] MEDS ORDERED: LEVALBUTEROL 1.25 MG/3 ML NEB ONE (01:47)
[2023-10-03] MEDS: LEVALBUTEROL 1.25MG/0.5ML NEB NEB SCH ×2 (01:51→06:56)
[2023-10-03] MEDS: DEXTROSE 5% 1,000 ML IV SCH ×2 (02:54→19:10)
[2023-10-03] MEDS: INSULIN ASPART PER UNIT CHARGE SC SCH ×4 (06:36→23:43)
[2023-10-03] MEDS: guaiFENesin 600 MG TABCR PO SCH ×2 (10:10→19:28)
[2023-10-03] MEDS: amLODIPine BESYLATE 5 MG TAB PO SCH (10:10)
[2023-10-03] MEDS: BENZONATATE 100 MG CAPSULE PO SCH ×3 (10:10→19:28)
[2023-10-03] MEDS: FINASTERIDE 5 MG TAB PO SCH (10:10)
[2023-10-03] MEDS: OLANZapine ZYDIS 5 MG ORALLY DIS. TAB PO SCH ×2 (10:10→19:57)
[2023-10-03] MEDS: TAMSULOSIN HCL 0.4 MG CAP PO SCH (10:10)
[2023-10-03 10:26] LABS: BUN Creatinine Ratio 31.1 (10-20); Creatinine Clr Calc Pharmacy 85.7 ml/min; Est GFR (African American) 108.6 ml/min; Est GFR (Non-African American) 93.7 ml/min; Potassium 3.1 mmol/L (3.5-5.1)
[2023-10-03] MEDS: LORazepam 0.5 MG in SYRINGE 0.25 ML IV PRN ×3 (11:14→21:58)
[2023-10-03] MEDS: hydrALAZINE HCL 20 MG/ML VIAL IV SCH ×3 (11:19→21:51)
[2023-10-03] MEDS ORDERED: LEVALBUTEROL 1.25MG/0.5ML NEB NEB PRN (13:26)
--- NOTE | 2023-10-03 18:56 | Hospitalist Progress Note ---
Date of Service October 03, 2023 Assessment & Plan (1) RLL pneumonia: (2) Weakness: (3) Falls: Plan: per Dr. Pat's notes with addendum: - CT chest reviewed concerning for RLL pna, also with concern for aspiration pna with coughing with food, will ask for speech therapy consultation - Unasyn IV initially -> changed to zosyn, vanco after had acute change in status - No WBC, afebrile - MRI of the brain - No acute abnormality and in particular no evidence of acute infarct. - received IVF - Not on anticoagulation except aspirin which is on hold now Acute encephalopathy, ? new onset seizure Hx of dementia, prior CVA received ativan and was loaded w/ keppra shortly after admission Neurology consulted and PO keprra recommended EEG ordered- negat. for seizure Repeat CT head negative -MRI ordered - No acute abnormality and in particular no evidence of acute infarct. -Delirium precautions, including pain management -Resume asa when hgb stable -Continue statin when able to tolerate PO -Infectious work up pending -Procal negative -Questionable areas on imaging -Empirically transitioned to Vanc/Zosyn given abrupt status changes -TSH WBL Pt was code purple overnight - per night provider - patient became unresponsive. Earlier he had some minimal responses. vitals stable. Just staring and not responding to verbal stimuli. Seems moving his extremities. Had two ct head and mri scans earlier and were unremarkable.He had iv ativan and loaded with Keppra earlier in morning time. Did abg and was ok. Currently not able to take po. Changed Keppra to iv 1gm bid . Notified am providers. 09/29 I notified neurology this AM about the code purple event overnight and evaluated the pt / RN at the bedside. Pt is lying in bed, in no acute distress, his right arm is in the air. When I questioned him about that, he says that he wants to get up. He moves extremities, follows simple commands. He is able to say "no" when I ask him if he has any pain or shortness of breath or chest pain. He stares into the air. Neurology recommend to obtain EEG, at this point not convinced about seizure, perhaps delirium, recommend to lower Keppra to 500 twice daily. Currently only giving IV medications, not sure if patient is able to take p.o. at this time. 09/30 Overnight pt agitated and received IM zyprexa. Keppra dose was decreased yesterday after discussing w/ neurology to reduce sedation. However early AM pt had likely aspiration event (pt is NPO), required nebs , solumedrol, racemic epi, concern for stridor. ICU was also contacted overnight but pt was not accepted to ICU. on 8L oxymask but on my evaluation this AM pt on 2L. CXR and ABG also obtained overnight. CXR negative. Pt barely responsive, concern for being able to manage his secretions. Discussed w/ RN at the bedside. ICU/pulm. Dr. Carroll contacted as well as neurology. As EEG was negative for seizure agreed to stop keppra to help reduce pt's sedation. Repeated CT head (negative) ABG and CXR (negative). Code status was changed to DNR/DNI. Palliative medicine consulted 10/01 Keppra was stopped and pt's sedation has much improved. However he is quite restless laying in bed and constantly fidgeting. He is able to answer simple questions appropriately. He also reported to RN " feeling of falling". Discussed w/ neurology and palliative medicine as well as with RN. Started on zyprexa by palliative medicine. Discussed w/ neurology - do not recommend restarting keppra - do not believe this is seizure , likely post-concussive syndrome, delirium in setting of dementia. 10/02 Ativan added to scheduled Zyprexa Nebs every 6 hours ordered IV fluids ordered Electrolytes replaced 10/03 Seems to be less confused, with less hallucinations today Continue scheduled Zyprexa, as needed Ativan For repeat speech evaluation tomorrow Meeting with palliative care service also plan for trauma (4) Intramuscular hematoma: Plan: - CT abd/pelvis showing L buttocks hemorrhage, but there is no size noted. Consulted general surgery - Apply cold compresses to Left buttock 20min on 20min off - Pt is not on blood thinners - Trend H&H with - Hold aspirin (5) DM type 2 (diabetes mellitus, type 2): Plan: - Glucose is elevated above 400 on admission - ISS with Accu-Cheks ACHS - Holding metformin and Forteo inj currently (6) History of CVA (cerebrovascular accident): Plan: - Hx of 3 CVA in the past, pt is on Namenda at home - May have residual strength discrepancy in the R arm compared to the Left. Pt is left handed - Monitor - Last MRI in Apr 2021 for CVA (7) HTN (hypertension): Plan: - Cont on lisinopril, amlodipine, asa, atorvastatin if able to take PO Currently on IV hydralazine 2.5 mg IV every 6 hours (8) Dementia: Plan: - Continue Nemenda - Chronic, lives with , concern that there may also be some memory issues from her per HPI. (9) BPH (benign prostatic hyperplasia): Plan: - Cont flomax - UA - negative (10) Hyperlipidemia: Plan: - Cont atorvastatin (11) Elevated troponin I level: Plan: - Monitor Trop Q6H, trop initially 38, - No chest pain, unlikely ACS - Echo obtained -LV systolic function is normal. EF 60 to 65%. LV wall motion is abnormal. Aortic valve is moderately calcified. Aortic valve stenosis is present. There is a small loculated anterior and right lateral pericardial effusion. Tamponade is absent. Compared to images obtained at the time of the previous study dated January 29, 2023, there has been a subtle interval increase in the size of the pericardial effusion. DVT ppx: teds, scds CODE: DNR/DNI Dispo: pending plan of care discussed with patient's and daughter in detail and at length all questions answered they are understanding, agreeable, comfortable with the plan of care Admission and Anticipated Discharge Date Admission Date: September 28, 2023 Subjective Follow-up for pneumonia, etc. Seen resting in bed, comfortable, awake, alert, watching TV Answering simple questions appropriately Still having some intermittent confusion but easily reoriented Denies shortness of breath, cough, pain Patient noted to be aspirating when attempted to be given morning medications No other symptoms Review of Systems Review of Systems: all noted and negative except for above Physical Exam Physical Exam: General- oriented x 1-2, not in distress, speaks in sentences with no effort or accessory muscle use Eyes- anicteric Neck- no JVD Lungs- clear breath sounds bilaterally, no rales/wheezes Heart- normal rate, regular rhythm; no murmurs Abdomen- normal bowel sounds, nondistended, soft, nontender Extremities- no pretibial edema, no calf tenderness Neuro- alert, oriented x 1-2; no gross focal neurologic deficits Skin- warm & dry Results & Data Results & Data Vital Signs (Past 12 Hours) Vital Signs Temp Pulse Pulse Resp BP BP Pulse Ox 10/03/23 18:40 89 10/03/23 16:24 71 171/85 H 10/03/23 15:15 36.7 C 76 18 146/75 H 98 10/03/23 11:56 36.6 C 65 16 165/83 H 97 10/03/23 08:00 61 10/03/23 07:30 10/03/23 07:12 36.6 C 61 19 173/85 H 97 O2 Del Method 10/03/23 18:40 10/03/23 16:24 10/03/23 15:15 Room Air 10/03/23 11:56 Room Air 10/03/23 08:00 10/03/23 07:30 Room Air 10/03/23 07:12 Room Air all noted and reviewed including below (1) RLL pneumonia Aspiration pneumonia type: unspecified Pneumonia type: aspiration pneumonia Qualified Code(s): J69.0 - Pneumonitis due to inhalation of food and vomit (3) Falls Encounter type: initial encounter Qualified Code(s): W19.XXXA - Unspecified fall, initial encounter
[2023-10-03] MEDS: ATORVASTATIN 20 MG TAB PO SCH (19:28)
[2023-10-03] MEDS: FLUCONAZOLE 100 MG/50 ML BAG IV SCH (19:57)
[2023-10-03] MEDS: LABETALOL HCL IV 5 MG/ML 20ML IV PRN (23:38)
[2023-10-04] MEDS: hydrALAZINE HCL 20 MG/ML VIAL IV SCH ×4 (03:03→20:53)
[2023-10-04] MEDS: INSULIN ASPART PER UNIT CHARGE SC SCH ×4 (05:40→20:51)
[2023-10-04] MEDS: amLODIPine BESYLATE 5 MG TAB PO SCH (08:13)
[2023-10-04] MEDS: OLANZapine ZYDIS 5 MG ORALLY DIS. TAB PO SCH ×2 (08:14→19:48)
[2023-10-04] MEDS: guaiFENesin 600 MG TABCR PO SCH ×2 (08:14→19:55)
[2023-10-04] MEDS: FINASTERIDE 5 MG TAB PO SCH (08:14)
[2023-10-04] MEDS: TAMSULOSIN HCL 0.4 MG CAP PO SCH (08:14)
[2023-10-04] MEDS: BENZONATATE 100 MG CAPSULE PO SCH ×3 (08:14→19:48)
[2023-10-04] MEDS: DEXTROSE 5% 1,000 ML IV SCH (12:03)
--- NOTE | 2023-10-04 12:58 | Palliative Care Progress Note ---
Date of Service October 04, 2023 Assessment & Plan (1) Dementia with behavioral disturbance: Plan: Improved with addition of low dose Zyprexa (2) Generalized weakness: (3) Confusion: (4) Episode of shaking: (5) Discussion about advance care planning held with family member: Plan: Met with and dtr at bedside for face to face ACP x 45min They gave voluntary consent to continue with ACP discussion, seeking guidance on adv dementia mngt, goals established and options for in home support post dc. does not want placement. It is important to her to keep pt at home for as long as she is able but she admits needing some help. We reviewed the following facts about dementia: * Dementia is a terminal illness. Aggressive medical treatment for residents with advanced dementia is often inappropriate for medical reasons, has a low rate of success, and can have negative outcomes that hasten functional decline and . ([place] [employer] Ethics Committee and Clinical Practice and Models of Care Committee. J Am Geriatr Soc. 2014 Apr;62(8):1590-3 and Bryon SL, Getachew JM, Perez SC, [place] V. A national study of the location of for older persons with dementia. J Am Geriatr Soc 2005; 53(2):299-305 .) * Tube feeding in residents with advanced dementia does not increase survival. It does not prevent aspiration pneumonia, malnutrition or pressure ulcers. It does not reduce the risk of infections or improve functional status or comfort of the patient. (from: Herberth MI, Estrellita T Percutaneous endoscopic gastrostomy does not prolong survival in patients with dementia. Arch [employer] Car [employer]er Med 2003; 163(11):5304-0207 AND Monserrat DE, Cruzito SETH, Mil J, Yvonne S, Vinny RS. High short-term mortality in hospitalized patients with advanced dementia - Lack of benefit of tube feeding. Arch [employer]er Med 2001; 161(4):594- 599.) * Simple strategies involving hands-on care by well-trained staff such as massage, oral hygiene, changes in diet, and hand-feeding -- can prevent infection and manage feeding problems without resort to tube-feeding. * Tube feeding does not prevent aspiration pneumonia and might actually increase its incidence, and does not prevent the consequences of malnutrition * Hand feeding can be provided until the beginning of the dying process when all physiological processes shut down, note that cognitively intact cancer patients indicate that dying residents do not feel hunger and thirst. * Voluntary refusal of food and liquids is often initiated by hospice patients and does not result in discomfort * The majority of older Americans whose underlying cause of is attributable to dementia on their certificate in nursing homes. State-level factors, including the availability of hospital and alf beds and the age of decedents in the population, explain, in part, the wide [id number]-eh-[id number] variability in the proportion of dementia-related deaths occurring in the hospital. * Older adults with dementia frequently receive acute care in their last year of life although Hospice care was more common for home/FDC residents. Overall time in hospice remains short due to the underutilization of the hospice benefit for terminal dementia (Percy MM, Kassandra JM, Richard KM, Dennis DE, Bret PY. Dementia Care in the Last Year of Life: Experiences in a Community Practice and in [facility] Facilities. J Palliat Care. 2022;38(2):135-142. doi:10.1177/[id number]) * Home Hospice is a valuable option for terminal dementia who desire to have peaceful EOL at home. Home hospice care for advanced dementia can improve symptom management and caregiver satisfaction, while decreasing caregiver burden, preventing hospitalizations and discontinuing unnecessary medications (Alessandro SA, Jasen R, Corina G, et al. Home hospice for older people with advanced dementia: a ship harbor pilot project [published correction appears in Isr J Health Policy Res. 2019 Mar 20;8(1):56]. Isr J Health Policy Res. 2019;8(1):42. Published 2018January 23. doi:10.1186/a21697-925-5159-h) * If the plan if for SNF placement, I recommend hospice at SNF: Hospice is a valuable service for persons with advanced dementia, particularly in management of pain, continuous involvement of the primary physician, and avoidance of hospitalization. Social support provided to caregivers is also important given their high levels of depressive symptoms and anxiety. The goal of care for residents with advanced dementia is primarily maintenance of function and patient should not be transferred to an acute care setting because hospitalization results in decline of functional abilities that do not recover after discharge back into alf. If this is desired, then Care Mgt follow up is needed to determine if pt is eligible for hospice at SNF/deferred to CM and primary team. * Dementia meds: Based on 45 trials (n=22,431) and three observational studies (n=190,076) that evaluated acetylcholinesterase inhibitors (AChEIs) (i.e., donepezil, galantamine, rivastigmine) and memantine, these medications may improve measures of global cognitive function in the short term, but the magnitude of change is small. (Hemanth CD, Karen LA, Charisse RC, et al. Screening for Cognitive Impairment in Older Adults: An Evidence Update for the U.S. Preventive Services Task Force. Peter ARCINIEGA): Agency for Healthcare Research and Quality ([place]); October 2019.) They want focus on QOL They want him to take PO as tolerated for comfort. They do not want SNF placement They are open to hospice: We discussed the goals of hospice as a patient service and the goals of care; we discussed EOL trajectories and transitions stefanie the emotional impact of realizing mortality as a concrete reality from prior abstract considerations. Pt was reassured that no matter where they are along this trajectory, they are not alone - their medical team will remain by their side through their journey. Discussed the pros/cons of accepting help when especially weakened and distressed by pain-which would also help provide relief/decrease caregiver burden/strain. I provided education about the hospice benefit: an interdisciplinary program offered by nurses, nurses aides, social workers, chaplains and a medical cash poster for patients with a terminal condition and a life expectancy of less than 6 months. This is covered by Medicare at 100%/no out of pocket expense to patient and all meds/supplies needed by patient for the reason they are on hospice are paid for/covered by hospice. The goal is assure quality of life of the patient in their home setting (home, alf, inpatient hospice setting) by providing symptoms management, psychosocial and spiritual support. However, they cannot offer 24 hours care and if the family is unable to provide that care, they will have to consider personal care with out of pocket cost vs. alf placement. We discussed the goals of hospice as a patient service and the goals of care; we discussed EOL trajectories and tr ansitions stefanie the emotional impact of realizing mortality as a concrete reality from prior abstract considerations. Pt was reassured that no matter where they are along this trajectory, they are not alone - their medical team will remain by their side through their journey. Discussed the pros/cons of accepting help when especially weakened and distressed by pain-which would also help provide relief/decrease caregiver burden/strain. The POLST form was reviewed and discussed with patient/family today. We specifically discussed that POLST is an approach to end-of-life planning that emphasizes patients wishes about the care they receive. The POLST Paradigm, which stands for Physician Orders for Life Sustaining Treatment, is an approach to end-of-life planning emphasizing: (i) advance care planning conversations between patients, health childcare worker and loved ones; (ii) shared decision-making between a patient and his/her health hearing care professional about the care the patient would like to receive at the end of his/her life and (iii) ensuring patient wishes are honored. We discussed that the POLST form is a medical order indicating a patients wishes regarding treatments that are commonly used in a medical crisis. It is a medical order, therefore emergency personnel such as paramedics, photonics technician, and emergency physicians must follow these orders. Without a POLST form, paramedics and photonics technician are required to provide every possible medical treatment to sustain life. Patient/family advised that the [place] POLST form is a very bright PINK colored form designed for immediate, easy location and which gives them a way to tell doctors, nurses, and other health childcare worker what types of treatment they do and do not want. A POLST form was completed today for Uche Lainez. Please note that today's completed POLST orders reflect patient's preferences, wishes and selections of what treatments he wants now, in his current state of health. Mrs. Lainez and dtr verbalized understanding and all questions were answered to their apparent satisfaction. A copy of the POLST form has been uploaded into [employer]. The original was provided to the patient. (6) Palliative care by specialist: Plan: Met with pt/family. Provided overview of Palliative Medicine, a subspecialty mickey t provides specialized medical care for people living with a serious illness by offering a focus on quality of life. Palliative Medicine is often conflated with hospice: I advised patient/family that Palliative and hospice can be partners but we are not the same. It is important to understand the difference so that we may be informed, and not afraid. Palliative Medicine works to improve QOL through reduction of symptom burden/more control over their illness, for both the patient and family. Palliative medicine clinicians are board certified, specially-trained and another member of the patient's medical care team. We often provide an extra layer of support because our care is based on the needs of the patient, not the prognosis; as such, it's appropriate at any age/advancing stage of a serious illness and can be provided along with curative treatment. Palliative Medicine clinicians are also trained in advanced communication methodologies, to facilitate complex discussions about advanced illness planning, which are needed to help assure that the treatment choices match the patient's goals, aka delivering Goal Concordant care. Finally, we discussed that hospice is a visiting nurse service that focuses on care delivered at the very end of life for patients with terminal illness, with life expectancy less than 6 month. (7) Fall as cause of accidental injury at home as place of occurrence: (8) Seizure-like activity: Plan * Video swallow today to recc best way to allow PO with comfort and QOL as top goals * DC home with hospice when stable * POLST completed: copy made for paper chart, copy to dtr and original to pt . He is DNR/DNI, comfort care, no Abtx, no STEPH/no IVF * Updated nursing, care mgt and primary team * No acute or urgent IP Pall Med needs at this time, so I will sign off and remain available for prn needs. * Pt can follow with me in OP Pall Med clinic for ongoing dementia mgt if desired. Contact information provided to and dtr. Thank you for allowing us to participate in the ongoing care of this patient. Please don't hesitate to call or page with any additional concerns. Dr. Anayeli Andrew DNP Director, Palliative Care Admission and Anticipated Discharge Date Admission Date: September 28, 2023 Subjective Bill is less agitated and appears calmer today, tolerating Zyprexa Zydis ODT 2.5mg BID, has missed 2 doses due to being NPO x1 and asleep x1 He is awaiting a video swallow at 1pm His Dominga and his daughter are at bedside They are interested in home hospice and completing a POLST Review of Systems Review of Systems: Unobtainable due to cognitive status Physical Exam Constitutional: + ill appearing, + frail appearing and c ooperative Eyes: PERRL ENMT: Mouth: + muffled voice and + dry oral mucous membranes Neck: trachea midline Thyroid: normal thyroid Respiratory: normal respiratory effort Auscultation: lungs clear to auscultation bilaterally and + diminished lung sounds Cardiovascular: RRR, no murmur, no edema Gastrointestinal (Abdomen): Inspection/Auscultation: + scaphoid Musculoskeletal: generalized weakness Skin: + turgor decreased, + skin atrophy, + ec chymosis and + excoriations Neurologic: + confused Results & Data Vital Signs (Past 12 Hours) Vital Signs Temp Pulse Pulse Resp BP Pulse Ox O2 Del Method 10/04/23 11:09 37.1 C 96 H 9 L 135/73 97 Room Air 10/04/23 08:00 70 10/04/23 08:00 Room Air 10/04/23 07:15 36.7 C 86 19 160/82 H 96 Room Air 10/04/23 03:44 36.7 C 83 20 161/82 H 97 Room Air 10/04/23 02:59 36.7 C 86 20 163/89 H 97 Room Air Laboratory Results data reviewed Diagnostic Findings data reviewed PG Care Time/CCT Total # of Minutes Spent Total Time Spent: 100 Total Time Spent with Patient: Total time spent is greater than 50% in coordination of care (as documented) at patient's floor/unit and/or counseling patient: I spent 100 minutes overall addressing this case: 15 min in medical data review/discussion with referring provider(s) and/or preparation for the visit 15 min in direct interaction with the patient/exam 45 min in Advance Care Planning/Goals of Care discussions as detailed above in note (must be >16min) 10 min in subsequent review and synthesis of assessment and plan 15 min communicating with other providers regarding the patient's case: nursing, primary team Advanced Care Planning 46775 Advanced Care Planning 30 Min 24600 Advanced Care Planning Additional 30 Min [place] [address] SUB INP/OBS CARE 3/50MIN Patient Type Established Medical Decision Making High Complexity Diagnoses Dementia with behavioral disturbance F03.918 Generalized weakness R53.1 Confusion R41.0 Episode of shaking R25.1 Discussion about advance care planning held with family member Z71.0 Palliative care by specialist Z51.5 Fall as cause of accidental injury in home as place of occurrence, subsequent encounter W19.XXXD; Y92.009 Encounter type: subsequent encounter Seizure-like activity R56.9 Additional Codes Advanced Care Planning - 13201 Advanced Care Planning 30 Min: 39295 Advanced Care Planning 30 Min ([id number]) Advanced Care Planning - 12435 Advanced Care Planning Additional 30 Min: 94682 Advanced Care Planning Additional 30 Min ([id number]) (7) Fall as cause of accidental injury at home as place of occurrence Encounter type: subsequent encounter Qualified Code(s): W19.XXXD - Unspecified fall, subsequent encounter; Y92.009 - Unspecified place in unspecified non-institutional (private) residence as the place of occurrence of the external cause
--- NOTE | 2023-10-04 14:20 | Fluoroscopy Report ---
FL video swallow CLINICAL HISTORY: assess for aspiration TECHNIQUE: Video fluoroscopy of the pharyngeal region was performed as barium mixtures of varying con sistencies were administered to the patient by the speech pathologist. A formal esophagram was not pe rformed. Comparison: None available at the time of this dictation. FINDINGS: Total fluoroscopy time: 1.54 minutes. Radiation dose: 10.4 mGy. The patient swallowed the different barium consistencies without difficulty. Penetration or aspiratio n are seen within liquids and nectar thickness barium. Trace silent aspiration was seen with pudding. Pooling of barium was noted in the bilateral piriform sinuses and valleculae. IMPRESSION: Aspiration was seen with multiple thicknesses of barium as above. Please see the speech pathology report for further details. ACT 112: Negative or not required by law. Electronically signed by: Jonny Dobson M.D. 10/04/2023 2:19 PM
[2023-10-04] MEDS: SODIUM CHLORIDE 0.9% 1,000 ML IV SCH (16:59)
[2023-10-04] MEDS ORDERED: Nursing to Pharmacy Communication SCH (17:15)
--- NOTE | 2023-10-04 17:57 | Hospitalist Progress Note ---
Date of Service October 04, 2023 Assessment & Plan (1) RLL pneumonia: (2) Weakness: (3) Falls: Plan: per Dr. Pat's notes with addendum: - CT chest reviewed concerning for RLL pna, also with concern for aspiration pna with coughing with food, will ask for speech therapy consultation - Unasyn IV initially -> changed to zosyn, vanco after had acute change in status - No WBC, afebrile - MRI of the brain - No acute abnormality and in particular no evidence of acute infarct. - received IVF - Not on anticoagulation except aspirin which is on hold now Acute encephalopathy, ? new onset seizure Hx of dementia, prior CVA received ativan and was loaded w/ keppra shortly after admission Neurology consulted and PO keprra recommended EEG ordered- negat. for seizure Repeat CT head negative -MRI ordered - No acute abnormality and in particular no evidence of acute infarct. -Delirium precautions, including pain management -Resume asa when hgb stable -Continue statin when able to tolerate PO -Infectious work up pending -Procal negative -Questionable areas on imaging -Empirically transitioned to Vanc/Zosyn given abrupt status changes -TSH WBL Pt was code purple overnight - per night provider - patient became unresponsive. Earlier he had some minimal responses. vitals stable. Just staring and not responding to verbal stimuli. Seems moving his extremities. Had two ct head and mri scans earlier and were unremarkable.He had iv ativan and loaded with Keppra earlier in morning time. Did abg and was ok. Currently not able to take po. Changed Keppra to iv 1gm bid . Notified am providers. 09/29 I notified neurology this AM about the code purple event overnight and evaluated the pt / RN at the bedside. Pt is lying in bed, in no acute distress, his right arm is in the air. When I questioned him about that, he says that he wants to get up. He moves extremities, follows simple commands. He is able to say "no" when I ask him if he has any pain or shortness of breath or chest pain. He stares into the air. Neurology recommend to obtain EEG, at this point not convinced about seizure, perhaps delirium, recommend to lower Keppra to 500 twice daily. Currently only giving IV medications, not sure if patient is able to take p.o. at this time. 09/30 Overnight pt agitated and received IM zyprexa. Keppra dose was decreased yesterday after discussing w/ neurology to reduce sedation. However early AM pt had likely aspiration event (pt is NPO), required nebs , solumedrol, racemic epi, concern for stridor. ICU was also contacted overnight but pt was not accepted to ICU. on 8L oxymask but on my evaluation this AM pt on 2L. CXR and ABG also obtained overnight. CXR negative. Pt barely responsive, concern for being able to manage his secretions. Discussed w/ RN at the bedside. ICU/pulm. Dr. Carroll contacted as well as neurology. As EEG was negative for seizure agreed to stop keppra to help reduce pt's sedation. Repeated CT head (negative) ABG and CXR (negative). Code status was changed to DNR/DNI. Palliative medicine consulted 10/01 Keppra was stopped and pt's sedation has much improved. However he is quite restless laying in bed and constantly fidgeting. He is able to answer simple questions appropriately. He also reported to RN " feeling of falling". Discussed w/ neurology and palliative medicine as well as with RN. Started on zyprexa by palliative medicine. Discussed w/ neurology - do not recommend restarting keppra - do not believe this is seizure , likely post-concussive syndrome, delirium in setting of dementia. 10/02 Ativan added to scheduled Zyprexa Nebs every 6 hours ordered IV fluids ordered Electrolytes replaced 10/03 Seems to be less confused, with less hallucinations today Continue scheduled Zyprexa, as needed Ativan For repeat speech evaluation tomorrow Meeting with palliative care service also plan for trauma 10/04 Patient not as restless but still confused Palliative care service met with patient's family today Decision is to lean towards hospice care services Speech therapy evaluation today with video swallow study revealing aspiration Pured diet with thin liquids recommended for comfort feeds Continue p.o. Zyprexa and present meds (4) Intramuscular hematoma: Plan: - CT abd/pelvis showing L buttocks hemorrhage, but there is no size noted. Consulted general surgery - Apply cold compresses to Left buttock 20min on 20min off - Pt is not on blood thinners - Trend H&H with - Hold aspirin (5) DM type 2 (diabetes mellitus, type 2): Plan: - Glucose is elevated above 400 on admission - ISS with Accu-Cheks ACHS - Holding metformin and Forteo inj currently (6) History of CVA (cerebrovascular accident): Plan: - Hx of 3 CVA in the past, pt is on Namenda at home - May have residual strength discrepancy in the R arm compared to the Left. Pt is left handed - Monitor - Last MRI in Apr 2021 for CVA (7) HTN (hypertension): Plan: - Cont on lisinopril, amlodipine, asa, atorvastatin if able to take PO Currently on IV hydralazine 5 mg IV every 6 hours (8) Dementia: Plan: - Continue Nemenda - Chronic, lives with , concern that there may also be some memory issues from her per HPI. (9) BPH (benign prostatic hyperplasia): Plan: - Cont flomax - UA - negative (10) Hyperlipidemia: Plan: - Cont atorvastatin (11) Elevated troponin I level: Plan: - Monitor Trop Q6H, trop initially 38, - No chest pain, unlikely ACS - Echo obtained -LV systolic function is normal. EF 60 to 65%. LV wall motion is abnormal. Aortic valve is moderately calcified. Aortic valve stenosis is present. There is a small loculated anterior and right lateral pericardial effusion. Tamponade is absent. Compared to images obtained at the time of the previous study dated January 29, 2023, there has been a subtle interval increase in the size of the pericardial effusion. DVT ppx: teds, scds CODE: DNR/DNI Dispo: pending plan of care discussed with patient's and daughter in detail and at length all questions answered they are understanding, agreeable, comfortable with the plan of care Admission and Anticipated Discharge Date Admission Date: September 28, 2023 Subjective Follow-up for pneumonia, etc. Seen resting in bed, comfortable, not in distress Confused Patient's family at the bedside visiting States he feels fine overall Denies pain, shortness of breath No other new symptoms Review of Systems Review of Systems: all noted and negative except for above Physical Exam Physical Exam: General- oriented x 1, not in distress, speaks in sentences with no effort or accessory muscle use Eyes- anicteric Neck- no JVD Lungs-faint rhonchi at the bases No wheezing Heart- normal rate, regular rhythm; no murmurs Abdomen- normal bowel sounds, nondistended, soft, nontender Extremities- no pretibial edema, no calf tenderness Neuro- alert, oriented x 1; no new gross focal neurologic deficits Skin- warm & dry Results & Data Results & Data Vital Signs (Past 12 Hours) Vital Signs Temp Pulse Pulse Resp BP Pulse Ox O2 Del Method 10/04/23 16:00 70 10/04/23 15:21 36.8 C 91 H 19 143/76 H 97 Room Air 10/04/23 11:09 37.1 C 96 H 9 L 135/73 97 Room Air 10/04/23 08:00 70 10/04/23 08:00 Room Air 10/04/23 07:15 36.7 C 86 19 160/82 H 96 Room Air all noted and reviewed including below (1) RLL pneumonia Aspiration pneumonia type: unspecified Pneumonia type: aspiration pneumonia Qualified Code(s): J69.0 - Pneumonitis due to inhalation of food and vomit (3) Falls Encounter type: initial encounter Qualified Code(s): W19.XXXA - Unspecified fall, initial encounter
[2023-10-04] MEDS ORDERED: LEVALBUTEROL 1.25 MG/3 ML NEB ONE (19:20)
[2023-10-04] MEDS: ATORVASTATIN 20 MG TAB PO SCH (19:48)
[2023-10-04] MEDS: LABETALOL HCL IV 5 MG/ML 20ML IV PRN (19:58)
[2023-10-05] MEDS: LORazepam 0.5 MG in SYRINGE 0.25 ML IV PRN ×2 (00:25→23:46)
[2023-10-05] MEDS: hydrALAZINE HCL 20 MG/ML VIAL IV SCH ×4 (04:02→21:53)
[2023-10-05] MEDS: LABETALOL HCL IV 5 MG/ML 20ML IV PRN ×2 (06:13→23:46)
[2023-10-05] MEDS: BENZONATATE 100 MG CAPSULE PO SCH ×3 (09:16→19:55)
[2023-10-05] MEDS: amLODIPine BESYLATE 5 MG TAB PO SCH (09:16)
[2023-10-05] MEDS: guaiFENesin 600 MG TABCR PO SCH ×2 (09:17→19:55)
[2023-10-05] MEDS: TAMSULOSIN HCL 0.4 MG CAP PO SCH (09:17)
[2023-10-05] MEDS: FINASTERIDE 5 MG TAB PO SCH (09:17)
[2023-10-05] MEDS: INSULIN ASPART PER UNIT CHARGE SC SCH ×4 (09:23→21:47)
[2023-10-05] MEDS: OLANZapine ZYDIS 5 MG ORALLY DIS. TAB PO SCH ×2 (09:34→19:54)
[2023-10-05] MEDS: SODIUM CHLORIDE 0.9% 1,000 ML IV SCH (09:45)
--- NOTE | 2023-10-05 15:32 | Hospitalist Progress Note ---
Date of Service October 05, 2023 Assessment & Plan (1) RLL pneumonia: (2) Weakness: (3) Falls: Plan: per Dr. Pat's notes with addendum: - CT chest reviewed concerning for RLL pna, also with concern for aspiration pna with coughing with food, will ask for speech therapy consultation - Unasyn IV initially -> changed to zosyn, vanco after had acute change in status - No WBC, afebrile - MRI of the brain - No acute abnormality and in particular no evidence of acute infarct. - received IVF - Not on anticoagulation except aspirin which is on hold now Acute encephalopathy, ? new onset seizure Hx of dementia, prior CVA received ativan and was loaded w/ keppra shortly after admission Neurology consulted and PO keprra recommended EEG ordered- negat. for seizure Repeat CT head negative -MRI ordered - No acute abnormality and in particular no evidence of acute infarct. -Delirium precautions, including pain management -Resume asa when hgb stable -Continue statin when able to tolerate PO -Infectious work up pending -Procal negative -Questionable areas on imaging -Empirically transitioned to Vanc/Zosyn given abrupt status changes -TSH WBL Pt was code purple overnight - per night provider - patient became unresponsive. Earlier he had some minimal responses. vitals stable. Just staring and not responding to verbal stimuli. Seems moving his extremities. Had two ct head and mri scans earlier and were unremarkable.He had iv ativan and loaded with Keppra earlier in morning time. Did abg and was ok. Currently not able to take po. Changed Keppra to iv 1gm bid . Notified am providers. 09/29 I notified neurology this AM about the code purple event overnight and evaluated the pt / RN at the bedside. Pt is lying in bed, in no acute distress, his right arm is in the air. When I questioned him about that, he says that he wants to get up. He moves extremities, follows simple commands. He is able to say "no" when I ask him if he has any pain or shortness of breath or chest pain. He stares into the air. Neurology recommend to obtain EEG, at this point not convinced about seizure, perhaps delirium, recommend to lower Keppra to 500 twice daily. Currently only giving IV medications, not sure if patient is able to take p.o. at this time. 09/30 Overnight pt agitated and received IM zyprexa. Keppra dose was decreased yesterday after discussing w/ neurology to reduce sedation. However early AM pt had likely aspiration event (pt is NPO), required nebs , solumedrol, racemic epi, concern for stridor. ICU was also contacted overnight but pt was not accepted to ICU. on 8L oxymask but on my evaluation this AM pt on 2L. CXR and ABG also obtained overnight. CXR negative. Pt barely responsive, concern for being able to manage his secretions. Discussed w/ RN at the bedside. ICU/pulm. Dr. Carroll contacted as well as neurology. As EEG was negative for seizure agreed to stop keppra to help reduce pt's sedation. Repeated CT head (negative) ABG and CXR (negative). Code status was changed to DNR/DNI. Palliative medicine consulted 10/01 Keppra was stopped and pt's sedation has much improved. However he is quite restless laying in bed and constantly fidgeting. He is able to answer simple questions appropriately. He also reported to RN " feeling of falling". Discussed w/ neurology and palliative medicine as well as with RN. Started on zyprexa by palliative medicine. Discussed w/ neurology - do not recommend restarting keppra - do not believe this is seizure , likely post-concussive syndrome, delirium in setting of dementia. Patient's hallucinations and restlessness improved with scheduled Zyprexa, as needed Ativan However patient remained mostly confused He has failed bedside and video swallow study, both showing aspiration Meeting held with palliative care service and family yesterday Decision was made to transition the patient to hospice care Continue supportive care Requested RN to have RT perform deep suctioning, nebs (4) Intramuscular hematoma: Plan: - CT abd/pelvis showing L buttocks hemorrhage, but there is no size noted. Cons ulted general surgery - Apply cold compresses to Left buttock 20min on 20min off - Pt is not on blood thinners - Trend H&H with - Hold aspirin (5) DM type 2 (diabetes mellitus, type 2): Plan: - Glucose is elevated above 400 on admission - ISS with Accu-Cheks ACHS - Holding metformin and Forteo inj currently (6) History of CVA (cerebrovascular accident): Plan: - Hx of 3 CVA in the past, pt is on Namenda at home - May have residual strength discrepancy in the R arm compared to the Left. Pt is left handed - Monitor - Last MRI in Apr 2021 for CVA (7) HTN (hypertension): Plan: - Cont on lisinopril, amlodipine, asa, atorvastatin if able to take PO Currently on IV hydralazine 5 mg IV every 6 hours (8) Dementia: Plan: - Continue Nemenda - Chronic, lives with , concern that there may also be some memory issues from her per HPI. (9) BPH (benign prostatic hyperplasia): Plan: - Cont flomax - UA - negative (10) Hyperlipidemia: Plan: - Cont atorvastatin (11) Elevated troponin I level: Plan: - Monitor Trop Q6H, trop initially 38, - No chest pain, unlikely ACS - Echo obtained -LV systolic function is normal. EF 60 to 65%. LV wall motion is abnormal. Aortic valve is moderately calcified. Aortic valve stenosis is present. There is a small loculated anterior and right lateral pericardial effusion. Tamponade is absent. Compared to images obtained at the time of the previous study dated January 29, 2023, there has been a subtle interval increase in the size of the pericardial effusion. DVT ppx: teds, scds CODE: DNR/DNI Dispo: pending Admission and Anticipated Discharge Date Admission Date: September 28, 2023 Subjective Follow-up for pneumonia, etc. Seen resting in bed, sleeping but easily awakened Mostly confused No hallucinations on exam States he feels fine overall No shortness of breath, pain When attempted to feed pured food today, patient showed signs of aspiration after 2 attempts per RN No other issues Review of Systems Review of Systems: all noted and negative except for above Physical Exam Physical Exam: General- not oriented, not in distress, speaks in sentences with no effort or accessory muscle use Eyes- anicteric Neck- no JVD Lungs-mild rhonchi bilaterally Heart- normal rate, regular rhythm; no murmurs Abdomen- normal bowel sounds, nondistended, soft, no tenderness Extremities- no pretibial edema, no calf tenderness Neuro- alert, oriented x 0, no new no gross focal neurologic deficits Skin- warm & dry Results & Data Results & Data Vital Signs (Past 12 Hours) Vital Signs Temp Pulse Pulse Pulse Resp BP BP 10/05/23 12:40 88 18 10/05/23 12:01 36.6 C 85 21 160/90 H 10/05/23 10:52 89 160/77 H 10/05/23 10:36 10/05/23 09:18 93 H 165/89 H 10/05/23 08:05 37.3 C 89 24 155/78 H 10/05/23 06:30 89 167/66 H 10/05/23 06:13 97 H 166/77 H 10/05/23 04:00 36.9 C 101 H 20 183/78 H Pulse Ox O2 Del Method 10/05/23 12:40 10/05/23 12:01 91 Room Air 10/05/23 10:52 10/05/23 10:36 Room Air 10/05/23 09:18 10/05/23 08:05 91 Room Air 10/05/23 06:30 10/05/23 06:13 10/05/23 04:00 94 Room Air all noted and reviewed including below (1) RLL pneumonia Aspiration pneumonia type: unspecified Pneumonia type: aspiration pneumonia Qualified Code(s): J69.0 - Pneumonitis due to inhalation of food and vomit (3) Falls Encounter type: initial encounter Qualified Code(s): W19.XXXA - Unspecified fall, initial encounter
[2023-10-05] MEDS: ATORVASTATIN 20 MG TAB PO SCH (19:55)
[2023-10-06] MEDS: SODIUM CHLORIDE 0.9% 1,000 ML IV SCH ×2 (02:00→18:16)
[2023-10-06] MEDS: hydrALAZINE HCL 20 MG/ML VIAL IV SCH ×4 (04:47→16:25)
--- NOTE | 2023-10-06 08:36 | Hospitalist Progress Note ---
Date of Service October 06, 2023 Assessment & Plan (1) RLL pneumonia: (2) Weakness: (3) Falls: Plan: - CT chest reviewed concerning for RLL pna, also with concern for aspiration pna with coughing with food, will ask for speech therapy consultation - Unasyn IV initially -> changed to zosyn, vanco after had acute change in status - No WBC, afebrile - MRI of the brain - No acute abnormality and in particular no evidence of acute infarct. - received IVF - Not on anticoagulation except aspirin which is on hold now Acute encephalopathy, ? new onset seizure Hx of dementia, prior CVA received ativan and was loaded w/ keppra shortly after admission Neurology consulted and PO keprra recommended EEG ordered- negat. for seizure Repeat CT head negative -MRI ordered - No acute abnormality and in particular no evidence of acute infarct. -Delirium precautions, including pain management -Resume asa when hgb stable -Continue statin when able to tolerate PO -Infectious work up pending -Procal negative -Questionable areas on imaging -Empirically transitioned to Vanc/Zosyn given abrupt status changes -TSH WBL Pt was code purple overnight - per night provider - patient became unresponsive. Earlier he had some minimal responses. vitals stable. Just staring and not responding to verbal stimuli. Seems moving his extremities. Had two ct head and mri scans earlier and were unremarkable.He had iv ativan and loaded with Keppra earlier in morning time. Did abg and was ok. Currently not able to take po. Changed Keppra to iv 1gm bid . Notified am providers. 09/29 I notified neurology this AM about the code purple event overnight and evaluated the pt / RN at the bedside. Pt is lying in bed, in no acute distress, his right arm is in the air. When I questioned him about that, he says that he wants to get up. He moves extremities, follows simple commands. He is able to say "no" when I ask him if he has any pain or shortness of breath or chest pain. He stares into the air. Neurology recommend to obtain EEG, at this point not convinced about seizure, perhaps delirium, recommend to lower Keppra to 500 twice daily. Currently only giving IV medications, not sure if patient is able to take p.o. at this time. 09/30 Overnight pt agitated and received IM zyprexa. Keppra dose was decreased yesterday after discussing w/ neurology to reduce sedation. However early AM pt had likely aspiration event (pt is NPO), required nebs , solumedrol, racemic epi, concern for stridor. ICU was also contacted overnight but pt was not accepted to ICU. on 8L oxymask but on my evaluation this AM pt on 2L. CXR and ABG also obtained overnight. CXR negative. Pt barely responsive, concern for being able to manage his secretions. Discussed w/ RN at the bedside. ICU/pulm. Dr. Carroll contacted as well as neurology. As EEG was negative for seizure agreed to stop keppra to help reduce pt's sedation. Repeated CT head (negative) ABG and CXR (negative). Code status was changed to DNR/DNI. Palliative medicine consulted 10/01 Keppra was stopped and pt's sedation has much improved. However he is quite restless laying in bed and constantly fidgeting. He is able to answer simple questions appropriately. He also reported to RN " feeling of falling". Discussed w/ neurology and palliative medicine as well as with RN. Started on zyprexa by palliative medicine. Discussed w/ neurology - do not recommend restarting keppra - do not believe this is seizure , likely post-concussive syndrome, delirium in setting of dementia. Patient's hallucinations and restlessness improved with scheduled Zyprexa, as needed Ativan However patient remained mostly confused He has failed bedside and video swallow study, both showing aspiration Meeting held with palliative care service and family Decision was made to transition the patient to hospice care Continue supportive care Requested RN to have RT perform deep suctioning, nebs (4) Intramuscular hematoma: Plan: - CT abd/pelvis showing L buttocks hemorrhage, but there is no size noted. Consulted general surgery - Apply cold compresses to Left buttock 20min on 20min off - Pt is not on blood thinners - Trend H&H with - Hold aspirin (5) DM type 2 (diabetes mellitus, type 2): Plan: - Glucose is elevated above 400 on admission - ISS with Accu-Cheks ACHS - Holding metformin and Forteo inj currently (6) History of CVA (cerebrovascular accident): Plan: - Hx of 3 CVA in the past, pt is on Namenda at home - May have residual strength discrepancy in the R arm compared to the Left. Pt is left handed - Monitor - Last MRI in Apr 2021 for CVA (7) HTN (hypertension): Plan: - Cont on lisinopril, amlodipine, asa, atorvastatin if able to take PO Currently on IV hydralazine 5 mg IV every 6 hours (8) Dementia: Plan: - Continue Nemenda - Chronic, lives with , concern that there may also be some memory issues from her per HPI. (9) BPH (benign prostatic hyperplasia): Plan: - Cont flomax - UA - negative (10) Hyperlipidemia: Plan: - Cont atorvastatin (11) Elevated troponin I level: Plan: - Monitor Trop Q6H, trop initially 38, - No chest pain, unlikely ACS - Echo obtained -LV systolic function is normal. EF 60 to 65%. LV wall motion is abnormal. Aortic valve is moderately calcified. Aortic valve stenosis is present. There is a small loculated anterior and right lateral pericardial effusion. Tamponade is absent. Compared to images obtained at the time of the previous study dated January 29, 2023, there has been a subtle interval increase in the size of the pericardial effusion. DVT ppx: teds, scds CODE: DNR/DNI Dispo: pending Admission and Anticipated Discharge Date Admission Date: September 28, 2023 Subjective Follow-up for pneumonia, etc. Seen resting in bed, sitting up, awake, daughter at the bedside No shortness of breath, or pain Speech is very soft and difficult to understand Unable to take Po meds per site reliability engineer medicine consulted. Discussed in detail w/ daughter at the bedside. Review of Systems Review of Systems: Unobtainable due to cognitive status Physical Exam Physical Exam: General: awake, thin M in NAD, on RA Head: Normocephalic, + ecchymosis under orbits bilaterally ENT: PERRL, EOMI Resp: on RA, + rhonchi Cardiac: Regular rate and rhythm, no murmur, no JVD Abdominal: NABS x 4 quadrants, soft, nondistended, nontender to palpation Extremities: Normal inspection, no peripheral edema or erythema Neuro: Awake, calm, able to answer some simple questions,voice is very soft and difficult to understand at times moves extremities Results & Data Results & Data Vital Signs (Past 12 Hours) Vital Signs Temp Pulse Pulse Resp BP BP Pulse Ox 10/06/23 07:51 36.3 C L 89 26 H 145/77 H 95 10/06/23 02:05 36.7 C 92 H 19 176/90 H 97 10/06/23 00:01 86 176/85 H 10/05/23 23:46 86 185/79 H 10/05/23 23:28 36.5 C 78 18 168/75 H 96 O2 Del Method 10/06/23 07:51 Room Air 10/06/23 02:05 Room Air 10/06/23 00:01 10/05/23 23:46 10/05/23 23:28 Room Air Medications Administered Current Inpatient Medications Acetaminophen (Acetaminophen 325 Mg Tab) 650 mg PO Q4H PRN PRN Reason: Moderate Pain (Scale 4, 5, 6) Stop: 10/28/23 13:00 Amlodipine Besylate (Amlodipine Besylate 5 Mg Tab) 2.5 mg PO DAILY BROOKE Stop: 10/30/23 02:44 Last Admin: 10/05/23 09:16 Dose: Not Given Atorvastatin Calcium (Atorvastatin 20 Mg Tab) 20 mg PO HS BROOKE Stop: 10/28/23 20:59 Last Admin: 10/05/23 19:55 Dose: 20 mg Benzonatate (Benzonatate 100 Mg Capsule) 100 mg PO TID BROOKE Stop: 10/28/23 13:59 Last Admin: 10/05/23 19:55 Dose: 100 mg Dextrose (Dextrose 50% 50 Ml Syringe) 25 - 50 ml IV UD PRN; Protocol PRN Reason: Hypoglycemia Protocol Stop: 10/28/23 13:00 Last Admin: 10/01/23 18:39 Dose: 25 ml Finasteride (Finasteride 5 Mg Tab) 5 mg PO DAILY BROOKE Stop: 10/29/23 08:59 Last Admin: 10/05/23 09:17 Dose: Not Given Glucagon (Glucagon For Inj 1 Mg Vial) 1 mg SQ UD PRN; Protocol PRN Reason: Hypoglycemia Protocol Stop: 10/28/23 13:00 Glucose (Glucose 10 Tab/Tube) 4 - 8 tab PO UD PRN; Protocol PRN Reason: Hypoglycemia Treatment Stop: 10/28/23 13:00 Glucose (Glucose 40% Gel 15 Gm Tube) 15 - 30 gm PO UD PRN; Protocol PRN Reason: Hypoglycemia Protocol Stop: 10/28/23 13:00 Guaifenesin (Guaifenesin 600 Mg Tabcr) 1,200 mg PO Q12 [facility] Stop: 10/28/23 20:59 Last Admin: 10/05/23 19:55 Dose: Not Given Hydralazine HCl (Hydralazine Hcl 20 Mg/Ml Vial) 5 mg IV Q6H PRN PRN Reason: SBP >165 Stop: 10/30/23 08:29 Last Admin: 09/30/23 16:53 Dose: 5 mg Hydralazine HCl (Hydralazine Hcl 20 Mg/Ml Vial) 5 mg IV Q6H [facility] Stop: 11/02/23 09:59 Last Admin: 10/06/23 04:47 Dose: 5 mg Levetiracetam 500 mg/ Sodium (Chloride) 105 mls @ 440 mls/hr IV Q12H [facility] Stop: 10/29/23 15:59 Last Infusion: 09/30/23 04:45 Dose: Infused Promethazine HCl 6.25 mg/ (Sodium Chloride) 50.25 mls @ 201 mls/hr IV Q6H PRN PRN Reason: Nausea And Vomiting Stop: 10/30/23 22:34 Lorazepam 0.5 mg/ Syringe 0.5 mls @ 2 mls/min IV Q4H PRN; Protocol PRN Reason: ANXIETY/RESTLESSNESS Stop: 11/01/23 10:37 Last Admin: 10/05/23 23:46 Dose: 2 mls/min Sodium Chloride (Nss) 1,000 mls @ 60 mls/hr IV .[id number] [facility] Stop: 11/03/23 16:59 Last Admin: 10/06/23 02:00 Dose: 60 mls/hr Insulin Aspart (Insulin Aspart Per Unit Charge) 0 units SC [facility]; Protocol Stop: 10/30/23 00:00 Last Admin: 10/05/23 21:47 Dose: 1 units Labetalol HCl (Labetalol Hcl Iv 5 Mg/Ml 20ml) 5 mg IV Q4H PRN PRN Reason: SBP > 165 Stop: 10/31/23 18:18 Last Admin: 10/05/23 23:46 Dose: 5 mg Levalbuterol HCl (Levalbuterol 1.25mg/0.5ml Neb) 1.25 mg NEB Q6R PRN; Protocol PRN Reason: Shortness Of Breath Or Wheezing Stop: 11/01/23 15:29 Last Admin: 10/05/23 13:07 Dose: 1.25 mg Miscellaneous (Carbohydrates For Hypoglycemia ) 15 - 30 gm PO UD PRN PRN Reason: Hypoglycemia Protocol Stop: 10/28/23 13:00 Olanzapine (Olanzapine Zydis 5 Mg Orally Dis. Tab) 2.5 mg PO BID [facility] Stop: 10/31/23 20:59 Last Admin: 10/05/23 19:54 Dose: 2.5 mg Tamsulosin HCl (Tamsulosin Hcl 0.4 Mg Cap) 0.4 mg PO QAM [facility] Stop: 10/29/23 08:59 Last Admin: 10/05/23 09:17 Dose: Not Given (1) RLL pneumonia Aspiration pneumonia type: unspecified Pneumonia type: aspiration pneumonia Qualified Code(s): J69.0 - Pneumonitis due to inhalation of food and vomit (3) Falls Encounter type: initial encounter Qualified Code(s): W19.XXXA - Unspecified fall, initial encounter
[2023-10-06] MEDS: INSULIN ASPART PER UNIT CHARGE SC SCH ×4 (08:58→20:42)
[2023-10-06] MEDS: amLODIPine BESYLATE 5 MG TAB PO SCH (11:06)
[2023-10-06] MEDS: OLANZapine ZYDIS 5 MG ORALLY DIS. TAB PO SCH ×2 (11:06→20:15)
[2023-10-06] MEDS: TAMSULOSIN HCL 0.4 MG CAP PO SCH (11:06)
[2023-10-06] MEDS: BENZONATATE 100 MG CAPSULE PO SCH ×3 (11:06→20:15)
[2023-10-06] MEDS: FINASTERIDE 5 MG TAB PO SCH (11:06)
[2023-10-06] MEDS: guaiFENesin 600 MG TABCR PO SCH ×2 (11:06→20:15)
[2023-10-06] MEDS: LABETALOL HCL IV 5 MG/ML 20ML IV PRN (16:25)
[2023-10-06] MEDS ORDERED: METOPROLOL TARTRATE 1 MG/ML VIAL IV STA (17:16)
[2023-10-06] MEDS: LORazepam 0.5 MG in SYRINGE 0.25 ML IV PRN (18:16)
[2023-10-06] MEDS ORDERED: LABETALOL HCL IV 5 MG/ML 20ML IV STA (20:02)
[2023-10-06] MEDS: ATORVASTATIN 20 MG TAB PO SCH (20:14)
[2023-10-06] MEDS: ACETAMINOPHEN 1,000 MG/100 ML VIAL IV PRN (21:12)
--- NOTE | 2023-10-06 21:56 | Palliative Care Progress Note ---
Date of Service October 06, 2023 Assessment & Plan (1) Dementia with behavioral disturbance: Plan: Improved with addition of low dose Zyprexa, will continue this without change for now (2) Generalized weakness: (3) Confusion: (4) Episode of shaking: (5) Palliative care by specialist: (6) Fall as cause of accidental injury at home as place of occurrence: (7) Seizure-like activity: Plan * Dispo now unclear per CM, ambivalent * Will try to meet with again when she returns to see pt * Options are unfortunately limited: pt and did not want [facility]. He is aspirating. He is confused with progressive dementia. He is rapidly declining over the past year but this is a struggle for to come to terms with given how much transition they have had in the same time. * He is not likely a rehab candidate even at SNF. He will still aspirate. STE[facility] will not decrease aspiration risk and is likely to be poorly tolerated by this cachectic advanced dementia patient. * If can accommodate in home private caregivers, then she may be able to manage him on her own but without hospice oversight there will not be an aitchbone breaker support options. Thank you for allowing us to participate in the ongoing care of this patient. Please don't hesitate to call or page with any additional concerns. Dr. Anayeli Andrew DNP Director, Palliative Care Admission and Anticipated Discharge Date Admission Date: September 28, 2023 Subjective pt seen with no family at bedside speech garbled he remains NPO care mgt advised expressing ambivalence for plan focused on comfort and still emphatic about no SNF/no placement, no [facility] but also does not know is she wants hospice. He remains NPO, trying to give small amounts PO but has signif aspiration after every trial Review of Systems Review of Systems: Unobtainable due to cognitive status Physical Exam Constitutional: + ill appearing, + frail appearing and c ooperative Eyes: PERRL ENMT: Mouth: + muffled voice and + dry oral mucous membranes Neck: trachea midline Thyroid: normal thyroid Respiratory: normal respiratory effort Auscultation: lungs clear to auscultation bilaterally and + diminished lung sounds Cardiovascular: RRR, no murmur, no edema Gastrointestinal (Abdomen): Inspection/Auscultation: + scaphoid Musculoskeletal: generalized weakness Skin: + turgor decreased, + skin atrophy, + ec chymosis and + excoriations Neurologic: + confused Results & Data Vital Signs (Past 12 Hours) Vital Signs Temp Pulse Pulse Pulse Resp BP BP 10/06/23 20:41 92 H 175/87 H 10/06/23 20:40 38.7 C H 92 H 28 H 175/87 H 10/06/23 20:11 107 H 188/81 H 10/06/23 19:42 37 C 107 H 24 188/81 H 10/06/23 17:52 94 H 188/90 H 10/06/23 17:35 91 H 179/84 H 10/06/23 16:40 90 179/84 H 10/06/23 16:25 127 H 166/72 H 10/06/23 16:07 36.7 C 92 H 26 H 166/72 H 10/06/23 11:52 36.6 C 75 24 163/86 H 10/06/23 11:13 Pulse Ox O2 Del Method 10/06/23 20:41 10/06/23 20:40 95 Room Air 10/06/23 20:11 10/06/23 19:42 88 L Room Air 10/06/23 17:52 10/06/23 17:35 10/06/23 16:40 10/06/23 16:25 10/06/23 16:07 95 Room Air 10/06/23 11:52 94 Room Air 10/06/23 11:13 Room Air Laboratory Results data reviewed Diagnostic Findings data reviewed PG Care Time/CCT Total # of Minutes Spent Total Time Spent: 40 Total Time Spent with Patient: Total time spent is greater than 50% in coordination of care (as documented) at patient's floor/unit and/or counseling patient: Coding [place] [address] SUB INP/OBS CARE 3/50MIN Patient Type Established History Comprehensive Exam Comprehensive Medical Decision Making High Complexity Diagnoses Dementia with behavioral disturbance F03.918 Generalized weakness R53.1 Confusion R41.0 Episode of shaking R25.1 Palliative care by specialist Z51.5 Fall as cause of accidental injury in home as place of occurrence, subsequent encounter W19.XXXD; Y92.009 Encounter type: subsequent encounter Seizure-like activity R56.9 (6) Fall as cause of accidental injury at home as place of occurrence Encounter type: subsequent encounter Qualified Code(s): W19.XXXD - Unspecified fall, subsequent encounter; Y92.009 - Unspecified place in unspecified non-institutional (private) residence as the place of occurrence of the external cause
[2023-10-07] MEDS: OLANZapine ZYDIS 5 MG ORALLY DIS. TAB PO SCH ×2 (08:24→21:20)
[2023-10-07] MEDS: amLODIPine BESYLATE 5 MG TAB PO SCH (08:25)
[2023-10-07] MEDS: FINASTERIDE 5 MG TAB PO SCH (08:26)
[2023-10-07] MEDS: TAMSULOSIN HCL 0.4 MG CAP PO SCH (08:50)
[2023-10-07] MEDS: guaiFENesin 600 MG TABCR PO SCH ×2 (08:50→21:22)
[2023-10-07] MEDS: BENZONATATE 100 MG CAPSULE PO SCH ×3 (08:56→21:49)
[2023-10-07] MEDS: INSULIN ASPART PER UNIT CHARGE SC SCH ×4 (09:08→21:25)
--- NOTE | 2023-10-07 10:38 | Hospitalist Progress Note ---
Date of Service October 07, 2023 Assessment & Plan (1) RLL pneumonia: (2) Weakness: (3) Falls: Plan: - CT chest reviewed concerning for RLL pna, also with concern for aspiration pna with coughing with food, will ask for speech therapy consultation - Unasyn IV initially -> changed to zosyn, vanco after had acute change in status - No WBC, afebrile - MRI of the brain - No acute abnormality and in particular no evidence of acute infarct. - received IVF - Not on anticoagulation except aspirin which is on hold now Acute encephalopathy, ? new onset seizure Hx of dementia, prior CVA received ativan and was loaded w/ keppra shortly after admission Neurology consulted and PO keprra recommended EEG ordered- negat. for seizure Repeat CT head negative -MRI ordered - No acute abnormality and in particular no evidence of acute infarct. -Delirium precautions, including pain management -Resume asa when hgb stable -Continue statin when able to tolerate PO -Infectious work up pending -Procal negative -Questionable areas on imaging -Empirically transitioned to Vanc/Zosyn given abrupt status changes -TSH WBL Pt was code purple overnight - per night provider - patient became unresponsive. Earlier he had some minimal responses. vitals stable. Just staring and not responding to verbal stimuli. Seems moving his extremities. Had two ct head and mri scans earlier and were unremarkable.He had iv ativan and loaded with Keppra earlier in morning time. Did abg and was ok. Currently not able to take po. Changed Keppra to iv 1gm bid . Notified am providers. 09/29 I notified neurology this AM about the code purple event overnight and evaluated the pt / RN at the bedside. Pt is lying in bed, in no acute distress, his right arm is in the air. When I questioned him about that, he says that he wants to get up. He moves extremities, follows simple commands. He is able to say "no" when I ask him if he has any pain or shortness of breath or chest pain. He stares into the air. Neurology recommend to obtain EEG, at this point not convinced about seizure, perhaps delirium, recommend to lower Keppra to 500 twice daily. Currently only giving IV medications, not sure if patient is able to take p.o. at this time. 09/30 Overnight pt agitated and received IM zyprexa. Keppra dose was decreased yesterday after discussing w/ neurology to reduce sedation. However early AM pt had likely aspiration event (pt is NPO), required nebs , solumedrol, racemic epi, concern for stridor. ICU was also contacted overnight but pt was not accepted to ICU. on 8L oxymask but on my evaluation this AM pt on 2L. CXR and ABG also obtained overnight. CXR negative. Pt barely responsive, concern for being able to manage his secretions. Discussed w/ RN at the bedside. ICU/pulm. Dr. Carroll contacted as well as neurology. As EEG was negative for seizure agreed to stop keppra to help reduce pt's sedation. Repeated CT head (negative) ABG and CXR (negative). Code status was changed to DNR/DNI. Palliative medicine consulted 10/01 Keppra was stopped and pt's sedation has much improved. However he is quite restless laying in bed and constantly fidgeting. He is able to answer simple questions appropriately. He also reported to RN " feeling of falling". Discussed w/ neurology and palliative medicine as well as with RN. Started on zyprexa by palliative medicine. Discussed w/ neurology - do not recommend restarting keppra - do not believe this is seizure , likely post-concussive syndrome, delirium in setting of dementia. Patient's hallucinations and restlessness improved with scheduled Zyprexa, as needed Ativan However patient remained mostly confused He has failed bedside and video swallow study, both showing aspiration Meeting held with palliative care service and family Decision was made to transition the patient to hospice care, pt's struggles with this somewhat - per CM. I discussed w/ pt's daughter at the bedside yesterday and she is in full understanding about the need for hospice. Continue supportive care Requested RN to have RT perform deep suctioning, nebs 10/07 Pt spiked fever, most likely from aspirating. Discussed w/ over the phone - ok to start short term abx (4) Intramuscular hematoma: Plan: - CT abd/pelvis showing L buttocks hemorrhage, but there is no size noted. Consulted general surgery - Apply cold compresses to Left buttock 20min on 20min off - Pt is not on blood thinners - Trend H&H with - Hold aspirin (5) DM type 2 (diabetes mellitus, type 2): Plan: - Glucose is elevated above 400 on admission - ISS with Accu-Cheks ACHS - Holding metformin and Forteo inj currently (6) History of CVA (cerebrovascular accident): Plan: - Hx of 3 CVA in the past, pt is on Namenda at home - May have residual strength discrepancy in the R arm compared to the Left. Pt is left handed - Monitor - Last MRI in Apr 2021 for CVA (7) HTN (hypertension): Plan: - Cont on lisinopril, amlodipine, asa, atorvastatin if able to take PO Currently on IV hydralazine 5 mg IV every 6 hours (8) Dementia: Plan: - Continue Nemenda - Chronic, lives with , concern that there may also be some memory issues from her per HPI. (9) BPH (benign prostatic hyperplasia): Plan: - Cont flomax - UA - negative (10) Hyperlipidemia: Plan: - Cont atorvastatin (11) Elevated troponin I level: Plan: - Monitor Trop Q6H, trop initially 38, - No chest pain, unlikely ACS - Echo obtained -LV systolic function is normal. EF 60 to 65%. LV wall motion is abnormal. Aortic valve is moderately calcified. Aortic valve stenosis is present. There is a small loculated anterior and right lateral pericardial effusion. Tamponade is absent. Compared to images obtained at the time of the previous study dated January 29, 2023, there has been a subtle interval increase in the size of the pericardial effusion. DVT ppx: teds, scds CODE: DNR/DNI Dispo: pending Admission and Anticipated Discharge Date Admission Date: September 28, 2023 Subjective Follow-up for pneumonia, etc. Laying in bed in NAD, not much responsive today, RN at the bedside, per RN took AM meds, and noted aspirating Palliative medicine consulted. Discussed in detail w/ daughter at the bedside yesterday Pt spiked fever - updated over the phone - she is ok w/ short term antibiotics CM and palliative involved in poss. DC planning Review of Systems Review of Systems: Unobtainable due to cognitive status Physical Exam Physical Exam: General: awake, thin M in NAD, on RA Head: Normocephalic, + ecchymosis under orbits bilaterally ENT: PERRL, EOMI Resp: on RA, + rhonchi Cardiac: Regular rate and rhythm, no murmur, no JVD Abdominal: NABS x 4 quadrants, soft, nondistended, nontender to palpation Extremities: Normal inspection, no peripheral edema or erythema Neuro: Awake but not really able to answer some simple questions today, moves extremities Results & Data Results & Data Vital Signs (Past 12 Hours) Vital Signs Temp Pulse Pulse Pulse Resp BP Pulse Ox 10/07/23 07:39 37.1 C 82 21 160/77 H 95 10/07/23 07:29 94 H 10/07/23 03:28 36.5 C 76 25 H 156/81 H 95 10/06/23 23:00 86 10/06/23 22:41 37.6 C H 81 28 H 177/72 H 94 O2 Del Method 10/07/23 07:39 Room Air 10/07/23 07:29 10/07/23 03:28 Room Air 10/06/23 23:00 10/06/23 22:41 Room Air Medications Administered Current Inpatient Medications Acetaminophen (Acetaminophen 325 Mg Tab) 650 mg PO Q4H PRN PRN Reason: Moderate Pain (Scale 4, 5, 6) Stop: 10/28/23 13:00 Amlodipine Besylate (Amlodipine Besylate 5 Mg Tab) 2.5 mg PO DAILY [facility] Stop: 10/30/23 02:44 Last Admin: 10/07/23 08:25 Dose: 2.5 mg Atorvastatin Calcium (Atorvastatin 20 Mg Tab) 20 mg PO HS [facility] Stop: 10/28/23 20:59 Last Admin: 10/06/23 20:14 Dose: Not Given Benzonatate (Benzonatate 100 Mg Capsule) 100 mg PO TID [facility] Stop: 10/28/23 13:59 Last Admin: 10/07/23 08:56 Dose: 100 mg Dextrose (Dextrose 50% 50 Ml Syringe) 25 - 50 ml IV UD PRN; Protocol PRN Reason: Hypoglycemia Protocol Stop: 10/28/23 13:00 Last Admin: 10/01/23 18:39 Dose: 25 ml Finasteride (Finasteride 5 Mg Tab) 5 mg PO DAILY [facility] Stop: 10/29/23 08:59 Last Admin: 10/07/23 08:26 Dose: 5 mg Glucagon (Glucagon For Inj 1 Mg Vial) 1 mg SQ UD PRN; Protocol PRN Reason: Hypoglycemia Protocol Stop: 10/28/23 13:00 Glucose (Glucose 10 Tab/Tube) 4 - 8 tab PO UD PRN; Protocol PRN Reason: Hypoglycemia Treatment Stop: 10/28/23 13:00 Glucose (Glucose 40% Gel 15 Gm Tube) 15 - 30 gm PO UD PRN; Protocol PRN Reason: Hypoglycemia Protocol Stop: 10/28/23 13:00 Guaifenesin (Guaifenesin 600 Mg Tabcr) 1,200 mg PO Q12 [facility] Stop: 10/28/23 20:59 Last Admin: 10/07/23 08:50 Dose: 1,200 mg Hydralazine HCl (Hydralazine Hcl 20 Mg/Ml Vial) 5 mg IV Q6H PRN PRN Reason: SBP >165 Stop: 10/30/23 08:29 Last Admin: 09/30/23 16:53 Dose: 5 mg Hydralazine HCl (Hydralazine Hcl 20 Mg/Ml Vial) 5 mg IV Q6H [facility] Stop: 11/02/23 09:59 Last Admin: 10/06/23 16:25 Dose: Not Given Levetiracetam 500 mg/ Sodium (Chloride) 105 mls @ 440 mls/hr IV Q12H [facility] Stop: 10/29/23 15:59 Last Infusion: 09/30/23 04:45 Dose: Infused Promethazine HCl 6.25 mg/ (Sodium Chloride) 50.25 mls @ 201 mls/hr IV Q6H PRN PRN Reason: Nausea And Vomiting Stop: 10/30/23 22:34 Lorazepam 0.5 mg/ Syringe 0.5 mls @ 2 mls/min IV Q4H PRN; Protocol PRN Reason: ANXIETY/RESTLESSNESS Stop: 11/01/23 10:37 Last Admin: 10/06/23 18:16 Dose: 2 mls/min Sodium Chloride (Nss) 1,000 mls @ 60 mls/hr IV .[id number] [facility] Stop: 11/03/23 16:59 Last Admin: 10/06/23 18:16 Dose: 60 mls/hr Acetaminophen (Ofirmev) 1,000 mg in 100 mls @ 400 mls/hr IV Q8H PRN PRN Reason: Pain or Fever Stop: 10/09/23 20:48 Last Infusion: 10/06/23 21:28 Dose: Infused Insulin Aspart (Insulin Aspart Per Unit Charge) 0 units SC ACHS [facility]; Protocol Stop: 10/30/23 00:00 Last Admin: 10/07/23 09:08 Dose: 3 units Labetalol HCl (Labetalol Hcl Iv 5 Mg/Ml 20ml) 5 mg IV Q4H PRN PRN Reason: SBP > 165 Stop: 10/31/23 18:18 Last Admin: 10/06/23 16:25 Dose: 5 mg Levalbuterol HCl (Levalbuterol 1.25mg/0.5ml Neb) 1.25 mg NEB Q6R PRN; Protocol PRN Reason: Shortness Of Breath Or Wheezing Stop: 11/01/23 15:29 Last Admin: 10/05/23 13:07 Dose: 1.25 mg Miscellaneous (Carbohydrates For Hypoglycemia ) 15 - 30 gm PO UD PRN PRN Reason: Hypoglycemia Protocol Stop: 10/28/23 13:00 Olanzapine (Olanzapine Zydis 5 Mg Orally Dis. Tab) 2.5 mg PO BID [facility] Stop: 10/31/23 20:59 Last Admin: 10/07/23 08:24 Dose: 2.5 mg Tamsulosin HCl (Tamsulosin Hcl 0.4 Mg Cap) 0.4 mg PO QAM [facility] Stop: 10/29/23 08:59 Last Admin: 10/07/23 08:50 Dose: 0.4 mg (1) RLL pneumonia Aspiration pneumonia type: unspecified Pneumonia type: aspiration pneumonia Qualified Code(s): J69.0 - Pneumonitis due to inhalation of food and vomit (3) Falls Encounter type: initial encounter Qualified Code(s): W19.XXXA - Unspecified fall, initial encounter
[2023-10-07] MEDS ORDERED: METOPROLOL TARTRATE 1 MG/ML VIAL IV STA (12:21)
[2023-10-07] MEDS: SODIUM CHLORIDE 0.9% 1,000 ML IV SCH (12:39)
[2023-10-07] MEDS: ACETAMINOPHEN 1,000 MG/100 ML VIAL IV PRN (15:04)
[2023-10-07] MEDS: LABETALOL HCL IV 5 MG/ML 20ML IV PRN (15:27)
[2023-10-07] MEDS ORDERED: AMPICILLIN SOD/SULBACTAM SOD 3,000 MG in SODIUM CHLOR 0.9% MINI-B 100 ML IV ONE (15:30)
[2023-10-07 16:00] LABS: Est GFR (African American) 125.3 ml/min; Est GFR (Non-African American) 108.1 ml/min
[2023-10-07] MEDS ORDERED: METOPROLOL TARTRATE 1 MG/ML VIAL IV PRN (16:15)
[2023-10-07] MEDS: ATORVASTATIN 20 MG TAB PO SCH (21:23)
[2023-10-07] MEDS: AMPICILLIN SOD/SULBACTAM SOD 3,000 MG in SODIUM CHLOR 0.9% MINI-B 100 ML IV SCH (21:37)
[2023-10-08] MEDS: AMPICILLIN SOD/SULBACTAM SOD 3,000 MG in SODIUM CHLOR 0.9% MINI-B 100 ML IV SCH ×4 (04:04→21:15)
[2023-10-08] MEDS: SODIUM CHLORIDE 0.9% 1,000 ML IV SCH ×2 (06:01→23:01)
[2023-10-08] MEDS: guaiFENesin 600 MG TABCR PO SCH ×2 (08:20→21:15)
[2023-10-08] MEDS: BENZONATATE 100 MG CAPSULE PO SCH ×3 (08:21→21:14)
[2023-10-08] MEDS: OLANZapine ZYDIS 5 MG ORALLY DIS. TAB PO SCH ×2 (08:22→21:14)
[2023-10-08] MEDS: amLODIPine BESYLATE 5 MG TAB PO SCH (08:25)
[2023-10-08] MEDS: FINASTERIDE 5 MG TAB PO SCH (08:26)
[2023-10-08] MEDS: TAMSULOSIN HCL 0.4 MG CAP PO SCH (08:27)
[2023-10-08] MEDS: INSULIN ASPART PER UNIT CHARGE SC SCH ×4 (08:55→21:13)
[2023-10-08 09:21] LABS: Hematocrit (blood only) 34.2 % (42.0-52.0); Hemoglobin 11.1 g/dl (14.0-18.0); Mean Corpuscular Hemoglobin 29.4 pg (25.0-34.0); Mean Corpuscular Hgb Conc 32.5 g/dL (32.0-36.0); Mean Corpuscular Volume 90.7 fL (80.0-100.0); Mean Platelet Volume 9.3 fL (9.4-12.4); Platelet Count 358 K/uL (130-400); RDW Coefficient of Variation 14.1 % (11.5-14.5); RDW Standard Deviation 46.2 fL (36.4-46.3); Red Blood Count 3.77 M/uL (4.70-6.10); White Blood Count 12.28 K/ul (4.8-10.8)
[2023-10-08] MEDS: LEVALBUTEROL 1.25MG/0.5ML NEB NEB SCH (09:27)
[2023-10-08 09:56] LABS: Magnesium 1.9 mg/dl (1.7-2.4); Potassium 2.7 mmol/L (3.5-5.1)
[2023-10-08 10:01] LABS: BUN Creatinine Ratio 32.6 (10-20); Creatinine Clr Calc Pharmacy 105.8 ml/min; Est GFR (African American) 121.9 ml/min; Est GFR (Non-African American) 105.2 ml/min; Phosphorus 1.9 mg/dl (2.5-4.9)
--- NOTE | 2023-10-08 11:23 | Hospitalist Progress Note ---
Date of Service October 08, 2023 Assessment & Plan (1) RLL pneumonia: (2) Weakness: (3) Falls: Plan: - CT chest reviewed concerning for RLL pna, also with concern for aspiration pna with coughing with food, will ask for speech therapy consultation - Unasyn IV initially -> changed to zosyn, vanco after had acute change in status - No WBC, afebrile - MRI of the brain - No acute abnormality and in particular no evidence of acute infarct. - received IVF - Not on anticoagulation except aspirin which is on hold now Acute encephalopathy, ? new onset seizure Hx of dementia, prior CVA received ativan and was loaded w/ keppra shortly after admission Neurology consulted and PO keprra recommended EEG ordered- negat. for seizure Repeat CT head negative -MRI ordered - No acute abnormality and in particular no evidence of acute infarct. -Delirium precautions, including pain management -Resume asa when hgb stable -Continue statin when able to tolerate PO -Infectious work up pending -Procal negative -Questionable areas on imaging -Empirically transitioned to Vanc/Zosyn given abrupt status changes -TSH WBL Pt was code purple overnight - per night provider - patient became unresponsive. Earlier he had some minimal responses. vitals stable. Just staring and not responding to verbal stimuli. Seems moving his extremities. Had two ct head and mri scans earlier and were unremarkable.He had iv ativan and loaded with Keppra earlier in morning time. Did abg and was ok. Currently not able to take po. Changed Keppra to iv 1gm bid . Notified am providers. 09/29 I notified neurology this AM about the code purple event overnight and evaluated the pt / RN at the bedside. Pt is lying in bed, in no acute distress, his right arm is in the air. When I questioned him about that, he says that he wants to get up. He moves extremities, follows simple commands. He is able to say "no" when I ask him if he has any pain or shortness of breath or chest pain. He stares into the air. Neurology recommend to obtain EEG, at this point not convinced about seizure, perhaps delirium, recommend to lower Keppra to 500 twice daily. Currently only giving IV medications, not sure if patient is able to take p.o. at this time. 09/30 Overnight pt agitated and received IM zyprexa. Keppra dose was decreased yesterday after discussing w/ neurology to reduce sedation. However early AM pt had likely aspiration event (pt is NPO), required nebs , solumedrol, racemic epi, concern for stridor. ICU was also contacted overnight but pt was not accepted to ICU. on 8L oxymask but on my evaluation this AM pt on 2L. CXR and ABG also obtained overnight. CXR negative. Pt barely responsive, concern for being able to manage his secretions. Discussed w/ RN at the bedside. ICU/pulm. Dr. Carroll contacted as well as neurology. As EEG was negative for seizure agreed to stop keppra to help reduce pt's sedation. Repeated CT head (negative) ABG and CXR (negative). Code status was changed to DNR/DNI. Palliative medicine consulted 10/01 Keppra was stopped and pt's sedation has much improved. However he is quite restless laying in bed and constantly fidgeting. He is able to answer simple questions appropriately. He also reported to RN " feeling of falling". Discussed w/ neurology and palliative medicine as well as with RN. Started on zyprexa by palliative medicine. Discussed w/ neurology - do not recommend restarting keppra - do not believe this is seizure , likely post-concussive syndrome, delirium in setting of dementia. Patient's hallucinations and restlessness improved with scheduled Zyprexa, as needed Ativan However patient remained mostly confused He has failed bedside and video swallow study, both showing aspiration Meeting held with palliative care service and family Decision was made to transition the patient to hospice care, plan to DC pt home tmrw w/ home hospice Continue supportive care Requested RN to have RT perform deep suctioning, nebs 10/07 Pt spiked fever, most likely from aspirating. Discussed w/ over the phone - ok to start short term abx (4) Intramuscular hematoma: Plan: - CT abd/pelvis showing L buttocks hemorrhage, but there is no size noted. Consulted general surgery - Apply cold compresses to Left buttock 20min on 20min off - Pt is not on blood thinners - Trend H&H with - Hold aspirin (5) DM type 2 (diabetes mellitus, type 2): Plan: - Glucose is elevated above 400 on admission - ISS with Accu-Cheks ACHS - Holding metformin and Forteo inj currently (6) History of CVA (cerebrovascular accident): Plan: - Hx of 3 CVA in the past, pt is on Namenda at home - May have residual strength discrepancy in the R arm compared to the Left. Pt is left handed - Monitor - Last MRI in Apr 2021 for CVA (7) HTN (hypertension): Plan: - Cont on lisinopril, amlodipine, asa, atorvastatin if able to take PO Currently on IV hydralazine 5 mg IV every 6 hours (8) Dementia: Plan: - Continue Nemenda - Chronic, lives with , concern that there may also be some memory issues from her per HPI. (9) BPH (benign prostatic hyperplasia): Plan: - Cont flomax - UA - negative (10) Hyperlipidemia: Plan: - Cont atorvastatin (11) Elevated troponin I level: Plan: - Monitor Trop Q6H, trop initially 38, - No chest pain, unlikely ACS - Echo obtained -LV systolic function is normal. EF 60 to 65%. LV wall motion is abnormal. Aortic valve is moderately calcified. Aortic valve stenosis is present. There is a small loculated anterior and right lateral pericardial effusion. Tamponade is absent. Compared to images obtained at the time of the previous study dated January 29, 2023, there has been a subtle interval increase in the size of the pericardial effusion. DVT ppx: teds, scds CODE: DNR/DNI Dispo: plan to [place] home w/ hospice Admission and Anticipated Discharge Date Admission Date: September 28, 2023 Subjective Follow-up for pneumonia, etc. Laying in bed in NAD, occasionally able to answer me, denies any pain or discomfort. Yesterday pt spiked fever - updated over the phone - she was ok w/ short term antibiotics CM and palliative involved in poss. DC planning Palliative medicine consulted. plan for home hospice tmrw. Review of Systems Review of Systems: All systems reviewed & are unremarkable except as noted in Subjective Physical Exam Physical Exam: General: awake, thin M in NAD, on RA Head: Normocephalic, + ecchymosis under orbits bilaterally ENT: PERRL, EOMI Resp: on RA, + rhonchi Cardiac: Regular rate and rhythm, no murmur, no JVD Abdominal: NABS x 4 quadrants, soft, nondistended, nontender to palpation Extremities: Normal inspection, no peripheral edema or erythema Neuro: Awake but only able to answer some simple questions, moves extremities Results & Data Results & Data Vital Signs (Past 12 Hours) Vital Signs Temp Pulse Pulse Resp BP Pulse Ox O2 Del Method 10/08/23 08:18 36.7 C 91 H 20 161/75 H 94 Room Air 10/08/23 08:00 95 H 10/08/23 03:51 37.2 C 97 H 20 156/83 H 93 Room Air Laboratory Results 10/08/23 10/08/23 10/07/23 Range/Units 08:42 08:01 20:15 WBC 12.28 H (4.8-10.8) K/ul RBC 3.77 L (4.70-6.10) M/uL Hgb 11.1 L (14.0-18.0) g/dl Hct 34.2 L (42.0-52.0) % MCV 90.7 (80.0-100.0) fL MCH 29.4 (25.0-34.0) pg MCHC 32.5 (32.0-36.0) g/dL RDW Std Deviation 46.2 (36.4-46.3) fL RDW Coeff of James 14.1 (11.5-14.5) % Plt Count 358 (130-400) K/uL MPV 9.3 L (9.4-12.4) fL Sodium 147 H (136-145) mmol/L Potassium 2.7 L (3.5-5.1) mmol/L Chloride 110 H (98-107) mmol/L Carbon Dioxide 23 (21-32) mmol/L Anion Gap 14 H (3-11) BUN 15 (6-23) mg/dl Creatinine 0.46 L (0.6-1.4) mg/dl Est Cr Clr Drug Dosing 105.8 ml/min Est GFR ( Amer) 121.9 ml/min Est GFR (Non-Af Amer) 105.2 ml/min BUN/Creatinine Ratio 32.6 H (10-20) Glucose 272 H (70-99(Fasting)) mg/dl POC Glucose 246 H 214 H (70-99) mg/dl Calcium 8.0 L (8.6-10.3) mg/dl Phosphorus 1.9 L (2.5-4.9) mg/dl Magnesium 1.9 (1.7-2.4) mg/dl 10/07/23 10/07/23 10/07/23 Range/Units 17:01 15:18 11:52 WBC (4.8-10.8) K/ul RBC (4.70-6.10) M/uL Hgb (14.0-18.0) g/dl Hct (42.0-52.0) % MCV (80.0-100.0) fL MCH (25.0-34.0) pg MCHC (32.0-36.0) g/dL RDW Std Deviation (36.4-46.3) fL RDW Coeff of James (11.5-14.5) % Plt Count (130-400) K/uL MPV (9.4-12.4) fL Sodium (136-145) mmol/L Potassium (3.5-5.1) mmol/L Chloride (98-107) mmol/L Carbon Dioxide (21-32) mmol/L Anion Gap (3-11) BUN (6-23) mg/dl Creatinine 0.43 L (0.6-1.4) mg/dl Est Cr Clr Drug Dosing 114.0 ml/min Est GFR ( Amer) 125.3 ml/min Est GFR (Non-Af Amer) 108.1 ml/min BUN/Creatinine Ratio (10-20) Glucose (70-99(Fasting)) mg/dl POC Glucose 197 H 206 H (70-99) mg/dl Calcium (8.6-10.3) mg/dl Phosphorus (2.5-4.9) mg/dl Magnesium (1.7-2.4) mg/dl Medications Administered Current Inpatient Medications Acetaminophen (Acetaminophen 325 Mg Tab) 650 mg PO Q4H PRN PRN Reason: Moderate Pain (Scale 4, 5, 6) Stop: 10/28/23 13:00 Amlodipine Besylate (Amlodipine Besylate 5 Mg Tab) 2.5 mg PO DAILY [facility] Stop: 10/30/23 02:44 Last Admin: 10/08/23 08:25 Dose: 2.5 mg Atorvastatin Calcium (Atorvastatin 20 Mg Tab) 20 mg PO HS [facility] Stop: 10/28/23 20:59 Last Admin: 10/07/23 21:23 Dose: 20 mg Benzonatate (Benzonatate 100 Mg Capsule) 100 mg PO TID [facility] Stop: 10/28/23 13:59 Last Admin: 10/08/23 08:21 Dose: 100 mg Dextrose (Dextrose 50% 50 Ml Syringe) 25 - 50 ml IV UD PRN; Protocol PRN Reason: Hypoglycemia Protocol Stop: 10/28/23 13:00 Last Admin: 10/01/23 18:39 Dose: 25 ml Finasteride (Finasteride 5 Mg Tab) 5 mg PO DAILY [facility] Stop: 10/29/23 08:59 Last Admin: 10/08/23 08:26 Dose: 5 mg Glucagon (Glucagon For Inj 1 Mg Vial) 1 mg SQ UD PRN; Protocol PRN Reason: Hypoglycemia Protocol Stop: 10/28/23 13:00 Glucose (Glucose 10 Tab/Tube) 4 - 8 tab PO UD PRN; Protocol PRN Reason: Hypoglycemia Treatment Stop: 10/28/23 13:00 Glucose (Glucose 40% Gel 15 Gm Tube) 15 - 30 gm PO UD PRN; Protocol PRN Reason: Hypoglycemia Protocol Stop: 10/28/23 13:00 Guaifenesin (Guaifenesin 600 Mg Tabcr) 1,200 mg PO Q12 [facility] Stop: 10/28/23 20:59 Last Admin: 10/08/23 08:20 Dose: 1,200 mg Hydralazine HCl (Hydralazine Hcl 20 Mg/Ml Vial) 5 mg IV Q6H PRN PRN Reason: SBP >165 Stop: 10/30/23 08:29 Last Admin: 09/30/23 16:53 Dose: 5 mg Hydralazine HCl (Hydralazine Hcl 20 Mg/Ml Vial) 5 mg IV Q6H [facility] Stop: 11/02/23 09:59 Last Admin: 10/06/23 16:25 Dose: Not Given Levetiracetam 500 mg/ Sodium (Chloride) 105 mls @ 440 mls/hr IV Q12H [facility] Stop: 10/29/23 15:59 Last Infusion: 09/30/23 04:45 Dose: Infused Promethazine HCl 6.25 mg/ (Sodium Chloride) 50.25 mls @ 201 mls/hr IV Q6H PRN PRN Reason: Nausea And Vomiting Stop: 10/30/23 22:34 Lorazepam 0.5 mg/ Syringe 0.5 mls @ 2 mls/min IV Q4H PRN; Protocol PRN Reason: ANXIETY/RESTLESSNESS Stop: 11/01/23 10:37 Last Admin: 10/06/23 18:16 Dose: 2 mls/min Sodium Chloride (Nss) 1,000 mls @ 60 mls/hr IV .[id number] [facility] Stop: 11/03/23 16:59 Last Admin: 10/08/23 06:01 Dose: 60 mls/hr Acetaminophen (Ofirmev) 1,000 mg in 100 mls @ 400 mls/hr IV Q8H PRN PRN Reason: Pain or Fever Stop: 10/09/23 20:48 Last Infusion: 10/07/23 15:20 Dose: Infused Ampicillin Sodium/Sulbactam Sodium 3,000 mg/ Sodium Chloride 100 mls @ 200 mls/hr IV Q6H [facility] Stop: 10/14/23 21:59 Last Infusion: 10/08/23 04:34 Dose: Infused Insulin Aspart (Insulin Aspart Per Unit Charge) 0 units SC [facility]; Protocol Stop: 10/30/23 00:00 Last Admin: 10/08/23 08:55 Dose: 3 units Labetalol HCl (Labetalol Hcl Iv 5 Mg/Ml 20ml) 5 mg IV Q4H PRN PRN Reason: SBP > 165 Stop: 10/31/23 18:18 Last Admin: 10/07/23 15:27 Dose: 5 mg Levalbuterol HCl (Levalbuterol 1.25mg/0.5ml Neb) 1.25 mg NEB Q6R PRN; Protocol PRN Reason: Shortness Of Breath Or Wheezing Stop: 11/01/23 15:29 Last Admin: 10/05/23 13:07 Dose: 1.25 mg Metoprolol Tartrate (Metoprolol Tartrate 1 Mg/Ml Vial) 2.5 mg IV Q4 PRN PRN Reason: Hypertension Stop: 11/06/23 19:59 Miscellaneous (Carbohydrates For Hypoglycemia ) 15 - 30 gm PO UD PRN PRN Reason: Hypoglycemia Protocol Stop: 10/28/23 13:00 Olanzapine (Olanzapine Zydis 5 Mg Orally Dis. Tab) 2.5 mg PO BID [facility] Stop: 10/31/23 20:59 Last Admin: 10/08/23 08:22 Dose: 2.5 mg Tamsulosin HCl (Tamsulosin Hcl 0.4 Mg Cap) 0.4 mg PO QAM [facility] Stop: 10/29/23 08:59 Last Admin: 10/08/23 08:27 Dose: 0.4 mg (1) RLL pneumonia Aspiration pneumonia type: unspecified Pneumonia type: aspiration pneumonia Qualified Code(s): J69.0 - Pneumonitis due to inhalation of food and vomit (3) Falls Encounter type: initial encounter Qualified Code(s): W19.XXXA - Unspecified fall, initial encounter
[2023-10-08] MEDS ORDERED: LANTUS PER UNIT CHARGE SC SCH (14:45)
[2023-10-08] MEDS: LABETALOL HCL IV 5 MG/ML 20ML IV PRN (18:37)
[2023-10-08] MEDS: ATORVASTATIN 20 MG TAB PO SCH (21:15)
--- NOTE | 2023-10-09 03:01 | Palliative Care Progress Note ---
Date of Service October 08, 2023 Assessment & Plan (1) Dementia with behavioral disturbance: Plan: Improved with addition of low dose Zyprexa, will continue (2) Generalized weakness: Plan: terminal dementia, declining PS (3) Discussion about advance care planning held with family member: Plan: Met w/family face to face for 45min for extended ACP discussion in meeting room With their consent and participation, we reviewed pt decline, prognosis and options for care is clear she does not want placement, STEPH or aggressive interventions. We reviewed and she accepts permissive aspiration She wants to try bringing him home with hospice, caring for him and keeping him home with her are very important priorities We agreed to initiate comfort care with focus on symptom mgt and QOL We will allow permissive aspiration - she does not want to withold the comfort/pleasure to taking PO at this stage of his life and we accept his likelihood of aspirating/risk of resp failure from same. I reviewed with them the concerns CM expressed re ambivalence of dc plan and replied she had momentary doubts but after more time to think about the issues and what matters most for and to pt at this junction, she wants to have him with her at home and would like help from hospice. We discussed the goals of hospice as a patient service and the goals of care; we discussed EOL trajectories and transitions stefanie the emotional impact of realizing mortality as a concrete reality from prior abstract considerations. Pt was reassured that no matter where they are along this trajectory, they are not alone - their medical team will remain by their side through their journey. Discussed the pros/cons of accepting help when especially weakened and distressed by pain-which would also help provide relief/decrease caregiver burden/strain. I provided education about the hospice benefit: an interdisciplinary program offered by nurses, nurses aides, social workers, chaplains and a medical record transcriber for patients with a terminal condition and a life expectancy of less than 6 months. This is covered by Medicare at 100%/no out of pocket expense to patient and all meds/supplies needed by patient for the reason they are on hospice are paid for/covered by hospice. The goal is assure quality of life of the patient in their home setting (home, fdc, inpatient hospice setting) by providing symptoms management, psychosocial and spiritual support. However, they cannot offer 24 hours care and if the family is unable to provide that care, they will have to consider personal care with out of pocket cost vs. fdc placement. We discussed the goals of hospice as a patient service and the goals of care; we discussed EOL trajectories and transitions stefanie the emotional impact of realizing mortality as a concrete reality from prior abstract considerations. Pt was reassured that no matter where they are along this trajectory, they are not alone - their medical team will remain by their side through their journey. Discussed the pros/cons of accepting help when especially weakened and distressed by pain-which would also help provide relief/decrease caregiver burden/strain. I specifically advised that should his needs require more care than can be done at home THEN THE HOSPICE IS RESPONSIBLE FOR FINDING HIM RESPITE PLACEMENT IN LOCAL SNF WHERE THE HOSPICE WILL CONTINUE PROVIDING HIS CARE ALONG WITH SNF TEAMS TO HELP BRING HIS SYMPTOMS UNDER BETTER CONTROL. (4) Confusion: Plan: seems to be returning to his baseline (5) Episode of shaking: (6) Palliative care by specialist: (7) Fall as cause of accidental injury at home as place of occurrence: (8) Seizure-like activity: Plan * Extensive psychosocial support and counseling provided today * Pt is now comfort care, orders written. Stop monitoring, labs etc. * Allow permissive aspiration - advance diet as tolerated - please follow expert guidance from [facility] recommendations and protocol * Home with hospice * CM and primary team update * Allow permissive aspiration for comfort * Orders written. Thank you for allowing us to participate in the ongoing care of this patient. Please don't hesitate to call or page with any additional concerns. Dr. Anayeli Andrew DNP Director, Palliative Care Admission and Anticipated Discharge Date Admission Date: September 28, 2023 Subjective Bill is resting in bed, family at bedside: , dtr/son in law and grand daughter brought in his shaver and he is clean shaven today, she notes with some humor this is the first time in decades she has seen him without his trademark mustache His agitation is better on zyprexa he is still confused he is still showing garbled speech. notes dtr seems better at interpreting what pt is saying perhaps bc has a hearing deficit that makes understanding him harder for her Review of Systems Review of Systems: Unobtainable due to cognitive status Physical Exam Physical Exam: bitemp wasting Constitutional: + ill appearing, + frail appearing and c ooperative Eyes: PERRL ENMT: Mouth: + muffled voice and + dry oral mucous membranes Neck: trachea midline Thyroid: normal thyroid Respiratory: normal respiratory effort Auscultation: lungs clear to auscultation bilaterally and + diminished lung sounds Cardiovascular: RRR, no murmur, no edema Gastrointestinal (Abdomen): Inspection/Auscultation: + scaphoid Musculoskeletal: generalized weakness Skin: + turgor decreased, + skin atrophy, + ec chymosis and + excoriations Neurologic: + confused Results & Data Vital Signs (Past 12 Hours) Vital Signs Temp Pulse Pulse Pulse Resp BP BP 10/09/23 02:17 36.5 C 74 16 157/73 H 10/08/23 23:00 86 10/08/23 23:00 37.3 C 87 20 152/84 H 10/08/23 21:12 88 154/84 H 10/08/23 20:30 10/08/23 19:00 36.9 C 82 18 10/08/23 18:52 82 162/78 H 10/08/23 18:37 100 H 10/08/23 17:20 36.9 C 95 H 21 185/94 H 10/08/23 15:23 84 BP Pulse Ox O2 Del Method 10/09/23 02:17 94 Room Air 10/08/23 23:00 10/08/23 23:00 92 Room Air 10/08/23 21:12 10/08/23 20:30 Room Air 10/08/23 19:00 167/82 H 93 Room Air 10/08/23 18:52 10/08/23 18:37 10/08/23 17:20 91 Room Air 10/08/23 15:23 Laboratory Results data reviewed Diagnostic Findings data reviewed PG Care Time/CCT Total # of Minutes Spent Total Time Spent: 110 Total Time Spent with Patient: Total time spent is greater than 50% in coordination of care (as documented) at patient's floor/unit and/or counseling patient: I spent 110 minutes overall addressing this case: 10 min in medical data review/discussion with referring provider(s) and/or preparation for the visit 25 min in direct interaction with the patient/exam 45 min in Advance Care Planning/Goals of Care discussions as detailed above in note (must be >16min) 15 min in subsequent review and synthesis of assessment and plan 15 min communicating with other providers regarding the patient's case: nursing, primary team Advanced Care Planning 20734 Advanced Care Planning 30 Min 24022 Advanced Care Planning Additional 30 Min [place] [address] SUB INP/OBS CARE 3/50MIN Patient Type Established History Comprehensive Exam Comprehensive Medical Decision Making High Complexity Diagnoses Dementia with behavioral disturbance F03.918 Generalized weakness R53.1 Discussion about advance care planning held with family member Z71.0 Confusion R41.0 Episode of shaking R25.1 Palliative care by specialist Z51.5 Fall as cause of accidental injury in home as place of occurrence, subsequent encounter W19.XXXD; Y92.009 Encounter type: subsequent encounter Seizure-like activity R56.9 Additional Codes Advanced Care Planning - 30314 Advanced Care Planning 30 Min: 61973 Advanced Care Planning 30 Min ([id number]) Advanced Care Planning - 20269 Advanced Care Planning Additional 30 Min: 68641 Advanced Care Planning Additional 30 Min ([id number]) (7) Fall as cause of accidental injury at home as place of occurrence Encounter type: subsequent encounter Qualified Code(s): W19.XXXD - Unspecified fall, subsequent encounter; Y92.009 - Unspecified place in unspecified non-institutional (private) residence as the place of occurrence of the external cause
[2023-10-09] MEDS ORDERED: MoRPHine SULFATE 2 MG/ML CARP IV PRN (03:24)
[2023-10-09] MEDS ORDERED: LORazepam 1 MG in SYRINGE 0.5 ML IV PRN (03:24)
[2023-10-09] MEDS ORDERED: GLYCOPYRROLATE 0.2 MG/ML VIAL IV PRN (03:24)
[2023-10-09] MEDS ORDERED: MoRPHine SULFATE 10 MG/0.5 ML UDP PO PRN ×2 (03:24→03:26)
[2023-10-09] MEDS: AMPICILLIN SOD/SULBACTAM SOD 3,000 MG in SODIUM CHLOR 0.9% MINI-B 100 ML IV SCH ×2 (04:18→10:38)
[2023-10-09] MEDS: amLODIPine BESYLATE 5 MG TAB PO SCH (07:59)
[2023-10-09] MEDS: BENZONATATE 100 MG CAPSULE PO SCH (07:59)
[2023-10-09] MEDS: guaiFENesin 600 MG TABCR PO SCH (08:00)
[2023-10-09] MEDS: OLANZapine ZYDIS 5 MG ORALLY DIS. TAB PO SCH (08:02)
[2023-10-09] MEDS: TAMSULOSIN HCL 0.4 MG CAP PO SCH (08:03)
[2023-10-09] MEDS: FINASTERIDE 5 MG TAB PO SCH (08:04)
[2023-10-09] MEDS ORDERED: NYSTATIN SUSP 500,000 U/5 ML UDC PO SCH (09:00)
--- NOTE | 2023-10-09 10:33 | Discharge Summary ---
Date of Service October 09, 2023 Admission HPI Per Admitting Provider This is an 83-year-old male with PMHx of DM type II, HTN, history of CVA with R sided deficits previously, dementia, BPH, osteoporosis, AAA measuring 4.1 cm, and gout who presents to the hospital with acute fall. He is present with his at bedside. Pt reports feeling he has fallen multiple times in the past few days. He fell last Wednesday and tripped on something outside while walking the dog, fell forward and landed on his face - much bruising on his face is present at this point. Denies acute pain, nasal congestion or issues with congestion. Last night he got up out of bed, and fell on the floor. Pt has significant difficulty with multiple falls and has become more dependent on within past few months. at bedside supports the history, she occasionally has to think about questions, and makes comments that do not make sense at times. mentions she has had to help pick him up but feels she cannot due it due to his extreme weakness. ER physician was told that pt fell last night, and that the wouldn't get him up, therefore layed on the floor together until this morning. He has pain in the left buttock this morning. He admits to having some coughing with foods occasionally. Denies fever, chills, sweats, cough. Occasionally has some constipation. Admission Exam Per Admitting Provider General: awake, alert, no apparent distress, thin , white , male Head: Normocephalic, + ecchymosis under orbits bilaterally, nasal bridge is ecchymotic ENT: PERRL, EOMI, no pharyngeal exudate, mucous membranes moist Chest: Diffusely diminished due to effort, on room air, no adventitious breath sounds Cardiac: Regular rate and rhythm, no murmur, no JVD, normal peripheral pulses, good capillary refill Abdominal: NABS x 4 quadrants, soft, nondistended, nontender to palpation, no rebound or guarding Extremities: Normal inspection, no peripheral edema or erythema, calfs nontender to palpation Psych: Normal mood and affect Neuro: AAO x 3, strength rated 5/5 on R leg, 4/5 on the left. no motor deficits, speech is clear, no peripheral sensory deficits Principal Diagnosis Dementia Dysphagia Aspiration pna Frequent falls Discharge Exam General: awake, thin M in NAD, on RA Head: Normocephalic, + ecchymosis under orbits bilaterally ENT: PERRL, EOMI Resp: on RA, + rhonchi Cardiac: Regular rate and rhythm, no murmur, no JVD Abdominal: NABS x 4 quadrants, soft, nondistended, nontender to palpation Extremities: Normal inspection, no peripheral edema or erythema Neuro: Awake, alert, able to answer some simple questions appropriately, moves extremities Discharge Data Allergies Allergy/AdvReac Type Severity Reaction Status Date / Time oxycodone AdvReac Unknown Gastrointestinal Verified 09/28/23 13:05 Upset Consultations 09/28/23 11:17 ED Decision to Admit Stat 09/28/23 13:01 Consult General Surgery Routine 09/28/23 14:50 Consult Neurology Routine 09/30/23 06:49 Consult Pulmonology Routine 09/30/23 16:37 Consult Palliative Care Routine Ordered Studies 09/28/23 09:35 CT cervical spine wo con Stat CT face [CT facial bones wo con] Stat CT head/brain wo con Stat IMPRESSION: 1. There is no hemorrhage, mass effect, or evidence of acute territorial ischemia by CT criteria. 2. Bilateral nasal bone fractures. FINDINGS: The visualized cervical spine, skull base, pterygoid plates, lamina papyracea, orbital floors, mandible, and zygomatic arches are intact. Slightly displaced fractures of involving the bilateral nasal bones/nasal processes of the maxilla. Leftward deviation of the nasal septum which appears intact. Mild mucosal thickening within the right maxillary sinus. Prior bilateral lens replacement. Otherwise, the globes and retrobulbar fat are intact. Mild nasal soft tissue swelling. IMPRESSION: Slightly displaced fractures of involving the bilateral nasal bones/nasal processes of the maxilla. FINDINGS: No fractures. No subluxation. Prevertebral soft tissues and the C1-C2 interval are intact. No pneumothorax. A partially visualized 3 mm nodule within the left lung apex. IMPRESSION: No fractures within the cervical spine. 09/28/23 09:36 CT abd pelvis wo con Stat CT chest diagnostic wo con Stat IMPRESSION: 1. There is no acute posttraumatic intrathoracic abnormality. 2. Cardiomegaly and emphysema. 3. There are minimal patchy airspace opacities at the right lung base. Coronal clinically for evidence of a mild infectious/inflammatory pneumonitis or possibly aspiration. 4. There is mild aneurysmal dilatation of the ascending thoracic aorta which measures up to 4.1 cm in diameter. 5. There is no pleural effusion or pneumothorax. 6. There is no evidence of solid organ injury in the abdomen or pelvis on this unenhanced examination. 7. Intramuscular hemorrhage within the left gluteus gosia. 8. Bilateral nephrolithiasis. 9. Rectosigmoid fecal retention and moderate constipation. 10. Additional findings as above. 09/28/23 14:06 MRI Brain [MR brain wo con] Stat FINDINGS: No abnormal restricted diffusion is identified. Foci of T2 and FLAIR hyperintensity are noted in the paraventricular areas consistent with chronic small vessel ischemic disease. Ex vacuo ventriculomegaly and sulcal enlargement is noted compatible with diffuse volume loss. Foci of encephalomalacia are seen. There is no mass effect or midline shift. There is no evidence of acute intrapa renchymal hemorrhage. No extra axial fluid collections are seen. The corpus callosum, pituitary gland, and cerebellar tonsils appear grossly unremarkable. Flow voids of the major intracranial arterial vessels are identified. The imaged portions of the paranasal sinuses, mastoid air cells, and orbits are unremarkable. IMPRESSION: No acute abnormality and in particular no evidence of acute infarct. 09/28/23 14:24 CT head/brain wo con Stat Impression: No acute intracranial hemorrhage, no evidence of acute territorial infarction or other acute intracranial disease process. 09/30/23 08:31 CT head/brain wo con Urgent Findings: The paranasal sinuses and mastoid air cells are clear. The calvarium and skull base are intact. There is no mass, hematoma, midline shift, acute infarct. White matter hypodensity is nonspecific but suggestive of microvascular ischemic change. The ventricles and sulci demonstrate mild age-related involutional changes. Old punctate lacunar infarction within the right thalamus, unchanged. Prior bilateral lens replacement. Punctate calcifications again noted within the cerebellar hemispheres. Advanced calcified plaque within the vascular structures of the skull base. There is an old punctate lacunar infarct within the left hemipons. Impression: No significant change compared to the prior study. No acute intracranial abnormality. 10/04/23 13:00 FL video swallow Routine IMPRESSION: Aspiration was seen with multiple thicknesses of barium as above. Please see the speech pathology report for further details. Hospital Course (1) RLL pneumonia: (2) Weakness: (3) Falls: - CT chest reviewed concerning for RLL pna, also with concern for aspiration pna with coughing with food, will ask for speech therapy consultation - Unasyn IV initially -> changed to zosyn, vanco after had acute change in status - No WBC, afebrile - MRI of the brain - No acute abnormality and in particular no evidence of acute infarct. - received IVF - Not on anticoagulation except aspirin which is on hold now Acute encephalopathy, ? new onset seizure Hx of dementia, prior CVA received ativan and was loaded w/ keppra shortly after admission Neurology consulted and PO keprra recommended EEG ordered- negat. for seizure Repeat CT head negative -MRI brain - No acute abnormality and in particular no evidence of acute infarct. Pt was code purple overnight - per night provider - patient became unresponsive. Earlier he had some minimal responses. vitals stable. Just staring and not responding to verbal stimuli. Seems moving his extremities. Had two ct head and mri scans earlier and were unremarkable.He had iv ativan and loaded with Keppra earlier in morning time. Did abg and was ok. Currently not able to take po. Changed Keppra to iv 1gm bid . Notified am providers. 09/29 I notified neurology this AM about the code purple event overnight and evaluated the pt / RN at the bedside. Pt is lying in bed, in no acute distress, his right arm is in the air. When I questioned him about that, he says that he wants to get up. He moves extremities, follows simple commands. He is able to say "no" when I ask him if he has any pain or shortness of breath or chest pain. He stares into the air. Neurology recommend to obtain EEG, at this point not convinced about seizure, perhaps delirium, recommend to lower Keppra to 500 twice daily. Currently only giving IV medications, not sure if patient is able to take p.o. at this time. 09/30 Overnight pt agitated and received IM zyprexa. Keppra dose was decreased yesterday after discussing w/ neurology to reduce sedation. However early AM pt had likely aspiration event (pt is NPO), required nebs , solumedrol, racemic epi, concern for stridor. ICU was also contacted overnight but pt was not accepted to ICU. on 8L oxymask but on my evaluation this AM pt on 2L. CXR and ABG also obtained overnight. CXR negative. Pt barely responsive, concern for being able to manage his secretions. Discussed w/ RN at the bedside. ICU/pulm. Dr. Carroll contacted as well as neurology. As EEG was negative for seizure agreed to stop keppra to help reduce pt's sedation. Repeated CT head (negative) ABG and CXR (negative). Code status was changed to DNR/DNI. Palliative medicine consulted 10/01 Keppra was stopped and pt's sedation has much improved. However he is quite restless laying in bed and constantly fidgeting. He is able to answer simple questions appropriately. He also reported to RN " feeling of falling". Discussed w/ neurology and palliative medicine as well as with RN. Started on zyprexa by palliative medicine. Discussed w/ neurology - do not recommend restarting keppra - do not believe this is seizure , likely post-concussive syndrome, delirium in setting of dementia. Patient's hallucinations and restlessness improved with scheduled Zyprexa, as needed Ativan However patient remained mostly confused He has failed bedside and video swallow study, both showing aspiration Meeting held with palliative care service and family Decision was made to transition the patient to hospice care, plan to DC pt home w/ home hospice Continue supportive care 10/07 Pt spiked fever, most likely from aspirating. Discussed w/ over the phone - ok to re-start short term abx (4) Intramuscular hematoma: - CT abd/pelvis showing L buttocks hemorrhage, but there is no size noted. Consulted general surgery - Apply cold compresses to Left buttock 20min on 20min off - Pt is not on blood thinners - Trend H&H with - Hold aspirin (5) DM type 2 (diabetes mellitus, type 2): - Glucose is elevated above 400 on admission - ISS with Accu-Cheks ACHS - Holding metformin and Forteo inj currently (6) History of CVA (cerebrovascular accident): - Hx of 3 CVA in the past, pt is on Namenda at home - May have residual strength discrepancy in the R arm compared to the Left. Pt is left handed - Monitor - Last MRI in Apr 2021 for CVA (7) HTN (hypertension): - Cont on lisinopril, amlodipine, asa, atorvastatin if able to take PO Currently on IV hydralazine 5 mg IV every 6 hours prn (8) Dementia: - Continue Nemenda - Chronic, lives with , concern that there may also be some memory issues from her per HPI. (9) BPH (benign prostatic hyperplasia): - Cont flomax - UA - negative (10) Hyperlipidemia: - Cont atorvastatin (11) Elevated troponin I level: - Monitor Trop Q6H, trop initially 38, - No chest pain, unlikely ACS - Echo obtained -LV systolic function is normal. EF 60 to 65%. LV wall motion is abnormal. Aortic valve is moderately calcified. Aortic valve stenosis is present. There is a small loculated anterior and right lateral pericardial effusion. Tamponade is absent. Compared to images obtained at the time of the previous study dated January 29, 2023, there has been a subtle interval increase in the size of the pericardial effusion. Dispo: plan to DC home w/ hospice Total Time Total Time Spent Total Time Spent (In Minutes): 40 Discharge Plan Discharge Items Patient Disposition: Hospice - Home Reason For Visit: FREQUENT FALLS, RLL PNA Discharge Diagnosis: Dementia Dysphagia Aspiration pna Frequent falls Activity: Per Instructions section Non-emergency contact: Primary Care Provider Call non-emergency contact if: you have any medication questions and your symptoms worsen Follow-up/Referrals: Kem Deng, [Primary Care Provider] - Diet: Carb Consistent or DM2 Diet Texture: Pureed (blended smooth) Addtl Attending Provider Instructions: You were started here on medication called zyprexa- take it twice a day as prescribed. You will be seen and evaluated by hospice - have them review your medication list, they can further adjust your medications as needed. Pending Studies at Discharge: No Stand-Alone Forms: [facility] Medications and DC Order Prescriptions: New olanzapine 5 mg Tablet,Disintegrating 2.5 mg PO BID 10 Days Qty: 10 0RF nystatin 100,000 unit/mL Suspension 5 ml PO QID Qty: 60 0RF guaifenesin [Mucinex] 600 mg Tablet Extended Release 12hr 1,200 mg PO Q12 Qty: 7 0RF amoxicillin-pot clavulanate 875-125 mg tablet 1 tab PO BID 5 Days Qty: 10 0RF Continued finasteride 5 mg tablet 5 mg PO DAILY Qty: 90 3RF atorvastatin 20 mg tablet 20 mg PO HS amlodipine 2.5 mg tablet 2.5 mg PO DAILY tamsulosin 0.4 mg capsule 0.4 mg PO QAM lisinopril 10 mg tablet 10 mg PO BID ipratropium bromide 42 mcg (0.06 %) spray,non-aerosol 2 spray INTRANASAL BID PRN (Reason: Congestion) metformin 500 mg tablet extended release 24 hr 1,000 mg PO QAM Discontinued memantine 10 mg tablet 10 mg PO DAILY Qty: 90 3RF calcium carbonate [Calcium 600] 600 mg calcium (1,500 mg) Tablet 600 mg PO QAM aspirin 81 mg Tablet,Chewable 81 mg PO QAM cholecalciferol (vitamin D3) 125 mcg (5,000 unit) Capsule 125 mcg PO QAM teriparatide [Forteo] 20 mcg/dose (600mcg/2.4mL) Pen Injector 20 mcg SUBCUT DAILY Hold Instructions: Resume on 02/08/23. Till you see your PCP PreserVision AREDS 2 Plus MV 200 mcg-15 mcg- 5 mg-1 mg Capsule 2 cap PO DAILY magnesium oxide 400 mg magnesium Tablet 400 mg PO QAM Macular Health Formula 10 mg PO QAM phenazopyridine 200 mg tablet 0 mg PO TID PRN (Reason: pain) Rx Instructions: couldnt verify OTC with spouse 09/28/23 Discharge Orders: Discharge Order (Routine); Ordered 10/09/23 Ordered By: Scott Pat Admission Data Admit Date/Time: 09/28/23 11:31 Attending Provider: Scott Pat Admit Provider: Amy Roblero Primary Care Provider: Kem Deng Other Providers: Amy Roblero; Rolan Green; Allison Graham Seth D.; Nicolasa Herron Gregory; Apolinar Garcia; Raegan Wilks; Juana Bhatia; Bebeto Swan; Randal Gregorio; Donya Leung; Anayeli Andrew; Ozzie Campoverde Other Interventions: Discharge Summary Assessment (RN) Last Done: 10/09/23 11:49
== END 2023-10-09 12:43 | disposition hospice, home (50) | DRG 177 ==
LOC: ED 09:24 → EDINP 11:31 → SUATTDRO 11:31 → 4W 09-29 14:34